=== PATIENT | female | born 1975 | race Caucasian/White ===

== ENCOUNTER 2020-07-27 09:06 | Outpatient (REF) | payer OTHER, SELFPAY ==
--- NOTE | 2020-07-27 09:17 | XR_ITS ---
EXAMINATION: XR FOOT, RIGHT CLINICAL INFORMATION: Foot pain. COMPARISON: None. TECHNIQUE: AP, lateral, and oblique views of the right foot. FINDINGS: No evidence of acute fracture or dislocation. Alignment is anatomic. No significant arthritic changes seen. Joint spaces are maintained. Tarsometatarsal alignment is within normal limits. Moderate plantar calcaneal spur. IMPRESSION: No evidence of significant osseous abnormality.
--- NOTE | 2020-07-27 09:18 | XR_ITS ---
EXAMINATION: X-RAY LEFT SHOULDER X-RAY LEFT ELBOW X-RAY LEFT WRIST CLINICAL INFORMATION: Pain. COMPARISON: None. TECHNIQUE: Shoulder 4 views. Elbow 3 views. Wrist 4 views. FINDINGS: Left Shoulder: No evidence of fracture or malalignment. Joint spaces are maintained. No abnormal soft tissue calcification. Left Elbow: Normal alignment. Joint spaces are maintained. No acute fracture or dislocation is seen. No significant effusion. No abnormal soft tissue calcification. Left Wrist: No acute fracture or dislocation is seen. Carpal row alignment is maintained. Scapholunate interval is maintained. No evidence of significant arthropathy. No abnormal soft tissue calcification. IMPRESSION: No evidence of acute osseous abnormality.
== END 2020-07-27 09:07 | disposition home or self-care (01) ==
LOC: HO.XRAY 09:06
PROVIDERS: PCP Internal Medicine; Visit Provider Internal Medicine
DX: M79.671 Pain in right foot (principal); M25.512 Pain in left shoulder; M25.532 Pain in left wrist; M25.522 Pain in left elbow
CPT/HCPCS: 73030; 73070; 73100; 73620

== ENCOUNTER 2020-09-03 10:12 | Outpatient (REF) | payer OTHER, SELFPAY | END 2020-09-03 10:13 | disposition home or self-care (01) | LOC: HO.LAB 10:12 | PROVIDERS: PCP Internal Medicine; Visit Provider Internal Medicine | DX: Z20.828 Contact with and (suspected) exposure to other viral communicable diseases (principal) | CPT/HCPCS: C9803; U0003 ==

== ENCOUNTER 2020-12-06 10:57 | Outpatient (REF) | payer OTHER, SELFPAY ==
--- NOTE | ~2020-12-06 | MM_ITS ---
EXAMINATION: MM DIAGNOSTIC DIGITAL BREAST TOMOSYNTHESIS, RIGHT CLINICAL INFORMATION: Short interval follow-up right breast for question of parenchymal asymmetry upper breast on MLO view. No known family history breast cancer. TC score 8%. COMPARISON: Mammography: 06/08/2020, 05/19/2020 (BI-RADS 0), 01/10/2019, 11/28/2017 TECHNIQUE: Digital breast tomosynthesis is performed in both the craniocaudal and mediolateral oblique views along with computer-aided detection (CAD). Synthesized 2D images are generated from the tomosynthesis. Additional right spot MLO view is obtained. FINDINGS: The breasts are heterogeneously dense, which may obscure small masses (ACR BI-RADS breast composition Category c). There is no interval mass or developing density in the area of interest. The additional spot view is unremarkable. Right breast will be reassessed again at time of annual bilateral mammography, due in 6 months. The remainder of the right breast is unremarkable. No abnormal calcifications no significant changes. Results are provided to the patient at time of visit by the technologist. MM/MM tomosynthesis diagnostic RT IMPRESSION: No mammographic evidence of malignancy. No developing density. ASSESSMENT: BI-RADS 3: Probably Benign RECOMMENDATION: Diagnostic mammography at time of bilateral annual mammography, due in 6 months. This patient's information was entered into a reminder system with a target due date for their next mammogram.
== END 2020-12-06 10:58 | disposition home or self-care (01) ==
LOC: HO.MAMMO 10:57
PROVIDERS: Visit Provider Internal Medicine
DX: N64.89 Other specified disorders of breast (principal)
CPT/HCPCS: 77061; 77065

== ENCOUNTER 2021-02-24 09:08 | Outpatient (REF) | payer OTHER, SELFPAY ==
[2021-02-24 10:23] LABS: Alanine Aminotransferase 18 U/L (0-31); Albumin Level 4.5 g/dL (3.5-5.0); Alkaline Phosphatase 81 U/L (39-117); Anion Gap 11 (12-20); Aspartate Amino Transferase 15 U/L (5-31); Bilirubin Total 0.3 mg/dL (0.0-1.0); Blood Urea Nitrogen 11 mg/dL (9-16); Calcium 9.2 mg/dL (8.4-10.2); Carbon Dioxide 29 mmol/L (22-29); Chloride 104 mmol/L (96-108); Cholesterol 217 mg/dL; Estimated Glomerular Filt Rate > 60; Glucose Fasting 109 mg/dL (60-99); HDL Cholesterol 44 mg/dL; LDL Cholesterol Calculated 135 mg/dl; Potassium 4.3 mmol/L (3.3-5.1); Sodium 140 mmol/L (135-145); Total Protein 7.3 g/dL (6.5-8.0); Triglycerides 193 mg/dL
== END 2021-02-24 09:09 | disposition home or self-care (01) ==
LOC: HO.LAB 09:08
PROVIDERS: PCP Internal Medicine; Visit Provider Internal Medicine
DX: R73.02 Impaired glucose tolerance (oral) (principal); E78.5 Hyperlipidemia, unspecified
CPT/HCPCS: 36415; 80053; 80061

== ENCOUNTER 2021-03-01 19:37 | Emergency (ER) | payer OTHER, SELFPAY ==
[2021-03-01 20:25] VITALS: BP 159/68; PULSE 83; RESP 18; TEMP 37.1; O2SAT 97; BMI 36.6
[2021-03-01 21:00] LABS: MANUAL DIFF FLAG NO
[2021-03-01 21:01] LABS: Basophils Percent Auto 0.5 % (0-2); Eosinophils Absolute Auto 0.2 X10*3/uL (0.0-0.4); Eosinophils Percent Auto 2.6 % (0-4); Hematocrit 35.7 % (37-47); Hemoglobin 11.8 g/dl (12.0-16.0); Imm Gran Abs Auto 0.02 X10*3/uL (0.00-0.03); Imm Gran Pct Auto 0.2 % (0.0-0.4); Lymphocytes Absolute Auto 3.1 X10*3/uL (1.2-4.9); Lymphocytes Percent Auto 35.3 % (20-40); Mean Corpuscular HGB Conc 33.1 g/dl (31.0-35.0); Mean Corpuscular Hemoglobin 29.6 pg (27.0-33.0); Mean Corpuscular Volume 89.7 fL (80-98); Mean Platelet Volume 8.7 fL (9.4-12.3); Monocytes Absolute Auto 0.6 X10*3/uL (0.1-1.2); Monocytes Percent Auto 6.8 % (2-11); Neutrophils Absolute Auto 4.7 X10*3/uL (2.0-8.3); Neutrophils Percent Auto 54.6 % (45-73); Platelet Count 301 X10*3/uL (160-400); Red Blood Count 3.98 X10*6/uL (4.20-5.50); Red Cell Distribution Width 13.4 % (11.0-16.0); White Blood Count 8.7 X10*3/uL (4.8-10.8)
[2021-03-01 21:23] LABS: Anion Gap 13 (12-20); Blood Urea Nitrogen 11 mg/dL (9-16); Calcium 9.4 mg/dL (8.4-10.2); Carbon Dioxide 28 mmol/L (22-29); Chloride 104 mmol/L (96-108); Creatinine Clr Calc Pharmacy 80.1; Estimated Glomerular Filt Rate > 60; Glucose Random 98 mg/dL (60-115); Potassium 3.6 mmol/L (3.3-5.1); Sodium 141 mmol/L (135-145)
--- NOTE | 2021-03-01 23:40 | ED_ITS ---
HPI - Headache General Chief Complaint: Headache Stated Complaint: migraine Source: patient Mode of arrival: ambulatory Limitations: no limitations History of Present Illness HPI Narrative: 45-year-old female with past medical history of migraines, GERD, and allergic rhinitis presents with 3 days of a migraine. Has been taking Fioricet and tramadol with poor effect. She states to have photosensitivity, sensitivity to sound, and a throbbing global headache that feels similar to prior migraines in the past. She does have some nausea, and feels dizzy, which are both common symptoms for her while having migraines. She does not report any fevers, chills, loss of balance, inability to move her extremities equally, pain or pressure, palpitations, shortness of breath, shortness breath on exertion, abdominal pain, abdominal distention, dysuria, hematuria, vomiting, diarrhea, constipation, melena, hematochezia, and edema. MD elicited complaint: migraine Pertinent past history: migraines Onset (ago): day(s) Onset description: gradually Location: diffuse Severity: severe Pain scale (0-10): 9 Quality & Timing: throbbing, steady, constant and similar to previous headaches Exacerbating factors: movement of head/neck, light and noise Relieving factors: nothing Associated symptoms: photophobia, sensitivity to sound and lightheadedness Treatments prior to arrival: acetaminophen, ibuprofen, prescription analgesic and migraine medication Related Data Home Medications Medication Instructions Recorded Confirmed buspirone 10 mg tablet 10 mg PO TID 11/02/20 03/01/21 lorazepam 0.5 mg tablet 0.5 mg PO TID PRN 11/02/20 03/01/21 zolpidem 10 mg tablet 10 mg PO BEDTIME PRN 11/02/20 03/01/21 sumatriptan succinate 50 mg tablet 50 mg PO Q2-4H PRN 03/01/21 03/01/21 Previous Rx's Medication Instructions Recorded loratadine 10 mg tablet 10 mg PO DAILY PRN 30 Days #30 tab 07/22/20 ondansetron HCl 8 mg tablet 8 mg PO Q12H PRN 30 Days #60 tab 07/22/20 fluticasone propionate 50 1 spray INTRANASAL DAILY 30 Days 02/17/21 mcg/actuation nasal #16 g spray,suspension omeprazole 40 mg capsule,delayed 40 mg PO DAILY 90 Days #90 cap 03/01/21 release tramadol 50 mg tablet 50 mg PO DAILY PRN 30 Days #30 tab 03/01/21 Allergies Allergy/AdvReac Type Severity Reaction Status Date / Time duloxetine [From CYMBALTA] AdvReac Mild migraines,v Verified 03/01/21 20:25 omitting engality Allergy Intermediate local Uncoded 03/01/21 09:29 swelling Review of Systems Review of Systems: Constitutional: Positive migraine, No Weight loss, No Fever, No Chills, No Night Sweats, No Fatigue, No Malaise ENT/Mouth: Positive sound sensitivity, No Hearing loss, No Ear Pain, No Nasal Congestion, No Sinus Pain, No Hoarseness, No sore throat, No Rhinorrhea, No Swallowing Difficulty Eyes: Positive photophobia, No Eye Pain, No Swelling, No Redness, No Foreign Body, No Discharge, No Vision Changes Cardiovascular: No Chest Pain, No SOB, No Dyspnea on Exertion, No Orthopnea, No Edema, No Palpitations Respiratory: No Cough, No Sputum, No Wheezing, No Smoke Exposure, No Dyspnea Gastrointestinal: Positive Nausea, No Vomiting, No Diarrhea, No Constipation, No abdominal Pain, No Hematochezia, No Melena Genitourinary: no irregular bleeding, No Dysuria, No Urinary Frequency, No Hemat uria, No Urinary Incontinence, No Urgency, No Flank Pain, No Urinary Flow Changes, No Hesitancy Musculoskeletal: No joint pain, No Myalgias, No Joint Swelling Skin: No Skin Lesions, No rash Neuro: No Weakness, No Numbness, No Paresthesias, No Loss of Consciousness, No Dizziness, No Headache Psych: No Anxiety/Panic, No Depression, No SI/HI/AH/VH, No Social Issues Heme/Lymph: No Bruising, No Bleeding,No Lymphadenopathy Endocrine: No Polyuria, No Polydipsia, No Temperature Intolerance Yes all other systems are reviewed and are negative [facility] Past Medical History Attestation statement: The following information was validated with the patient. Source: old records reviewed Medical History Allergic rhinitis GERD (gastroesophageal reflux disease) Impaired glucose tolerance Migraines Nausea Surgical History History of section History of extraction of renal calculus History of tubal ligation Family History Family History Father CHF (congestive heart failure) Mother Hypertension Family/Other Substance abuse Social History Social History Alcohol intake: never Smoking Status: Former smoker Tobacco Type: Cigarette Advance Directives: No Advance Directives Information Provided: No Patient : No Physical Exam Vital Signs: Vital Signs: Last Vital Signs Temp 98.4 F 03/01/21 23:57 Pulse 90 03/01/21 23:57 Resp 17 03/01/21 23:57 BP 184/95 H 03/01/21 23:57 Pulse Ox 99 03/01/21 23:57 Body Mass Index 36.6 Appearance: Alert. Oriented X3. No acute distress. Head: Normal external exam. Normocephalic. Atraumatic. No Horne signs noted. No raccoon eyes noted Eyes: PERRLA. EOMI. Conjunctiva and sclera normal. Eyelids normal. ENT: TM's Normal. Pharynx normal. Uvula midline. Moist mucous membranes. No trismus noted. No drooling noted. No muffled voice noted. Neck: Normal inspection. Neck supple. No adenopathy. No meningeal signs. No neck mass noted. CVS: Normal heart rate and rhythm. Heart sound normal. No murmurs noted. Pulses equal to all extremities. Respiratory: No respiratory distress. Painless inspiration. Breath sounds normal. No wheezes/rales/rhonchi noted. Chest nontender. No accessory muscle usage noted or decreased air movement noted. Abdomen: Soft and nontender. Obese abdomen. Bowel sounds normal in all 4 quadrants. No distention noted. No organomegaly noted. No visible injury noted. Back: No CVA tenderness. Full range of motion noted. Skin: Skin warm and dry. Normal skin color. Normal skin turgor. No rashes/lesions/lacerations noted. Extremities: No lower extremity edema. Extremities exhibit normal range of motion. Extremities nontender. Neuro: cranial nerves 2-12 intact, no focal neural deficits, strength 5/5 to all extremities, No motor deficit. No sensory deficit. Course Course Course Narrative: 45-year-old female with past medical history of migraines presents with an intractable migraine. Has had symptoms for over 72 hours, and has taken tramadol, sumatriptan, Tylenol, ibuprofen, Excedrin migraine with no effect. Plan of care is to treat with Reglan, Benadryl, a L of IV fluids, Toradol, and sumatriptan 6 mg subQ. Patient has a steady even gait, negative Kernig's, cranial nerves 2-12 intact, no focal neural deficits. Approximately 1 hour and 30 minutes after medication treatment, patient states that her pain is a 4/10 and is manageable. She would like to be discharged home. She does have medications that she will continue to take and has an appointment with Neurology in 3 months from now. She does understand that if migraines persist she can call and request a sooner appointment. Patient verbalized understanding of and agrees to plan of care discharge home. MDM - Headache Differential Diagnosis Differential diagnosis: Likely migraine Medical Records Attestation: I reviewed the patient's medical records. Lab Data Attestation: I reviewed the patient's lab results. Result diagrams: 03/01/21 20:54 03/01/21 20:54 Labs: Lab Results 03/01/21 03/01/21 Range/Units 20:54 20:54 WBC 8.7 (4.8-10.8) X10*3/uL RBC 3.98 L (4.20-5.50) X10*6/uL Hgb 11.8 L (12.0-16.0) g/dl Hct 35.7 L (37-47) % MCV 89.7 (80-98) fL MCH 29.6 (27.0-33.0) pg MCHC 33.1 (31.0-35.0) g/dl RDW 13.4 (11.0-16.0) % Plt Count 301 (160-400) X10*3/uL MPV 8.7 L (9.4-12.3) fL Immature Gran % (Auto) 0.2 (0.0-0.4) % Neut % (Auto) 54.6 (45-73) % Lymph % (Auto) 35.3 (20-40) % [place] % (Auto) 6.8 (2-11) % Eos % (Auto) 2.6 (0-4) % Baso % (Auto) 0.5 (0-2) % Lymph # (Auto) 3.1 (1.2-4.9) X10*3/uL [place] # (Auto) 0.6 (0.1-1.2) X10*3/uL Eos # (Auto) 0.2 (0.0-0.4) X10*3/uL Baso # (Auto) 0.0 (0.0-0.2) X10*3/uL Abs Immat Gran (auto) 0.02 (0.00-0.03) X10*3/uL Absolute Neuts (auto) 4.7 (2.0-8.3) X10*3/uL Absolute Nucleated RBC 0.000 (0.0-0.012) X10*3/uL Nucleated RBC % (auto) 0.0 (0.0-0.2) /100WBC Sodium 141 (135-145) mmol/L Potassium 3.6 (3.3-5.1) mmol/L Chloride 104 (96-108) mmol/L Carbon Dioxide 28 (22-29) mmol/L Anion Gap 13 (12-20) BUN 11 (9-16) mg/dL Creatinine 0.99 (0.5-1.4) mg/dL Estim Creat Clear Calc 80.1 Estimated GFR > 60 Random Glucose 98 (60-115) mg/dL Calcium 9.4 (8.4-10.2) mg/dL Discharge Plan Discharge Clinical Impression: Migraines Qualifiers: Migraine type: unspecified Status migrainosus presence: with status migrainosus Intractability: intractable Qualified Code(s): G43.911 - Migraine, unspecified, intractable, with status migrainosus Hypertension Qualifiers: Hypertension type: unspecified Qualified Code(s): I10 - Essential (primary) hypertension Patient Disposition: Home, Self-Care Instructions: Migraine Headache (ED), Hypertension (ED) Additional Instructions: You were evaluated for migraine. Please continue to follow-up with neurology as scheduled. It was noted that your blood pressure is considerably elevated. Blood pressure was 159/68 on arrival, and 184/95 during her stay. Please follow-up with primary care physician for blood pressure management. Better managed blood pressure may help alleviate your headaches. Thank you for choosing this emergency department for evaluation. Please follow-up with primary care physician as needed. Return to the emergency department for any new, concerning, or worsening symptoms. Prescriptions: No Action ondansetron HCl 8 mg tablet 8 mg PO Q12H PRN (Reason: nausea and vomiting) 30 Days Qty: 60 RF: 3 loratadine 10 mg tablet 10 mg PO DAILY PRN (Reason: allergy symptoms) 30 Days Qty: 30 RF: 11 fluticasone propionate [Flonase Allergy Relief] 50 mcg/actuation spray,suspension 1 spray intranasal DAILY 30 Days Qty: 16 RF: 6 buspirone 10 mg tablet 10 mg PO TID RF: 0 lorazepam [Ativan] 0.5 mg tablet 0.5 mg PO TID PRNRF: 0 zolpidem 10 mg tablet 10 mg PO BEDTIME PRNRF: 0 sumatriptan succinate 50 mg tablet 50 mg PO Q2-4H PRNRF: 0 tramadol 50 mg tablet 50 mg PO DAILY PRN (Reason: pain) 30 Days Qty: 30 RF: 0 omeprazole 40 mg capsule,delayed release(DR/EC) 40 mg PO DAILY 90 Days Qty: 90 RF: 0
[2021-03-01 23:57] VITALS: BP 184/95; PULSE 90; RESP 17; TEMP 36.9; O2SAT 99
[2021-03-02] MEDS: 0.9 % Sodium Chloride 1,000 ML 999 ML IVCONT (00:09)
[2021-03-02] MEDS: Metoclopramide HCl 10 MG/2 ML VIAL IVPUSH (00:13)
[2021-03-02] MEDS: diphenhydrAMINE HCL 50 MG/ML VIAL 25 MG IVPUSH (00:14)
[2021-03-02] MEDS: Ketorolac Tromethamine 30 MG/ML VIAL IVPUSH (00:14)
== END 2021-03-02 01:45 | disposition home or self-care (01) ==
PROVIDERS: Emergency Provider Emergency Medicine; PCP Internal Medicine
DX: G43.911 Migraine, unspecified, intractable, with status migrainosus (principal); I10 Essential (primary) hypertension
CPT/HCPCS: 36415; 80048; 85025; 96361; 96372; 96374; 96375; 99284; J1200; J1885; J2765; J3030

== ENCOUNTER 2021-06-13 12:52 | Outpatient (REF) | payer OTHER, SELFPAY ==
--- NOTE | ~2021-06-13 | MM_ITS ---
EXAMINATION: MM DIAGNOSTIC DIGITAL BREAST TOMOSYNTHESIS, BILATERAL CLINICAL INFORMATION: Due for yearly. Also follow-up probable benign parenchymal asymmetry upper right breast on MLO view. No known family history breast cancer. The lifetime risk of breast cancer based on the Tyrer-Cuzick Model is 8%. COMPARISON: Mammography: 12/06/2020, 06/08/2020, 05/19/2020 (BI-RADS 0), 01/10/2019, 11/28/2017, 11/07/2016, 10/27/2015, 10/07/2014; targeted left breast ultrasound targeted right breast ultrasound 06/08/2020. TECHNIQUE: Digital breast tomosynthesis is performed in both the craniocaudal and mediolateral oblique views along with computer-aided detection (CAD). Synthesized 2D images are generated from the tomosynthesis. FINDINGS: The breasts are heterogeneously dense, which may obscure small masses (ACR BI-RADS breast composition Category c). There are no significant masses, abnormal calcifications, or other abnormalities. Parenchymal pattern is similar to prior studies. No developing density. No interval architectural changes. The axilla and skin contours are unremarkable. Results are provided to the patient at time of visit by the technologist. MM/MM tomosynthesis diagnostic BI IMPRESSION: No mammographic evidence of malignancy. No developing density or interval architectural changes. ASSESSMENT: BI-RADS 3: Probably Benign RECOMMENDATION: Diagnostic mammography at time of next annual exam, due in 12 months. This patient's information was entered into a reminder system with a target due date for their next mammogram.
== END 2021-06-13 12:53 | disposition home or self-care (01) ==
LOC: HO.MAMMO 12:52
PROVIDERS: PCP Internal Medicine; Visit Provider Internal Medicine
DX: N64.89 Other specified disorders of breast (principal)
CPT/HCPCS: 77062; 77063; 77066; 77067

== ENCOUNTER → 2021-08-09 09:02 | Outpatient (BNVA) | payer OTHER, SELFPAY | PROVIDERS: PCP Internal Medicine | DX: N20.0 Calculus of kidney (principal); N32.81 Overactive bladder; E66.9 Obesity, unspecified; Z68.35 Body mass index [BMI] 35.0-35.9, adult; Z87.891 Personal history of nicotine dependence; Z88.6 Allergy status to analgesic agent; Z88.8 Allergy status to other drugs, medicaments and biological substances | CPT/HCPCS: 99212 ==

== ENCOUNTER 2021-09-19 09:49 | Outpatient (REF) | payer OTHER, SELFPAY ==
--- NOTE | ~2021-09-19 | US_ITS ---
EXAMINATION: US RETROPERITONEAL LIMITED (RENAL ONLY) CLINICAL INFORMATION: Calculus of kidney. COMPARISON: Renal ultrasound 08/21/2019 and 07/29/2018. X-ray abdomen KUB 07/29/2018 and 07/16/2017. CT abdomen and pelvis 08/29/2015. TECHNIQUE: Real-time imaging of the kidneys. FINDINGS: RIGHT KIDNEY: 11.4 x 5.0 x 5.5 cm (SAG x AP x TRV). The kidney is normal in size, contour, and echogenicity. Renal cortical thickness is normal. No renal calculi or hydronephrosis. There is an anechoic cyst in the upper pole measuring 1.5 x 0.9 x 1.5 cm with posterior calcification. LEFT KIDNEY: 11.9 x 5.8 x 5.4 cm (SAG x AP x TRV). The kidney is normal in size, contour, and echogenicity. Renal cortical thickness is normal. No hydronephrosis. There is anechoic simple cyst midpole measuring 1.7 x 1.2 x 1.5 cm. There is echogenic stone in the midpole measuring 0.3 x 0.2 cm and lower pole measuring 0.2 x 0.1 cm. There are several echogenic foci with twinkle in the midpole. Question calcified vessels versus tiny stone. US/US renal BI IMPRESSION: Complex cyst, Bosniak type II cyst, upper pole of the right kidney. Simple cyst midpole of the left kidney. Non obstructive 2 echogenic calculi left kidney. No caliectasis or hydronephrosis. There are several echogenic foci likely vascular calcifications in left kidney. 2 small calculi were seen in the left kidney on previous ultrasound 08/21/2019
== END 2021-09-19 09:50 | disposition home or self-care (01) ==
LOC: HO.US 09:49
DX: N20.0 Calculus of kidney (principal)
CPT/HCPCS: 76775

== ENCOUNTER → 2021-10-05 08:39 | Outpatient (BNVA) | payer OTHER, SELFPAY | PROVIDERS: PCP Internal Medicine ==

== ENCOUNTER 2022-05-05 07:14 | Outpatient (REF) | payer OTHER, SELFPAY ==
--- NOTE | ~2022-05-05 | US_ITS ---
EXAMINATION: US RETROPERITONEAL LIMITED (RENAL ONLY) CLINICAL INFORMATION: Calculus of kidney. COMPARISON: Renal ultrasound 09/19/2021 and 08/21/2019. X-ray KUB 07/29/2018 and 07/16/2017. CT abdomen and pelvis 08/29/2015. TECHNIQUE: Real-time imaging of the kidneys. FINDINGS: RIGHT KIDNEY: 11.1 x 4.4 x 5.7 cm (SAG x AP x TRV). The kidney is normal in size, contour, and echogenicity. Renal cortical thickness is normal. No renal calculi or hydronephrosis. At the upper pole, a 1.2 x 0.7 x 1.1 cm mildly complex cyst is seen, with wall calcifications. On the most recent ultrasound examination dated 09/19/2021, this measured 1.5 x 0.9 x 1.5 cm. LEFT KIDNEY: 11.6 x 5.3 x 5.5 cm (SAG x AP x TRV). The kidney is normal in size, contour, and echogenicity. Renal cortical thickness is normal. No hydronephrosis. At the lower pole, a 4 mm nonobstructing calculus is seen. At the interpolar aspect, a 1.7 cm simple appearing cyst is seen, with increased through sound transmission. US/US renal BI IMPRESSION: 1. A stable to diminished mildly complex right renal cyst is seen, as detailed. If relative to the clinical management, this could be more fully evaluated with CT or MRI (renal mass protocol). 2. A simple left renal cyst is of incidental note. 3. A 4 mm left renal calculus is seen. No right renal calculus is seen. No hydronephrosis is noted bilaterally.
--- NOTE | 2022-05-05 07:44 | ECG_ITS ---
Test Reason : r00.2 Blood Pressure : / mmHG Vent. Rate : 072 BPM Atrial Rate : 072 BPM P-R Int : 168 ms QRS Dur : 084 ms QT Int : 424 ms P-R-T Axes : 047 027 035 degrees QTc Int : 464 ms Normal sinus rhythm Nonspecific T wave abnormality Prolonged QT Abnormal ECG When compared with ECG of 21-SEP-2018 11:20, No significant change was found Referred By: Micki Mendiola Electronically Signed By:Fernie Stinson
== END 2022-05-05 07:15 | disposition home or self-care (01) ==
LOC: HO.US 07:14
DX: N20.0 Calculus of kidney (principal); R00.2 Palpitations
CPT/HCPCS: 76775; 93005

== ENCOUNTER → 2022-06-20 08:48 | Outpatient (BNVA) | payer OTHER, SELFPAY | PROVIDERS: PCP Internal Medicine; Referring Provider Internal Medicine; Visit Provider Nurse Practitioner | DX: Z01.818 Encounter for other preprocedural examination (principal) | CPT/HCPCS: 99202; 99212 ==

== ENCOUNTER 2022-07-03 12:56 | Outpatient (REF) | payer OTHER, SELFPAY ==
--- NOTE | ~2022-07-03 | MM_ITS ---
EXAMINATION: MM DIAGNOSTIC DIGITAL BREAST TOMOSYNTHESIS, BILATERAL CLINICAL INFORMATION: Due for yearly. Also follow-up asymmetric density upper right breast initially described in 2020. The lifetime risk of breast cancer based on the Tyrer-Cuzick Model is 8%. COMPARISON: Mammography: 06/13/2021, 12/06/2019, 06/08/2020, 05/19/2020 (BI-RADS 0) 01/10/2019; targeted right breast ultrasound 06/08/2020. TECHNIQUE: Digital breast tomosynthesis is performed in both the craniocaudal and mediolateral oblique views along with computer-aided detection (CAD). Synthesized 2D images are generated from the tomosynthesis. FINDINGS: The breasts are heterogeneously dense, which may obscure small masses (ACR BI-RADS breast composition Category c). There are no significant masses, abnormal calcifications, or other abnormalities. There is no significant asymmetric density, developing density, architectural abnormality. Parenchymal pattern is similar to multiple prior exams. No abnormal calcifications. The axilla and skin contours are unremarkable. MM/MM tomosynthesis diagnostic BI IMPRESSION: No mammographic evidence of malignancy. ASSESSMENT: BI-RADS 2: Benign RECOMMENDATION: Routine annual mammography screening. This patient's information was entered into a reminder system with a target due date for their next mammogram.
== END 2022-07-03 12:57 | disposition home or self-care (01) ==
LOC: HO.MAMMO 12:56
PROVIDERS: PCP Internal Medicine; Visit Provider Internal Medicine
DX: N64.89 Other specified disorders of breast (principal)
CPT/HCPCS: 77062; 77066

== ENCOUNTER → 2022-07-05 09:14 | Outpatient (BNVA) | payer OTHER, SELFPAY | PROVIDERS: PCP Internal Medicine; Referring Provider Internal Medicine; Visit Provider Internal Medicine Cardiovascular Disease | DX: R07.89 Other chest pain (principal); R00.2 Palpitations | CPT/HCPCS: 93005; 99202 ==

== ENCOUNTER → 2022-07-27 08:32 | Outpatient (REF) | payer OTHER, SELFPAY | LOC: HO.SL 08:32 | PROVIDERS: Visit Provider Internal Medicine Cardiovascular Disease | DX: Z13.89 Encounter for screening for other disorder (principal) ==

== ENCOUNTER → 2022-08-10 08:30 | Outpatient (REF) | payer OTHER, SELFPAY ==
--- NOTE | ~2022-08-10 | NM_ITS ---
Exercise Myocardial perfusion study Indication: Chest pain to evaluate for myocardial ischemia Technique: The patient was brought in for an exercise perfusion study on 08/10/2022. Patient performed exercise as per Dustin protocol and was injected 35 mCi of sestamibi was given intravenously one target HR was achieved. Images were obtained using the SPECT gamma camera interlaced with the gating device. Images were obtained in supine position. Resting perfusion study was performed on 08/11/2022. Patient was administered 35 mCi of sestamibi intravenously at rest. Images were then obtained in supine position. Images obtained with and without CT attenuation. Total DLP 124 mGy-cm. Images were processed with the software and compared side to side in short axis, horizontal long axis and vertical long axis views. Findings: The stress perfusion study showed non attenuated as well as attenuated corrected images show normal uptake of radiotracer in all segments of LV myocardium. There is suggestion of left ventricle hypertrophy. The gated study shows normal LV systolic function with calculated LVEF of 72%. LV cavity is normal in size. The gated study shows normal systolic wall thickening and contraction of all segments. There is no transient ischemic dilation. Resting study shows no change in perfusion pattern compared to stress perfusion study. Gating at rest reveals normal systolic wall motion with ejection fraction at 64%. The findings are consistent with normal myocardial perfusion. NM/NM suzie perf SPECT rest & str Impression: 1. Normal myocardial perfusion 2. Gated LVEF is 64% 3. Transient ischemic dilatation not present Stress EKG is suggestive of ischemia
--- NOTE | 2022-08-10 08:34 | CA_ITS ---
Transthoracic Echocardiogram Patient (Last, First, Middle): Lucinda Srivastava, Gender: Female Date of : 1975 Age: 47 Procedure Date: 08/10/2022 Procedure Type: Transthoracic Echocardiogram Location: OP Height: 162.56 cm Weight: 98.88 kg BSA: 2.03 m2 Heart Rate: 74 bpm BP: 135 / 80 mmHg [employer] Equipment Repairer: JJ Ramirez MD: Gianni Villareal MD Dining Room Manager: Gianni Villareal MD Symptoms: R94.31 - Abnormal electrocardiogram [ECG] [EKG] Study Quality: Adequate ECG Rhythm: Sinus Conclusions: - 1. Normal LV systolic function 2. Normal cardiac valvular Doppler 3. Normal RV systolic pressure 4. No gross pericardial effusion Findings Left Ventricle Normal left ventricular size, thickness, and systolic function. The visually estimated ejection fraction is between 65-70%. Regional wall motion abnormalities can not be excluded due to suboptimal endocardial definition. Spectral Doppler is indicative of a normal filling pattern. Right Ventricle Normal right ventricular cavity size and systolic function. Atria Both atria are normal in size. Interatrial shunt cannot be excluded. Aortic Valve Normal aortic valve structure and function. There is no aortic valve stenosis. There is no aortic valve regurgitation. Mitral Valve Likely normal mitral valve structure and function. There is trace mitral valve regurgitation. There is no mitral valve stenosis. Pulmonic Valve The pulmonic valve was not well visualized. Tricuspid Valve Likely normal tricuspid valve structure and function. There is trace tricuspid valve regurgitation. The right ventricular systolic pressure is normal. The right ventricular systolic pressure is 19 mmHg. Normal right atrial pressure. There is no evidence of pulmonary hypertension. Great Vessels All visible segments of the aorta are normal in size. The pulmonary artery was not well visualized. Venous The inferior vena cava is normal in size and collapses greater than 50% with inspiration. Pericardium/Pleural There is no evidence of pericardial effusion. Prior Study Comparison No prior study available for comparison. Measurements 2D Linear Measurements IVSd: 1.36 0.6-0.9/0.6-1.0 cm LVIDd: 4.40 3.9-5.3/4.2-5.9 cm LVIDd Index: 2.17 2.4-3.2/2.2-3.1 cm/m2 LVIDs: 2.88 2.0-3.6 cm LVPWd: 1.12 0.7-1.1 cm LA Diam: 4.00 2.7-3.8/3.0-4.0 cm LAIDs Index: 1.97 1.5-2.3 cm/m2 LV Mass: 250.10 67-162/88-224 g LV Mass Index: 123.20 43-95/49-115 g/m2 LVOT Diam: 1.90 3.0+(-)1.3 cm 2D Systolic Function EF 4C: 60.40 >55% EF 2C: 74.00 >55% EF BiP: 67.80 >55% Mitral Valve MV Pk E: 0.86 MV PK A: 1.13 MV Decel Time: 223.00 E/A: 0.80 E'Lateral: 8.05 E'Medial: 6.74 E/E' Med: 12.70 E/E' Lat: 10.70 PHT: 65.00 MVA PHT: 3.38 Decel [place]: 3.85 Aortic Valve AoV Pk Steffen: 1.41 AoV Mn Steffen: 1.02 AoV VTI: 0.31 AoV Pk Grad: 8.00 Aov Mn Grad: 5.00 ARCHIE Cont.VTI: 2.18 LVOT LVOT Pk Steffen: 1.09 LVOT Mn Steffen: 0.76 LVOT VTI: 0.24 LVOT Pk Grad: 5.00 LVOT Mn Grad: 3.00 LVOT Diam: 1.90 LVOT Area: 2.84 Diastolic Function MV Pk E: 0.86 MV Pk A: 1.13 E/A: 0.80 E'Medial: 6.74 E/E' Med: 12.70 E' Laterial: 8.05 E/E' Lat: 10.70 Right Ventricle TAPSE (mm): 24.90 TVS' Steffen: 10.00 Tricuspid Valve TR Pk Steffen: 1.99 TR Pk Grad: 16.00 RA Press: 3.00 RVSP: 19.00 Great Vessels Aorta Sinus of Valsalva: 2.90 2.0-3.5 cm Ao Asc: 2.80 2.1-3.4 cm Pulmonary Valve PV Pk Steffen: 1.03 Peak PV Grad: 4.00 Updated in Other Vendor System with Status of Final Gianni Villareal MD electronically signed on 08/11/2022 11:21:58 AM with status of Final
--- NOTE | 2022-08-10 08:34 | HM_ITS ---
Conclusion: 1. Patient was monitored for total period of 3 days 2. Baseline was normal sinus rhythm with average heart of 87 beats per minute 3. No significant pauses or bradycardia noted 4. No significant arrhythmias noted 5. Patient reported to events, chest pain and rapid heart rate correlated with sinus rhythm MTDD
--- NOTE | 2022-08-10 08:34 | CA_ITS ---
Acquisition Time: 2022-08-10 09:22:42 Total Exercise Time: 00:06:01 Test Indications: ABN EKG Medications: SEE CHART Protocol: BRUNO Max HR: 153 BPM 88% of Pred: 172 BPM Max BP: 140/080 mmHG Max Work Load: 7.0 METS Exercise stress test with exercise 6 min 1 sec of Bruon protocol, achieving 88% MPHR, with moderate sob and fatigue with need to stop, with no chest discomfort, without arrythmia, with normotensive response to exercise, with EKG changes meeting criteria for ischemia: Hortizontal ST depressions inferiorly and borderline ST depression with T wave inversions V4-V6, with slow gradual improvement in recovery. Breathing improved quickly with rest. Nuclear images pending. Test reviewed with Dr Villareal. Referred By: Gianni Villareal Overread By: JESSICA SALAZAR
== END ==
LOC: HO.SL 08:30
PROVIDERS: PCP Internal Medicine; Visit Provider Internal Medicine Cardiovascular Disease
DX: R07.89 Other chest pain (principal); R00.2 Palpitations; R94.31 Abnormal electrocardiogram [ECG] [EKG]; I10 Essential (primary) hypertension
CPT/HCPCS: 78452; 93017; 93242; 93306; A9500

== ENCOUNTER 2022-08-14 15:22 | Outpatient (REF) | payer OTHER, SELFPAY ==
[2022-08-15 04:53] LABS: CT PCR NOT DETECTED (Not Detect.)
[2022-08-15 04:54] LABS: NG PCR NOT DETECTED (Not Detect.)
[2022-08-15 12:37] LABS: BV Int Neg Control Negative (Negative); BV Int Pos Control Positive (Positive)
[2022-08-17 12:52] LABS: HPV mRNA E6/E7 rflx Not Detected (Not Detected)
== END 2022-08-14 15:23 | disposition home or self-care (01) ==
LOC: HO.LNP 15:22
PROVIDERS: Visit Provider Advanced Practice Midwife
DX: Z01.419 Encounter for gynecological examination (general) (routine) without abnormal findings (principal)
CPT/HCPCS: 87480; 87491; 87510; 87591; 87624; 87660; 88142

== ENCOUNTER 2022-08-18 10:21 | Outpatient (REF) | payer OTHER, SELFPAY ==
[2022-08-18 10:31] LABS: MANUAL DIFF FLAG NO
[2022-08-18 11:00] LABS: Basophils Percent Auto 0.5 % (0-2); Eosinophils Absolute Auto 0.2 X10*3/uL (0.0-0.4); Eosinophils Percent Auto 2.6 % (0-4); Hematocrit 35.5 % (37.0-47.0); Hemoglobin 11.5 g/dl (12.0-16.0); Imm Gran Abs Auto 0.02 X10*3/uL (0.00-0.03); Imm Gran Pct Auto 0.3 % (0.0-0.4); Lymphocytes Percent Auto 32.1 % (20-40); Mean Corpuscular HGB Conc 32.4 g/dl (31.0-35.0); Mean Corpuscular Hemoglobin 28.9 pg (27.0-33.0); Mean Corpuscular Volume 89.2 fL (80.0-98.0); Mean Platelet Volume 8.8 fL (9.4-12.3); Monocytes Absolute Auto 0.4 X10*3/uL (0.1-1.2); Monocytes Percent Auto 5.8 % (2-11); Neutrophils Absolute Auto 3.7 x10*3/uL (2.0-8.3); Neutrophils Percent Auto 58.7 % (45-73); Platelet Count 303 X10*3/uL (160-400); Red Blood Count 3.98 X10*6/uL (4.20-5.50); Red Cell Distribution Width 13.2 % (11.0-16.0); White Blood Count 6.2 X10*3/uL (4.8-10.8)
[2022-08-18 11:31] LABS: Alanine Aminotransferase 22 U/L (0-31); Albumin Level 4.5 g/dL (3.5-5.0); Alkaline Phosphatase 95 U/L (39-117); Anion Gap 16 (12-20); Aspartate Amino Transferase 16 U/L (5-31); Bilirubin Total 0.3 mg/dL (0.0-1.0); Blood Urea Nitrogen 11 mg/dL (9-16); Calcium 9.1 mg/dL (8.4-10.2); Carbon Dioxide 24 mmol/L (22-29); Chloride 106 mmol/L (96-108); Estimated Glomerular Filt Rate > 60; Glucose Random 115 mg/dL (60-115); Potassium 3.8 mmol/L (3.3-5.1); Sodium 142 mmol/L (135-145); Total Protein 7.6 g/dL (6.5-8.0)
[2022-08-18 11:46] LABS: TSH reflex Free T4 1.34 uIU/mL (0.32-4.0)
[2022-08-18 11:52] LABS: HBsAGNum1 0.22 S/CO (0.00-0.99); HIV AB/AG Nonreactive (Nonreactive); HIV Num 1 0.06 S/CO (0.00-0.99); Hepatitis B Surface Antigen Negative (Negative); ~HepC Num1 0.13 S/CO (0.00-0.79); ~Hepatitis C Antibody Nonreactive (Nonreactive)
[2022-08-18 11:53] LABS: Syphilis Screen Nonreactive (Nonreactive)
[2022-08-18 12:07] LABS: Folate 14.5 ng/mL (> or = 4.0); Vitamin B12 234 pg/mL (200-900)
== END 2022-08-18 10:22 | disposition home or self-care (01) ==
LOC: HO.LAB 10:21
PROVIDERS: Advanced Practice Midwife; Nurse Practitioner; Absent Provider Internal Medicine; PCP Internal Medicine; Visit Provider Nurse Practitioner Family
DX: Z01.818 Encounter for other preprocedural examination (principal); Z11.3 Encounter for screening for infections with a predominantly sexual mode of transmission; Z11.4 Encounter for screening for human immunodeficiency virus [HIV]; Z13.29 Encounter for screening for other suspected endocrine disorder; F41.1 Generalized anxiety disorder
CPT/HCPCS: 36415; 80053; 82306; 82607; 82746; 84443; 85025; 86780; 86803; 87340; 87389

== ENCOUNTER → 2022-08-24 14:03 | Outpatient (REF) | payer OTHER, SELFPAY | LOC: HO.SL 14:03 | PROVIDERS: PCP Internal Medicine; Visit Provider Internal Medicine Cardiovascular Disease | DX: G47.33 Obstructive sleep apnea (adult) (pediatric) (principal); R00.2 Palpitations | CPT/HCPCS: 95806 ==

== ENCOUNTER → 2022-09-25 15:06 | Outpatient (BNVA) | payer OTHER, SELFPAY | PROVIDERS: PCP Internal Medicine; Visit Provider Nurse Practitioner Family | DX: G47.33 Obstructive sleep apnea (adult) (pediatric) (principal); G47.34 Idiopathic sleep related nonobstructive alveolar hypoventilation | CPT/HCPCS: 99202 ==

== ENCOUNTER 2022-09-26 12:03 | Outpatient (REF) | payer OTHER, SELFPAY ==
[2022-09-26 12:43] LABS: ABG Refer to POC result
[2022-09-26 12:46] LABS: ABG Base Excess 2.6 mmol/L; ABG pCO2 42 mmHg (32-45); ABG pH 7.41 (7.35-7.45); ABG pO2 88 mmHg (83-108)
[2022-09-26 12:47] LABS: ABG HCO3 27 mmol/L (22-26)
== END 2022-09-26 12:04 | disposition home or self-care (01) ==
LOC: HO.LAB 12:03
PROVIDERS: PCP Internal Medicine; Visit Provider Nurse Practitioner Family
DX: G47.33 Obstructive sleep apnea (adult) (pediatric) (principal); G47.34 Idiopathic sleep related nonobstructive alveolar hypoventilation
CPT/HCPCS: 82803

== ENCOUNTER 2022-11-22 13:12 | Emergency (ER) | payer OTHER, SELFPAY ==
[2022-11-22 13:17] VITALS: BP 148/87; PULSE 100; RESP 19; TEMP 37.2; O2SAT 99; BMI 37.4
--- NOTE | 2022-11-22 13:17 | ED_ITS ---
HPI - Abdominal Pain General Chief Complaint: Nausea/Vomiting/Diarrhea <Kallie Guadarrama NP - Last Filed: 11/22/22 13:18> Stated Complaint: n/v/d, abd pain, body ache <Kallie Guadarrama NP - Last Filed: 11/22/22 13:18> Time Seen by Provider: 11/22/22 17:19 <Kallie Guadarrama NP - Last Filed: 11/22/22 13:18> Source: patient <Loan Kay NP - Last Filed: 11/23/22 00:54> Mode of arrival: ambulatory <VINITA Lewis Last Filed: 11/23/22 00:54> Limitations: no limitations and language barrier <Loan Kay NP - Last Filed: 11/23/22 00:54> History of Present Illness HPI narrative: 47-year-old female presents with 1 day of nausea, vomiting, diarrhea, and abdominal cramping. She has been taking her Zofran as well as roxm-sma-kzehvbz antidiarrheals with poor effect. She does not describe any fevers or chills, denies prior history of abdominal surgery. <Loan Kay NP - Last Filed: 11/23/22 00:54> MD elicited complaint: abdominal pain <VINITA Lewis Last Filed: 11/23/22 00:54> Pertinent past history: kidney stones <Loan Kay NP - Last Filed: 11/23/22 00:54> Onset (ago): day(s) (1) <Loan Kay NP - Last Filed: 11/23/22 00:54> Pain Consistency: intermittent <Loan Kay NP - Last Filed: 11/23/22 00:54> Location: diffuse <Loan Kay NP - Last Filed: 11/23/22 00:54> Severity: moderate <Loan Kay NP - Last Filed: 11/23/22 00:54> Quality: cramping <Loan Kay NP - Last Filed: 11/23/22 00:54> Radiation: none <Loan Kay NP - Last Filed: 11/23/22 00:54> Migration to: no migration <Loan Kay NP - Last Filed: 11/23/22 00:54> Exacerbating factors: eating and vomiting <Loan Kay NP - Last Filed: 11/23/22 00:54> Relieving factors: nothing <Loan Kay NP - Last Filed: 11/23/22 00:54> Associated symptoms: nausea, vomiting and diarrhea <Loan Kay NP - Last Filed: 11/23/22 00:54> Related Data Home Medications: Home Medications Medication Instructions Recorded Confirmed lorazepam 0.5 mg tablet (Ativan) 0.5 mg PO TID PRN Anxiety 11/02/20 10/23/22 rizatriptan 10 mg tablet 10 mg PO DAILY 04/19/21 10/23/22 loklhijniv-trphtaonnrvzr-kgmbocdl 1 - 2 tab PO DAILY PRN headache 08/09/21 10/23/22 50 mg-325 mg-40 mg tablet gabapentin 100 mg capsule 100 mg PO TID 04/07/22 10/23/22 fluoride (sodium) 1.1 % dental 1 appl PO NEEDED 08/14/22 08/25/22 cream (SF 5000 Plus) quetiapine 25 mg tablet (Seroquel) 50 mg PO BEDTIME 08/22/22 10/23/22 Previous Rx's Medication Instructions Recorded tramadol 50 mg tablet 50 mg PO DAILY 30 days #30 tabs 08/22/21 omeprazole 40 mg capsule,delayed 40 mg PO DAILY 90 days #90 caps 02/13/22 release ondansetron 8 mg disintegrating 8 mg PO Q12H PRN nausea and 05/31/22 tablet vomiting 30 days #60 tabs fluticasone propionate 50 1 spray intranasal DAILY 30 days 08/15/22 mcg/actuation nasal #16 grams spray,suspension (Flonase Allergy Relief) loratadine 10 mg tablet 10 mg PO DAILY PRN allergy 08/15/22 symptoms 30 days #30 tabs cholecalciferol (vitamin D3) 50 50 mcg PO DAILY 90 days #90 caps 08/22/22 mcg (2,000 unit) capsule folic acid 1 mg tablet 1 mg PO DAILY 90 days #90 tabs 08/22/22 mecobalamin (vitamin B12) 1,000 1,000 mcg sublingual BEDTIME 90 08/22/22 mcg disintegrating days #90 tabs tablet,sublingual amlodipine 5 mg tablet 5 mg PO DAILY #90 tabs 10/24/22 bisacodyl 5 mg tablet 10 mg PO ONCE 0 days #2 tabs 10/25/22 peg 3350-electrolytes 236 240 ml PO Q10M 1 day #4,000 mL 11/06/22 gram-22.74 gram-6.74 gram-5.86 gram solution (Golytely) cyanocobalamin (vitamin B-12) 1,000 mcg sublingual BEDTIME 90 11/12/22 1,000 mcg sublingual tablet days #90 tabs metoclopramide HCl 10 mg tablet 10 mg PO Q6H PRN nausea and 11/22/22 (Reglan) vomiting #10 tabs <Kallie Guadarrama NP - Last Filed: 11/22/22 13:18> Allergies/Adverse Reactions: Allergies Allergy/AdvReac Type Severity Reaction Status Date / Time galcanezumab-gnlm Allergy Intermediate localized Verified 10/23/22 15:28 [From Emgality Pen] swelling duloxetine [From CYMBALTA] AdvReac Mild migraines,v Verified 09/25/22 15:16 omitting <Kallie Guadarrama NP - Last Filed: 11/22/22 13:18> Review of Systems Review of Systems Constitutional: No Fever, No Chills Cardiovascular: No Chest Pain, No SOB Respiratory: No Cough, No Dyspnea Gastrointestinal: Positive Nausea, positive Vomiting, positive Diarrhea, positive abdominal cramping Pain Genitourinary: No Dysuria, No Hematuria Musculoskeletal: No joint pain, No Myalgias, No Joint Swelling Skin: No Skin lacerations, No rash Neuro: No Weakness, No Numbness, No Dizziness, No Headache <Loan Kay NP - Last Filed: 11/23/22 00:54> Yes all other systems are reviewed and are negative <Loan Kay NP - Last Filed: 11/23/22 00:54> [facility] Past Medical History Attestation statement: The following information was validated with the patient. <VINITA Lewis Last Filed: 11/23/22 00:54> Source: old records reviewed <Loan Kay NP - Last Filed: 11/23/22 00:54> Medical History: Medical History Allergic rhinitis CHAGO (generalized anxiety disorder) GERD (gastroesophageal reflux disease) HTN (hypertension) Impaired glucose tolerance Migraines Nausea Obesity (BMI 35.0-39.9 without comorbidity) Overactive bladder Postoperative nausea Renal calculi Sleep apnea <Kallie Guadarrama NP - Last Filed: 11/22/22 13:18> Surgical History: Surgical History History of section History of extraction of renal calculus History of tubal ligation <Kallie Guadarrama NP - Last Filed: 11/22/22 13:18> Family History Family History: Family History Father CHF (congestive heart failure) Mother Hypertension Family/Other Substance abuse Paternal Aunt Cancer Other Mental health disorder <Kallie Guadarrama NP - Last Filed: 11/22/22 13:18> Social History Social History: Social History Household Members: Spouse and Children Housing: House Are you a primary foster care case manager to a significant other at home: No Do you presently have visiting nurse or other home services: No Alcohol intake: unknown Patient Tobacco Use Status: Former Tobacco user Quit Date: 2015 Smoked in Last 30 Days: No e-Cigarette/Vaping Use: Never Used Second Hand Smoke Exposure: No Use of substances other than those prescribed or required for medical reasons: Unknown Advance Directives: No Advance Directives Information Provided: No Patient : No service: No Current occupational status: disabled Cognitive needs: No Hearing needs: No Vision needs: Yes <Kallie Guadarrama NP - Last Filed: 11/22/22 13:18> Physical Exam ED Vital Signs: Vital Signs - 24 hr 11/22/22 13:17 11/22/22 16:00 11/22/22 18:00 Temperature 99 F 98.9 F Pulse Rate 100 100 100 Respiratory Rate 19 18 18 Blood Pressure 148/87 H 137/84 137/83 Pulse Oximetry 99 100 Oxygen Delivery Method Room Air Room Air BMI result Body Mass Index 37.4 <Kallie Gaudarrama NP - Last Filed: 11/22/22 13:18> Vital Signs - 24 hr 11/22/22 13:17 11/22/22 16:00 11/22/22 18:00 Temperature 99 F 98.9 F Pulse Rate 100 100 100 Respiratory Rate 19 18 18 Blood Pressure 148/87 H 137/84 137/83 Pulse Oximetry 99 100 Oxygen Delivery Method Room Air Room Air BMI result Body Mass Index 37.4 <Loan Kay NP - Last Filed: 11/23/22 00:54> Appearance: Alert. Oriented X3. No acute distress. Eyes: Pupils equal, round and reactive to light. Neck: Normal inspection. Neck supple. CVS: Normal heart rate and rhythm. Pulses normal. Respiratory: No respiratory distress. Breath sounds normal. Abdomen: Soft and nontender. No rebound or rigidity. Obese. Skin: Skin warm and dry. Normal skin color. Normal skin turgor. Extremities: No lower extremity edema. Gait well-balanced well coordinated. Neuro: No motor deficit. No sensory deficit. Cranial nerves 2-12 intact. <Loan Kay NP - Last Filed: 11/23/22 00:54> Course Course Course Narrative: This is a rapid medical exam. deferred additional HPI, ROS, PE to primary provider. 47 yo female with history of HTN, GERD, migraines, anemia, KEN here with upper abdominal pain, vomiting, diarrhea, tactile temps, chills, since yesterday. Will obtain labs, UA, viral testing. VSS <Kallie Guadarrama NP - Last Filed: 11/22/22 13:18> This is a rapid medical exam. deferred additional HPI, ROS, PE to primary provider. 47 yo female with history of HTN, GERD, migraines, anemia, KEN here with upper abdominal pain, vomiting, diarrhea, tactile temps, chills, since yesterday. Will obtain labs, UA, viral testing. VSS 47-year-old female presents for 1 day of viral gastrointestinal symptoms. States that she had several hours of nausea vomiting and diarrhea yesterday, and then started again at 02:00. She has been drinking Sprite, took her prescribed Zofran and htrk-loh-kaoprai loperamide, the diarrhea has stopped however she is still nauseous. Physical exam is unremarkable. Labs drawn while patient was in the emergency department waiting room which are negative for acute findings requiring emergent intervention. Viral testing is negative. Patient appears well, nontoxic, patient is tachycardic. Will give 1 L of fluid for dehydration. Patient states to feel better after IV fluids and medications. Heart rate is in the 84, BP 138/84. Plan of care is for antiemetics and discharged home. Patient verbalized understanding of and agrees to plan of care discharge home. Verbalized understanding of signs symptoms indicate a need for emergent intervention. <Loan Kay NP - Last Filed: 11/23/22 00:54> Medical Decision Making Differential Diagnosis Differential Diagnoses: The differential diagnosis associated with the presentation includes <Loan Kay NP - Last Filed: 11/23/22 00:54> Viral gastroenteritis <Loan Kay NP - Last Filed: 11/23/22 00:54> Lab Data MDM Lab Attestation statement: I reviewed the patient's lab results. <Loan Kay NP - Last Filed: 11/23/22 00:54> Result Diagrams: 11/22/22 14:02 11/22/22 14:02 <Kallie Guadarrama NP - Last Filed: 11/22/22 13:18> Labs: Lab Results 11/22/22 11/22/22 11/22/22 Range/Units 14:02 14:02 14:02 WBC 7.1 (4.8-10.8) X10*3/uL RBC 4.19 L (4.20-5.50) X10*6/uL Hgb 12.2 (12.0-16.0) g/dl Hct 36.7 L (37.0-47.0) % MCV 87.6 (80.0-98.0) fL MCH 29.1 (27.0-33.0) pg MCHC 33.2 (31.0-35.0) g/dl RDW 13.2 (11.0-16.0) % Plt Count 316 (160-400) X10*3/uL MPV 8.7 L (9.4-12.3) fL Immature Gran % (Auto) 0.1 (0.0-0.4) % Neut % (Auto) 87.6 H (45-73) % Lymph % (Auto) 8.0 L (20-40) % Wilkinson % (Auto) 3.4 (2-11) % Eos % (Auto) 0.8 (0-4) % Baso % (Auto) 0.1 (0-2) % Lymph # (Auto) 0.6 L (1.2-4.9) X10*3/uL Wilkinson # (Auto) 0.2 (0.1-1.2) X10*3/uL Eos # (Auto) 0.1 (0.0-0.4) X10*3/uL Baso # (Auto) 0.0 (0.0-0.2) X10*3/uL Abs Immat Gran (auto) 0.01 (0.00-0.03) X10*3/uL Absolute Neuts (auto) 6.2 (2.0-8.3) x10*3/uL Absolute Nucleated RBC 0.000 (0.0-0.012) X10*3/uL Nucleated RBC % (auto) 0.0 (0.0-0.2) /100WBC Sodium 141 (135-145) mmol/L Potassium 3.9 (3.3-5.1) mmol/L Chloride 105 (96-108) mmol/L Carbon Dioxide 24 (22-29) mmol/L Anion Gap 16 (12-20) BUN 14 (9-16) mg/dL Creatinine 0.87 (0.5-1.4) mg/dL Estim Creat Clear Calc 90.4 Estimated GFR > 60 Random Glucose 111 (60-115) mg/dL Calcium 8.9 (8.4-10.2) mg/dL Total Bilirubin 0.5 (0.0-1.0) mg/dL Direct Bilirubin < 0.2 (0.0-0.5) mg/dL AST 15 (5-31) U/L ALT 18 (0-31) U/L Alkaline Phosphatase 106 (39-117) U/L Total Protein 7.2 (6.5-8.0) g/dL Albumin 4.3 (3.5-5.0) g/dL Lipase 17 (8-78) U/L Influenza Type A (PCR) NEGATIVE (Negative) Influenza Type B (PCR) NEGATIVE (Negative) RSV RNA Qual (PCR) NEGATIVE (Negative) SARS-CoV-2 RNA (RT-PCR) NEGATIVE (Negative) <Kallie Guadarrama, GALLERY OR MUSEUM GUIDE - Last Filed: 11/22/22 13:18> Lab Results 11/22/22 11/22/22 11/22/22 Range/Units 14:02 14:02 14:02 WBC 7.1 (4.8-10.8) X10*3/uL RBC 4.19 L (4.20-5.50) X10*6/uL Hgb 12.2 (12.0-16.0) g/dl Hct 36.7 L (37.0-47.0) % MCV 87.6 (80.0-98.0) fL MCH 29.1 (27.0-33.0) pg MCHC 33.2 (31.0-35.0) g/dl RDW 13.2 (11.0-16.0) % Plt Count 316 (160-400) X10*3/uL MPV 8.7 L (9.4-12.3) fL Immature Gran % (Auto) 0.1 (0.0-0.4) % Neut % (Auto) 87.6 H (45-73) % Lymph % (Auto) 8.0 L (20-40) % Wilkinson % (Auto) 3.4 (2-11) % Eos % (Auto) 0.8 (0-4) % Baso % (Auto) 0.1 (0-2) % Lymph # (Auto) 0.6 L (1.2-4.9) X10*3/uL Wilkinson # (Auto) 0.2 (0.1-1.2) X10*3/uL Eos # (Auto) 0.1 (0.0-0.4) X10*3/uL Baso # (Auto) 0.0 (0.0-0.2) X10*3/uL Abs Immat Gran (auto) 0.01 (0.00-0.03) X10*3/uL Absolute Neuts (auto) 6.2 (2.0-8.3) x10*3/uL Absolute Nucleated RBC 0.000 (0.0-0.012) X10*3/uL Nucleated RBC % (auto) 0.0 (0.0-0.2) /100WBC Sodium 141 (135-145) mmol/L Potassium 3.9 (3.3-5.1) mmol/L Chloride 105 (96-108) mmol/L Carbon Dioxide 24 (22-29) mmol/L Anion Gap 16 (12-20) BUN 14 (9-16) mg/dL Creatinine 0.87 (0.5-1.4) mg/dL Estim Creat Clear Calc 90.4 Estimated GFR > 60 Random Glucose 111 (60-115) mg/dL Calcium 8.9 (8.4-10.2) mg/dL Total Bilirubin 0.5 (0.0-1.0) mg/dL Direct Bilirubin < 0.2 (0.0-0.5) mg/dL AST 15 (5-31) U/L ALT 18 (0-31) U/L Alkaline Phosphatase 106 (39-117) U/L Total Protein 7.2 (6.5-8.0) g/dL Albumin 4.3 (3.5-5.0) g/dL Lipase 17 (8-78) U/L Influenza Type A (PCR) NEGATIVE (Negative) Influenza Type B (PCR) NEGATIVE (Negative) RSV RNA Qual (PCR) NEGATIVE (Negative) SARS-CoV-2 RNA (RT-PCR) NEGATIVE (Negative) <Loan Kay NP - Last Filed: 11/23/22 00:54> External Record Review External record reviewed: Outpatient record, Prior outpatient labs and Prior outpatient radiology <Loan Kay NP - Last Filed: 11/23/22 00:54> Prescription Management I considered prescription management with: Other (Antiemetic) <Loan Kay NP - Last Filed: 11/23/22 00:54> Chronic Conditions Patient?s care impacted by: Hypertension <Loan Kay NP - Last Filed: 11/23/22 00:54> Medications Administered Discontinued Medications Generic Name Dose Route Start Last Admin Trade Name Freq PRN Reason Stop Dose Admin Diphenhydramine HCl 12.5 mg 11/22/22 17:46 11/22/22 18:01 Diphenhydramine Hcl 50 Mg/Ml Vial IVPUSH 11/22/22 17:47 12.5 mg ONCE ONE Administration Sodium Chloride 1,000 mls @ 999 mls/hr 11/22/22 18:00 11/22/22 18:00 Ns IVCONT 11/22/22 19:00 999 mls/hr .Q1H1M RONN Administration Metoclopramide HCl 10 mg 11/22/22 17:46 11/22/22 18:01 Metoclopramide Hcl 10 Mg/2 Ml Vial IVPUSH 11/22/22 17:47 10 mg ONCE ONE Administration <Kallie Guadarrama NP - Last Filed: 11/22/22 13:18> Medications Administered Discontinued Medications Generic Name Dose Route Start Last Admin Trade Name Freq PRN Reason Stop Dose Admin Diphenhydramine HCl 12.5 mg 11/22/22 17:46 11/22/22 18:01 Diphenhydramine Hcl 50 Mg/Ml Vial IVPUSH 11/22/22 17:47 12.5 mg ONCE ONE Administration Sodium Chloride 1,000 mls @ 999 mls/hr 11/22/22 18:00 11/22/22 18:00 Ns IVCONT 11/22/22 19:00 999 mls/hr .Q1H1M RONN Administration Metoclopramide HCl 10 mg 11/22/22 17:46 11/22/22 18:01 Metoclopramide Hcl 10 Mg/2 Ml Vial IVPUSH 11/22/22 17:47 10 mg ONCE ONE Administration <Loan Kay GALLERY OR MUSEUM GUIDE - Last Filed: 11/23/22 00:54> Discharge Plan Discharge Clinical Impression: Gastroenteritis <Kallie Guadarrama NP - Last Filed: 11/22/22 13:18> Patient Disposition: Home, Self-Care <Kallie Guadarrama NP - Last Filed: 11/22/22 13:18> Instructions: Gastroenteritis (ED), Acute Nausea and Vomiting (ED), Acute Diarrhea (ED) <Kallie Guadarrama NP - Last Filed: 11/22/22 13:18> Additional Instructions: Fue evaluado por 1 d?a de n?useas, v?mitos y diarrea. Esta es phoebe gastroenteritis viral. [place] Reglan 10 mg cada 8 horas seg?n sea necesario para las n?useas. [place] ngoc medicamento con 25 mg de Benadryl. Benadryl se puede comprar sin receta. Beber mucho l?quido. Seguimiento con el m?dico de atenci?n primaria seg?n sea necesario. [place] por elegir ngoc departamento de emergencias para scruggs evaluaci?n. Por favor, johnathon un seguimiento con el m?dico de atenci?n primaria seg?n sea necesario. Regrese al departamento de emergencias por cualquier s?ntoma nuevo, preocupante o que empeore. You were evaluated for 1 day of nausea, vomiting, and diarrhea. This is a viral gastroenteritis. Please take Reglan 10 mg every 8 hours as needed for nausea. Take this medication with 25 mg of Benadryl. Benadryl can be purchased [id number]-nff-stydsib. Drink plenty of fluids. Follow-up with primary care physician as needed. Thank you for choosing this emergency department for evaluation. Please follow-up with primary care physician as needed. Return to the emergency department for any new, concerning, or worsening symptoms. <Kallie Guadarrama NP - Last Filed: 11/22/22 13:18> Prescriptions: New metoclopramide HCl [Reglan] 10 mg tablet 10 mg PO Q6H PRN (Reason: nausea and vomiting) Qty: 10 0RF No Action tramadol 50 mg tablet 50 mg PO DAILY 30 Days Qty: 30 0RF omeprazole 40 mg capsule,delayed release(DR/EC) 40 mg PO DAILY 90 Days Qty: 90 2RF ondansetron 8 mg tablet,disintegrating 8 mg PO Q12H PRN (Reason: nausea and vomiting) 30 Days Qty: 60 0RF loratadine 10 mg tablet 10 mg PO DAILY PRN (Reason: allergy symptoms) 30 Days Qty: 30 11RF fluticasone propionate [Flonase Allergy Relief] 50 mcg/actuation spr ay,suspension 1 spray intranasal DAILY 30 Days Qty: 16 6RF Rx Instructions: administer into each nostril amlodipine 5 mg tablet 5 mg PO DAILY Qty: 90 1RF bisacodyl 5 mg tablet 10 mg PO ONCE Qty: 2 0RF peg 3350-electrolytes [Golytely] 236-22.74-6.74 -5.86 gram recon soln 240 ml PO Q10M 1 Days Qty: 4000 0RF Rx Instructions: until fecal effluent is clear; do not exceed a total volume of 2,000 mL cyanocobalamin (vitamin B-12) 1,000 mcg tablet, sublingual 1,000 mcg sublingual BEDTIME 90 Days Qty: 90 3RF lorazepam [Ativan] 0.5 mg tablet 0.5 mg PO TID PRN (Reason: Anxiety) rizatriptan 10 mg tablet 10 mg PO DAILY cholecalciferol (vitamin D3) 50 mcg (2,000 unit) capsule 50 mcg PO DAILY 90 Days Qty: 90 1RF mecobalamin (vitamin B12) 1,000 mcg tablet,disintegrating 1,000 mcg sublingual BEDTIME 90 Days Qty: 90 0RF Rx Instructions: place tablet under tongue and allow to dissolve for at least30 secs before swallowing folic acid 1 mg tablet 1 mg PO DAILY 90 Days Qty: 90 1RF gabapentin 100 mg capsule 100 mg PO TID quetiapine [Seroquel] 25 mg tablet 50 mg PO BEDTIME xnnecwydjx-fulctyljvybfg-zsnr 50-325-40 mg tablet 1 - 2 tab PO DAILY PRN (Reason: headache) fluoride (sodium) [SF 5000 Plus] 1.1 % cream 1 appl PO NEEDED <Kallie Guadarrama NP - Last Filed: 11/22/22 13:18> Interventions: ED Discharge Assessment Last Done: 11/22/22 19:33 <Kallie Guadarrama NP - Last Filed: 11/22/22 13:18> Discharge Date/Time: 11/22/22 19:34 <Kallie Guadarrama NP - Last Filed: 11/22/22 13:18>
[2022-11-22 14:12] LABS: MANUAL DIFF FLAG NO
[2022-11-22 14:17] LABS: Basophils Percent Auto 0.1 % (0-2); Eosinophils Absolute Auto 0.1 X10*3/uL (0.0-0.4); Eosinophils Percent Auto 0.8 % (0-4); Hematocrit 36.7 % (37.0-47.0); Hemoglobin 12.2 g/dl (12.0-16.0); Imm Gran Abs Auto 0.01 X10*3/uL (0.00-0.03); Imm Gran Pct Auto 0.1 % (0.0-0.4); Lymphocytes Absolute Auto 0.6 X10*3/uL (1.2-4.9); Mean Corpuscular HGB Conc 33.2 g/dl (31.0-35.0); Mean Corpuscular Hemoglobin 29.1 pg (27.0-33.0); Mean Corpuscular Volume 87.6 fL (80.0-98.0); Mean Platelet Volume 8.7 fL (9.4-12.3); Monocytes Absolute Auto 0.2 X10*3/uL (0.1-1.2); Monocytes Percent Auto 3.4 % (2-11); Neutrophils Absolute Auto 6.2 x10*3/uL (2.0-8.3); Neutrophils Percent Auto 87.6 % (45-73); Platelet Count 316 X10*3/uL (160-400); Red Blood Count 4.19 X10*6/uL (4.20-5.50); Red Cell Distribution Width 13.2 % (11.0-16.0); White Blood Count 7.1 X10*3/uL (4.8-10.8)
[2022-11-22 14:37] LABS: Alanine Aminotransferase 18 U/L (0-31); Albumin Level 4.3 g/dL (3.5-5.0); Alkaline Phosphatase 106 U/L (39-117); Anion Gap 16 (12-20); Aspartate Amino Transferase 15 U/L (5-31); Bilirubin Direct < 0.2 mg/dL (0.0-0.5); Bilirubin Total 0.5 mg/dL (0.0-1.0); Blood Urea Nitrogen 14 mg/dL (9-16); Calcium 8.9 mg/dL (8.4-10.2); Carbon Dioxide 24 mmol/L (22-29); Chloride 105 mmol/L (96-108); Creatinine Clr Calc Pharmacy 90.4; Estimated Glomerular Filt Rate > 60; Glucose Random 111 mg/dL (60-115); Lipase 17 U/L (8-78); Potassium 3.9 mmol/L (3.3-5.1); Sodium 141 mmol/L (135-145); Total Protein 7.2 g/dL (6.5-8.0)
[2022-11-22 14:54] LABS: Influenza A PCR NEGATIVE (Negative); Influenza B PCR NEGATIVE (Negative); Resp Syncy Virus RNA Qual PCR NEGATIVE (Negative); SARS COV2 PCR INHOUSE NEGATIVE (Negative)
[2022-11-22 16:00] VITALS: BP 137/84; PULSE 100; RESP 18; TEMP 37.2; O2SAT 100
[2022-11-22 18:00] VITALS: BP 137/83; PULSE 100; RESP 18
[2022-11-22] MEDS: 0.9 % Sodium Chloride 1,000 ML 999 ML IVCONT (18:00)
[2022-11-22] MEDS: Metoclopramide HCl 10 MG/2 ML VIAL IVPUSH (18:01)
[2022-11-22] MEDS: diphenhydrAMINE HCL 50 MG/ML VIAL 12.5 MG IVPUSH (18:01)
== END 2022-11-22 19:34 | disposition home or self-care (01) ==
PROVIDERS: Nurse Practitioner Family; Emergency Provider Emergency Medicine; PCP Internal Medicine
DX: K52.9 Noninfective gastroenteritis and colitis, unspecified (principal); R11.2 Nausea with vomiting, unspecified; Z20.822 Contact with and (suspected) exposure to COVID-19; Z20.828 Contact with and (suspected) exposure to other viral communicable diseases; I10 Essential (primary) hypertension; E66.9 Obesity, unspecified; Z68.37 Body mass index [BMI] 37.0-37.9, adult; Z79.899 Other long term (current) drug therapy; Z87.891 Personal history of nicotine dependence
CPT/HCPCS: 0241U; 80048; 80076; 83690; 85025; 96374; 96375; 99284; J1200; J2765

== ENCOUNTER 2023-01-01 08:44 | Outpatient (REF) | payer OTHER, SELFPAY ==
--- NOTE | ~2023-01-01 | XR_ITS ---
EXAMINATION: XR LUMBOSACRAL SPINE CLINICAL INFORMATION: Low back pain COMPARISON: X-ray 11/05/2017 TECHNIQUE: Three views of the lumbosacral spine. FINDINGS: Slightly rotated positioning. The sagittal alignment grossly appears maintained. Mild leftward curvature of the spine. Vertebral body heights are maintained. No fracture. Disc spaces are maintained. Mild disc degeneration at T10-11, T11-12. Visualized pelvic bones intact. No abnormal soft tissue calcification. XR/XR lumbar spine 2-3V IMPRESSION: Unremarkable lumbar radiograph. Lower thoracic spine spine disc degeneration, as above.
--- NOTE | ~2023-01-01 | US_ITS ---
EXAMINATION: US RETROPERITONEAL LIMITED (RENAL ONLY) CLINICAL INFORMATION: Calculus of kidney. COMPARISON: Renal ultrasound 05/05/2022 and 09/19/2021. X-ray KUB 07/29/2018 and 07/16/2017. CT abdomen and pelvis 08/29/2015. TECHNIQUE: Real-time imaging of the kidneys. FINDINGS: RIGHT KIDNEY: 11.4 x 4.8 x 5.5 cm (SAG x AP x TRV). The kidney is normal in size, contour, and echogenicity. Renal cortical thickness is normal. No hydronephrosis. There is an upper pole cyst with calcification. The cyst measures 1.3 x 0.8 x 1.7 cm. There is an echogenic stone in the upper pole measuring 0.4 x 0.3 x 0.3 cm. No caliectasis seen. LEFT KIDNEY: 11.6 x 5.5 x 5.1 cm (SAG x AP x TRV). The kidney is normal in size, contour, and echogenicity. Renal cortical thickness is normal. No hydronephrosis. There is anechoic simple cyst midpole measuring 1.6 x 1.3 x 1.5 cm. There is an echogenic stone in upper midpole measuring 0.3 x 0.2 x 0.3 cm. There is mild pelvic fullness. US/US renal BI IMPRESSION: Complex cyst upper pole right kidney and a simple cyst midpole left kidney. There are bilateral echogenic stones without caliectasis or hydronephrosis. There is mild left renal pelvic fullness.
== END 2023-01-01 08:45 | disposition home or self-care (01) ==
LOC: HO.US 08:44
PROVIDERS: Absent Provider Internal Medicine; PCP Internal Medicine; Visit Provider Urology
DX: N20.0 Calculus of kidney (principal); M54.50 Low back pain, unspecified
CPT/HCPCS: 72100; 76775

== ENCOUNTER 2023-01-04 08:49 | Day surgery (SDC) | payer OTHER, SELFPAY ==
[2022-10-23 15:42] VITALS: BMI 37.4
--- NOTE | 2022-10-25 12:13 | HO.ANESPROP2 ---
HPI - Anesthesia Eval Consult details Narrative: 47yo F for Colonoscopy Cardiology cleared [facility] Active Problems Active Problems: All Active Problems (Updated 10/23/22 @ 15:32 by Brooke Bowers RN) Hypertension (Acute) Screening for hypothyroidism (Acute) Intermittent palpitations (Acute) Screening for colon cancer (Acute) Abnormal EKG (Acute) Allergic reaction (Acute) Pre-op examination (Acute) Well woman exam with routine gynecological exam (Acute) Cervical cancer screening (Acute) Perimenopause (Acute) Screen for sexually transmitted diseases (Acute) Hypovitaminosis D (Acute) B12 deficiency (Acute) Anemia (Acute) Normochromic anemia (Acute) Normochromic anemia (Acute) Hypoxia, sleep related (Acute) KEN (obstructive sleep apnea) (Acute) Overactive bladder (Acute) Renal calculi (Acute) Obesity (BMI 35.0-39.9 without comorbidity) (Acute) CHAGO (generalized anxiety disorder) (Acute) Migraines (Acute) Impaired glucose tolerance (Acute) GERD (gastroesophageal reflux disease) (Acute) Nausea (Acute) Allergic rhinitis (Acute) Past Medical History Medical History (Updated 10/23/22 @ 15:32 by Brooke Bowers RN) Allergic rhinitis CHAGO (generalized anxiety disorder) GERD (gastroesophageal reflux disease) HTN (hypertension) Impaired glucose tolerance Migraines Nausea Obesity (BMI 35.0-39.9 without comorbidity) Overactive bladder Postoperative nausea Renal calculi Sleep apnea Family History Family History Father CHF (congestive heart failure) Mother Hypertension Family/Other Substance abuse Paternal Aunt Cancer Other Mental health disorder Surgical History Surgical History History of section History of extraction of renal calculus History of tubal ligation Social History Social History Household Members: Spouse and Children Housing: House Are you a primary home child care provider to a significant other at home: No Do you presently have visiting nurse or other home services: No Alcohol intake: never Patient Tobacco Use Status: Former Tobacco user Quit Date: 2015 e-Cigarette/Vaping Use: Never Used Second Hand Smoke Exposure: No service: No Current occupational status: disabled Cognitive needs: No Hearing needs: No Vision needs: Yes Meds Allergies Allergy/AdvReac Type Severity Reaction Status Date / Time [id number] Allergy Intermediate localized Verified 10/23/22 15:28 [From Emgality Pen] swelling duloxetine [From CYMBALTA] AdvReac Mild migraines,v Verified 09/25/22 15:16 omitting Home Medications Medication Instructions Recorded Confirmed Last Taken Type lorazepam 0.5 mg tablet (Ativan) 0.5 mg PO TID PRN Anxiety 11/02/20 10/23/22 Unknown History rizatriptan 10 mg tablet 10 mg PO DAILY 04/19/21 10/23/22 Unknown History irkeontfsw-tsmbmzywfdzbk-cmezeaaw 1 - 2 tab PO DAILY PRN headache 08/09/21 10/23/22 Unknown History 50 mg-325 mg-40 mg tablet gabapentin 100 mg capsule 100 mg PO TID 04/07/22 10/23/22 Unknown History fluoride (sodium) 1.1 % dental 1 appl PO NEEDED 08/14/22 08/25/22 Unknown History cream (SF 5000 Plus) quetiapine 25 mg tablet (Seroquel) 50 mg PO BEDTIME 08/22/22 10/23/22 Unknown History cyanocobalamin (vitamin B-12) 1,000 mcg sublingual BEDTIME 09/25/22 10/23/22 Unknown History 1,000 mcg sublingual tablet Exam Exam Date and Time: October 25, 2022 1213 Height,Weight and Vital Signs: Height 5 ft 4 in Weight 98.883 kg Pertinent Lab Results Pertinent Lab Results: Laboratory Tests 08/25/22 08/25/22 15:45 15:45 WBC 6.2 Hgb 11.2 L Hct 34.6 L Plt Count 292 Sodium 140 Potassium 3.9 Chloride 106 Carbon Dioxide 24 BUN 10 Creatinine 0.81 Narrative Narrative: EKG 06/2022 ?normal sinus rhythm with nonspecific T-wave changes in the V1 and V2 with nonspecific changes in V3 HOLTER 07/2022 Conclusion: 1. Patient was monitored for total period of 3 days 2. Baseline was normal sinus rhythm with average heart of 87 beats per minute 3. No significant pauses or bradycardia noted 4. No significant arrhythmias noted 5. Patient reported to events, chest pain and rapid heart rate correlated with sinus rhythm? ECHO 07/2022 Conclusions: - 1.? Normal LV systolic function? 2.? Normal cardiac valvular Doppler? 3.? Normal RV systolic pressure? 4.? No gross pericardial effusion? NM suzie perf SPECT rest & str 07/2022 Impression: ? 1.? Normal myocardial perfusion 2.? Gated LVEF is 64% 3. Transient ischemic dilatation not present ? ? ? Stress EKG is suggestive of ischemia Assessment and Plan Assessment Anesthesia Assessment: Chart Reviewed
--- NOTE | 2023-01-03 08:40 | HO.ANESPROP2 ---
HPI - Anesthesia Eval Consult details Narrative: 47yo F for Colonoscopy Cardiac cleared [facility] Active Problems Active Problems: All Active Problems (Updated 12/25/22 @ 13:53 by Beti Skinner MD) Lumbar pain (Acute) Hypertension (Acute) Screening for hypothyroidism (Acute) Intermittent palpitations (Acute) Screening for colon cancer (Acute) Abnormal EKG (Acute) Allergic reaction (Acute) Pre-op examination (Acute) Well woman exam with routine gynecological exam (Acute) Cervical cancer screening (Acute) Perimenopause (Acute) Screen for sexually transmitted diseases (Acute) Hypovitaminosis D (Acute) B12 deficiency (Acute) Anemia (Acute) Normochromic anemia (Acute) Normochromic anemia (Acute) Hypoxia, sleep related (Acute) KEN (obstructive sleep apnea) (Acute) Overactive bladder (Acute) Renal calculi (Acute) Obesity (BMI 35.0-39.9 without comorbidity) (Acute) CHAGO (generalized anxiety disorder) (Acute) Migraines (Acute) Impaired glucose tolerance (Acute) GERD (gastroesophageal reflux disease) (Acute) Nausea (Acute) Allergic rhinitis (Acute) Past Medical History Medical History Allergic rhinitis CHAGO (generalized anxiety disorder) GERD (gastroesophageal reflux disease) HTN (hypertension) Impaired glucose tolerance Migraines Nausea Obesity (BMI 35.0-39.9 without comorbidity) Overactive bladder Postoperative nausea Renal calculi Sleep apnea Family History Family History Father CHF (congestive heart failure) Mother Hypertension Family/Other Substance abuse Paternal Aunt Cancer Other Mental health disorder Surgical History Surgical History History of section History of extraction of renal calculus History of tubal ligation Social History Social History Household Members: Spouse and Children Housing: House Are you a primary health care recruiter to a significant other at home: No Do you presently have visiting nurse or other home services: No Alcohol intake: unknown Patient Tobacco Use Status: Former Tobacco user Quit Date: 2015 e-Cigarette/Vaping Use: Never Used Second Hand Smoke Exposure: No service: No Current occupational status: disabled Cognitive needs: No Hearing needs: No Vision needs: Yes Meds Allergies Allergy/AdvReac Type Severity Reaction Status Date / Time galcanezumab-gnlm Allergy Intermediate localized Verified 12/25/22 13:44 [From Emgality Pen] swelling duloxetine [From CYMBALTA] AdvReac Mild migraines,v Verified 12/25/22 13:44 omitting Home Medications Medication Instructions Recorded Confirmed Last Taken Type rizatriptan 10 mg tablet 10 mg PO DAILY 04/19/21 12/25/22 Unknown History quetiapine 25 mg tablet (Seroquel) 50 mg PO BEDTIME 08/22/22 12/25/22 Unknown History epinephrine 0.3 mg/0.3 mL IM DIRECTED 12/25/22 12/25/22 Unknown History injection, auto-injector Exam Exam Date and Time: January 03, 2023 0840 Height,Weight and Vital Signs: Height 5 ft 4 in Weight 98.883 kg Pertinent Lab Results Pertinent Lab Results: Laboratory Tests 11/22/22 11/22/22 14:02 14:02 WBC 7.1 Hgb 12.2 Hct 36.7 L Plt Count 316 Sodium 141 Potassium 3.9 Chloride 105 Carbon Dioxide 24 BUN 14 Creatinine 0.87 Narrative Narrative: EKG 06/2022 normal sinus rhythm with nonspecific T-wave changes in the V1 and V2 with nonspecific changes in V3 NM suzie perf SPECT rest & str 07/2022 Impression: ? 1.? Normal myocardial perfusion 2.? Gated LVEF is 64% 3. Transient ischemic dilatation not present ? ?Stress EKG is suggestive of ischemia ECHO 07/2022 Conclusions: - 1.? Normal LV systolic function? 2.? Normal cardiac valvular Doppler? 3.? Normal RV systolic pressure? 4.? No gross pericardial effusion? ?? Holter 07/2022 Conclusion: 1. Patient was monitored for total period of 3 days 2. Baseline was normal sinus rhythm with average heart of 87 beats per minute 3. No significant pauses or bradycardia noted 4. No significant arrhythmias noted 5. Patient reported to events, chest pain and rapid heart rate correlated with sinus rhythm? Assessment and Plan Assessment Anesthesia Assessment: Chart Reviewed
[2023-01-04 09:46] VITALS: BP 169/78; PULSE 81; RESP 20; TEMP 36.9; O2SAT 98
--- NOTE | 2023-01-04 09:59 | PC.NURSE ---
NO MEDS TAKEN TODAY
[2023-01-04] MEDS: Lactated Ringers 1,000 ML 100 ML IVCONT (10:17)
--- NOTE | 2023-01-04 10:20 | PC.NURSE ---
NO MEDS TAKEN TODAY
--- NOTE | 2023-01-04 10:27 | MHC.SHP ---
Pre-Procedural Eval Section A Date of Service: 01/04/23 Section B Chief Complaint: screening Details of Present Illness: PMX Hypertension Hypothyroid Morbid obesity Migraines Impaired glucose tolerance Nephrolithiasis Overactive bladder Allergic rhinitis GERD SURGICAL HISTORY Lithotripsy Tubal ligation * Relevant Family History (Specify if Yes): No Relevant Social History: None Present Medications: see Short Stay Collaborative assessment Allergies: Allergies Allergy/AdvReac Type Severity Reaction Status Date / Time galcanezumab-gnlm Allergy Intermediate localized Verified 12/25/22 13:44 [From Emgality Pen] swelling duloxetine [From CYMBALTA] AdvReac Mild migraines,v Verified 12/25/22 13:44 omitting Review of Systems Review of Systems Comment: Ten point ROS negative Exam Exam Comment: Gen appear: No acute distress HEENT: no icterus Chest: No overt resp distress Abd: soft, nontender, nondistended Psych: Stable affect, answering questions appropriately Neuro: A/Ox3 noted to move all extremities spontaneously Ext: no peripheral edema Plan Diagnosis/Plan: Unchanged I have reviewed the history and physical and performed a pertinent physical examination on my patient. No changes have occurred unless specified. Time Spent With Patient Time: Total time managing care of this patient today ____ minutes.
--- NOTE | 2023-01-04 10:32 | P.OP_ITS ---
Operative Note Operative Note Date of Service: 01/04/23 Narrative: Procedure: Colonoscopy Indication: Screening Endoscopist: Rekha Comer MD Anesthesia Provider: Dr Gracie Herbert Anesthesia type: MAC Instrument: Olympus [id number]-H190L Consent: Indication, risks vs benefits, and alternatives were discussed with the patient who gave written informed consent to proceed. An adjunct latin professor was utilized to assist with the consent. EKG, pulse, pulse oximetry and blood pressure were monitored throughout the procedure. Please see anesthesia flowsheet. Procedure: The patient was brought to the procedure room and placed in the left lateral decubitus position. IV medications were administered by the anesthesia provider in attendance. A digital rectal exam was performed which was normal. The colonoscope was then inserted through the anus and advanced through the colon to the cecum at 80 cm. Mucosa was carefully examined under high definition white light as the instrument was slowly withdrawn in a retrograde panoramic fashion. Retroflexion was performed in rectum. The procedure was not difficult. There were no immediate obvious complications. The quality of the prep was BBPS: 2+2+3 = adequate Withdrawal time 11 minutes. Limitations: No limitations. Findings: Mucosa: Normal to cecum. Protruding lesions: * 1 sessile polyp of size 6 mm in sigmoid colon. Cold snare polypectomy was performed. The polyp was completely removed and retrieved. * Medium internal hemorrhoids without stigmata of recent bleeding. Excavated lesions: * Scattered mild diverticulosis in left sided colon. Impression: 1. Normal colon mucosa 2. Total of 1 polyp removed from sigmoid colon. 3. Internal hemorrhoids 4. Diverticulosis Recommendations: - Follow path results. - Repeat colonoscopy in 7-10 years if polyop is adenoma.
[2023-01-04 11:55] VITALS: BP 131/79; PULSE 88; RESP 18; TEMP 36.4; O2SAT 99
[2023-01-04 12:10] VITALS: BP 177/80; PULSE 75; RESP 18; TEMP 37.4; O2SAT 100
== END 2023-01-04 12:56 | disposition home or self-care (01) ==
PROVIDERS: PCP Internal Medicine; Visit Provider Internal Medicine
PROC: 0DJD8ZZ Inspection of Lower Intestinal Tract, Via Natural or Artificial Opening Endoscopic (ICD-10-PCS; CPT 45378; principal; 2023-01-04 10:50)
DX: Z12.11 Encounter for screening for malignant neoplasm of colon (principal); K63.5 Polyp of colon; K57.30 Diverticulosis of large intestine without perforation or abscess without bleeding; K64.8 Other hemorrhoids; K21.9 Gastro-esophageal reflux disease without esophagitis; I10 Essential (primary) hypertension; R73.02 Impaired glucose tolerance (oral); J30.9 Allergic rhinitis, unspecified; N32.81 Overactive bladder; E66.01 Morbid (severe) obesity due to excess calories; Z68.36 Body mass index [BMI] 36.0-36.9, adult; Z87.442 Personal history of urinary calculi; Z79.51 Long term (current) use of inhaled steroids; Z79.899 Other long term (current) drug therapy; Z88.8 Allergy status to other drugs, medicaments and biological substances; Z87.891 Personal history of nicotine dependence
CPT/HCPCS: 45385; 88305

== ENCOUNTER → 2023-01-16 15:30 | Outpatient (BNVA) | payer OTHER, SELFPAY | PROVIDERS: PCP Internal Medicine; Visit Provider Urology ==

== ENCOUNTER → 2023-01-19 13:08 | Outpatient (BNVA) | payer OTHER, SELFPAY | PROVIDERS: PCP Internal Medicine; Visit Provider Nurse Practitioner | DX: K63.5 Polyp of colon (principal); Z98.890 Other specified postprocedural states | CPT/HCPCS: 99212 ==

== ENCOUNTER → 2023-02-08 08:24 | Outpatient (BNVA) | payer OTHER, SELFPAY | PROVIDERS: PCP Internal Medicine; Visit Provider Nurse Practitioner Family | DX: G47.33 Obstructive sleep apnea (adult) (pediatric) (principal); G47.34 Idiopathic sleep related nonobstructive alveolar hypoventilation | CPT/HCPCS: 99212 ==

== ENCOUNTER 2023-02-08 15:18 | Emergency (ER) | payer OTHER, SELFPAY ==
--- NOTE | ~2023-02-08 | CT_ITS ---
EXAMINATION: CT ABDOMEN AND PELVIS WITH CONTRAST CLINICAL INFORMATION: Rectal bleeding COMPARISON: Renal ultrasound 01/01/2023 TECHNIQUE: Multidetector volumetric images were obtained from the superior aspect of the liver through the pubic symphysis following administration 85 mL of Omnipaque 350 intravenous contrast. Sagittal and coronal reformatted images were obtained on the technologist's workstation. Oral contrast: No This CT examination was performed using dose optimization techniques as appropriate, variously including the following: *Automated exposure control *Adjustment of mA and/or kV according to patient size (this includes techniques or standardized protocols for targeted exams where dose is matched to indication/reason for exam; i.e. extremities or head) *Use of iterative reconstruction technique DLP: 781 mGy-cm FINDINGS: LUNG BASES: The visualized lung bases are unremarkable. LIVER, GALLBLADDER, AND BILIARY TREE: The liver is normal in size, shape, and attenuation. No focal hepatic lesion or biliary ductal dilatation is present. The gallbladder is unremarkable with no evidence of radiopaque gallstones, gallbladder wall thickening, or obvious pericholecystic inflammatory changes. PANCREAS: Unremarkable. SPLEEN: Unremarkable. ADRENAL GLANDS: Unremarkable. KIDNEYS AND URETERS: The kidneys are normal in size, shape, and attenuation. No hydronephrosis, hydroureter, or calculi seen. No perinephric stranding. There is a small 1.2 cm complex cyst upper pole right kidney and simple 1.7 cm cyst midpole left kidney. BLADDER: Unremarkable. GASTROINTESTINAL TRACT: There is scattered stool, diverticuli and gas seen throughout the colon without any significant distention. The small bowel loops are normal caliber. Appendix is normal caliber. No free air or free fluid seen. There is no evidence of diverticulitis. ABDOMINAL WALL: There is a small lumbar canal hernia containing fat. LYMPH NODES: Normal. VASCULAR: Unremarkable. PELVIC VISCERA: There is anteverted uterus with no focal lesion seen. There is no adnexal mass or free fluid. OSSEOUS STRUCTURES: No aggressive lytic or sclerotic process seen. CT/CT abdomen pelvis w IV con IMPRESSION: 1. No acute intra-abdominal process seen. 2. Colonic diverticulosis without diverticulitis. 3. Bilateral renal cysts. Fleischner guidelines were followed.
--- NOTE | 2023-02-08 15:26 | ED.GENADULT ---
HPI - General Adult General Chief complaint: General Medical <MONTANA Dominguez - Last Filed: 02/08/23 15:41> Stated complaint: rectal bleeding <MONTANA Dominguez - Last Filed: 02/08/23 15:41> Time Seen by Provider: 02/08/23 20:30 <MONTANA Dominguez - Last Filed: 02/08/23 15:41> Source: patient <Rekha Morris MD - Last Filed: 02/08/23 22:50> Mode of arrival: ambulatory <Rekha Morris MD - Last Filed: 02/08/23 22:50> Limitations: no limitations <Rekha Morris MD - Last Filed: 02/08/23 22:50> History of Present Illness HPI narrative: Patient comes to the emergency room complaining of anal itching and anal bleeding since patient had colonoscopy on January 04. Patient states that she has no pain in the rectal/anal area or abdominal pain patient denies nausea vomiting diarrhea. Patient states that she sees blood when she wipes, otherwise no blood. Patient denies history of hemorrhoids <Rekha Morris MD - Last Filed: 02/08/23 22:50> Related Data Home medications: Home Medications Medication Instructions Recorded Confirmed quetiapine 25 mg tablet (Seroquel) 50 mg PO BEDTIME 08/22/22 12/25/22 epinephrine 0.3 mg/0.3 mL IM DIRECTED 12/25/22 12/25/22 injection, auto-injector [id number]-piorliyfmjewf-zntuxbwt 1 - 2 tab PO DAILY PRN headache 02/08/23 50 mg-325 mg-40 mg tablet loratadine 10 mg tablet 10 mg PO DAILY 02/08/23 lorazepam 1 mg tablet 1 mg PO TID 02/08/23 Previous Rx's Medication Instructions Recorded fluticasone propionate 50 1 spray intranasal DAILY 30 days 08/15/22 mcg/actuation nasal #16 grams spray,suspension (Flonase Allergy Relief) cholecalciferol (vitamin D3) 50 50 mcg PO DAILY 90 days #90 caps 08/22/22 mcg (2,000 unit) capsule folic acid 1 mg tablet 1 mg PO DAILY 90 days #90 tabs 08/22/22 amlodipine 5 mg tablet 5 mg PO DAILY #90 tabs 10/24/22 cyanocobalamin (vitamin B-12) 1,000 mcg sublingual BEDTIME 90 11/12/22 1,000 mcg sublingual tablet days #90 tabs omeprazole 40 mg capsule,delayed 40 mg PO DAILY 90 days #90 caps 12/18/22 release gabapentin 300 mg capsule 300 mg PO BEDTIME 90 days #90 caps 12/25/22 phenylephrine 0.25 %-mineral oil 1 appl SC BID PRN rectal 02/08/23 14 %-petrolatm 74.9 % rectal discomfort #57 grams ointment (Preparation H) <MONTANA Dominguez - Last Filed: 02/08/23 15:41> Allergies/adverse reactions: Allergies Allergy/AdvReac Type Severity Reaction Status Date / Time galcanezumab-gnlm Allergy Intermediate localized Verified 02/08/23 15:45 [From Emgality Pen] swelling garlic Allergy Shortness Verified 02/08/23 15:45 of Breath duloxetine [From CYMBALTA] AdvReac Mild migraines,v Verified 02/08/23 15:45 omitting tumeric AdvReac Shortness Uncoded 02/08/23 08:37 of Breath <MONTANA Dominguez - Last Filed: 02/08/23 15:41> Review of Systems Review of Systems: Constitutional : No Weight loss, No Fever, No Chills, No Night Sweats, No Fatigue, No Malaise ENT/Mouth : No Hearing loss, No Ear Pain, No Nasal Congestion, No Sinus Pain, No Hoarseness, No sore throat, No Rhinorrhea, No Swallowing Difficulty Eyes: No Eye Pain, No Swelling, No Redness, No Foreign Body, No Discharge, No Vision Changes Cardiovascular : No Chest Pain, No SOB, No Dyspnea on Exertion, No Orthopnea, No Edema, No Palpitations Respiratory : No Cough, No Sputum, No Wheezing, No Smoke Exposure, No Dyspnea Gastrointestinal : No Nausea, No Vomiting, No Diarrhea, No Constipation, No abdominal Pain, complaining of anal bleeding and anal all itching Genitourinary : no irregular bleeding, No Dysuria, No Urinary Frequency, No Hematuria, No Urinary Incontinence, No Urgency, No Flank Pain, No Urinary Flow Changes, No Hesitancy Musculoskeletal : No joint pain, No Myalgias, No Joint Swelling Skin : No Skin Lesions, No rash Neuro : No Weakness, No Numbness, No Paresthesias, No Loss of Consciousness, No Dizziness, No Headache Psych : No Anxiety/Panic, No Depression, No SI/HI/AH/VH, No Social Issues, Heme/Lymph: No Bruising, No Bleeding,No Lymphadenopathy Endocrine : No Polyuria, No Polydipsia, No Temperature Intolerance <Rekha Morris MD - Last Filed: 02/08/23 22:50> [facility] Past Medical History Medical History: Medical History Allergic rhinitis CHAGO (generalized anxiety disorder) GERD (gastroesophageal reflux disease) HTN (hypertension) Impaired glucose tolerance Migraines Nausea Obesity (BMI 35.0-39.9 without comorbidity) Overactive bladder Postoperative nausea Renal calculi Sleep apnea <MONTANA Dominguez - Last Filed: 02/08/23 15:41> Surgical History: Surgical History H/O colonoscopy History of section History of extraction of renal calculus History of tubal ligation <MONTANA Dominguez - Last Filed: 02/08/23 15:41> Family History Family History: Family History Father CHF (congestive heart failure) Mother Hypertension Family/Other Substance abuse Paternal Aunt Cancer Other Mental health disorder <MONTANA Dominguez - Last Filed: 02/08/23 15:41> Social History Social History: Social History Household Members: Spouse and Children Housing: House Are you a primary resident caregiver to a significant other at home: No Do you presently have visiting nurse or other home services: No Alcohol intake: never Patient Tobacco Use Status: Former Tobacco user Quit Date: 2015 Smoked in Last 30 Days: No e-Cigarette/Vaping Use: Never Used Second Hand Smoke Exposure: No Use of substances other than those prescribed or required for medical reasons: No Advance Directives: No Advance Directives Information Provided: No Patient : No service: No Current occupational status: disabled Cognitive needs: No Hearing needs: No Vision needs: Yes <MONTANA Dominguez - Last Filed: 02/08/23 15:41> Physical Exam ED Vital Signs: Vital Signs - 24 hr 02/08/23 15:38 02/08/23 20:28 Temperature 97.9 F 98.7 F Pulse Rate 85 85 Respiratory Rate 20 18 Blood Pressure 166/83 H 168/81 H Pulse Oximetry 98 100 Oxygen Delivery Method Room Air Room Air BMI result Body Mass Index 37.2 <MONTANA Dominguez - Last Filed: 02/08/23 15:41> Vital Signs - 24 hr 02/08/23 15:38 02/08/23 20:28 Temperature 97.9 F 98.7 F Pulse Rate 85 85 Respiratory Rate 20 18 Blood Pressure 166/83 H 168/81 H Pulse Oximetry 98 100 Oxygen Delivery Method Room Air Room Air BMI result Body Mass Index 37.2 <Rekha Morris MD - Last Filed: 02/08/23 22:50> Const Other: Appearance: Alert. Oriented X3. No acute distress. Eyes: Pupils equal, round and reactive to light. ENT: Pharynx normal. Neck: Normal inspection. Neck supple. No lymph nodes noted. No crepitus CVS: Normal heart rate and rhythm. Pulses normal. Normal S1 and S2 Respiratory: No respiratory distress. Breath sounds normal. No Wheezing. No rales Abdomen: Soft and nontender. No rigidity. No distention. Skin: Skin warm and dry. Normal skin color. Normal skin turgor. Extremities: No lower extremity edema. No Lacerations. No Rash Neuro: Oriented X 3. No motor deficit. No sensory deficit. Moving all extremities. No slurred speech. CN 2 through 12 grossly intact Psych: calm, cooperative, normal affect <Rekha Morris MD - Last Filed: 02/08/23 22:50> Course Course Course Narrative: This is an RME: Additional HPI, ROS, PE not included below will be deferred to primary provider. 47 year old female with PMH of colon polyps presents to the ED with rectal bleeding for 4 days. Patient reports she had a colonoscopy on 02/04 and since then she reports rectal pressure and pain with a small amount of rectal bleeding. PE: Benign Plan: Labs, stool guiac <MONTANA Dominguez - Last Filed: 02/08/23 15:41> Medications Administered Discontinued Medications Generic Name Dose Route Start Last Admin Trade Name Freq PRN Reason Stop Dose Admin Iohexol 100 ml 02/08/23 20:42 02/08/23 20:42 Iohexol 350 Mg/Ml 100 Ml Infus..Btl IV 02/08/23 20:43 85 ml ONCE ONE Administration <MONTANA Dominguez - Last Filed: 02/08/23 15:41> Medications Administered Discontinued Medications Generic Name Dose Route Start Last Admin Trade Name Freq PRN Reason Stop Dose Admin Iohexol 100 ml 02/08/23 20:42 02/08/23 20:42 Iohexol 350 Mg/Ml 100 Ml Infus..Btl IV 02/08/23 20:43 85 ml ONCE ONE Administration <Rekha Morris MD - Last Filed: 02/08/23 22:50> Medical Decision Making Medical Decision Making [facility] Narrative: -patient's physical exam is normal -patient's hematology shows a hemoglobin of 10.9. Patient does have history of anemia as low as 11.2. It has been over a month since patient had her colonoscopy done. Patient is hemodynamically stable -CT scan does not show any acute abnormality. -guaiac test negative -patient has been having anal pruritus for 1 month. We will discharge the patient with a prescription for hemorrhoids. Instructed to follow-up with her PCP. If the topical medication does not work, patient may need fecal test <Rekha Morris MD - Last Filed: 02/08/23 22:50> Lab Data [facility] Lab Attestation statement: I reviewed the patient's lab results. <Rekha Morris MD - Last Filed: 02/08/23 22:50> Result Diagrams: 02/08/23 16:15 02/08/23 16:15 <MONTANA Dominguez - Last Filed: 02/08/23 15:41> Labs: Lab Results 02/08/23 02/08/23 02/08/23 Range/Units 16:15 16:15 21:02 WBC 6.3 (4.8-10.8) X10*3/uL RBC 3.78 L (4.20-5.50) X10*6/uL Hgb 10.9 L (12.0-16.0) g/dl Hct 33.4 L (37.0-47.0) % MCV 88.4 (80.0-98.0) fL MCH 28.8 (27.0-33.0) pg MCHC 32.6 (31.0-35.0) g/dl RDW 13.6 (11.0-16.0) % Plt Count 316 (160-400) X10*3/uL MPV 8.6 L (9.4-12.3) fL Immature Gran % (Auto) 0.2 (0.0-0.4) % Neut % (Auto) 51.5 (45-73) % Lymph % (Auto) 39.3 (20-40) % [place] % (Auto) 6.4 (2-11) % Eos % (Auto) 2.1 (0-4) % Baso % (Auto) 0.5 (0-2) % Lymph # (Auto) 2.5 (1.2-4.9) X10*3/uL [place] # (Auto) 0.4 (0.1-1.2) X10*3/uL Eos # (Auto) 0.1 (0.0-0.4) X10*3/uL Baso # (Auto) 0.0 (0.0-0.2) X10*3/uL Abs Immat Gran (auto) 0.01 (0.00-0.03) X10*3/uL Absolute Neuts (auto) 3.2 (2.0-8.3) x10*3/uL Absolute Nucleated RBC 0.000 (0.0-0.012) X10*3/uL Nucleated RBC % (auto) 0.0 (0.0-0.2) /100WBC Sodium 141 (135-145) mmol/L Potassium 3.7 (3.3-5.1) mmol/L Chloride 106 (96-108) mmol/L Carbon Dioxide 28 (22-29) mmol/L Anion Gap 11 L (12-20) BUN 14 (9-16) mg/dL Creatinine 0.79 (0.5-1.4) mg/dL Estim Creat Clear Calc 99.2 Estimated GFR > 60 Random Glucose 101 (60-115) mg/dL Calcium 9.0 (8.4-10.2) mg/dL Magnesium 2.0 (1.6-2.6) mg/dL Total Bilirubin 0.3 (0.0-1.0) mg/dL AST 16 (5-31) U/L ALT 23 (0-31) U/L Alkaline Phosphatase 101 (39-117) U/L Total Protein 7.3 (6.5-8.0) g/dL Albumin 4.3 (3.5-5.0) g/dL Urine Color Yellow Urine Appearance Clear Urine pH 7.0 (5.0-9.0) Ur Specific [place] 1.015 (1.005-1.025) Urine Protein Negative (Neg-Trace) mg/dL Urine Glucose (UA) Negative (Negative) mg/dL Urine Ketones Negative (Negative) mg/dL Urine Blood Small (1+) H (Negative) Urine Nitrite Negative (Negative) Ur Leukocyte Esterase Negative (Negative) Urine RBC 6-10 H (0-2) /HPF Urine WBC 0-5 (0-5) /HPF Ur Squamous Epith Cells 0-2 (0-2) /HPF Urine Bacteria None Seen (None Seen) Hyaline Casts 0-2 (0-2) /LPF Stool Occult Blood (NEGATIVE) 02/08/23 Range/Units 21:05 WBC (4.8-10.8) X10*3/uL RBC (4.20-5.50) X10*6/uL Hgb (12.0-16.0) g/dl Hct (37.0-47.0) % MCV (80.0-98.0) fL MCH (27.0-33.0) pg MCHC (31.0-35.0) g/dl RDW (11.0-16.0) % Plt Count (160-400) X10*3/uL MPV (9.4-12.3) fL Immature Gran % (Auto) (0.0-0.4) % Neut % (Auto) (45-73) % Lymph % (Auto) (20-40) % [place] % (Auto) (2-11) % Eos % (Auto) (0-4) % Baso % (Auto) (0-2) % Lymph # (Auto) (1.2-4.9) X10*3/uL [place] # (Auto) (0.1-1.2) X10*3/uL Eos # (Auto) (0.0-0.4) X10*3/uL Baso # (Auto) (0.0-0.2) X10*3/uL Abs Immat Gran (auto) (0.00-0.03) X10*3/uL Absolute Neuts (auto) (2.0-8.3) x10*3/uL Absolute Nucleated RBC (0.0-0.012) X10*3/uL Nucleated RBC % (auto) (0.0-0.2) /100WBC Sodium (135-145) mmol/L Potassium (3.3-5.1) mmol/L Chloride (96-108) mmol/L Carbon Dioxide (22-29) mmol/L Anion Gap (12-20) BUN (9-16) mg/dL Creatinine (0.5-1.4) mg/dL Estim Creat Clear Calc Estimated GFR Random Glucose (60-115) mg/dL Calcium (8.4-10.2) mg/dL Magnesium (1.6-2.6) mg/dL Total Bilirubin (0.0-1.0) mg/dL AST (5-31) U/L ALT (0-31) U/L Alkaline Phosphatase (39-117) U/L Total Protein (6.5-8.0) g/dL Albumin (3.5-5.0) g/dL Urine Color Urine Appearance Urine pH (5.0-9.0) Ur Specific [place] (1.005-1.025) Urine Protein (Neg-Trace) mg/dL Urine Glucose (UA) (Negative) mg/dL Urine Ketones (Negative) mg/dL Urine Blood (Negative) Urine Nitrite (Negative) Ur Leukocyte Esterase (Negative) Urine RBC (0-2) /HPF Urine WBC (0-5) /HPF Ur Squamous Epith Cells (0-2) /HPF Urine Bacteria (None Seen) Hyaline Casts (0-2) /LPF Stool Occult Blood NEGATIVE (NEGATIVE) <MONTANA Dominguez - Last Filed: 02/08/23 15:41> Lab Results 02/08/23 02/08/23 02/08/23 Range/Units 16:15 16:15 21:02 WBC 6.3 (4.8-10.8) X10*3/uL RBC 3.78 L (4.20-5.50) X10*6/uL Hgb 10.9 L (12.0-16.0) g/dl Hct 33.4 L (37.0-47.0) % MCV 88.4 (80.0-98.0) fL MCH 28.8 (27.0-33.0) pg MCHC 32.6 (31.0-35.0) g/dl RDW 13.6 (11.0-16.0) % Plt Count 316 (160-400) X10*3/uL MPV 8.6 L (9.4-12.3) fL Immature Gran % (Auto) 0.2 (0.0-0.4) % Neut % (Auto) 51.5 (45-73) % Lymph % (Auto) 39.3 (20-40) % [place] % (Auto) 6.4 (2-11) % Eos % (Auto) 2.1 (0-4) % Baso % (Auto) 0.5 (0-2) % Lymph # (Auto) 2.5 (1.2-4.9) X10*3/uL [place] # (Auto) 0.4 (0.1-1.2) X10*3/uL Eos # (Auto) 0.1 (0.0-0.4) X10*3/uL Baso # (Auto) 0.0 (0.0-0.2) X10*3/uL Abs Immat Gran (auto) 0.01 (0.00-0.03) X10*3/uL Absolute Neuts (auto) 3.2 (2.0-8.3) x10*3/uL Absolute Nucleated RBC 0.000 (0.0-0.012) X10*3/uL Nucleated RBC % (auto) 0.0 (0.0-0.2) /100WBC Sodium 141 (135-145) mmol/L Potassium 3.7 (3.3-5.1) mmol/L Chloride 106 (96-108) mmol/L Carbon Dioxide 28 (22-29) mmol/L Anion Gap 11 L (12-20) BUN 14 (9-16) mg/dL Creatinine 0.79 (0.5-1.4) mg/dL Estim Creat Clear Calc 99.2 Estimated GFR > 60 Random Glucose 101 (60-115) mg/dL Calcium 9.0 (8.4-10.2) mg/dL Magnesium 2.0 (1.6-2.6) mg/dL Total Bilirubin 0.3 (0.0-1.0) mg/dL AST 16 (5-31) U/L ALT 23 (0-31) U/L Alkaline Phosphatase 101 (39-117) U/L Total Protein 7.3 (6.5-8.0) g/dL Albumin 4.3 (3.5-5.0) g/dL Urine Color Yellow Urine Appearance Clear Urine pH 7.0 (5.0-9.0) Ur Specific [place] 1.015 (1.005-1.025) Urine Protein Negative (Neg-Trace) mg/dL Urine Glucose (UA) Negative (Negative) mg/dL Urine Ketones Negative (Negative) mg/dL Urine Blood Small (1+) H (Negative) Urine Nitrite Negative (Negative) Ur Leukocyte Esterase Negative (Negative) Urine RBC 6-10 H (0-2) /HPF Urine WBC 0-5 (0-5) /HPF Ur Squamous Epith Cells 0-2 (0-2) /HPF Urine Bacteria None Seen (None Seen) Hyaline Casts 0-2 (0-2) /LPF Stool Occult Blood (NEGATIVE) 02/08/23 Range/Units 21:05 WBC (4.8-10.8) X10*3/uL RBC (4.20-5.50) X10*6/uL Hgb (12.0-16.0) g/dl Hct (37.0-47.0) % MCV (80.0-98.0) fL MCH (27.0-33.0) pg MCHC (31.0-35.0) g/dl RDW (11.0-16.0) % Plt Count (160-400) X10*3/uL MPV (9.4-12.3) fL Immature Gran % (Auto) (0.0-0.4) % Neut % (Auto) (45-73) % Lymph % (Auto) (20-40) % [place] % (Auto) (2-11) % Eos % (Auto) (0-4) % Baso % (Auto) (0-2) % Lymph # (Auto) (1.2-4.9) X10*3/uL [place] # (Auto) (0.1-1.2) X10*3/uL Eos # (Auto) (0.0-0.4) X10*3/uL Baso # (Auto) (0.0-0.2) X10*3/uL Abs Immat Gran (auto) (0.00-0.03) X10*3/uL Absolute Neuts (auto) (2.0-8.3) x10*3/uL Absolute Nucleated RBC (0.0-0.012) X10*3/uL Nucleated RBC % (auto) (0.0-0.2) /100WBC Sodium (135-145) mmol/L Potassium (3.3-5.1) mmol/L Chloride (96-108) mmol/L Carbon Dioxide (22-29) mmol/L Anion Gap (12-20) BUN (9-16) mg/dL Creatinine (0.5-1.4) mg/dL Estim Creat Clear Calc Estimated GFR Random Glucose (60-115) mg/dL Calcium (8.4-10.2) mg/dL Magnesium (1.6-2.6) mg/dL Total Bilirubin (0.0-1.0) mg/dL AST (5-31) U/L ALT (0-31) U/L Alkaline Phosphatase (39-117) U/L Total Protein (6.5-8.0) g/dL Albumin (3.5-5.0) g/dL Urine Color Urine Appearance Urine pH (5.0-9.0) Ur Specific [place] (1.005-1.025) Urine Protein (Neg-Trace) mg/dL Urine Glucose (UA) (Negative) mg/dL Urine Ketones (Negative) mg/dL Urine Blood (Negative) Urine Nitrite (Negative) Ur Leukocyte Esterase (Negative) Urine RBC (0-2) /HPF Urine WBC (0-5) /HPF Ur Squamous Epith Cells (0-2) /HPF Urine Bacteria (None Seen) Hyaline Casts (0-2) /LPF Stool Occult Blood NEGATIVE (NEGATIVE) <Rekha Morris MD - Last Filed: 02/08/23 22:50> Radiology Impression Discussion of test interpretation with radiology: I have reviewed the radiologist's reading. <Rekha Morris MD - Last Filed: 02/08/23 22:50> Radiologist Impression: FINDINGS: LUNG BASES: The visualized lung bases are unremarkable.? LIVER, GALLBLADDER, AND BILIARY TREE: The liver is normal in size, shape, and attenuation. No focal hepatic lesion or biliary ductal dilatation is present. The gallbladder is unremarkable with no evidence of radiopaque gallstones, gallbladder wall thickening, or obvious pericholecystic inflammatory changes.? PANCREAS: Unremarkable.? SPLEEN: Unremarkable.? ADRENAL GLANDS: Unremarkable.? KIDNEYS AND URETERS: The kidneys are normal in size, shape, and attenuation. No hydronephrosis, hydroureter, or calculi seen. No perinephric stranding. There is a small 1.2 cm complex cyst upper pole right kidney and simple 1.7 cm cyst midpole left kidney. BLADDER: Unremarkable.? GASTROINTESTINAL TRACT: There is scattered stool, diverticuli and gas seen throughout the colon without any significant distention. The small bowel loops are normal caliber. Appendix is normal caliber. No free air or free fluid seen. There is no evidence of diverticulitis. ABDOMINAL WALL: There is a small lumbar canal hernia containing fat.? LYMPH NODES: Normal. VASCULAR: Unremarkable. PELVIC VISCERA: There is anteverted uterus with no focal lesion seen. There is no adnexal mass or free fluid.? OSSEOUS STRUCTURES: No aggressive lytic or sclerotic process seen.? CT/CT abdomen pelvis w IV con IMPRESSION: 1.? No acute intra-abdominal process seen. 2.? Colonic diverticulosis without diverticulitis. 3.? Bilateral renal cysts. ? Fleischner guidelines were followed. <Rekha Morris MD - Last Filed: 02/08/23 22:50> Discharge Plan Discharge Clinical Impression: Anal pruritus <MONTANA Dominguez - Last Filed: 02/08/23 15:41> Patient Disposition: Home, Self-Care <MONTANA Dominguez - Last Filed: 02/08/23 15:41> Instructions: Anal Itching (ED) <MONTANA Dominguez - Last Filed: 02/08/23 15:41> Additional Instructions: Please follow-up with your primary care physician tomorrow. If you have any worsening or new symptoms, please return to the emergency room or call 911 <MONTANA Dominguez - Last Filed: 02/08/23 15:41> Prescriptions: New Preparation H 0.25-14-74.9 % ointment 1 appl SC BID PRN (Reason: rectal discomfort) Qty: 57 0RF No Action fluticasone propionate [Flonase Allergy Relief] 50 mcg/actuation spray,suspension 1 spray intranasal DAILY 30 Days Qty: 16 6RF Rx Instructions: administer into each nostril amlodipine 5 mg tablet 5 mg PO DAILY Qty: 90 1RF cyanocobalamin (vitamin B-12) 1,000 mcg tablet, sublingual 1,000 mcg sublingual BEDTIME 90 Days Qty: 90 3RF omeprazole 40 mg capsule,delayed release(DR/EC) 40 mg PO DAILY 90 Days Qty: 90 2RF cholecalciferol (vitamin D3) 50 mcg (2,000 unit) capsule 50 mcg PO DAILY 90 Days Qty: 90 1RF folic acid 1 mg tablet 1 mg PO DAILY 90 Days Qty: 90 1RF epinephrine 0.3 mg/0.3 mL auto-injector IM DIRECTED gabapentin 300 mg capsule 300 mg PO BEDTIME 90 Days Qty: 90 0RF quetiapine [Seroquel] 25 mg tablet 50 mg PO BEDTIME loratadine 10 mg tablet 10 mg PO DAILY [id number] 50-325-40 mg tablet 1 - 2 tab PO DAILY PRN (Reason: headache) lorazepam 1 mg tablet 1 mg PO TID <MONTANA Dominguez - Last Filed: 02/08/23 15:41>
[2023-02-08 15:38] VITALS: BP 166/83; PULSE 85; RESP 20; TEMP 36.6; O2SAT 98; BMI 37.2
[2023-02-08 16:19] LABS: MANUAL DIFF FLAG NO
[2023-02-08 16:25] LABS: Basophils Percent Auto 0.5 % (0-2); Eosinophils Absolute Auto 0.1 X10*3/uL (0.0-0.4); Eosinophils Percent Auto 2.1 % (0-4); Hematocrit 33.4 % (37.0-47.0); Hemoglobin 10.9 g/dl (12.0-16.0); Imm Gran Abs Auto 0.01 X10*3/uL (0.00-0.03); Imm Gran Pct Auto 0.2 % (0.0-0.4); Lymphocytes Absolute Auto 2.5 X10*3/uL (1.2-4.9); Lymphocytes Percent Auto 39.3 % (20-40); Mean Corpuscular HGB Conc 32.6 g/dl (31.0-35.0); Mean Corpuscular Hemoglobin 28.8 pg (27.0-33.0); Mean Corpuscular Volume 88.4 fL (80.0-98.0); Mean Platelet Volume 8.6 fL (9.4-12.3); Monocytes Absolute Auto 0.4 X10*3/uL (0.1-1.2); Monocytes Percent Auto 6.4 % (2-11); Neutrophils Absolute Auto 3.2 x10*3/uL (2.0-8.3); Neutrophils Percent Auto 51.5 % (45-73); Platelet Count 316 X10*3/uL (160-400); Red Blood Count 3.78 X10*6/uL (4.20-5.50); Red Cell Distribution Width 13.6 % (11.0-16.0); White Blood Count 6.3 X10*3/uL (4.8-10.8)
[2023-02-08 16:36] LABS: Alanine Aminotransferase 23 U/L (0-31); Albumin Level 4.3 g/dL (3.5-5.0); Alkaline Phosphatase 101 U/L (39-117); Anion Gap 11 (12-20); Aspartate Amino Transferase 16 U/L (5-31); Bilirubin Total 0.3 mg/dL (0.0-1.0); Blood Urea Nitrogen 14 mg/dL (9-16); Carbon Dioxide 28 mmol/L (22-29); Chloride 106 mmol/L (96-108); Creatinine Clr Calc Pharmacy 99.2; Estimated Glomerular Filt Rate > 60; Glucose Random 101 mg/dL (60-115); Potassium 3.7 mmol/L (3.3-5.1); Sodium 141 mmol/L (135-145); Total Protein 7.3 g/dL (6.5-8.0)
[2023-02-08 20:28] VITALS: BP 168/81; PULSE 85; RESP 18; TEMP 37.1; O2SAT 100
[2023-02-08] MEDS: iohexoL 350 MG/ML 100 ML INFUS..BTL IV (20:42)
[2023-02-08 21:15] LABS: Appearance Urine Clear; Color Urine Yellow; Glucose Urine UA Negative (Negative); Leukocyte Esterase Urine Negative (Negative); Nitrite Urine Negative (Negative); Specific Gravity - Urine 1.015 (1.005-1.025); UMIC TRIGGER UACC YES; Urine Blood Small (1+) (Negative); Urine Ketones Negative (Negative); Urine Protein Negative (Neg-Trace)
[2023-02-08 21:17] LABS: OBS Int Ctl Valid YES; OBS1 NEGATIVE (NEGATIVE)
[2023-02-08 21:20] LABS: Bacteria Urine None Seen (None Seen); Hyaline Casts Urine 0-2 /LPF (0-2); Squamous Epithelial Cell Urine 0-2 /HPF (0-2); WBC Urine 0-5 /HPF (0-5)
== END 2023-02-08 23:01 | disposition home or self-care (01) ==
PROVIDERS: Physician Assistant; Emergency Provider Emergency Medicine; PCP Internal Medicine
DX: L29.0 Pruritus ani (principal); K62.5 Hemorrhage of anus and rectum
CPT/HCPCS: 36415; 74177; 80053; 81001; 82272; 83735; 85025; 99284; Q9967

== ENCOUNTER 2023-04-05 11:00 | Outpatient (RCR) | payer OTHER, SELFPAY | END 2023-10-02 11:26 | disposition home or self-care (01) | LOC: HO.PTWFD 11:00 | PROVIDERS: Visit Provider Internal Medicine | DX: M54.50 Low back pain, unspecified (principal) | CPT/HCPCS: 97012; 97110; 97140; 97162; 97535 ==

== ENCOUNTER 2023-04-06 10:06 | Outpatient (REF) | payer OTHER, SELFPAY ==
[2023-04-06 10:25] LABS: MANUAL DIFF FLAG NO
[2023-04-06 10:46] LABS: Basophils Percent Auto 0.5 % (0-2); Eosinophils Absolute Auto 0.1 X10*3/uL (0.0-0.4); Hematocrit 35.3 % (37.0-47.0); Hemoglobin 11.5 g/dl (12.0-16.0); Imm Gran Abs Auto 0.01 X10*3/uL (0.00-0.03); Imm Gran Pct Auto 0.2 % (0.0-0.4); Lymphocytes Absolute Auto 2.1 X10*3/uL (1.2-4.9); Lymphocytes Percent Auto 34.8 % (20-40); Mean Corpuscular HGB Conc 32.6 g/dl (31.0-35.0); Mean Corpuscular Hemoglobin 28.9 pg (27.0-33.0); Mean Corpuscular Volume 88.7 fL (80.0-98.0); Mean Platelet Volume 8.6 fL (9.4-12.3); Monocytes Absolute Auto 0.4 X10*3/uL (0.1-1.2); Monocytes Percent Auto 7.1 % (2-11); Neutrophils Absolute Auto 3.3 x10*3/uL (2.0-8.3); Neutrophils Percent Auto 55.4 % (45-73); Platelet Count 314 X10*3/uL (160-400); Red Blood Count 3.98 X10*6/uL (4.20-5.50); Red Cell Distribution Width 13.5 % (11.0-16.0); White Blood Count 5.9 X10*3/uL (4.8-10.8)
[2023-04-06 12:52] LABS: Alanine Aminotransferase 18 U/L (0-31); Albumin Level 4.3 g/dL (3.5-5.0); Alkaline Phosphatase 91 U/L (39-117); Aspartate Amino Transferase 16 U/L (5-31); Bilirubin Total 0.4 mg/dL (0.0-1.0); Blood Urea Nitrogen 14 mg/dL (9-16); Calcium 8.8 mg/dL (8.4-10.2); Chloride 107 mmol/L (96-108); Cholesterol 202 mg/dL; Estimated Glomerular Filt Rate > 60; Glucose Fasting 106 mg/dL (60-99); HDL Cholesterol 43 mg/dL; Iron 64 mcg/dL (30-160); LDL Cholesterol Calculated 136 mg/dl; Percent Iron Saturation 20 % (15-50); Potassium 3.7 mmol/L (3.3-5.1); Sodium 142 mmol/L (135-145); Total Iron Binding Capacity 318 mcg/dL (228-428); Total Protein 7.4 g/dL (6.5-8.0); Triglycerides 117 mg/dL; Unsaturated Iron Binding 254 ug/dL
[2023-04-06 13:12] LABS: Anion Gap 11 (12-20); Carbon Dioxide 27 mmol/L (22-29)
[2023-04-10 20:09] LABS: Intrinsic Factor Antibodies Negative (Negative)
[2023-04-12 11:48] LABS: Parietal Cell Antibody <=20.0 Unit (<=20.0)
== END 2023-04-06 10:07 | disposition home or self-care (01) ==
LOC: HO.LAB 10:06
PROVIDERS: PCP Internal Medicine; Visit Provider Internal Medicine
DX: E55.9 Vitamin D deficiency, unspecified (principal); D64.9 Anemia, unspecified; E78.5 Hyperlipidemia, unspecified; E53.8 Deficiency of other specified B group vitamins; T78.40XA Allergy, unspecified, initial encounter
CPT/HCPCS: 36415; 80053; 80061; 82306; 83516; 83540; 85025; 86340

== ENCOUNTER → 2023-04-12 09:24 | Outpatient (BNVA) | payer OTHER, SELFPAY | PROVIDERS: PCP Internal Medicine; Visit Provider Registered Nurse Emergency | DX: M54.9 Dorsalgia, unspecified (principal); M54.16 Radiculopathy, lumbar region | CPT/HCPCS: 99202 ==

== ENCOUNTER 2023-05-14 20:36 | Emergency (ER) | payer OTHER, SELFPAY ==
[2023-05-14 20:59] VITALS: BP 154/82; PULSE 78; RESP 18; TEMP 36.9; O2SAT 100; BMI 37.1
[2023-05-14 22:40] LABS: MANUAL DIFF FLAG NO
[2023-05-14 22:42] LABS: Basophils Percent Auto 0.2 % (0-2); Eosinophils Absolute Auto 0.1 X10*3/uL (0.0-0.4); Hematocrit 35.1 % (37.0-47.0); Hemoglobin 11.6 g/dl (12.0-16.0); Imm Gran Abs Auto 0.01 X10*3/uL (0.00-0.03); Imm Gran Pct Auto 0.2 % (0.0-0.4); Lymphocytes Percent Auto 49.3 % (20-40); Mean Corpuscular Hemoglobin 28.9 pg (27.0-33.0); Mean Corpuscular Volume 87.3 fL (80.0-98.0); Mean Platelet Volume 8.3 fL (9.4-12.3); Monocytes Absolute Auto 0.4 X10*3/uL (0.1-1.2); Monocytes Percent Auto 9.4 % (2-11); Neutrophils Absolute Auto 1.6 x10*3/uL (2.0-8.3); Neutrophils Percent Auto 38.9 % (45-73); Platelet Count 254 X10*3/uL (160-400); Red Blood Count 4.02 X10*6/uL (4.20-5.50); Red Cell Distribution Width 13.1 % (11.0-16.0)
[2023-05-14 22:43] LABS: Appearance Urine Clear; Color Urine Yellow; Glucose Urine UA Negative (Negative); Leukocyte Esterase Urine Negative (Negative); Nitrite Urine Negative (Negative); UMIC TRIGGER UACC YES; Urine Blood Small (1+) (Negative); Urine Ketones Negative (Negative); Urine Protein Negative (Neg-Trace)
[2023-05-14 22:50] LABS: Bacteria Urine None Seen (None Seen); Hyaline Casts Urine 0-2 /LPF (0-2); RBC Urine 0-2 /HPF (0-2); WBC Urine 0-5 /HPF (0-5)
[2023-05-14 22:55] LABS: Alanine Aminotransferase 41 U/L (0-31); Albumin Level 4.5 g/dL (3.5-5.0); Alkaline Phosphatase 86 U/L (39-117); Anion Gap 15 (12-20); Aspartate Amino Transferase 26 U/L (5-31); Bilirubin Direct < 0.2 mg/dL (0.0-0.5); Bilirubin Total 0.2 mg/dL (0.0-1.0); Blood Urea Nitrogen 13 mg/dL (9-16); Calcium 9.7 mg/dL (8.4-10.2); Carbon Dioxide 25 mmol/L (22-29); Chloride 105 mmol/L (96-108); Creatinine Clr Calc Pharmacy 88.9; Estimated Glomerular Filt Rate > 60; Glucose Random 101 mg/dL (60-115); Potassium 3.4 mmol/L (3.3-5.1); Sodium 142 mmol/L (135-145); Total Protein 7.9 g/dL (6.5-8.0)
[2023-05-15 01:59] VITALS: BP 153/78; PULSE 71; RESP 16; TEMP 36.9; O2SAT 98
--- NOTE | 2023-05-15 03:46 | ED_ITS ---
HPI - Abdominal Pain General Chief Complaint: Abdominal Pain Stated Complaint: abd pain Time Seen by Provider: 05/15/23 03:38 Source: patient Mode of arrival: ambulatory Limitations: no limitations History of Present Illness HPI narrative: Patient comes in the emergency room complaining of nausea, vomiting, diarrhea. Everything started after eating a donut couple of days ago. Patient states that the 1st couple of days that she had diarrhea, she took Imodium and Pepto-Bismol, the diarrhea stopped. Now, patient states that whenever she eats something she feels ?dizzy? denies any vomiting or diarrhea or significant abdominal pain. At this time, patient is asymptomatic Related Data Home Medications Medication Instructions Recorded Confirmed quetiapine 25 mg tablet (Seroquel) 50 mg PO BEDTIME 08/22/22 04/10/23 evpvflslxq-aipxzzjfcmwzc-epnfwtol 1 - 2 tab PO DAILY PRN headache 02/08/23 04/10/23 50 mg-325 mg-40 mg tablet loratadine 10 mg tablet 10 mg PO DAILY 02/08/23 04/10/23 lorazepam 1 mg tablet 1 mg PO TID 02/08/23 04/10/23 Previous Rx's Medication Instructions Recorded fluticasone propionate 50 1 spray intranasal DAILY 30 days 08/15/22 mcg/actuation nasal #16 grams spray,suspension (Flonase Allergy Relief) cholecalciferol (vitamin D3) 50 50 mcg PO DAILY 90 days #90 caps 08/22/22 mcg (2,000 unit) capsule amlodipine 5 mg tablet 5 mg PO DAILY #90 tabs 10/24/22 cyanocobalamin (vitamin B-12) 1,000 mcg sublingual BEDTIME 90 11/12/22 1,000 mcg sublingual tablet days #90 tabs omeprazole 40 mg capsule,delayed 40 mg PO DAILY 90 days #90 caps 12/18/22 release gabapentin 300 mg capsule 300 mg PO BEDTIME 90 days #90 caps 12/25/22 phenylephrine 0.25 %-mineral oil 1 appl MD BID PRN rectal 02/08/23 14 %-petrolatm 74.9 % rectal discomfort #57 grams ointment (Preparation H) folic acid 1 mg tablet 1 mg PO DAILY 90 days #90 tabs 02/09/23 baclofen 10 mg tablet 10 mg PO BID PRN muscle spasm #60 05/08/23 tabs epinephrine 0.3 mg/0.3 mL 0.3 mg (0.3 mL) IM DIRECTED #2 05/08/23 injection, auto-injector ea naproxen 375 mg tablet 375 mg PO BID #60 tabs 05/08/23 ondansetron HCl 4 mg tablet 4 mg PO Q8H PRN nausea and 05/15/23 vomiting #10 tabs Allergies Allergy/AdvReac Type Severity Reaction Status Date / Time galcanezumab-gnlm Allergy Intermediate localized Verified 04/10/23 08:59 [From Emgality Pen] swelling garlic Allergy Shortness Verified 04/10/23 08:59 of Breath duloxetine [From CYMBALTA] AdvReac Mild migraines,v Verified 04/10/23 08:59 omitting tumeric AdvReac Shortness Uncoded 04/10/23 08:59 of Breath Review of Systems Review of Systems Constitutional : No Weight loss, No Fever, No Chills, No Night Sweats, No Fatigue, No Malaise ENT/Mouth : No Hearing loss, No Ear Pain, No Nasal Congestion, No Sinus Pain, No Hoarseness, No sore throat, No Rhinorrhea, No Swallowing Difficulty Eyes: No Eye Pain, No Swelling, No Redness, No Foreign Body, No Discharge, No Vision Changes Cardiovascular : No Chest Pain, No SOB, No Dyspnea on Exertion, No Orthopnea, No Edema, No Palpitations Respiratory : No Cough, No Sputum, No Wheezing, No Smoke Exposure, No Dyspnea Gastrointestinal : Complaining of nausea vomiting and diarrhea, complaining of abdominal cramping intermittently, no melena, complaining of feeling ?dizzy? when eating Genitourinary : no irregular bleeding, No Dysuria, No Urinary Frequency, No Hematuria, No Urinary Incontinence, No Urgency, No Flank Pain, No Urinary Flow Changes, No Hesitancy Musculoskeletal : No joint pain, No Myalgias, No Joint Swelling Skin : No Skin Lesions, No rash Neuro : No Weakness, No Numbness, No Paresthesias, No Loss of Consciousness, No Dizziness, No Headache Psych : No Anxiety/Panic, No Depression, No SI/HI/AH/VH, No Social Issues, Heme/Lymph: No Bruising, No Bleeding,No Lymphadenopathy Endocrine : No Polyuria, No Polydipsia, No Temperature Intolerance PMFSH Past Medical History Medical History Allergic rhinitis CHAGO (generalized anxiety disorder) GERD (gastroesophageal reflux disease) HTN (hypertension) Impaired glucose tolerance Migraines Nausea Obesity (BMI 35.0-39.9 without comorbidity) Overactive bladder Postoperative nausea Renal calculi Sleep apnea Surgical History H/O colonoscopy History of section History of extraction of renal calculus History of tubal ligation Family History Family History Father CHF (congestive heart failure) Mother Hypertension Family/Other Substance abuse Paternal Aunt Cancer Other Mental health disorder Social History Social History Household Members: Spouse and Children Housing: House Are you a primary post acute care registered nurse to a significant other at home: No Do you presently have visiting nurse or other home services: No Alcohol intake: never Patient Tobacco Use Status: Former Tobacco user Quit Date: 2015 e-Cigarette/Vaping Use: Never Used Second Hand Smoke Exposure: No Advance Directives: No Advance Directives Information Provided: Yes service: No Current occupational status: disabled Cognitive needs: No Hearing needs: No Vision needs: Yes Physical Exam ED Vital Signs: Vital Signs - 24 hr 05/14/23 20:59 05/15/23 01:59 Temperature 98.5 F 98.5 F Pulse Rate 78 71 Respiratory Rate 18 16 Blood Pressure 154/82 H 153/78 H Pulse Oximetry 100 98 Oxygen Delivery Method Room Air Room Air BMI result Body Mass Index 37.1 Const Other: Appearance: Alert. Oriented X3. No acute distress. Eyes: Pupils equal, round and reactive to light. ENT: Pharynx normal. Neck: Normal inspection. Neck supple. No lymph nodes noted. No crepitus CVS: Normal heart rate and rhythm. Pulses normal. Normal S1 and S2 Respiratory: No respiratory distress. Breath sounds normal. No Wheezing. No rales Abdomen: Soft and nontender. No rigidity. No distention. Skin: Skin warm and dry. Normal skin color. Normal skin turgor. Extremities: No lower extremity edema. No Lacerations. No Rash Neuro: Oriented X 3. No motor deficit. No sensory deficit. Moving all extremities. No slurred speech. CN 2 through 12 grossly intact Psych: calm, cooperative, normal affect Medical Decision Making Medical Decision Making MDM Narrative: -patient's physical exam is unremarkable, imaging is not indicated at this time -my interpretation of labs: White blood cell count 4.0, chemistry unremarkable, LFTs unremarkable -patient denies any abdominal pain, patient states that whenever she eats, she feels ?dizzy?, patient denies near syncope, denies lightheadedness, denies room spinning. Patient describes dizziness mostly as nauseous with no vomiting and no abdominal pain Differential Diagnosis Differential Diagnoses: The differential diagnosis associated with the presentation includes (Peptic ulcer disease, GERD, gastritis, gastroenteritis) Lab Data [facility] Lab Attestation statement: I reviewed the patient's lab results. 05/14/23 22:33 05/14/23 22:33 Labs: Lab Results 05/14/23 05/14/23 05/14/23 Range/Units 22:33 22:33 22:33 WBC 4.0 L (4.8-10.8) X10*3/uL RBC 4.02 L (4.20-5.50) X10*6/uL Hgb 11.6 L (12.0-16.0) g/dl Hct 35.1 L (37.0-47.0) % MCV 87.3 (80.0-98.0) fL MCH 28.9 (27.0-33.0) pg MCHC 33.0 (31.0-35.0) g/dl RDW 13.1 (11.0-16.0) % Plt Count 254 (160-400) X10*3/uL MPV 8.3 L (9.4-12.3) fL Immature Gran % (Auto) 0.2 (0.0-0.4) % Neut % (Auto) 38.9 L (45-73) % Lymph % (Auto) 49.3 H (20-40) % [place] % (Auto) 9.4 (2-11) % Eos % (Auto) 2.0 (0-4) % Baso % (Auto) 0.2 (0-2) % Lymph # (Auto) 2.0 (1.2-4.9) X10*3/uL [place] # (Auto) 0.4 (0.1-1.2) X10*3/uL Eos # (Auto) 0.1 (0.0-0.4) X10*3/uL Baso # (Auto) 0.0 (0.0-0.2) X10*3/uL Abs Immat Gran (auto) 0.01 (0.00-0.03) X10*3/uL Absolute Neuts (auto) 1.6 L (2.0-8.3) x10*3/uL Absolute Nucleated RBC 0.000 (0.0-0.012) X10*3/uL Nucleated RBC % (auto) 0.0 (0.0-0.2) /100WBC Sodium 142 (135-145) mmol/L Potassium 3.4 (3.3-5.1) mmol/L Chloride 105 (96-108) mmol/L Carbon Dioxide 25 (22-29) mmol/L Anion Gap 15 (12-20) BUN 13 (9-16) mg/dL Creatinine 0.87 (0.5-1.4) mg/dL Estim Creat Clear Calc 88.9 Estimated GFR > 60 Random Glucose 101 (60-115) mg/dL Calcium 9.7 D (8.4-10.2) mg/dL Total Bilirubin 0.2 (0.0-1.0) mg/dL Direct Bilirubin < 0.2 (0.0-0.5) mg/dL AST 26 (5-31) U/L ALT 41 H (0-31) U/L Alkaline Phosphatase 86 (39-117) U/L Total Protein 7.9 (6.5-8.0) g/dL Albumin 4.5 (3.5-5.0) g/dL Urine Color Yellow Urine Appearance Clear Urine pH 6.0 (5.0-9.0) Ur Specific [place] 1.010 (1.005-1.025) Urine Protein Negative (Neg-Trace) mg/dL Urine Glucose (UA) Negative (Negative) mg/dL Urine Ketones Negative (Negative) mg/dL Urine Blood Small (1+) H (Negative) Urine Nitrite Negative (Negative) Ur Leukocyte Esterase Negative (Negative) Urine RBC 0-2 (0-2) /HPF Urine WBC 0-5 (0-5) /HPF Ur Squamous Epith Cells 3-5 (0-2) /HPF Urine Bacteria None Seen (None Seen) Hyaline Casts 0-2 (0-2) /LPF Discharge Plan Discharge Clinical Impression: Nausea vomiting and diarrhea Patient Disposition: Home, Self-Care Instructions: Acute Nausea and Vomiting (ED), Acute Diarrhea (ED) Additional Instructions: Please follow-up with your primary care physician tomorrow. If you have any worsening or new symptoms, please return to the emergency room or call 911 Prescriptions: New ondansetron HCl 4 mg tablet 4 mg PO Q8H PRN (Reason: nausea and vomiting) Qty: 10 0RF No Action fluticasone propionate [Flonase Allergy Relief] 50 mcg/actuation spray,suspension 1 spray intranasal DAILY 30 Days Qty: 16 6RF Rx Instructions: administer into each nostril amlodipine 5 mg tablet 5 mg PO DAILY Qty: 90 1RF cyanocobalamin (vitamin B-12) 1,000 mcg tablet, sublingual 1,000 mcg sublingual BEDTIME 90 Days Qty: 90 3RF omeprazole 40 mg capsule,delayed release(DR/EC) 40 mg PO DAILY 90 Days Qty: 90 2RF folic acid 1 mg tablet 1 mg PO DAILY 90 Days Qty: 90 3RF baclofen 10 mg tablet 10 mg PO BID PRN (Reason: muscle spasm) Qty: 60 2RF naproxen 375 mg tablet 375 mg PO BID MDD 1375mg Qty: 60 2RF Rx Instructions: Take with food. Do not take any other NSAIDS with this medication. epinephrine 0.3 mg/0.3 mL auto-injector 0.3 mg IM DIRECTED Qty: 2 2RF Preparation H 0.25-14-74.9 % ointment 1 appl MD BID PRN (Reason: rectal discomfort) Qty: 57 0RF cholecalciferol (vitamin D3) 50 mcg (2,000 unit) capsule 50 mcg PO DAILY 90 Days Qty: 90 1RF gabapentin 300 mg capsule 300 mg PO BEDTIME 90 Days Qty: 90 0RF quetiapine [Seroquel] 25 mg tablet 50 mg PO BEDTIME loratadine 10 mg tablet 10 mg PO DAILY jciewxacux-traisoitcmfrg-igan 50-325-40 mg tablet 1 - 2 tab PO DAILY PRN (Reason: headache) lorazepam 1 mg tablet 1 mg PO TID
[2023-05-15] MEDS: Ondansetron ODT 4 MG TAB.RAPDIS TRANSLINGU (03:52)
[2023-05-15 03:57] VITALS: BP 159/93; PULSE 72; RESP 16; TEMP 36.6; O2SAT 98
== END 2023-05-15 04:31 | disposition home or self-care (01) ==
PROVIDERS: Emergency Provider Emergency Medicine; PCP Internal Medicine
DX: R11.2 Nausea with vomiting, unspecified (principal); R19.7 Diarrhea, unspecified; I10 Essential (primary) hypertension; E66.9 Obesity, unspecified; Z68.37 Body mass index [BMI] 37.0-37.9, adult; Z79.899 Other long term (current) drug therapy; Z87.891 Personal history of nicotine dependence
CPT/HCPCS: 36415; 80053; 81001; 82248; 85025; 99283

== ENCOUNTER 2023-05-22 11:41 | Outpatient (AMB) | payer OTHER, SELFPAY ==
--- NOTE | 2023-05-22 11:44 | A.OFFVIS_ITS ---
Intake Intake Visit Reasons: 4m follow up Intake Note: Patient presents for follow up stress incontinence Physical Therapy: NO Urology Medications: none Blood thinners: none PVR: 79ml Sales Center Associate Required: Yes Sales Center Associate Language: Research Statistician Name: BETSY Accompanied by: Self / Same As Patient Allergies galcanezumab-gnlm [From Emgality Pen] Allergy (Intermediate, Verified 05/22/23 23:19) localized swelling garlic Allergy (Verified 05/22/23 23:19) Shortness of Breath duloxetine [From CYMBALTA] Adverse Reaction (Mild, Verified 05/22/23 23:19) migraines,vomitting tumeric Adverse Reaction (Uncoded 05/22/23 23:19) Shortness of Breath Medication List - Last Reconciled 05/22/23 by BART Cornell- amlodipine 5 mg PO DAILY baclofen 10 mg PO BID PRN nkudunjyfx-cggtwttzaglwp-rzmr 50-325-40 mg 1 - 2 tabs PO DAILY PRN cholecalciferol (vitamin D3) 50 mcg PO DAILY 90 days cyanocobalamin (vitamin B-12) 1,000 mcg sublingual BEDTIME 90 days epinephrine 0.3 mg (0.3 mL) IM DIRECTED fluticasone propionate 50 mcg/actuation (Flonase Allergy Relief) 1 spray intranasal DAILY 30 days folic acid 1 mg PO DAILY 90 days gabapentin 300 mg PO BEDTIME 90 days loratadine 10 mg PO DAILY lorazepam 1 mg PO TID naproxen 375 mg PO BID MDD 1375mg omeprazole 40 mg PO DAILY 90 days ondansetron HCl 4 mg PO Q8H PRN phenyleph-min oil-petrolatum 0.25-14-74.9 % (Preparation H) 1 appl DC BID PRN quetiapine (Seroquel) 50 mg PO BEDTIME HPI HPI Comments History of Present Illness Details Lucinda is a pleasant 48-year-old Burkinan-speaking female patient of Dr. Salazar. She has a past medical history of allergic rhinitis, general lysed anxiety disorder, GERD, hypertension, migraines, obesity, overactive bladder, renal calculi, borderline sleep apnea, and renal cyst. She presents to the office today for follow-up of her stress incontinence. Of note, patient was previously seen by Dr. Kate approximately 4 months ago at which time recommendations were made for pelvic floor therapy however it does not appear patient was able to be referred. When asked she endorses to continue with episodes of stress incontinence. She reports compliance with vitamin B6 daily for history of nephrolithiasis. She otherwise denies nocturia, hematuria, dysuria, foul smelling urine, changes to urinary stream, flank pain, fever, and or chills. Discussed new referral to pelvic floor therapy through other institutions however patient declines at this time. Information provided for pelvic floor therapy exercises as well as vaginal weights as patient discusses she will attempt exercises at home. In office urinalysis results reviewed with the patient today. PVR 79 mL. She otherwise offers no issues or concerns at this time. PREVIOUS OFFICE VISIT NOTE/FINDINGS: Nephrolithiasis Longstanding Imaging - 01/04 renal ultrasound right complex renal cyst, small stone bilateral 4 mm Minimal symptoms Therapeutic plan - encourage fluids - vitamin B6 Stress incontinence Longstanding Leakage when rising from chair [facility] Medical History Allergic rhinitis CHAGO (generalized anxiety disorder) GERD (gastroesophageal reflux disease) HTN (hypertension) Impaired glucose tolerance Migraines Nausea Obesity (BMI 35.0-39.9 without comorbidity) Overactive bladder Postoperative nausea Renal calculi Sleep apnea Surgical History H/O colonoscopy History of section History of extraction of renal calculus History of tubal ligation Family History Father CHF (congestive heart failure) Mother Hypertension Family/Other Substance abuse Paternal Aunt Cancer Other Mental health disorder Social History Household Members: Spouse and Children Housing: House Are you a primary urgent care to a significant other at home: No Do you presently have visiting nurse or other home services: No Alcohol intake: never Patient Tobacco Use Status: Former Tobacco user Quit Date: 2015 e-Cigarette/Vaping Use: Never Used Second Hand Smoke Exposure: No service: No Current occupational status: disabled Cognitive needs: No Hearing needs: No Vision needs: Yes Female Reproductive History Menstrual Age of Menarche: 10 Review of Systems Const Reports as per HPI Eyes Reports no additional complaints ENT Reports no additional complaints Card Reports as per HPI Resp Reports as per HPI GI Reports as per HPI Reports as per HPI Musc Details: Patient reports following up with pain management regarding ongoing lower back pain Neuro Reports as per [facility] Psych Reports as per HPI Endo Reports no additional complaints Physical Exam Const General: cooperative, healthy appearing, comfortable, no acute distress, well developed, alert and awake Orientation/consciousness: patient oriented x3 Limitations: no limitations HEENT Head: Yes normal to inspection, Yes normocephalic and Yes atraumatic Ears: hearing grossly normal bilaterally Eyes General: appearance normal, both eyes and all related structures Neck Neck: Yes normal visual inspection and Yes trachea midline Chest Chest palpation & inspection: normal inspection of the chest Resp Effort & Inspection: normal respiratory effort and able to speak in complete sentences Cardio Rate: regular rate GI Inspection: Yes normal to inspection General: Yes no CVA tenderness Back/Spine/Pelvis Back: no CVA tenderness Skin General skin exam: no rashes or lesions noted Neuro General: patient oriented x3 Extrem General: Yes normal to inspection Psych Appearance: grossly normal and well kempt Mental Status: mental status grossly normal Speech and movement: Normal speech and movement present and Clear speech present Affect: normal affect Attitude: cooperative Thought process: Normal thought process present Thought content: Normal thought content present Insight: Good insight present (Psych) Judgement: Good judgement present (Psych) Office Procedures Post Void Residual Post Residual Void Post Void Residual (PVR): 79 [id number] Void Residual by ultrasound Results AMB Urinalysis, Automated UA Leukoctes 0 Natalya/uL Last Edit by LLOYD Mcgowan on 05/22/23 11:55 UA Nitrite Negative Last Edit by LLOYD Mcgowan on 05/22/23 11:55 UA Urobilinogen 0.2 mg/dL Last Edit by LLOYD Mcgowan on 05/22/23 11:5 5 UA Protein 15 mg/dL Last Edit by LLOYD Mcgowan on 05/22/23 11:55 UA pH 6.5 Last Edit by LLOYD Mcgowan on 05/22/23 11:55 UA Blood 80 [place]/uL Last Edit by LLOYD Mcgowan on 05/22/23 11:55 2+ Haroldo Pan 05/22/23 11:55 UA Specific [place] 1.020 Last Edit by LLOYD Mcgowan on 05/22/23 11: 55 UA Ketone Negative Last Edit by LLOYD Mcgowan on 05/22/23 11:55 UA Bilirubin 0 mg/dL Last Edit by LLOYD Mcgowan on 05/22/23 11:55 UA Glucose 0 mg/dL Last Edit by LLOYD Mcgowan on 05/22/23 11:55 Results Reviewed Results Reviewed: Laboratory Last Values Urine pH (Auto) 6.5 05/22/23 11:54 Specific [place] (Auto) 1.020 05/22/23 11:54 Urine Protein (Auto) 15 mg/dL 05/22/23 11:54 Glucose (UA)(Auto) 0 mg/dL 05/22/23 11:54 Urine Ketones (Auto) Negative 05/22/23 11:54 Urine Blood (Auto) 80 [place]/uL 05/22/23 11:54 Urine Nitrite (Auto) Negative 05/22/23 11:54 Urine Bilirubin (Auto) 0 mg/dL 05/22/23 11:54 Urine Urobilinogen (Auto) 0.2 mg/dL 05/22/23 11:54 Leukocyte Esterase (Auto) 0 Natalya/uL 05/22/23 11:54 Assessment & Plan Assessment & Plan (1) Complex renal cyst: Code(s): N28.1 - Cyst of kidney, acquired (2) Overactive bladder: Code(s): N32.81 - Overactive bladder (3) Renal calculi: Code(s): N20.0 - Calculus of kidney Plan In office urinalysis results reviewed with the patient today. PVR 79 mL. Discussed attempting to double void to assist with incomplete bladder emptying. Discussed at length potential causes for incomplete bladder emptying as well as affects of incomplete bladder emptying Pelvic floor therapy exercises and vaginal weight information provided at today's visit Will continue with surveillance monitoring of nephrolithiasis and patient's history of renal cysts. Discussed trial of medications however patient would like to attempt pelvic floor exercises at home at this time. Discussed at length bladder triggers/irritants. Discussed bathroom planning Follow-up in 3 months; if not sooner with any issues, concerns, and or questions. Orders: Orders AMB Urinalysis Automated Today Z13.9 - Encounter for screening, unspecified AMB Post Void Residual by ultrasound Today N39.8 - Other specified disorders of urinary system Patient Instructions: The patient had an opportunity to ask questions regarding the treatment plan. All questions were answered. Physical exam, labs, and imaging were discussed and reviewed in detail. As well as risks, benefits, and discussion of treatment choices. No major barriers to understanding were identified. The patient expressed understanding and agreement with the above treatment plan. The patient was made aware they should contact our office by phone for worsening of their current condition, the appearance of new symptoms, or with any questions or concerns. Compliance is encouraged with any medications and follow up testing that is ordered. It is a privilege to be allowed the opportunity to participate in? your urological care.? Again, if you have any questions or concerns If you have any questions or concerns please do not hesitate to contact me. The office is [phone]. This note is constructed using voice recognition software. While every effort has been made to ensure accuracy regional service manager errors may have been included. Yours sincerely, EVELYNE Cornell Coding Level of Care Code Est Pt Level 3 (20283) Diagnoses Complex renal cyst N28.1 Overactive bladder N32.81 Renal calculi N20.0 CPT Codes Post Residual Void - PVR CPT Code: 79839-Snyn Void Residual by ultrasound ([id number])
== END 2023-05-22 12:10 | disposition home or self-care (01) ==
PROVIDERS: Visit Provider Nurse Practitioner Family
DX: N28.1 Cyst of kidney, acquired (principal); N32.81 Overactive bladder; N20.0 Calculus of kidney
CPT/HCPCS: 99213

== ENCOUNTER → 2023-05-22 11:41 | Outpatient (BNVA) | payer OTHER, SELFPAY | PROVIDERS: Visit Provider Nurse Practitioner Family | DX: N28.1 Cyst of kidney, acquired (principal); N32.81 Overactive bladder; N20.0 Calculus of kidney | CPT/HCPCS: 51798; 99212 ==

== ENCOUNTER 2023-06-08 13:55 | Outpatient (REF) | payer OTHER, SELFPAY ==
--- NOTE | ~2023-06-08 | MM_ITS ---
EXAMINATION: MM DIAGNOSTIC DIGITAL BREAST TOMOSYNTHESIS, BILATERAL US BREAST LIMITED, LEFT MAMMOGRAPHY: CLINICAL INFORMATION: 48-year-old female complaining of lump inferior left breast, just inferior and medial to the nipple, which has decreased significantly in size, and is currently barely felt. Patient also due for routine screening. COMPARISON: Mammography: 07/03/2022, 06/13/2021, 12/06/2020, 05/19/2020, and dating back to 2018. TECHNIQUE: Digital breast tomosynthesis is performed in both the craniocaudal and mediolateral oblique views along with computer-aided detection (CAD). Synthesized 2D images are generated from the tomosynthesis. In addition, a full field 3-D digital left ML view was obtained, as well as 3-D digital left spot compression CC and 90 degree mediolateral views. FINDINGS: The breasts are heterogeneously dense, which may obscure small masses (ACR BI-RADS breast composition Category c). The technologist has marked the focus of palpable interest left breast 7:00 axis just abutting the left nipple. There is no underlying mass or other mammographic abnormality identified. There are otherwise no suspicious masses, suspicious grouped calcifications, or areas of architectural distortion in either breast. The parenchymal pattern is stable from prior exams. There are no skin changes. ULTRASOUND: CLINICAL INFORMATION: 48-year-old female complaining of lump inferior left breast, just inferior and medial to the nipple, which has decreased significantly in size, and is currently barely felt COMPARISON: None relevant. TECHNIQUE: Targeted sonographic evaluation was performed using a high frequency linear transducer. Selected archived documentation. FINDINGS: LEFT BREAST: There is a mixture of fatty and fibroglandular tissue. No suspicious mass is seen. There is no pathologic acoustic shadowing. There are no cystic changes and there is no skin abnormality. Only islands of heterogeneously dense normal breast tissue identified. MM/MM tomosynthesis diagnostic BI IMPRESSION: There are no sonographic or mammographic findings suspicious for malignancy. There is no sonographic or mammographic correlate to the focus of palpable concern, 7:00 left periareolar region. Recommend clinical management. Decision to biopsy a palpable abnormality without imaging correlate must be determined on a clinical basis. Otherwise, return to routine screening recommended. OVERALL ASSESSMENT: Mammography: BI-RADS 1 - Negative Ultrasound: BI-RADS 1 - Negative RECOMMENDATION: 1 year F/U Results were provided to the patient at time of visit by the technologist. This patient's information was entered into a reminder system with a target due date for their next mammogram.
== END 2023-06-08 13:56 | disposition home or self-care (01) ==
LOC: HO.MAMMO 13:55
PROVIDERS: PCP Internal Medicine; Visit Provider Internal Medicine
DX: N63.25 Unspecified lump in the left breast, overlapping quadrants (principal)
CPT/HCPCS: 76642; 77062; 77066

== ENCOUNTER → 2023-06-08 14:30 | Outpatient (BNV) | payer OTHER, SELFPAY | PROVIDERS: PCP Internal Medicine; Visit Provider Radiology Diagnostic Radiology | DX: N63.20 Unspecified lump in the left breast, unspecified quadrant (principal) | CPT/HCPCS: 76642; 77062; 77066 ==

== ENCOUNTER 2023-06-11 10:03 | Outpatient (REF) | payer OTHER, SELFPAY ==
--- NOTE | ~2023-06-11 | MR_ITS ---
EXAMINATION: MR LUMBAR SPINE WITHOUT CONTRAST CLINICAL INFORMATION: Lumbar radiculopathy. COMPARISON: Lumbar spine radiographs 01/01/2023. TECHNIQUE: MRI of the lumbar spine was obtained using routine sequences without contrast. FINDINGS: Spinal alignment is normal in the sagittal dimension. Vertebral heights are preserved. No acute bone marrow signal changes. There is disc desiccation at L4-L5 and L5-S1 without substantial loss of intervertebral disc height. The tip of the conus medullaris is located at L1. No mass effect on the conus. Visualized distal cord signal intensity is normal. At and T12-L1, L1-L2, L2-L3, and L3-L4 the annular contours are normal. No canal or neuroforaminal compromise at these levels. At L4-L5 there is a central annular fissure associated with a bulging disc. Bilateral facet degenerative change. No canal stenosis. No mass effect on the traversing or foraminal nerve roots. At L5-S1 there is a central annular fissure associated with a bulging disc. Bilateral facet degenerative change. No canal stenosis. No mass effect on the traversing or foraminal nerve roots. Limited visualization the retroperitoneal anatomy reveals a well marginated benign-appearing cystic lesion within the left kidney. Psoas and paraspinal muscle groups are symmetric. MR/MR lumbar spine wo con IMPRESSION: There are central annular fissures associated with bulging discs at L4-L5 and L5-S1. Otherwise unremarkable examination. No canal stenosis. No mass effect on the traversing or foraminal nerve roots.
== END 2023-06-11 10:04 | disposition home or self-care (01) ==
LOC: HO.MRI 10:03
PROVIDERS: PCP Internal Medicine; Visit Provider Registered Nurse Emergency
DX: M54.16 Radiculopathy, lumbar region (principal)
CPT/HCPCS: 72148

== ENCOUNTER 2023-06-27 10:00 | Outpatient (AMB) | payer OTHER, SELFPAY ==
[2023-06-27 10:10] VITALS: BP 122/70; PULSE 84; RESP 16; O2SAT 98; BMI 37.9
--- NOTE | 2023-06-27 10:10 | A.OFFVIS_ITS ---
Intake Vital Signs 06/27/23 10:10 Height 5 ft 4 in Weight 221 lb BMI 37.9 BP 122/70 Blood Pressure Location Lt brachial Position Sitting Respiration 16 Pulse 84 Pulse Source Pulse Oximeter Pulse Oximetry (%) 98 Oxygen Delivery Method Room Air Intake Visit Reasons: FOLLOW UP/MRI RESULTS Allergies galcanezumab-gnlm [From Emgality Pen] Allergy (Intermediate, Verified 06/27/23 10:15) localized swelling garlic Allergy (Verified 06/27/23 10:15) Shortness of Breath duloxetine [From CYMBALTA] Adverse Reaction (Mild, Verified 06/27/23 10:15) migraines,vomitting tumeric Adverse Reaction (Uncoded 05/22/23 23:19) Shortness of Breath HPI HPI Comments History of Present Illness Details Lucinda is a very pleasant 48 year old female who presents to the office today for follow up lower back pain and review of MRI. MRI reviewed with patient, results as per below. Patient reports today that her pain persists. She has been taking naproxen and baclofen without relief. She continues to endorse pain left lower back with radiation down her left leg to the level of the foot. She completed physical therapy without relief of this pain and continues to do home exercise program. Patient is also complaining of pain across the lower aspects of her back with radiation into her buttocks over the last 2 days. She reports that she has experience similar pain in the past that resolved after she attended physical therapy. This is different from her chronic pain which she is able to differentiate between the two. Patient denies red flag symptoms including loss of bowel, bladder or saddle a nesthesia. Prior: Lucinda is a pleasant 47-year-old female presents to the office today for evaluation management of her left-sided lower back pain. Patient reports initially injured her back December 2022 when she was sitting in her chair and fell backwards. Patient reports Mar 04 2023 her niece jumped into her lap and they both fell to the ground which exacerbated her pain. She has been attending physical therapy, has her last session today. Patient plans on continuing home exercise program. Patient reports midline lumbar pressure and left lower back pain that radiates down her leg into her foot to her toe. Patient denies any red flag symptoms including loss of bowel bladder or saddle anesthesia. Patient states she has tried Motrin for her pain which helps ?a little?. Patient gets some relief when she applies heat to the area. Patient's primary care doctor prescribed her gabapentin which she states does not help her pain at all. She has not tried acupuncture, chiropracture, massage, steroids or injections. Patient denies previous surgical intervention of her back. Patient reports her pain is negatively impacting her ability to enjoy life, enjoyed recreational activities and perform activities of daily living. In terms of muscle damage condition is reported as aching, spasming, tingling, pins, needles and squeezing. Pain is constant and worse in the mornings. Patient's past medical history significant for anxiety, GERD, hypertension, migraines, nausea, obesity, overactive bladder and sleep apnea. Patient denies history of diabetes. Patient denies current use of tobacco, alcohol or illicit substances. [facility] Medical History Allergic rhinitis CHAGO (generalized anxiety disorder) GERD (gastroesophageal reflux disease) HTN (hypertension) Impaired glucose tolerance Migraines Nausea Obesity (BMI 35.0-39.9 without comorbidity) Overactive bladder Postoperative nausea Renal calculi Sleep apnea Surgical History H/O colonoscopy History of section History of extraction of renal calculus History of tubal ligation Family History Father CHF (congestive heart failure) Mother Hypertension Family/Other Substance abuse Paternal Aunt Cancer Other Mental health disorder Social History Household Members: Spouse and Children Housing: House Are you a primary career manager to a significant other at home: No Do you presently have visiting nurse or other home services: No Alcohol intake: never Patient Tobacco Use Status: Former Tobacco user Quit Date: 2015 e-Cigarette/Vaping Use: Never Used Second Hand Smoke Exposure: No service: No Current occupational status: disabled Cognitive needs: No Hearing needs: No Vision needs: Yes Female Reproductive History Menstrual Age of Menarche: 10 Review of Systems Const All systems reviewed & are unremarkable except as noted in HPI and below Physical Exam Vital Signs: Last Vital Signs Pulse 84 06/27/23 10:10 Resp 16 06/27/23 10:10 BP 122/70 06/27/23 10:10 Pulse Ox 98 06/27/23 10:10 Oxygen Delivery Method Room Air 06/27/23 10:10 BMI result Body Mass Index 37.9 Const General: no acute distress Orientation/consciousness: patient oriented x3 Resp Effort & Inspection: normal respiratory effort and able to speak in complete sentences Back/Spine/Pelvis Other: Lumbar exam: Able to stand on bilateral tiptoes and bilateral heels. Able to transition from sit to stand unassisted. Ambulates with bilaterally normal heel strike and toe off Visual inspection without gross abnormality Nontender to palpation over midline lumbar vertebrae Nontender to palpation over paraspinal muscles Nontender to palpation over PSIS ROM: pain with extension to 15 degrees. flexion to 90 degrees Strength: 5/5 BLE Sensation: intact and symmetric BLE Straight leg raises with and without dorsiflexion: negative on right, positive on left Facet loading negative bilaterally ANUJA positive on left, negative on right Thigh thrust negative bilaterally Neuro General: patient oriented x3 Results Reviewed Results Reviewed: 06/11/23 EXAMINATION: MR LUMBAR SPINE WITHOUT CONTRAST FINDINGS: Spinal alignment is normal in the sagittal dimension. Vertebral heights are preserved. No acute bone marrow signal changes. There is disc desiccation at L4-L5 and L5-S1 without substantial loss of intervertebral disc height. The tip of the conus medullaris is located at L1. No mass effect on the conus. Visualized distal cord signal intensity is normal. At and T12-L1, L1-L2, L2-L3, and L3-L4 the annular contours are normal. No canal or neuroforaminal compromise at these levels. At L4-L5 there is a central annular fissure associated with a bulging disc. Bilateral facet degenerative change. No canal stenosis. No mass effect on the traversing or foraminal nerve roots. At L5-S1 there is a central annular fissure associated with a bulging disc. Bilateral facet degenerative change. No canal stenosis. No mass effect on the traversing or foraminal nerve roots. Limited visualization the retroperitoneal anatomy reveals a well marginated benign-appearing cystic lesion within the left kidney. Psoas and paraspinal muscle groups are symmetric. IMPRESSION: There are central annular fissures associated with bulging discs at L4-L5 and L5-S1. Otherwise unremarkable examination. No canal stenosis. No mass effect on the traversing or foraminal nerve roots. Assessment & Plan Assessment & Plan (1) Lumbar radiculopathy: Code(s): M54.16 - Radiculopathy, lumbar region (2) Strain of fascia of lower back: Code(s): S39.012A - Strain of muscle, fascia and tendon of lower back, initial encounter (3) Lumbar facet arthropathy: Code(s): M47.816 - Spondylosis without myelopathy or radiculopathy, lumbar region Plan Lucinda is a very pleasant 48-year-old female who presented to the office today for evaluation follow up lower back pain. MRI reviewed with patient today, patient without red flag symptoms, does not warrant referral to Neurosurgery. Patient has exhausted conservative therapy including NSAIDs, gabapentin and physical therapy for her chronic lower back pain. She does report 2 days of bilateral lower back pain, different from her chronic pain. She states this pain resolved after PT in the past, she would like to attend PT again. Will d/c baclofen and trial tizanidine 2mg po bid prn. Patient advised on precautions, verbalized understanding. Continue with naproxen 375 mg p.o. b.i.d. with max daily dose 1375 mg. Discussed options for treatment including diagnostic interventional testing, epidural steroid injections, peripheral nerve stimulation with Sprint, RFA and more permanent neuromodulation. Schedule for fluoroscopy guided transforaminal epidural steroid injection under local anesthetic. All questions and concerns have been answered and patient agrees with the plan. Follow up after injections and sooner if needed. Orders: Orders PT Evaluation and Treatment Today M54.50 - Low back pain, unspecified Medications: New tizanidine Do not take with Fioricet. Stop Baclofen. Do not drink alcohol or drive while taking this medication 2 mg PO BID PRN 30 tabs 0RF muscle spasticity Refilled naproxen Take with food. Do not take any other NSAIDS with this medication. 375 mg PO BID 60 tabs 2RF MDD 1375mg Discontinued baclofen Discontinued Reason: Doctor's Order 10 mg PO BID PRN 60 tabs 2RF muscle spasm M54.9 - Dorsalgia, unspecified Coding Level of Care Code Est Pt Level 4 (79183) Diagnoses Lumbar radiculopathy M54.16 Strain of fascia of lower back S39.012A Lumbar facet arthropathy M47.816
== END 2023-06-27 10:28 | disposition home or self-care (01) ==
PROVIDERS: PCP Internal Medicine; Visit Provider Registered Nurse Emergency
DX: M54.16 Radiculopathy, lumbar region (principal); S39.012A Strain of muscle, fascia and tendon of lower back, initial encounter; M47.816 Spondylosis without myelopathy or radiculopathy, lumbar region
CPT/HCPCS: 99214

== ENCOUNTER → 2023-06-27 10:00 | Outpatient (BNVA) | payer OTHER, SELFPAY | PROVIDERS: PCP Internal Medicine; Visit Provider Registered Nurse Emergency | DX: S39.012D Strain of muscle, fascia and tendon of lower back, subsequent encounter (principal); M54.16 Radiculopathy, lumbar region; M47.816 Spondylosis without myelopathy or radiculopathy, lumbar region | CPT/HCPCS: 99212 ==

== ENCOUNTER 2023-08-14 06:14 | Outpatient (REF) | payer OTHER, SELFPAY ==
--- NOTE | ~2023-08-14 | FL_ITS ---
EXAMINATION: XR FLUOROSCOPY WITH IMAGES CLINICAL INFORMATION: Radiculopathy, lumbar region. COMPARISON: None available. TECHNIQUE: Fluoroscopy Supervised By: Dr. Rush Orozco. Fluoroscopy Time: 0.3 minutes. Cumulative Dose: 4.86 mGy. DAP: 0.0730 Gycm2. Images: 1. FINDINGS: Image demonstrates needle placement and contrast injection adjacent to left lateral L4-L5 disc space FL/FL guidance in treatment room IMPRESSION: Fluoroscopy guidance for pain management procedure
== END 2023-08-14 06:15 | disposition home or self-care (01) ==
LOC: CF 06:14
PROVIDERS: Visit Provider Anesthesiology
DX: M47.26 Other spondylosis with radiculopathy, lumbar region (principal); S39.012A Strain of muscle, fascia and tendon of lower back, initial encounter
CPT/HCPCS: 64483; J3301; Q9967

== ENCOUNTER 2023-08-14 09:45 | Outpatient (AMB) | payer OTHER, SELFPAY ==
[2023-08-14 09:53] VITALS: BP 110/64; BP 124/82; PULSE 68; PULSE 79; RESP 16; RESP 17; O2SAT 98; O2SAT 99; BMI 37.9
--- NOTE | 2023-08-14 09:53 | MHC.OFFVIS ---
Intake Vital Signs 08/14/23 09:53 08/14/23 09:53 Height 5 ft 4 in 5 ft 4 in Weight 221 lb 221 lb BMI 37.9 37.9 BP 110/64 124/82 Blood Pressure Location Lt brachial Lt brachial Position Sitting Sitting Respiration 17 16 Pulse 68 79 Pulse Source Pulse Oximeter Pulse Oximeter Pulse Oximetry (%) 98 99 Oxygen Delivery Method Room Air Room Air Comment pre-op post-op Intake Visit Reasons: LEFT L4, L5 TFESI Allergies galcanezumab-gnlm [From Emgality Pen] Allergy (Intermediate, Verified 08/14/23 11:13) localized swelling garlic Allergy (Verified 08/14/23 11:13) Shortness of Breath duloxetine [From CYMBALTA] Adverse Reaction (Mild, Verified 08/14/23 11:13) migraines,vomitting tumeric Adverse Reaction (Uncoded 05/22/23 23:19) Shortness of Breath PFSH Medical History Allergic rhinitis CHAGO (generalized anxiety disorder) GERD (gastroesophageal reflux disease) HTN (hypertension) Impaired glucose tolerance Migraines Nausea Obesity (BMI 35.0-39.9 without comorbidity) Overactive bladder Postoperative nausea Renal calculi Sleep apnea Surgical History H/O colonoscopy History of section History of extraction of renal calculus History of tubal ligation Family History Father CHF (congestive heart failure) Mother Hypertension Family/Other Substance abuse Paternal Aunt Cancer Other Mental health disorder Social History Household Members: Spouse and Children Housing: House Are you a primary social worker palliative care to a significant other at home: No Do you presently have visiting nurse or other home services: No Alcohol intake: never Patient Tobacco Use Status: Former Tobacco user Quit Date: 2015 e-Cigarette/Vaping Use: Never Used Second Hand Smoke Exposure: No service: No Current occupational status: disabled Cognitive needs: No Hearing needs: No Vision needs: Yes Female Reproductive History Menstrual Age of Menarche: 10 Physical Exam Vital Signs: Last Vital Signs Pulse 79 08/14/23 09:53 Resp 16 08/14/23 09:53 BP 124/82 08/14/23 09:53 Pulse Ox 99 08/14/23 09:53 Oxygen Delivery Method Room Air 08/14/23 09:53 BMI result Body Mass Index 37.9 Assessment & Plan Assessment & Plan (1) Lumbar radiculopathy: Code(s): M54.16 - Radiculopathy, lumbar region (2) Strain of fascia of lower back: Code(s): S39.012A - Strain of muscle, fascia and tendon of lower back, initial encounter (3) Lumbar facet arthropathy: Code(s): M47.816 - Spondylosis without myelopathy or radiculopathy, lumbar region Plan: Transforaminal epidural steroid injection L4-5 on the left. THE PATIENT CAME TO THE OPERATING ROOM AFTER OBTAINING INFORMED CONSENT. THE RISKS OF THE PROCEDURE WERE DELINEATED THE RISK OF BLEEDING INFECTION PERIPHERAL NERVE DAMAGE EPIDURAL HEMATOMA EPIDURAL ABSCESS AND OTHER UNSPECIFIED RISKS. THE PATIENT WAS POSITIONED PRONE ON THE OPERATING TABLE . TIME-OUT WAS OBTAINED DELINEATING CORRECT SIDE AND SITE OF THE PROCEDURE, PATIENT NAME AND DATE OF , NEED OF THE ANTIBIOTIC, RISK OF FIRE. The PATIENT PARTICIPATED IN THE TIME OUT PROCEDURE. LUMBAR AREA OF THE PATIENT WAS PREPPED WITH CHLORAPREP AND DRAPED WITH STERILE DRAPES, STERILELY DRAPED C-ARM WAS BROUGHT OVER THE OPERATING FIELD AND SQ PICTURE OF L4 VERTEBRA WAS DELINEATED ON THE SCREEN. C-ARM WAS TILTED 25 DEGREES TO THE LEFT TO DEMONSTRATE THE MOST PROMINENT IMAGE OF THE SAP on THE LEFT. THE LATERAL BORDER OF THE SAP PROJECTION TO THE SKIN WAS CHOSEN A STARTING POINT OF THE INJECTION. 22 GAUGE 5 IN SPINAL NEEDLE WAS INSERTED THROUGH THE SKIN AND STARTED TO ADVANCE TO THE FORAMINA IN ANTERIOR POSTERIOR, OBLIQUE AND LATERAL VIEWS IN TUNNEL VISION FASHION. WHEN ON LATERAL VIEW THE NEEDLE ENTERED THE MOST POSTERIOR AND INFERIOR PORTION OF THE FORAMINA INJECTION OF THE CONTRAST PERFORMED DELINEATING ANTERIOR EPIDURAL SPREAD OF THE CONTRAST. AFTER THAT TREATMENT SOLUTION CONTAINING 3 ML OF PRESERVATIVE-FREE LIDOCAINE 1% MIXED WITH KENALOG 40 MG WAS INJECTED INTO THE NEEDLE. UPON COMPLETION OF THE INJECTION THE NEEDLE WAS REMOVED AND STERILE DRESSING WAS APPLIED. PATIENT TOLERATED PROCEDURE WELL SHE WAS AWAKEN TAKEN OUTSIDE OF THE OPERATING ROOM TO PACU WHERE SHE RECOVERED UNEVENTFULLY. SHE WENT HOME WITHOUT IMMEDIATE COMPLICATIONS. Edward Jane is a very pleasant 48-year-old female who presented to the office today for evaluation follow up lower back pain. MRI reviewed with patient today, patient without red flag symptoms, does not warrant referral to Neurosurgery. Patient has exhausted conservative therapy including NSAIDs, gabapentin and physical therapy for her chronic lower back pain. She does report 2 days of bilateral lower back pain, different from her chronic pain. She states this pain resolved after PT in the past, she would like to attend PT again. Will d/c baclofen and trial tizanidine 2mg po bid prn. Patient advised on precautions, verbalized understanding. Continue with naproxen 375 mg p.o. b.i.d. with max daily dose 1375 mg. Discussed options for treatment including diagnostic interventional testing, epidural steroid injections, peripheral nerve stimulation with Sprint, RFA and more permanent neuromodulation. Schedule for fluoroscopy guided transforaminal epidural steroid injection under local anesthetic. All questions and concerns have been answered and patient agrees with the plan. Follow up after injections and sooner if needed. Orders: Orders FL guidance in treatment room Today M54.16 - Radiculopathy, lumbar region Coding Level of Care Code Procedure Only Diagnoses Lumbar radiculopathy M54.16 Strain of fascia of lower back S39.012A Lumbar facet arthropathy M47.816
== END 2023-08-14 11:16 | disposition home or self-care (01) ==
LOC: HO.PMCPRC 09:45
PROVIDERS: PCP Internal Medicine; Visit Provider Anesthesiology
DX: M54.16 Radiculopathy, lumbar region (principal); S39.012A Strain of muscle, fascia and tendon of lower back, initial encounter; M47.816 Spondylosis without myelopathy or radiculopathy, lumbar region
CPT/HCPCS: 64483

== ENCOUNTER 2023-08-23 09:00 | Outpatient (RCR) | payer OTHER, SELFPAY ==
--- NOTE | 2023-08-23 11:09 | MHC.PT.DC ---
[facility] [place] Office [place] [facility] [place] [facility] [address] Martha Barajas [address] [phone] F: [phone] F: [phone] F: [phone] F: [phone] Physical Therapy Discharge Report Diagnosis: MICHAEL LBP Date of Surgery: Date of Evaluation: 07/30/23 Date of Discharge: 08/23/23 Treatments to Date: 6 Cancellations to Date: 0 No Shows to Date: 0 Discharge Status: Achieved Goals Improved Function Independent with HEP Discharge Summary: THE Pt HAS MADE PROGRESS IN PT- ESPEC IN REGARDS TO INCREASING HER AWARENESS W BODY MECH TO REDUCE FURTHER STRESS ON HER LB- SHE DEMON WFL TRUNK AROM AND WF RANGE W SQUATTING- SHE HAS RESIDUAL STRENGTH DEFICITS IN HER QUADS AND GLUTES, HOWEVER, WE REVIEWED PROGRESSIVE THER EXR TO ADDRESS THIS AND THE Pt PLANS TO JOIN A GYM- SHE IS D/C THIS DATE HAVING MET HER PT GOALS AT THIS TIME. Electronically signed by: JANIS MARY,PT Please sign and return to therapist. Thank you for your referral.
== END 2023-08-23 11:10 | disposition home or self-care (01) ==
LOC: HO.PT 09:00
PROVIDERS: PCP Internal Medicine; Visit Provider Registered Nurse Emergency
DX: M54.50 Low back pain, unspecified (principal)
CPT/HCPCS: 97110; 97140; 97161; 97530

== ENCOUNTER 2023-09-11 09:35 | Outpatient (AMB) | payer OTHER, SELFPAY ==
[2023-09-11 09:46] VITALS: BP 160/80; PULSE 77; RESP 14; O2SAT 99; BMI 37.9
--- NOTE | 2023-09-11 09:46 | MHC.OFFVIS ---
Intake Vital Signs 09/11/23 09:46 Height 5 ft 4 in Weight 221 lb BMI 37.9 BP 160/80 H Blood Pressure Location Lt brachial Position Sitting Respiration 14 Pulse 77 Pulse Source Pulse Oximeter Pulse Oximetry (%) 99 Oxygen Delivery Method Room Air Intake Visit Reasons: LEFT L4, L5 TFESI/08/14/23/confirmed Allergies galcanezumab-gnlm [From Emgality Pen] Allergy (Intermediate, Verified 09/11/23 09:45) localized swelling garlic Allergy (Verified 09/11/23 09:45) Shortness of Breath duloxetine [From CYMBALTA] Adverse Reaction (Mild, Verified 09/11/23 09:45) migraines,vomitting tumeric Adverse Reaction (Uncoded 05/22/23 23:19) Shortness of Breath HPI HPI Comments History of Present Illness Details Lucinda presents back to the office today, accompanied by her , for follow up s/p Left L4-L5 TFESI 08/14/2023 Patient reports moderate relief after the injection. She has completed PT and states that her midline lumbar back pain is now only intermittent. It will come on if she she remains stationary for too long. She will have her family crack her back and this provides relief. She has not been to a chiropractor in the past. She is doing HEP sometimes but not consistantly. Her main concern is the pain in her left buttock that radiates down her thigh to the knee. This pain is worse with sitting and standing for extended periods of time. The muscle relaxers provide some relief, she is requesting a refill. Prior: Lucinda is a very pleasant 48 year old female who presents to the office today for follow up lower back pain and review of MRI. MRI reviewed with patient, results as per below. Patient reports today that her pain persists. She has been taking naproxen and baclofen without relief. She continues to endorse pain left lower back with radiation down her left leg to the level of the foot. She completed physical therapy without relief of this pain and continues to do home exercise program. Patient is also complaining of pain across the lower aspects of her back with radiation into her buttocks over the last 2 days. She reports that she has experience similar pain in the past that resolved after she attended physical therapy. This is different from her chronic pain which she is able to differentiate between the two. Patient denies red flag symptoms including loss of bowel, bladder or saddle anesthesia. Prior: Lucinda is a pleasant 47-year-old female presents to the office today for evaluation management of her left-sided lower back pain. Patient reports initially injured her back December 2022 when she was sitting in her chair and fell backwards. Patient reports Mar 04 2023 her niece jumped into her lap and they both fell to the ground which exacerbated her pain. She has been attending physical therapy, has her last session today. Patient plans on continuing home exercise program. Patient reports midline lumbar pressure and left lower back pain that radiates down her leg into her foot to her toe. Patient denies any red flag symptoms including loss of bowel bladder or saddle anesthesia. Patient states she has tried Motrin for her pain which helps ?a little?. Patient gets some relief when she applies heat to the area. Patient's primary care doctor prescribed her gabapentin which she states does not help her pain at all. She has not tried acupuncture, chiropracture, massage, steroids or injections. Patient denies previous surgical intervention of her back. Patient reports her pain is negatively impacting her ability to enjoy life, enjoyed recreational activities and perform activities of daily living. In terms of muscle damage condition is reported as aching, spasming, tingling, pins, needles and squeezing. Pain is constant and worse in the mornings. Patient's past medical history significant for anxiety, GERD, hypertension, migraines, nausea, obesity, overactive bladder and sleep apnea. Patient denies history of diabetes. Patient denies current use of tobacco, alcohol or illicit substances. [facility] Medical History Allergic rhinitis CHAGO (generalized anxiety disorder) GERD (gastroesophageal reflux disease) HTN (hypertension) Impaired glucose tolerance Migraines Nausea Obesity (BMI 35.0-39.9 without comorbidity) Overactive bladder Postoperative nausea Renal calculi Sleep apnea Surgical History H/O colonoscopy History of section History of extraction of renal calculus History of tubal ligation Family History Father CHF (congestive heart failure) Mother Hypertension Family/Other Substance abuse Paternal Aunt Cancer Other Mental health disorder Household Members: Spouse and Children Housing: House Are you a primary care management specialist to a significant other at home: No Do you presently have visiting nurse or other home services: No Alcohol intake: never Patient Tobacco Use Status: Former Tobacco user Quit Date: 2015 e-Cigarette/Vaping Use: Never Used Second Hand Smoke Exposure: No service: No Current occupational status: disabled Cognitive needs: No Hearing needs: No Vision needs: Yes Female Reproductive History Menstrual Age of Menarche: 10 Review of Systems Const All systems reviewed & are unremarkable except as noted in HPI and below Physical Exam Vital Signs: Last Vital Signs Pulse 77 09/11/23 09:46 Resp 14 09/11/23 09:46 BP 160/80 H 09/11/23 09:46 Pulse Ox 99 09/11/23 09:46 Oxygen Delivery Method Room Air 09/11/23 09:46 BMI result Body Mass Index 37.9 Const General: no acute distress Orientation/consciousness: patient oriented x3 Resp Effort & Inspection: normal respiratory effort and able to speak in complete sentences Back/Spine/Pelvis Other: Lumbar exam: Able to stand on bilateral tiptoes and bilateral heels. Able to transition from sit to stand unassisted. Ambulates with bilaterally normal heel strike and toe off Visual inspection without gross abnormality Tender to palpation over PSIS Strength: 5/5 BLE ANUJA positive on left, negative on right Thigh thrust postive on left Gaenslen positive on left Neuro General: patient oriented x3 Results Reviewed Results Reviewed: 06/11/23 EXAMINATION: MR LUMBAR SPINE WITHOUT CONTRAST FINDINGS: Spinal alignment is normal in the sagittal dimension. Vertebral heights are preserved. No acute bone marrow signal changes. There is disc desiccation at L4-L5 and L5-S1 without substantial loss of intervertebral disc height. The tip of the conus medullaris is located at L1. No mass effect on the conus. Visualized distal cord signal intensity is normal. At and T12-L1, L1-L2, L2-L3, and L3-L4 the annular contours are normal. No canal or neuroforaminal compromise at these levels. At L4-L5 there is a central annular fissure associated with a bulging disc. Bilateral facet degenerative change. No canal stenosis. No mass effect on the traversing or foraminal nerve roots. At L5-S1 there is a central annular fissure associated with a bulging disc. Bilateral facet degenerative change. No canal stenosis. No mass effect on the traversing or foraminal nerve roots. Limited visualization the retroperitoneal anatomy reveals a well marginated benign-appearing cystic lesion within the left kidney. Psoas and paraspinal muscle groups are symmetric. IMPRESSION: There are central annular fissures associated with bulging discs at L4-L5 and L5-S1. Otherwise unremarkable examination. No canal stenosis. No mass effect on the traversing or foraminal nerve roots. Assessment & Plan Assessment & Plan (1) Lumbar radiculopathy: Code(s): M54.16 - Radiculopathy, lumbar region (2) Strain of fascia of lower back: Code(s): S39.012A - Strain of muscle, fascia and tendon of lower back, initial encounter (3) Lumbar facet arthropathy: Code(s): M47.816 - Spondylosis without myelopathy or radiculopathy, lumbar region (4) Sacroiliac joint dysfunction of left side: Code(s): M53.3 - Sacrococcygeal disorders, not elsewhere classified Plan Lucinda is a very pleasant 48-year-old female who presented to the office today for follow up 1 month s/p L4-L5 TFESI. Patient reports moderate relief after injection. She also reports midline lumbar pain is no longer constant and now only occassional. Her main complaint is pain to left buttock radiating to left knee. Provocative testing consistent with left SIJ dysfunction. Patient has exhausted conservative therapy including NSAIDs, gabapentin and physical therapy. She continues with HEP. C/W Tizanidine 2mg po bid prn. Patient advised on precautions, verbalized understanding. Continue with naproxen as needed Discussed options for treatment including diagnostic interventional testing, steroid injections, peripheral nerve stimulation, RFA and more permanent neuromodulation. Schedule for fluoroscopy guided left diagnostic SIJ injection with local anesthetic. Recommend trialing chiropractor for intermittent midline lumbar pain as she reports good relief when family cracks her back at home. All questions and concerns have been answered and patient agrees with the plan. Follow up after injections and sooner if needed. Medications: Changed From tizanidine Do not take with Fioricet. Stop Baclofen. Do not drink alcohol or drive while taking this medication 2 mg PO BID PRN 30 tabs 0RF muscle spasticity To tizanidine Do not take with Fioricet. Do not drink alcohol or drive while taking this medication 2 mg PO BID PRN 30 tabs 3RF muscle spasticity Coding Level of Care Code Est Pt Level 4 (70170) Diagnoses Lumbar radiculopathy M54.16 Strain of fascia of lower back S39.012A Lumbar facet arthropathy M47.816 Sacroiliac joint dysfunction of left side M53.3
== END 2023-09-11 10:12 | disposition home or self-care (01) ==
PROVIDERS: PCP Internal Medicine; Visit Provider Registered Nurse Emergency
DX: M54.16 Radiculopathy, lumbar region (principal); S39.012A Strain of muscle, fascia and tendon of lower back, initial encounter; M47.816 Spondylosis without myelopathy or radiculopathy, lumbar region; M53.3 Sacrococcygeal disorders, not elsewhere classified
CPT/HCPCS: 99214

== ENCOUNTER → 2023-09-11 09:35 | Outpatient (BNVA) | payer OTHER, SELFPAY | PROVIDERS: PCP Internal Medicine; Visit Provider Registered Nurse Emergency | DX: S39.012D Strain of muscle, fascia and tendon of lower back, subsequent encounter (principal); M54.16 Radiculopathy, lumbar region; M47.816 Spondylosis without myelopathy or radiculopathy, lumbar region; M53.3 Sacrococcygeal disorders, not elsewhere classified | CPT/HCPCS: 99212 ==

== ENCOUNTER 2023-10-02 05:15 | Outpatient (REF) | payer OTHER, SELFPAY ==
--- NOTE | ~2023-10-02 | FL_ITS ---
EXAMINATION: XR FLUOROSCOPY WITH IMAGES CLINICAL INFORMATION: Sacrococcygeal disorders, not elsewhere classified. COMPARISON: None available. TECHNIQUE: Fluoroscopy Supervised By: Dr. Rush Orozco. Fluoroscopy Time: 0.1 minute. Cumulative Dose: 2.63 mGy. DAP: 0.0340 Gycm2. Images: 2. FINDINGS: Images demonstrate needle placement and contrast injection over the left sacroiliac joint FL/FL guidance in treatment room IMPRESSION: Fluoroscopy for pain management procedure.
== END 2023-10-02 05:16 | disposition home or self-care (01) ==
LOC: CF 05:15
PROVIDERS: Visit Provider Anesthesiology
DX: M53.3 Sacrococcygeal disorders, not elsewhere classified (principal); M54.16 Radiculopathy, lumbar region; S39.012A Strain of muscle, fascia and tendon of lower back, initial encounter; M47.816 Spondylosis without myelopathy or radiculopathy, lumbar region
CPT/HCPCS: 27096; J2795; Q9967

== ENCOUNTER 2023-10-02 08:50 | Outpatient (AMB) | payer OTHER, SELFPAY ==
--- NOTE | 2023-10-02 09:18 | MHC.OFFVIS ---
Intake Vital Signs 10/02/23 09:55 10/02/23 09:56 Height 5 ft 4 in 5 ft 4 in Weight 221 lb 221 lb BMI 37.9 37.9 BP 118/84 122/70 Blood Pressure Location Lt brachial Lt brachial Position Sitting Sitting Respiration 16 16 Pulse 83 82 Pulse Source Pulse Oximeter Pulse Oximeter Pulse Oximetry (%) 98 96 Oxygen Delivery Method Room Air Room Air Comment pre-op post-op Intake Visit Reasons: LEFT DIAGNOSTIC SIJ INJECTION Allergies galcanezumab-gnlm [From Emgality Pen] Allergy (Intermediate, Verified 10/02/23 09:57) localized swelling garlic Allergy (Verified 10/02/23 09:57) Shortness of Breath duloxetine [From CYMBALTA] Adverse Reaction (Mild, Verified 10/02/23 09:57) migraines,vomitting tumeric Adverse Reaction (Uncoded 05/22/23 23:19) Shortness of Breath PFSH Medical History Allergic rhinitis CHAGO (generalized anxiety disorder) GERD (gastroesophageal reflux disease) HTN (hypertension) Impaired glucose tolerance Migraines Nausea Obesity (BMI 35.0-39.9 without comorbidity) Overactive bladder Postoperative nausea Renal calculi Sleep apnea Surgical History H/O colonoscopy History of section History of extraction of renal calculus History of tubal ligation Family History Father CHF (congestive heart failure) Mother Hypertension Family/Other Substance abuse Paternal Aunt Cancer Other Mental health disorder Social History Household Members: Spouse and Children Housing: House Are you a primary child care supervisor to a significant other at home: No Do you presently have visiting nurse or other home services: No Alcohol intake: never Patient Tobacco Use Status: Former Tobacco user Quit Date: 2015 e-Cigarette/Vaping Use: Never Used Second Hand Smoke Exposure: No service: No Current occupational status: disabled Cognitive needs: No Hearing needs: No Vision needs: Yes Female Reproductive History Menstrual Age of Menarche: 10 Physical Exam Vital Signs: Last Vital Signs Pulse 82 12/19/23 09:56 Resp 16 10/02/23 09:56 BP 122/70 10/02/23 09:56 Pulse Ox 96 10/02/23 09:56 Oxygen Delivery Method Room Air 10/02/23 09:56 BMI result Body Mass Index 37.9 Assessment & Plan Assessment & Plan (1) Lumbar radiculopathy: Code(s): M54.16 - Radiculopathy, lumbar region (2) Strain of fascia of lower back: Code(s): S39.012A - Strain of muscle, fascia and tendon of lower back, initial encounter (3) Lumbar facet arthropathy: Code(s): M47.816 - Spondylosis without myelopathy or radiculopathy, lumbar region (4) Sacroiliac joint dysfunction of left side: Code(s): M53.3 - Sacrococcygeal disorders, not elsewhere classified Plan: Left diagnostic sacroiliac joint injection Informed consent was explained thoroughly to the patient. All questions about benefits and risks for the procedure were answered. Patient came to the operating room and was positioned prone on the operating table with the pillow under the abdomen Time out was performed delineating name and of the patient, allergies and the nature of the procedure. The lower back and buttocks of the patient were prepped with ChloraPrep prepped and draped with sterile utility towels. C-arm was brought over the operating field and sq picture of patient's pelvis was demonstrated on the screen. For the left joint tilting C-arm contralateral to the site of the joint the most posterior portion of the joints was superimposed with anterior silhouette of the joint. Skin was injected in the projection of the joint slightly medial to the location of the joint with 25 gauge 1/2 inch needle using local lidocaine 2% .After that 22 gauge 3 and 1/2 inch needle was driven to the left joint in tunnel vision fashion. When needle entered the joint capsule injection of the contrast was performed demonstrating intra-articular and minimally periarticular spread of the contrast. After that 4 cc. of ropivacaine 0.5% was injected into the joint. Upon completion of the injections the needle was removed Sterile dressing was applied. Upon completion of the injection patient was taken outside of the operating room to the recovery room where recovered uneventfully. Edward Jane is a very pleasant 48-year-old female who presented to the office today for follow up 1 month s/p L4-L5 TFESI. Patient reports moderate relief after injection. She also reports midline lumbar pain is no longer constant and now only occassional. Her main complaint is pain to left buttock radiating to left knee. Provocative testing consistent with left SIJ dysfunction. Patient has exhausted conservative therapy including NSAIDs, gabapentin and physical therapy. She continues with HEP. C/W Tizanidine 2mg po bid prn. Patient advised on precautions, verbalized understanding. Continue with naproxen as needed Discussed options for treatment including diagnostic interventional testing, steroid injections, peripheral nerve stimulation, RFA and more permanent neuromodulation. Schedule for fluoroscopy guided left diagnostic SIJ injection with local anesthetic. Recommend trialing chiropractor for intermittent midline lumbar pain as she reports good relief when family cracks her back at home. All questions and concerns have been answered and patient agrees with the plan. Follow up after injections and sooner if needed. Orders: Orders FL guidance in treatment room Today M53.3 - Sacrococcygeal disorders, not elsewhere classified Coding Level of Care Code Procedure Only Diagnoses Lumbar radiculopathy M54.16 Strain of fascia of lower back S39.012A Lumbar facet arthropathy M47.816 Sacroiliac joint dysfunction of left side M53.3
[2023-10-02 09:55] VITALS: BP 118/84; PULSE 83; RESP 16; O2SAT 98; BMI 37.9
[2023-10-02 09:56] VITALS: BP 122/70; PULSE 82; RESP 16; O2SAT 96; BMI 37.9
== END 2023-10-02 09:31 | disposition home or self-care (01) ==
LOC: HO.PMCPRC 08:50
PROVIDERS: PCP Internal Medicine; Visit Provider Anesthesiology
DX: M53.3 Sacrococcygeal disorders, not elsewhere classified (principal)
CPT/HCPCS: 27096

== ENCOUNTER 2023-10-09 09:46 | Outpatient (AMB) | payer OTHER, SELFPAY ==
[2023-10-09 10:02] VITALS: BP 132/74; PULSE 76; RESP 16; O2SAT 96; BMI 37.9
--- NOTE | 2023-10-09 10:02 | A.OFFVIS_ITS ---
Intake Vital Signs 10/09/23 10:02 Height 5 ft 4 in Weight 221 lb BMI 37.9 BP 132/74 Blood Pressure Location Lt brachial Position Sitting Respiration 16 Pulse 76 Pulse Source Pulse Oximeter Pulse Oximetry (%) 96 Oxygen Delivery Method Room Air Intake Visit Reasons: LEFT DIAGNOSTIC SIJ INJECTION/10/02/23/confirmed Allergies galcanezumab-gnlm [From Emgality Pen] Allergy (Intermediate, Verified 10/09/23 10:51) localized swelling garlic Allergy (Verified 10/09/23 10:51) Shortness of Breath duloxetine [From CYMBALTA] Adverse Reaction (Mild, Verified 10/09/23 10:51) migraines,vomitting tumeric Adverse Reaction (Uncoded 10/09/23 10:51) Shortness of Breath HPI HPI Comments History of Present Illness Details Lucinda presents to the office today for follow up s/p left diagnostic SIJ injection with local anesthetic. Patient reports 75% pain relief since the injection 1 week ago, she would like to proceed with therapeutic injection. Prior: Lucinda presents back to the office today, accompanied by her , for follow up s/p Left L4-L5 TFESI 08/14/2023 Patient reports moderate relief after the injection. She has completed PT and states that her midline lumbar back pain is now only intermittent. It will come on if she she remains stationary for too long. She will have her family crack her back and this provides relief. She has not been to a chiropractor in the past. She is doing HEP sometimes but not consistantly. Her main concern is the pain in her left buttock that radiates down her thigh to the knee. This pain is worse with sitting and standing for extended periods of time. The muscle relaxers provide some relief, she is requesting a refill. Prior: Lucinda is a very pleasant 48 year old female who presents to the office today for follow up lower back pain and review of MRI. MRI reviewed with patient, results as per below. Patient reports today that her pain persists. She has been taking naproxen and baclofen without relief. She continues to endorse pain left lower back with radiation down her left leg to the level of the foot. She completed physical therapy without relief of this pain and continues to do home exercise program. Patient is also complaining of pain across the lower aspects of her back with radiation into her buttocks over the last 2 days. She reports that she has experience similar pain in the past that resolved after she attended physical therapy. This is different from her chronic pain which she is able to differentiate between the two. Patient denies red flag symptoms including loss of bowel, bladder or saddle anesthesia. Prior: Lucinda is a pleasant 47-year-old female presents to the office today for evaluation management of her left-sided lower back pain. Patient reports initially injured her back December 2022 when she was sitting in her chair and fell backwards. Patient reports Mar 04 2023 her niece jumped into her lap and they both fell to the ground which exacerbated her pain. She has been attending physical therapy, has her last session today. Patient plans on continuing home exercise program. Patient reports midline lumbar pressure and left lower back pain that radiates down her leg into her foot to her toe. Patient denies any red flag symptoms including loss of bowel bladder or saddle anesthesia. Patient states she has tried Motrin for her pain which helps ?a little?. Charlee ent gets some relief when she applies heat to the area. Patient's primary care doctor prescribed her gabapentin which she states does not help her pain at all. She has not tried acupuncture, chiropracture, massage, steroids or injections. Patient denies previous surgical intervention of her back. Patient reports her pain is negatively impacting her ability to enjoy life, enjoyed recreational activities and perform activities of daily living. In terms of muscle damage condition is reported as aching, spasming, tingling, pins, needles and squeezing. Pain is constant and worse in the mornings. Patient's past medical history significant for anxiety, GERD, hypertension, migraines, nausea, obesity, overactive bladder and sleep apnea. Patient denies history of diabetes. Patient denies current use of tobacco, alcohol or illicit substances. COUNT INCLUDES THE [facility] Medical History Postoperative nausea Sleep apnea HTN (hypertension) Overactive bladder Renal calculi Obesity (BMI 35.0-39.9 without comorbidity) CHAGO (generalized anxiety disorder) Migraines Impaired glucose tolerance GERD (gastroesophageal reflux disease) Nausea Allergic rhinitis Surgical History H/O colonoscopy History of extraction of renal calculus History of tubal ligation History of section Family History Father CHF (congestive heart failure) Mother Hypertension Family/Other Substance abuse Paternal Aunt Cancer Other Mental health disorder Social History Household Members: Spouse and Children Housing: House Are you a primary critical care unit nurse to a significant other at home: No Do you presently have visiting nurse or other home services: No Alcohol intake: never Patient Tobacco Use Status: Former Tobacco user Quit Date: 2015 e-Cigarette/Vaping Use: Never Used Second Hand Smoke Exposure: No service: No Current occupational status: disabled Cognitive needs: No Hearing needs: No Vision needs: Yes Female Reproductive History Menstrual Age of Menarche: 10 Review of Systems Const All systems reviewed & are unremarkable except as noted in HPI and below Physical Exam Vital Signs: Last Vital Signs Pulse 76 10/09/23 10:02 Resp 16 10/09/23 10:02 BP 132/74 10/09/23 10:02 Pulse Ox 96 10/09/23 10:02 Oxygen Delivery Method Room Air 10/09/23 10:02 BMI result Body Mass Index 37.9 General: awake, alert, oriented. Answers questions appropriately. Fully engaged in examination. Skin: warm, dry, intact HEENT: Normocephalic. Hearing intact. Cardiac: External chest normal in appearance. Respiratory: No cough, audible wheezing or stridor. Abdomen: without gross distension. MS: No obvious swelling or deformities. Able to transition from sit to stand unassisted. Ambulates with bilaterally normal heel strike and toe off Neurological: Oriented to person, place, time and situation. Thought process intact. No gait abnormalities appreciated. Psychiatric: Appropriate mood and affect. Good judgment and insight. Const General: no acute distress Orientation/consciousness: patient oriented x3 Resp Effort & Inspection: normal respiratory effort and able to speak in complete sentences Neuro General: patient oriented x3 Results Reviewed Results Reviewed: 06/11/23 EXAMINATION: MR LUMBAR SPINE WITHOUT CONTRAST FINDINGS: Spinal alignment is normal in the sagittal dimension. Vertebral heights are preserved. No acute bone marrow signal changes. There is disc desiccation at L4-L5 and L5-S1 without substantial loss of intervertebral disc height. The tip of the conus medullaris is located at L1. No mass effect on the conus. Visualized distal cord signal intensity is normal. At and T12-L1, L1-L2, L2-L3, and L3-L4 the annular contours are normal. No canal or neuroforaminal compromise at these levels. At L4-L5 there is a central annular fissure associated with a bulging disc. Bilateral facet degenerative change. No canal stenosis. No mass effect on the traversing or foraminal nerve roots. At L5-S1 there is a central annular fissure associated with a bulging disc. Bilateral facet degenerative change. No canal stenosis. No mass effect on the traversing or foraminal nerve roots. Limited visualization the retroperitoneal anatomy reveals a well marginated benign-appearing cystic lesion within the left kidney. Psoas and paraspinal muscle groups are symmetric. IMPRESSION: There are central annular fissures associated with bulging discs at L4-L5 and L5-S1. Otherwise unremarkable examination. No canal stenosis. No mass effect on the traversing or foraminal nerve roots. Assessment & Plan Assessment & Plan (1) Lumbar radiculopathy: Code(s): M54.16 - Radiculopathy, lumbar region (2) Strain of fascia of lower back: Code(s): S39.012A - Strain of muscle, fascia and tendon of lower back, initial encounter (3) Lumbar facet arthropathy: Code(s): M47.816 - Spondylosis without myelopathy or radiculopathy, lumbar region (4) Sacroiliac joint dysfunction of left side: Code(s): M53.3 - Sacrococcygeal disorders, not elsewhere classified Plan Lucinda is a very pleasant 48-year-old female who presented to the office today for follow up 1 week s/p diagnostic left SIJ injection. Patient reports 75% relief of pain since the injection, she would like to proceed with therapeutic injection. Will Schedule for fluoroscopy guided left therapeutic SIJ injection with local anesthetic. All questions and concerns have been answered and patient agrees with the plan. Follow up after injections and sooner if needed. Coding Level of Care Code Est Pt Level 3 (14217) Diagnoses Lumbar radiculopathy M54.16 Strain of fascia of lower back S39.012A Lumbar facet arthropathy M47.816 Sacroiliac joint dysfunction of left side M53.3
== END 2023-10-09 10:04 | disposition home or self-care (01) ==
PROVIDERS: PCP Internal Medicine; Visit Provider Registered Nurse Emergency
DX: M54.16 Radiculopathy, lumbar region (principal); S39.012A Strain of muscle, fascia and tendon of lower back, initial encounter; M47.816 Spondylosis without myelopathy or radiculopathy, lumbar region; M53.3 Sacrococcygeal disorders, not elsewhere classified
CPT/HCPCS: 99213

== ENCOUNTER → 2023-10-09 09:46 | Outpatient (BNVA) | payer OTHER, SELFPAY | PROVIDERS: PCP Internal Medicine; Visit Provider Registered Nurse Emergency | DX: Z01.419 Encounter for gynecological examination (general) (routine) without abnormal findings (principal); Z12.4 Encounter for screening for malignant neoplasm of cervix; N95.1 Menopausal and female climacteric states; E66.9 Obesity, unspecified; Z68.38 Body mass index [BMI] 38.0-38.9, adult | CPT/HCPCS: 99212; 99396 ==

== ENCOUNTER 2023-10-09 10:39 | Outpatient (AMB) | payer OTHER, SELFPAY ==
--- NOTE | 2023-10-09 10:40 | A.OFFVIS_ITS ---
Intake Vital Signs 10/09/23 10:43 Height 5 ft 4 in Weight 224 lb BMI 38.4 BP 120/78 Intake Visit Reasons: Annual Information Interpreted: clinical only Intelligence Clerk: Intelligence Clerk Present Allergies galcanezumab-gnlm [From Emgality Pen] Allergy (Intermediate, Verified 10/09/23 10:51) localized swelling garlic Allergy (Verified 10/09/23 10:51) Shortness of Breath duloxetine [From CYMBALTA] Adverse Reaction (Mild, Verified 10/09/23 10:51) migraines,vomitting tumeric Adverse Reaction (Uncoded 10/09/23 10:51) Shortness of Breath Medication List - Last Reconciled 10/09/23 by Jaqui Conte CNM amlodipine 5 mg PO DAILY ulglkxxmfc-lgqdxiqiutcdq-homk 50-325-40 mg 1 - 2 tabs PO DAILY PRN epinephrine 0.3 mg (0.3 mL) IM DIRECTED fluticasone propionate 50 mcg/actuation (Flonase Allergy Relief) 1 spray intranasal DAILY 30 days folic acid 1 mg PO DAILY 90 days gabapentin 300 mg PO BEDTIME 90 days ketoconazole 2% 1 appl topical 2XW loratadine 10 mg PO DAILY PRN 30 days lorazepam 1 mg PO TID naproxen 375 mg PO BID MDD 1375mg omeprazole 40 mg PO DAILY 90 days ondansetron HCl 4 mg PO Q8H PRN phenyleph-min oil-petrolatum 0.25-14-74.9 % (Preparation H) 1 appl CA BID PRN quetiapine (Seroquel) 50 mg PO BEDTIME quetiapine 50 mg PO BEDTIME tizanidine 2 mg PO BID PRN Is last menstrual period known: Yes Last menstrual period: 08/31/23 HPI Annual HPI 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 She is not having any issues at all gynecological E. She has no worries about infection or discharge. She has no history of abnormal discharge or Paps for that matter or abnormal bleeding either. She did miss a period a year and half ago in May and sometimes her periods can come a little bit late her last period was August 31 so she is waiting to see if she gets 1. 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 She was told that her blood sugar was a little bit high and she is suspecting it might be higher now she has an appointment with her primary care provider coming up in October and anticipates getting checked for it. She was wondering if menopause could be blamed for her gaining weight. Discussed that many people gain weight as they get older but it is more likely to be a combination of activity and our eating patterns that many of us engage in. [facility] Medical History Postoperative nausea Sleep apnea HTN (hypertension) Overactive bladder Renal calculi Obesity (BMI 35.0-39.9 without comorbidity) CHAGO (generalized anxiety disorder) Migraines Impaired glucose tolerance GERD (gastroesophageal reflux disease) Nausea Allergic rhinitis Surgical History H/O colonoscopy History of extraction of renal calculus History of tubal ligation History of section Family History Father CHF (congestive heart failure) Mother Hypertension Family/Other Substance abuse Paternal Aunt Cancer Other Mental health disorder Social History Household Members: Spouse and Children Housing: House Are you a primary customer care voice consultant to a significant other at home: No Do you presently have visiting nurse or other home services: No Alcohol intake: never Patient Tobacco Use Status: Former Tobacco user Quit Date: 2015 e-Cigarette/Vaping Use: Never Used Second Hand Smoke Exposure: No service: No Current occupational status: disabled Cognitive needs: No Hearing needs: No Vision needs: Yes Female Reproductive History Menstrual Age of Menarche: 10 Date of last menstrual period: 08/31/23 control method: permanent sterilization Total pregnancies: 3 Full term: 2 Date of last pap smear: 08/15/22 (negative,prev.pap 2014,neg) History of abnormal pap smear: No Physical Exam Vital Signs: Last Vital Signs BP 120/78 10/09/23 10:43 BMI result Body Mass Index 38.4 Const General: healthy appearing, comfortable, no acute distress, well developed and alert Nutritional Appearance: average body habitus Orientation/consciousness: patient oriented x3 Limitations: no limitations HEENT Head: Yes normocephalic Neck Neck: Yes normal visual inspection Chest Chest palpation & inspection: normal inspection of the chest Breast/axilla inspection: normal inspection of the breasts and normal inspection of the axillae Breast/axilla palpation: normal palpation of the breasts and normal palpation of the axillae Resp Effort & Inspection: normal respiratory effort GI Inspection: Yes normal to inspection, No Abdominal wall edema and No distended Palpation (GI): Soft to palpation and nontender General: Yes bladder normal to palpation External Female Exam: normal external appearance and normal appearance of the urethra Speculum Exam - Vagina: normal appearance of the vagina, normal palpation and normal vaginal discharge Speculum Exam - Cervix: normal appearance of the cervix, normal palpation and nontender Bimanual exam- vagina & uterus: normal bimanual exam, normal palpation, uterine size normal, bladder normal to palpation, consistency normal, normal palpation, uterine mobility normal, uterine shape normal, No Cervical tenderness present, non-tender and no cervical motion tenderness Bimanual Exam- Adnexa, other: normal adnexae, no masses, normal and No adnexal tenderness Neuro General: patient oriented x3 Assessment & Plan Assessment & Plan (1) Cervical cancer screening: Comment: 08/14/22- pap= neg w neg HPV Code(s): Z12.4 - Encounter for screening for malignant neoplasm of cervix (2) Well woman exam with routine gynecological exam: Code(s): Z01.419 - Encounter for gynecological examination (general) (routine) without abnormal findings (3) Perimenopause: Code(s): N95.1 - Menopausal and female climacteric states (4) Obesity (BMI 35.0-39.9 without comorbidity): Code(s): E66.9 - Obesity, unspecified 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 She is not having any issues at all gynecological E. She has no worries about infection or discharge. She has no history of abnormal discharge or Paps for that matter or abnormal bleeding either. She did miss a period a year and half ago in May and sometimes her periods can come a little bit late her last period was August 31 so she is waiting to see if she gets 1. 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 She was told that her blood sugar was a little bit high and she is suspecting it might be higher now she has an appointment with her primary care provider coming up in October and anticipates getting checked for it. She was wondering if menopause could be blamed for her gaining weight. Discussed that many people gain weight as they get older but it is more likely to be a combination of activity and our eating patterns that many of us engage in. She has had her mammogram this year. Pap is not due. I reviewed symptoms of menopause and what to expect and what is in normal range. I recommend calling if she did not get a period in a 3 month. But that it also may be normal. RTC 1 year. Coding Level of Care Code Est Pt Prev Care 40-64y(64958) Diagnoses Cervical cancer screening Z12.4 Well woman exam with routine gynecological exam Z01.419 Perimenopause N95.1 Obesity (BMI 35.0-39.9 without comorbidity) E66.9
[2023-10-09 10:43] VITALS: BP 120/78; BMI 38.4
== END 2023-10-09 11:18 | disposition home or self-care (01) ==
LOC: HO.HWSM 10:39
PROVIDERS: PCP Internal Medicine; Visit Provider Advanced Practice Midwife
DX: Z12.4 Encounter for screening for malignant neoplasm of cervix (principal); Z01.419 Encounter for gynecological examination (general) (routine) without abnormal findings; N95.1 Menopausal and female climacteric states; E66.9 Obesity, unspecified
CPT/HCPCS: 99396

== ENCOUNTER 2023-11-01 08:59 | Outpatient (AMB) | payer OTHER, SELFPAY ==
--- NOTE | 2023-11-01 09:21 | A.OFFPC_ITS ---
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 Required: No Accompanied by: Spouse Allergies galcanezumab-gnlm [From Emgality Pen] Allergy (Intermediate, Verified 11/01/23 09:41) localized swelling garlic Allergy (Verified 11/01/23 09:41) Shortness of Breath duloxetine [From CYMBALTA] Adverse Reaction (Mild, Verified 11/01/23 09:41) migraines,vomitting tumeric Adverse Reaction (Uncoded 11/01/23 09:41) Shortness of Breath Medication List - Last Reconciled 11/01/23 by Beti Skinner MD amlodipine 5 mg PO DAILY cnbjfodqcn-qgqmhbrqzrnaz-rhva 50-325-40 mg 1 - 2 tabs PO DAILY PRN epinephrine 0.3 mg (0.3 mL) IM DIRECTED fluticasone propionate 50 mcg/actuation (Flonase Allergy Relief) 1 spray intranasal DAILY 30 days folic acid 1 mg PO DAILY 90 days gabapentin 300 mg PO BEDTIME 90 days ketoconazole 2% 1 appl topical 2XW loratadine 10 mg PO DAILY PRN 30 days lorazepam 1 mg PO TID omeprazole 40 mg PO DAILY 90 days ondansetron HCl 4 mg PO Q8H PRN phenyleph-min oil-petrolatum 0.25-14-74.9 % (Preparation H) 1 appl WI BID PRN quetiapine 50 mg PO BEDTIME tizanidine 2 mg PO BID PRN Tobacco use date assessed: 11/01/23 Dental Screening Dental Screen Date: 11/01/23 Did you have a dental visit in the last 12 months?: Yes Did you have a dental problem in the last 6 months where you did not have access to dental care?: No HPI HPI Comments History of Present Illness Details This is a 48-year-old female with hypertension, anxiety, GERD and allergic rhinitis that comes today for follow-up on her conditions. Blood pressure stable. Anxiety well controlled with benzodiazepines and this is follow by Psychiatry. GERD stable with PPIs. On Flonase as needed for her allergic rhinitis. Denies any chest pain or shortness of breath. Complains of foot pain and would like to see Podiatry. The pain is burning like in quality. [facility] Medical History (Updated 11/01/23 @ 09:57 by Beti Skinner MD) Postoperative nausea Sleep apnea HTN (hypertension) Overactive bladder Renal calculi Obesity (BMI 35.0-39.9 without comorbidity) CHAGO (generalized anxiety disorder) Migraines Impaired glucose tolerance GERD (gastroesophageal reflux disease) Nausea Allergic rhinitis Surgical History H/O colonoscopy History of extraction of renal calculus History of tubal ligation History of section Family History Father CHF (congestive heart failure) Mother Hypertension Family/Other Substance abuse Paternal Aunt Cancer Other Mental health disorder Social History Household Members: Spouse and Children Housing: House Are you a primary progressive care unit registered nurse to a significant other at home: No Do you presently have visiting nurse or other home services: No Alcohol intake: never Patient Tobacco Use Status: Former Tobacco user Quit Date: 2015 e-Cigarette/Vaping Use: Never Used Second Hand Smoke Exposure: No service: No Current occupational status: disabled Cognitive needs: No Hearing needs: No Vision needs: Yes Female Reproductive History Menstrual Age of Menarche: 10 Questionnaire PHQ-9 Over the last 2 weeks, how often have you been bothered by any of the following problems? 1. Little interest or pleasure in doing things: not at all 2. Feeling down, depressed, or hopeless: not at all 3. Trouble falling or staying asleep, or sleeping too much: more than half the days 4. Feeling tired or having little energy: nearly every day 5. Poor appetite or overeating: more than half the days 6. Feeling bad about yourself - or that you are a failure or have let yourself or your family down: not at all 7. Trouble concentrating on things, such as reading the newspaper or watching television: not at all 8. Moving or speaking so slowly that other people could have noticed. Or the opposite - being so fidgety or restless that you have been moving around a lot more than usual: several days 9. Thoughts that you would be better off or of hurting yourself in some way: not at all Total score: 8 Depression Screening Interpretation: Positive Depression Screening Follow-up: Existing condition, In treatment and Community Mental Health Worker F/U Depression Screening Done: Yes 53664 - PHQ-9 Billing: Yes Source: Developed by Drs. Miguel Rosales, Lucas Esquivel and colleagues, with an educational tobias from [employer]. Thrive Questionnaire Date Thrive assessed: 11/01/23 I am a: Patient What is your living situation today?: I have a steady place to live Within the past 12 months, did the food you bought not last and you didn't have the money to get more?: Never true Within the past 12 months, did you worry whether your food would run out before you got money to buy more?: Never true Do you have trouble paying for medicines?: No Do you have trouble getting transportation to medical appointments?: No Do you have trouble paying your heating and electricity bill?: No Do you have trouble taking care of your child, family member or friend?: No Do you have trouble with day-to-day activities such as bathing, preparing meals, shopping, managing finances, etc.?: No Are you currently unemployed and looking for a job?: No Are you interested in more education?: No Please select the resources that you would like help with: None AUDIT C Alcohol Use Questionnaire (AUDIT-C) 1. How often do you have a drink containing alcohol?: Never Total Score: 0 CHAGO-7 AMB Questionnaire CHAGO-7 Date CHAGO - 7 assessed: 11/01/23 Feeling nervous, anxious, or on edge: 1 = Several days Not being able to stop or control worryin = Not at all Worrying too much about different things: 2 = More than half the days Trouble relaxin = Several days Being so restless that it is hard to sit still: 0 = Not at all Becoming easily annoyed or irritable: 3 = Nearly every day Feeling afraid as if something awful might happen: 1 = Several days Total CHAGO-7 score (0-4 normal; 5-9 mild; 10-14 moderate; 15-21 severe): 8 Source: Developed by Elaine Queen Robert, Lucas Landaverde and colleagues, with an educational tobias from [employer]. CHAGO-7 Assessment Billing CHAGO-7 Assessment Tool: CHAGO-7 Assessment 34462 Review of Systems Const All systems reviewed & are unremarkable except as noted in HPI and below Eyes Reports no additional complaints, Denies change in vision and Denies other vi sual disturbances Card Denies chest pain at rest, Denies chest pain with activity, Denies edema, Denies irregular heart rhythm, Denies claudication, Denies dyspnea, Denies dyspnea on exertion, Denies orthopnea, Denies paroxysmal nocturnal dyspnea and Denies slow heart rate Resp Denies cough, Denies dyspnea and Denies dyspnea on exertion GI Denies abdominal pain, Denies change in bowel habits, Denies excessive flatus, Denies nausea and Denies vomiting Denies urinary incontinence, Denies urinary hesitancy and Denies urinary urgency Musc Denies abnormal gait, Denies atrophy, Denies deformity and Denies limited range of motion Skin/Breast Denies bleeding lesions, Denies changing lesions and Denies rash Neuro Denies abnormal gait, Denies behavioral changes and Denies lack of coordination Psych Denies behavioral changes Physical exam (Primary Care) Vital Signs: Last Vital Signs BP 130/80 11/01/23 09:22 BMI result Body Mass Index 37.2 Tobacco/Smoking Status: Tobacco use Status Tobacco use date assessed 11/01/23 11/01/23 09:31 Patient Tobacco Use Status Former Tobacco user 11/01/23 09:31 e-Cigarette/Vaping Use Never Used 11/01/23 09:31 PHQ-9: PHQ-9 Score PHQ-9: Total score 8 11/01/23 09:46 Depression Screening Interpretation: Positive Depression Screening Follow-up: Existing condition, In treatment and Community Mental Health Worker F/U Thrive Assessment: Date of Thrive Assessment Date Thrive assessed 11/01/23 11/01/23 09:31 Eyes General: appearance normal, both eyes and all related structures Eyelids: Yes eyelids normal Conjunctivae: conjunctivae normal Neck Neck: Yes normal visual inspection and Yes supple Resp Effort & Inspection: normal respiratory effort Auscultation: clear to auscultation bilaterally Cardio Jugular venous distension: no JVD Rate: regular rate Rhythm: regular rhythm Heart sounds: S1 normal heart sound present and S2 normal heart sound present Extrem General: Yes full ROM Assessment and Plan Assessment & Plan (1) Hypertension: Code(s): I10 - Essential (primary) hypertension Qualifiers: Hypertension type: unspecified Qualified Code(s): I10 - Essential (primary) hypertension Plan: Continue amlodipine. Blood pressure goal is equal or less than 130/80. (2) GERD (gastroesophageal reflux disease): Code(s): K21.9 - Gastro-esophageal reflux disease without esophagitis Qualifiers: Esophagitis presence: esophagitis presence not specified Qualified Code(s): K21.9 - Gastro-esophageal reflux disease without esophagitis Plan: Continue PPIs. (3) CHAGO (generalized anxiety disorder): Code(s): F41.1 - Generalized anxiety disorder Plan: Continue benzodiazepines as needed. Follow-up with psychiatry. (4) Allergic rhinitis: Code(s): J30.9 - Allergic rhinitis, unspecified Plan: Continue Flonase as needed. Orders: Orders Sjogren's Antibodies 5 Months H04.123 - Dry eye syndrome of bilateral lacrimal glands Lipid Panel 5 Months E78.5 - Hyperlipidemia, unspecified Vitamin D 25-OH Total 5 Months E55.9 - Vitamin D deficiency, unspecified Complete Blood Count Auto Diff 5 Months D64.9 - Anemia, unspecified IRON PROFILE 5 Months D64.9 - Anemia, unspecified Vitamin B12 and Folate 5 Months E53.8 - Deficiency of other specified B group vitamins Comprehensive [place]. Panel Fast 5 Months M54.9 - Dorsalgia, unspecified Referrals Podiatry Referral M79.673 - Pain in unspecified foot Medications: New diclofenac sodium 1% (Arthritis Pain (diclofenac)) apply to single elbow, wrist or hand; for hand includes palm/fingers/back of hand 2 grams topical QID 30 days PRN 100 grams 1RF pain peg 400-propylene glycol (PF) 0.4-0.3 % (Systane Hydration (PF)) 1 drp ophthalmic (eye) BID-QID 30 days PRN 30 ea 2RF dry eye(s) Refilled ondansetron HCl 4 mg PO Q8H PRN 10 tabs 0RF nausea and vomiting Coding Level of Care Code Est Pt Level 4 (20314) Diagnoses Hypertension, unspecified type I10 Hypertension type: unspecified Gastroesophageal reflux disease, unspecified whether esophagitis present K21.9 Esophagitis presence: esophagitis presence not specified CHAGO (generalized anxiety disorder) F41.1 Allergic rhinitis J30.9 Additional Codes CHAGO-7 Assessment Billing - CHAGO-7 Assessment Tool: CHAGO-7 Assessment 83082 ([id number]) Time Spent (min) 23
[2023-11-01 09:22] VITALS: BP 130/80; BMI 37.2
== END 2023-11-01 09:52 | disposition home or self-care (01) ==
PROVIDERS: PCP Internal Medicine; Visit Provider Internal Medicine
DX: I10 Essential (primary) hypertension (principal); K21.9 Gastro-esophageal reflux disease without esophagitis; F41.1 Generalized anxiety disorder; J30.9 Allergic rhinitis, unspecified
CPT/HCPCS: 99214

== ENCOUNTER 2023-11-06 06:12 | Outpatient (REF) | payer OTHER, SELFPAY ==
--- NOTE | ~2023-11-06 | FL_ITS ---
EXAMINATION: XR FLUOROSCOPY WITH IMAGES CLINICAL INFORMATION: Sacrococcygeal disorders, not elsewhere classified. COMPARISON: None available. TECHNIQUE: Fluoroscopy Supervised By: Dr. Rush Orozco. Fluoroscopy Time: 0.2 min. Cumulative Dose: 312 mGy. DAP: 0.0542 mGy-m2. Images: 1. FINDINGS: Needle seen overlying the left SI joint with contrast media surrounding the tip. FL/FL guidance in treatment room IMPRESSION: Fluoroscopy guidance for pain management procedure.
== END 2023-11-06 06:13 | disposition home or self-care (01) ==
LOC: CF 06:12
PROVIDERS: Visit Provider Anesthesiology
DX: M53.3 Sacrococcygeal disorders, not elsewhere classified (principal); M47.26 Other spondylosis with radiculopathy, lumbar region; S39.012A Strain of muscle, fascia and tendon of lower back, initial encounter; X58.XXXA Exposure to other specified factors, initial encounter; Y93.9 Activity, unspecified; Y92.9 Unspecified place or not applicable; Y99.9 Unspecified external cause status
CPT/HCPCS: 27096; J2795; J3301; Q9967

== ENCOUNTER 2023-11-06 09:07 | Outpatient (AMB) | payer OTHER, SELFPAY ==
--- NOTE | 2023-11-06 09:23 | A.OFFVIS_ITS ---
Intake Vital Signs 11/06/23 09:31 11/06/23 09:32 Height 5 ft 4 in 5 ft 4 in Weight 217 lb 217 lb BMI 37.2 37.2 BP 120/88 128/88 Blood Pressure Location Rt brachial Lt brachial Position Sitting Sitting Respiration 18 18 Pulse 87 80 Pulse Source Pulse Oximeter Pulse Oximeter Pulse Oximetry (%) 97 99 Oxygen Delivery Method Room Air Room Air Comment pre-op post-op Intake Visit Reasons: LEFT THERAPEUTIC SIJ INJECTION Intake Note: Allergies galcanezumab-gnlm [From Emgality Pen] Allergy (Intermediate, Verified 11/06/23 09:32) localized swelling garlic Allergy (Verified 11/06/23 09:32) Shortness of Breath duloxetine [From CYMBALTA] Adverse Reaction (Mild, Verified 11/06/23 09:32) migraines,vomitting tumeric Adverse Reaction (Uncoded 11/01/23 09:41) Shortness of Breath PFSH Medical History Postoperative nausea Sleep apnea HTN (hypertension) Overactive bladder Renal calculi Obesity (BMI 35.0-39.9 without comorbidity) CHAGO (generalized anxiety disorder) Migraines Impaired glucose tolerance GERD (gastroesophageal reflux disease) Nausea Allergic rhinitis Surgical History H/O colonoscopy History of extraction of renal calculus History of tubal ligation History of section Family History Father CHF (congestive heart failure) Mother Hypertension Family/Other Substance abuse Paternal Aunt Cancer Other Mental health disorder Social History Household Members: Spouse and Children Housing: House Are you a primary career development manager to a significant other at home: No Do you presently have visiting nurse or other home services: No Alcohol intake: never Patient Tobacco Use Status: Former Tobacco user Quit Date: 2015 e-Cigarette/Vaping Use: Never Used Second Hand Smoke Exposure: No service: No Current occupational status: disabled Cognitive needs: No Hearing needs: No Vision needs: Yes Female Reproductive History Menstrual Age of Menarche: 10 Physical Exam Vital Signs: Last Vital Signs Pulse 80 11/06/23 09:32 Resp 18 11/06/23 09:32 BP 128/88 11/06/23 09:32 Pulse Ox 99 11/06/23 09:32 Oxygen Delivery Method Room Air 11/06/23 09:32 BMI result Body Mass Index 37.2 Assessment & Plan Assessment & Plan (1) Lumbar radiculopathy: Code(s): M54.16 - Radiculopathy, lumbar region (2) Strain of fascia of lower back: Code(s): S39.012A - Strain of muscle, fascia and tendon of lower back, initial encounter (3) Lumbar facet arthropathy: Code(s): M47.816 - Spondylosis without myelopathy or radiculopathy, lumbar region (4) Sacroiliac joint dysfunction of left side: Code(s): M53.3 - Sacrococcygeal disorders, not elsewhere classified Plan: Left therapeutic sacroiliac joint injection Informed consent was explained thoroughly to the patient. All questions about benefits and risks for the procedure were answered. Patient came to the operating room and was positioned prone on the operating table with the pillow under the abdomen Time out was performed delineating name and of the patient, allergies and the nature of the procedure. The lower back and buttocks of the patient were prepped with ChloraPrep prepped and draped with sterile utility towels. C-arm was brought over the operating field and sq picture of patient's pelvis was demonstrated on the screen. For the left joint tilting C-arm contralateral to the site of the joint the most posterior portion of the joints was superimposed with anterior silhouette of the joint. Skin was injected in the projection of the joint slightly medial to the location of the joint with 25 gauge 1/2 inch needle using local lidocaine 2% .After that 22 gauge 3 and 1/2 inch needle was driven to the left joint in tunnel vision fashion. When needle entered the joint capsule injection of the contrast was performed demonstrating intra-articular and minimally periarticular spread of the contrast. After that 4 cc. of ropivacaine 0.5% mixad with kenalog 40 mg was injected into the joint. Upon completion of the injections the needle was removed Sterile dressing was applied. Upon completion of the injection patient was taken outside of the operating room to the recovery room where recovered uneventfully. Edward Jane is a very pleasant 48-year-old female who presented to the office today for follow up 1 month s/p L4-L5 TFESI. Patient reports moderate relief after injection. She also reports midline lumbar pain is no longer constant and now only occassional. Her main complaint is pain to left buttock radiating to left knee. Provocative testing consistent with left SIJ dysfunction. Patient has exhausted conservative therapy including NSAIDs, gabapentin and physical therapy. She continues with HEP. C/W Tizanidine 2mg po bid prn. Patient advised on precautions, verbalized understanding. Continue with naproxen as needed Discussed options for treatment including diagnostic interventional testing, steroid injections, peripheral nerve stimulation, RFA and more permanent neuromodulation. Schedule for fluoroscopy guided left diagnostic SIJ injection with local anesthetic. Recommend trialing chiropractor for intermittent midline lumbar pain as she reports good relief when family cracks her back at home. All questions and concerns have been answered and patient agrees with the plan. Follow up after injections and sooner if needed. Orders: Orders FL guidance in treatment room Today M53.3 - Sacrococcygeal disorders, not elsewhere classified Coding Level of Care Code Procedure Only Diagnoses Lumbar radiculopathy M54.16 Strain of fascia of lower back S39.012A Lumbar facet arthropathy M47.816 Sacroiliac joint dysfunction of left side M53.3
[2023-11-06 09:31] VITALS: BP 120/88; PULSE 87; RESP 18; O2SAT 97; BMI 37.2
[2023-11-06 09:32] VITALS: BP 128/88; PULSE 80; RESP 18; O2SAT 99; BMI 37.2
== END 2023-11-06 10:20 | disposition home or self-care (01) ==
LOC: HO.PMCPRC 09:07
PROVIDERS: PCP Internal Medicine; Visit Provider Anesthesiology
DX: M53.3 Sacrococcygeal disorders, not elsewhere classified (principal); M54.16 Radiculopathy, lumbar region; S39.012A Strain of muscle, fascia and tendon of lower back, initial encounter; M47.816 Spondylosis without myelopathy or radiculopathy, lumbar region
CPT/HCPCS: 27096

== ENCOUNTER 2023-12-05 09:36 | Outpatient (AMB) | payer OTHER, SELFPAY ==
--- NOTE | 2023-12-05 09:44 | MHC.OFFVIS ---
Intake Vital Signs 12/05/23 09:45 Height 5 ft 4 in Weight 217 lb BMI 37.2 BP 141/75 H Blood Pressure Location Lt brachial Position Sitting Respiration 18 Pulse 89 Pulse Source Pulse Oximeter Pulse Oximetry (%) 98 Oxygen Delivery Method Room Air Intake Visit Reasons: LEFT THERAPEUTIC SIJ INJECTION Allergies galcanezumab-gnlm [From Emgality Pen] Allergy (Intermediate, Verified 12/05/23 09:46) localized swelling garlic Allergy (Verified 12/05/23 09:46) Shortness of Breath duloxetine [From CYMBALTA] Adverse Reaction (Mild, Verified 12/05/23 09:46) migraines,vomitting tumeric Adverse Reaction (Uncoded 11/01/23 09:41) Shortness of Breath HPI HPI Comments History of Present Illness Details Patient presents today for follow up, 1 month s/p left therapeutic sacroiliac joint injection. She reports pain today is 0/10, she endorses minimal pain very infrequently with overactivity. She reports improvement in function and mobility since the injection. Denies any untoward effects of the injection. Patient has been taking tizanidine 2 mg p.o. b.i.d. as needed but states she has noticed burning of her ears for the last 2 months when she takes it. She did speak to her primary care doctor and mental health provider and was told to stop the tizanidine. Since stopping the burning of her ears has not occurred. Prior: Lucinda presents to the office today for follow up s/p left diagnostic SIJ injection with local anesthetic. Patient reports 75% pain relief since the injection 1 week ago, she would like to proceed with therapeutic injection. Prior: Lucinda presents back to the office today, accompanied by her , for follow up s/p Left L4-L5 TFESI 08/14/2023 Patient reports moderate relief after the injection. She has completed PT and states that her midline lumbar back pain is now only intermittent. It will come on if she she remains stationary for too long. She will have her family crack her back and this provides relief. She has not been to a chiropractor in the past. She is doing HEP sometimes but not consistantly. Her main concern is the pain in her left buttock that radiates down her thigh to the knee. This pain is worse with sitting and standing for extended periods of time. The muscle relaxers provide some relief, she is requesting a refill. Prior: Lucinda is a very pleasant 48 year old female who presents to the office today for follow up lower back pain and review of MRI. MRI reviewed with patient, results as per below. Patient reports today that her pain persists. She has been taking naproxen and baclofen without relief. She continues to endorse pain left lower back with radiation down her left leg to the level of the foot. She completed physical therapy without relief of this pain and continues to do home exercise program. Patient is also complaining of pain across the lower aspects of her back with radiation into her buttocks over the last 2 days. She reports that she has experience similar pain in the past that resolved after she attended physical therapy. This is different from her chronic pain which she is able to differentiate between the two. Patient denies red flag symptoms including loss of bowel, bladder or saddle anesthesia. Prior: Lucinda is a pleasant 47-year-old female presents to the office today for evaluation management of her left-sided lower back pain. Patient reports initially injured her back December 2022 when she was sitting in her chair and fell backwards. Patient reports Mar 04 2023 her niece jumped into her lap and they both fell to the ground which exacerbated her pain. She has been attending physical therapy, has her last session today. Patient plans on continuing home exercise program. Patient reports midline lumbar pressure and left lower back pain that radiates down her leg into her foot to her toe. Patient denies any red flag symptoms including loss of bowel bladder or saddle anesthesia. Patient states she has tried Motrin for her pain which helps ?a little?. Patient gets some relief when she applies heat to the area. Patient's primary care doctor prescribed her gabapentin which she states does not help her pain at all. She has not tried acupuncture, chiropracture, massage, steroids or injections. Patient denies previous surgical intervention of her back. Patient reports her pain is negatively impacting her ability to enjoy life, enjoyed recreational activities and perform activities of daily living. In terms of muscle damage condition is reported as aching, spasming, tingling, pins, needles and squeezing. Pain is constant and worse in the mornings. Patient's past medical history significant for anxiety, GERD, hypertension, migraines, nausea, obesity, overactive bladder and sleep apnea. Patient denies history of diabetes. Patient denies current use of tobacco, alcohol or illicit substances. [facility] Medical History Postoperative nausea Sleep apnea HTN (hypertension) Overactive bladder Renal calculi Obesity (BMI 35.0-39.9 without comorbidity) CHAGO (generalized anxiety disorder) Migraines Impaired glucose tolerance GERD (gastroesophageal reflux disease) Nausea Allergic rhinitis Surgical History H/O colonoscopy History of extraction of renal calculus History of tubal ligation History of section Family History Father CHF (congestive heart failure) Mother Hypertension Family/Other Substance abuse Paternal Aunt Cancer Other Mental health disorder Social History Household Members: Spouse and Children Housing: House Are you a primary rn medicare to a significant other at home: No Do you presently have visiting nurse or other home services: No Alcohol intake: never Patient Tobacco Use Status: Former Tobacco user Quit Date: 2015 e-Cigarette/Vaping Use: Never Used Second Hand Smoke Exposure: No service: No Current occupational status: disabled Cognitive needs: No Hearing needs: No Vision needs: Yes Female Reproductive History Menstrual Age of Menarche: 10 Review of Systems Const All systems reviewed & are unremarkable except as noted in HPI and below Physical Exam Vital Signs: Last Vital Signs Pulse 89 12/05/23 09:45 Resp 18 12/05/23 09:45 BP 141/75 H 12/05/23 09:45 Pulse Ox 98 12/05/23 09:45 Oxygen Delivery Method Room Air 12/05/23 09:45 BMI result Body Mass Index 37.2 General: awake, alert, oriented. Answers questions appropriately. Fully engaged in examination. Skin: warm, dry, intact HEENT: Normocephalic. Hearing intact. Cardiac: External chest normal in appearance. Respiratory: No cough, audible wheezing or stridor. Abdomen: without gross distension. MS: No obvious swelling or deformities. Able to transition from sit to stand unassisted. Ambulates with bilaterally normal heel strike and toe off Neurological: Oriented to person, place, time and situation. Thought process intact. No gait abnormalities appreciated. Psychiatric: Appropriate mood and affect. Good judgment and insight. Results Reviewed Results Reviewed: 06/11/23 EXAMINATION: MR LUMBAR SPINE WITHOUT CONTRAST FINDINGS: Spinal alignment is normal in the sagittal dimension. Vertebral heights are preserved. No acute bone marrow signal changes. There is disc desiccation at L4-L5 and L5-S1 without substantial loss of intervertebral disc height. The tip of the conus medullaris is located at L1. No mass effect on the conus. Visualized distal cord signal intensity is normal. At and T12-L1, L1-L2, L2-L3, and L3-L4 the annular contours are normal. No canal or neuroforaminal compromise at these levels. At L4-L5 there is a central annular fissure associated with a bulging disc. Bilateral facet degenerative change. No canal stenosis. No mass effect on the traversing or foraminal nerve roots. At L5-S1 there is a central annular fissure associated with a bulging disc. Bilateral facet degenerative change. No canal stenosis. No mass effect on the traversing or foraminal nerve roots. Limited visualization the retroperitoneal anatomy reveals a well marginated benign-appearing cystic lesion within the left kidney. Psoas and paraspinal muscle groups are symmetric. IMPRESSION: There are central annular fissures associated with bulging discs at L4-L5 and L5-S1. Otherwise unremarkable examination. No canal stenosis. No mass effect on the traversing or foraminal nerve roots. Assessment & Plan Assessment & Plan (1) Lumbar radiculopathy: Code(s): M54.16 - Radiculopathy, lumbar region (2) Strain of fascia of lower back: Code(s): S39.012A - Strain of muscle, fascia and tendon of lower back, initial encounter (3) Lumbar facet arthropathy: Code(s): M47.816 - Spondylosis without myelopathy or radiculopathy, lumbar region (4) Sacroiliac joint dysfunction of left side: Code(s): M53.3 - Sacrococcygeal disorders, not elsewhere classified Plan Lucinda is a very pleasant 48-year-old female who presented to the office today for follow up 1 month s/p therapeutic left SIJ injection. Patient reports 100% relief of pain with improvement in functional and mobilit ysince the injection, she would like to proceed with therapeutic injection. Discontinue tizanidine due to reported side effects of burning sensation of her ears. Patient will call the office if the pain returns before she is able to have a repeat injection, we can try a different muscle relaxer if needed. All questions and concerns have been answered and patient agrees with the plan. Follow up in 2 months or when pain returns, sooner if needed. Coding Level of Care Code Est Pt Level 3 (64113) Diagnoses Lumbar radiculopathy M54.16 Strain of fascia of lower back S39.012A Lumbar facet arthropathy M47.816 Sacroiliac joint dysfunction of left side M53.3
[2023-12-05 09:45] VITALS: BP 141/75; PULSE 89; RESP 18; O2SAT 98; BMI 37.2
== END 2023-12-05 09:59 | disposition home or self-care (01) ==
PROVIDERS: PCP Internal Medicine; Visit Provider Registered Nurse Emergency
DX: M54.16 Radiculopathy, lumbar region (principal); S39.012A Strain of muscle, fascia and tendon of lower back, initial encounter; M47.816 Spondylosis without myelopathy or radiculopathy, lumbar region; M53.3 Sacrococcygeal disorders, not elsewhere classified
CPT/HCPCS: 99213

== ENCOUNTER → 2023-12-05 09:36 | Outpatient (BNVA) | payer OTHER, SELFPAY | PROVIDERS: PCP Internal Medicine; Visit Provider Registered Nurse Emergency | DX: M54.16 Radiculopathy, lumbar region (principal); M47.816 Spondylosis without myelopathy or radiculopathy, lumbar region; M53.3 Sacrococcygeal disorders, not elsewhere classified; S39.012D Strain of muscle, fascia and tendon of lower back, subsequent encounter | CPT/HCPCS: 99212 ==

== ENCOUNTER 2024-02-05 15:26 | Outpatient (AMB) | payer OTHER, SELFPAY ==
--- NOTE | 2024-02-05 15:25 | MHC.OFFVIS ---
Vital Signs 02/05/24 15:28 Height 5 ft 4 in Weight 217 lb BMI 37.2 BP 150/92 H Blood Pressure Location Rt brachial Position Sitting Pulse 74 Pulse Source Pulse Oximeter Pulse Oximetry (%) 98 Oxygen Delivery Method Room Air Intake Visit Reasons: 1yr follow up KEN Intake Note: Patient presents for 1 year follow up. Patient uses her mask but sometimes feels like she's suffocating Allergies galcanezumab-gnlm [From Emgality Pen] Allergy (Intermediate, Verified 02/05/24 15:30) localized swelling garlic Allergy (Verified 02/05/24 15:30) Shortness of Breath duloxetine [From CYMBALTA] Adverse Reaction (Mild, Verified 02/05/24 15:30) migraines,vomitting tumeric Adverse Reaction (Uncoded 02/05/24 15:30) Shortness of Breath HPI Comments Details: 48 y/o female patient presents for follow up of KEN and hypoxemia. The CPAP compliance and therapy response (10/31/23-01/28/24) reviewed with the patient. Pt is on APAP [id number]. The usage days 92% and average usage hours 5 hours 20 min. The mean pressure is 6.2 and the AHI was 0.2. The home sleep study result was borderline KEN. The AHI was 5.2 /hr with excessive snoring for 42% of sleep time. Average O2 sat 93%, lowest O2 sat was 79% and below 88% for? 5 min.? The overnight oximetry on CPAP result reviewed. The mean SpO2 was 95.7 % and the lowest SpO2 was 89%. Pt reports that she sleeps better and daytime tiredness has improved. However, the CPAP mask is too tight for her. [facility] Medical History Postoperative nausea Sleep apnea HTN (hypertension) Overactive bladder Renal calculi Obesity (BMI 35.0-39.9 without comorbidity) CHAGO (generalized anxiety disorder) Migraines Impaired glucose tolerance GERD (gastroesophageal reflux disease) Nausea Allergic rhinitis Surgical History H/O colonoscopy History of extraction of renal calculus History of tubal ligation History of section Family History Father CHF (congestive heart failure) Mother Hypertension Family/Other Substance abuse Paternal Aunt Cancer Other Mental health disorder Social History Household Members: Spouse and Children Housing: House Are you a primary director of home care hospice to a significant other at home: No Do you presently have visiting nurse or other home services: No Alcohol intake: never Patient Tobacco Use Status: Former Tobacco user Quit Date: 2015 e-Cigarette/Vaping Use: Never Used Second Hand Smoke Exposure: No service: No Current occupational status: disabled Cognitive needs: No Hearing needs: No Vision needs: Yes Female Reproductive History Menstrual Age of Menarche: 10 Review of Systems Const All systems reviewed & are unremarkable except as noted in HPI and below ENT Reports Normal hearing present Neuro Reports Normal hearing present Physical Exam Vital Signs: Last Vital Signs Pulse 74 02/05/24 15:28 BP 150/92 H 02/05/24 15:28 Pulse Ox 98 02/05/24 15:28 Oxygen Delivery Method Room Air 02/05/24 15:28 BMI result Body Mass Index 37.2 Const General: cooperative Nutritional Appearance: obese Orientation/consciousness: patient oriented x3 Limitations: language barrier Neck Neck: Yes full ROM and Yes supple Resp Effort & Inspection: normal respiratory effort and able to speak in complete sentences Neuro General: patient oriented x3 Cranial nerves: Yes Bilaterally intact EOM present, Yes Normal facial strength present, Yes Midline tongue present, Yes Symmetric palate elevation present, Yes Normal hearing present, Yes Ability to bilaterally rotate head present and Yes Ability to bilaterally elevate shoulders present Cognition (Neuro): normal cognition Psych Appearance: grossly normal Mental Status: mental status grossly normal Speech and movement: Normal speech and movement present Affect: normal affect Attitude: cooperative Assessment & Plan Assessment & Plan (1) KEN (obstructive sleep apnea): Comment: Borderline KEN with excessive snoring. The AHI was 5.2/hr and the oxygen lydia was 79% Code(s): G47.33 - Obstructive sleep apnea (adult) (pediatric) Category: Medical (2) Hypoxia, sleep related: Code(s): G47.34 - Idiopathic sleep related nonobstructive alveolar hypoventilation Category: Medical Plan Advised patient to continue to use APAP [id number] as patient experiences good clinical effects. Advised patient to call [facility] to try different mask or using CPAP mask liner. Stressed compliance, use CPAP nightly and more than 4 hours. Advised patient to try magnesium 400 mg qHS for sleep and prevent migraine. Medications: New magnesium oxide 400 mg PO DAILY 30 tabs 6RF 30 days Coding Level of Care Code Est Pt Level 3 (47241) Diagnoses KEN (obstructive sleep apnea) G47.33 Hypoxia, sleep related G47.34
[2024-02-05 15:28] VITALS: BP 150/92; PULSE 74; O2SAT 98; BMI 37.2
== END 2024-02-05 15:43 | disposition home or self-care (01) ==
PROVIDERS: Visit Provider Nurse Practitioner Family
DX: G47.33 Obstructive sleep apnea (adult) (pediatric) (principal); G47.34 Idiopathic sleep related nonobstructive alveolar hypoventilation
CPT/HCPCS: 99213

== ENCOUNTER → 2024-02-05 15:26 | Outpatient (BNVA) | payer OTHER, SELFPAY | PROVIDERS: Visit Provider Nurse Practitioner Family | DX: G47.33 Obstructive sleep apnea (adult) (pediatric) (principal); G47.34 Idiopathic sleep related nonobstructive alveolar hypoventilation; Z99.89 Dependence on other enabling machines and devices | CPT/HCPCS: 99212 ==

== ENCOUNTER 2024-02-13 10:33 | Outpatient (AMB) | payer OTHER, SELFPAY ==
[2024-02-13 10:42] VITALS: BP 167/82; PULSE 76; RESP 18; O2SAT 98; BMI 36.9
--- NOTE | 2024-02-13 10:42 | MHC.OFFVIS ---
Vital Signs 02/13/24 10:42 Height 5 ft 4 in Weight 215 lb 2 oz BMI 36.9 BP 167/82 H Blood Pressure Location Lt brachial Position Sitting Respiration 18 Pulse 76 Pulse Source Pulse Oximeter Pulse Oximetry (%) 98 Oxygen Delivery Method Room Air Intake Visit Reasons: FOLLOW UP VISIT FOR REPEAT PROCEDURE Allergies galcanezumab-gnlm [From Emgality Pen] Allergy (Intermediate, Verified 02/13/24 10:41) localized swelling garlic Allergy (Verified 02/13/24 10:41) Shortness of Breath duloxetine [From CYMBALTA] Adverse Reaction (Mild, Verified 02/13/24 10:41) migraines,vomitting tumeric Adverse Reaction (Uncoded 02/05/24 15:30) Shortness of Breath HPI Comments Details: Lucinda presents back to the office today for follow up left SIJ dysfunction. S/P left therapeutic SIJ injection performed 11/06/2023. Patient reports 90% pain relief since the procedure (3 months) with improvement in function and mobility. She did not take any NSAIDS or other meds for her pain in those 3 months. Pain returned 1.5weeks ago, she has been taking naproxen for the pain. Pain worse with sitting and standing for extended periods of time. Pain radiates to the left groin. Denies new injury. Denies red flag symptoms including new loss of bowel, bladder or saddle anesthesia Prior: Patient presents today for follow up, 1 month s/p left therapeutic sacroiliac joint injection. She reports pain today is 0/10, she endorses minimal pain very infrequently with overactivity. She reports improvement in function and mobility since the injection. Denies any untoward effects of the injection. Patient has been taking tizanidine 2 mg p.o. b.i.d. as needed but states she has noticed burning of her ears for the last 2 months when she takes it. She did speak to her primary care doctor and mental health provider and was told to stop the tizanidine. Since stopping the burning of her ears has not occurred. Prior: Lucinda presents to the office today for follow up s/p left diagnostic SIJ injection with local anesthetic. Patient reports 75% pain relief since the injection 1 week ago, she would like to proceed with therapeutic injection. Prior: Lucinda presents back to the office today, accompanied by her , for follow up s/p Left L4-L5 TFESI 08/14/2023 Patient reports moderate relief after the injection. She has completed PT and states that her midline lumbar back pain is now only intermittent. It will come on if she she remains stationary for too long. She will have her family crack her back and this provides relief. She has not been to a chiropractor in the past. She is doing HEP sometimes but not consistantly. Her main concern is the pain in her left buttock that radiates down her thigh to the knee. This pain is worse with sitting and standing for extended periods of time. The muscle relaxers provide some relief, she is requesting a refill. Prior: Lcuinda is a very pleasant 48 year old female who presents to the office today for follow up lower back pain and review of MRI. MRI reviewed with patient, results as per below. Patient reports today that her pain persists. She has been taking naproxen and baclofen without relief. She continues to endorse pain left lower back with radiation down her left leg to the level of the foot. She completed physical therapy without relief of this pain and continues to do home exercise program. Patient is also complaining of pain across the lower aspects of her back with radiation into her buttocks over the last 2 days. She reports that she has experience similar pain in the past that resolved after she attended physical therapy. This is different from her chronic pain which she is able to differentiate between the two. Patient denies red flag symptoms including loss of bowel, bladder or saddle anesthesia. Initial visit note: Lucinda is a pleasant 47-year-old female presents to the office today for evaluation management of her left-sided lower back pain. Patient reports initially injured her back December 2022 when she was sitting in her chair and fell backwards. Patient reports Mar 04 2023 her niece jumped into her lap and they both fell to the ground which exacerbated her pain. She has been attending physical therapy, has her last session today. Patient plans on continuing home exercise program. Patient reports midline lumbar pressure and left lower back pain that radiates down her leg into her foot to her toe. Patient denies any red flag symptoms including loss of bowel bladder or saddle anesthesia. Patient states she has tried Motrin for her pain which helps ?a little?. Patient gets some relief when she applies heat to the area. Patient's primary care doctor prescribed her gabapentin which she states does not help her pain at all. She has not tried acupuncture, chiropracture, massage, steroids or injections. Patient denies previous surgical intervention of her back. Patient reports her pain is negatively impacting her ability to enjoy life, enjoyed recreational activities and perform activities of daily living. In terms of muscle damage condition is reported as aching, spasming, tingling, pins, needles and squeezing. Pain is constant and worse in the mornings. Patient's past medical history significant for anxiety, GERD, hypertension, migraines, nausea, obesity, overactive bladder and sleep apnea. Patient denies history of diabetes. Patient denies current use of tobacco, alcohol or illicit substances. [facility] Medical History Postoperative nausea Sleep apnea HTN (hypertension) Overactive bladder Renal calculi Obesity (BMI 35.0-39.9 without comorbidity) CHAGO (generalized anxiety disorder) Migraines Impaired glucose tolerance GERD (gastroesophageal reflux disease) Nausea Allergic rhinitis Surgical History H/O colonoscopy History of extraction of renal calculus History of tubal ligation History of section Family History Father CHF (congestive heart failure) Mother Hypertension Family/Other Substance abuse Paternal Aunt Cancer Other Mental health disorder Social History Household Members: Spouse and Children Housing: House Are you a primary healthcare economics consultant to a significant other at home: No Do you presently have visiting nurse or other home services: No Alcohol intake: never Patient Tobacco Use Status: Former Tobacco user Quit Date: 2015 e-Cigarette/Vaping Use: Never Used Second Hand Smoke Exposure: No service: No Current occupational status: disabled Cognitive needs: No Hearing needs: No Vision needs: Yes Female Reproductive History Menstrual Age of Menarche: 10 Review of Systems Const All systems reviewed & are unremarkable except as noted in HPI and below Physical Exam Vital Signs: Last Vital Signs Pulse 76 02/13/24 10:42 Resp 18 02/13/24 10:42 BP 167/82 H 02/13/24 10:42 Pulse Ox 98 05/01/24 10:42 Oxygen Delivery Method Room Air 05/01/24 10:42 BMI result Body Mass Index 36.9 Const General: no acute distress Orientation/consciousness: patient oriented x3 Resp Effort & Inspection: normal respiratory effort and able to speak in complete sentences Back/Spine/Pelvis Other: Lumbar exam: Able to stand on bilateral tiptoes and bilateral heels. Able to transition from sit to stand unassisted. Ambulates with bilaterally normal heel strike and toe off Visual inspection without gross abnormality Tender to palpation over left PSIS Strength: 5/5 BLE ANUJA positive on left Thigh thrust postive on left Gaenslen positive on left SI compression positive on left SI distraction positive on left Neuro General: patient oriented x3 Results Reviewed Results Reviewed: 06/11/23 EXAMINATION: MR LUMBAR SPINE WITHOUT CONTRAST FINDINGS: Spinal alignment is normal in the sagittal dimension. Vertebral heights are preserved. No acute bone marrow signal changes. There is disc desiccation at L4-L5 and L5-S1 without substantial loss of intervertebral disc height. The tip of the conus medullaris is located at L1. No mass effect on the conus. Visualized distal cord signal intensity is normal. At and T12-L1, L1-L2, L2-L3, and L3-L4 the annular contours are normal. No canal or neuroforaminal compromise at these levels. At L4-L5 there is a central annular fissure associated with a bulging disc. Bilateral facet degenerative change. No canal stenosis. No mass effect on the traversing or foraminal nerve roots. At L5-S1 there is a central annular fissure associated with a bulging disc. Bilateral facet degenerative change. No canal stenosis. No mass effect on the traversing or foraminal nerve roots. Limited visualization the retroperitoneal anatomy reveals a well marginated benign-appearing cystic lesion within the left kidney. Psoas and paraspinal muscle groups are symmetric. IMPRESSION: There are central annular fissures associated with bulging discs at L4-L5 and L5-S1. Otherwise unremarkable examination. No canal stenosis. No mass effect on the traversing or foraminal nerve roots. Assessment & Plan Assessment & Plan (1) Lumbar radiculopathy: Code(s): M54.16 - Radiculopathy, lumbar region Category: Medical (2) Strain of fascia of lower back: Code(s): S39.012A - Strain of muscle, fascia and tendon of lower back, initial encounter Category: Medical (3) Lumbar facet arthropathy: Code(s): M47.816 - Spondylosis without myelopathy or radiculopathy, lumbar region Category: Medical (4) Sacroiliac joint dysfunction of left side: Code(s): M53.3 - Sacrococcygeal disorders, not elsewhere classified Category: Medical Plan Lucinda is a very pleasant 48-year-old female who presented to the office today for follow up left sacroiliac joint dysfunction Patient reports 90% pain relief with improvement in functional mobility in the 3 months after the last therapeutic sacroiliac joint injection. She also noted decrease in use of muscle relaxants and nonsteroidal anti-inflammatory medications. She would like to repeat the injection. Discontinue tizanidine. Methocarbamol 500 mg p.o. t.i.d. as needed. Patient advised on cautions for use. Will Schedule for fluoroscopy guided left therapeutic SIJ injection with local anesthetic. All questions and concerns have been answered and patient agrees with the plan. Follow up after injections and sooner if needed. Medications: New methocarbamol Discontinue use of Cyclobenzaprine No driving while taking this medication. Do no take with alcohol or other ACUTE CARE PHYSICIAN Depressants 500 mg PO TID PRN 90 tabs 1RF muscle spasm Coding Level of Care Code Est Pt Level 3 (48741) Diagnoses Lumbar radiculopathy M54.16 Strain of fascia of lower back S39.012A Lumbar facet arthropathy M47.816 Sacroiliac joint dysfunction of left side M53.3
== END 2024-02-13 11:03 | disposition home or self-care (01) ==
PROVIDERS: PCP Internal Medicine; Visit Provider Registered Nurse Emergency
DX: M54.16 Radiculopathy, lumbar region (principal); S39.012A Strain of muscle, fascia and tendon of lower back, initial encounter; M47.816 Spondylosis without myelopathy or radiculopathy, lumbar region; M53.3 Sacrococcygeal disorders, not elsewhere classified
CPT/HCPCS: 99213

== ENCOUNTER → 2024-02-13 10:33 | Outpatient (BNVA) | payer OTHER, SELFPAY | PROVIDERS: PCP Internal Medicine; Visit Provider Registered Nurse Emergency | DX: M47.26 Other spondylosis with radiculopathy, lumbar region (principal); M53.3 Sacrococcygeal disorders, not elsewhere classified; S39.012A Strain of muscle, fascia and tendon of lower back, initial encounter; X58.XXXA Exposure to other specified factors, initial encounter; Y93.9 Activity, unspecified; Y92.9 Unspecified place or not applicable; Y99.9 Unspecified external cause status | CPT/HCPCS: 99212 ==

== ENCOUNTER 2024-03-25 06:09 | Outpatient (REF) | payer OTHER, SELFPAY ==
--- NOTE | ~2024-03-25 | FL_ITS ---
EXAMINATION: XR FLUOROSCOPY WITH IMAGES CLINICAL INFORMATION: Sacrococcygeal disorders. COMPARISON: None available. TECHNIQUE: Fluoroscopy Supervised By: Dr. Rush Orozco. Fluoroscopy Time: 0.1 minute. Cumulative Dose: 1.45 mGy. DAP: 0.0253 Gycm2. Images: 1. FINDINGS: Intraoperative fluoroscopy and spot films were performed during a procedure in the OR. A needle is seen overlying the region of the left SI joint with contrast media seen around the needle tip. Please correlate with Dr. Rush Orozco's report for complete details. FL/FL guidance in treatment room IMPRESSION: Intraoperative fluoroscopy and spot films were obtained. Please see Dr. Rush Orozco's report for complete details.
== END 2024-03-25 06:10 | disposition home or self-care (01) ==
LOC: CF 06:09
PROVIDERS: Visit Provider Anesthesiology
DX: M53.3 Sacrococcygeal disorders, not elsewhere classified (principal); M47.26 Other spondylosis with radiculopathy, lumbar region; S39.012A Strain of muscle, fascia and tendon of lower back, initial encounter
CPT/HCPCS: 27096; J2795; J3301; Q9967

== ENCOUNTER 2024-03-25 09:06 | Outpatient (AMB) | payer OTHER, SELFPAY ==
[2024-03-25 10:21] VITALS: BP 126/7; PULSE 88; RESP 16; O2SAT 98; BMI 36.9
--- NOTE | 2024-03-25 10:21 | A.OFFVIS_ITS ---
Vital Signs 03/25/24 10:21 03/25/24 10:22 Height 5 ft 4 in Weight 215 lb BMI 36.9 BP 126/7 L 136/76 Blood Pressure Location Lt brachial Lt brachial Position Sitting Sitting Respiration 16 Pulse 88 74 Pulse Source Pulse Oximeter Pulse Oximeter Pulse Oximetry (%) 98 97 Oxygen Delivery Method Room Air Room Air Comment Pre-Op Post-Op Intake Visit Reasons: LEFT THERAPEUTIC SIJ INJECTION Allergies galcanezumab-gnlm [From Emgality Pen] Allergy (Intermediate, Verified 02/13/24 10:41) localized swelling garlic Allergy (Verified 02/13/24 10:41) Shortness of Breath duloxetine [From CYMBALTA] Adverse Reaction (Mild, Verified 02/13/24 10:41) migraines,vomitting tumeric Adverse Reaction (Uncoded 02/05/24 15:30) Shortness of Breath PFSH Medical History Postoperative nausea Sleep apnea HTN (hypertension) Overactive bladder Renal calculi Obesity (BMI 35.0-39.9 without comorbidity) CHAGO (generalized anxiety disorder) Migraines Impaired glucose tolerance GERD (gastroesophageal reflux disease) Nausea Allergic rhinitis Surgical History H/O colonoscopy History of extraction of renal calculus History of tubal ligation History of section Family History Father CHF (congestive heart failure) Mother Hypertension Family/Other Substance abuse Paternal Aunt Cancer Other Mental health disorder Social History Household Members: Spouse and Children Housing: House Are you a primary client care representative to a significant other at home: No Do you presently have visiting nurse or other home services: No Alcohol intake: never Patient Tobacco Use Status: Former Tobacco user e-Cigarette/Vaping Use: Never Used Second Hand Smoke Exposure: No service: No Current occupational status: disabled Cognitive needs: No Hearing needs: No Vision needs: Yes Female Reproductive History Menstrual Age of Menarche: 10 Physical Exam Vital Signs: Last Vital Signs Pulse 74 03/25/24 10:22 Resp 16 03/25/24 10:21 BP 136/76 03/25/24 10:22 Pulse Ox 97 03/25/24 10:22 Oxygen Delivery Method Room Air 03/25/24 10:22 BMI result Body Mass Index 36.9 Assessment & Plan Assessment & Plan (1) Lumbar radiculopathy: Code(s): M54.16 - Radiculopathy, lumbar region Category: Medical Plan: Left therapeutic sacroiliac joint injection Informed consent was explained thoroughly to the patient. All questions about benefits and risks for the procedure were answered. Patient came to the operating room and was positioned prone on the operating table with the pillow under the pelvis. Time out was performed delineating name and of the patient, allergies and the nature of the procedure. The lower back and buttocks of the patient were prepped with ChloraPrep prepped and draped with sterile utility towels. C-arm was brought over the operating field and sq picture of patient's pelvis was demonstrated on the screen. For the left joint tilting C-arm contralateral to the site of the joint the most posterior portion of the joints was superimposed with anterior silhouette of the joint. Skin was injected in the projection of the joint slightly medial to the location of the joint with 25 gauge 1/2 inch needle using local lidocaine 2% .After that 22 gauge 3 and 1/2 inch needle was driven to the right joint in tunnel vision fashion. When needle entered the joint capsule injection of the contrast was mixed with 40 mg of kenalog performed demonstrating intra- articular and minimally periarticular spread of the contrast. After that 4 cc. of ropivacaine 0.5% was injected into the joint. Upon completion of the injections the needle was removed Sterile dressing was applied. Upon completion of the injection patient was taken outside of the operating room to the recovery room where recovered uneventfully. (2) Strain of fascia of lower back: Code(s): S39.012A - Strain of muscle, fascia and tendon of lower back, initial encounter Category: Medical (3) Lumbar facet arthropathy: Code(s): M47.816 - Spondylosis without myelopathy or radiculopathy, lumbar region Category: Medical (4) Sacroiliac joint dysfunction of left side: Code(s): M53.3 - Sacrococcygeal disorders, not elsewhere classified Category: Medical Plan Lucinda is a very pleasant 48-year-old female who presented to the office today for follow up left sacroiliac joint dysfunction Patient reports 90% pain relief with improvement in functional mobility in the 3 months after the last therapeutic sacroiliac joint injection. She also noted decrease in use of muscle relaxants and nonsteroidal anti-inflammatory medications. She would like to repeat the injection. Discontinue tizanidine. Methocarbamol 500 mg p.o. t.i.d. as needed. Patient advised on cautions for use. Will Schedule for fluoroscopy guided left therapeutic SIJ injection with local anesthetic. All questions and concerns have been answered and patient agrees with the plan. Follow up after injections and sooner if needed. Orders: Orders FL guidance in treatment room Today M53.3 - Sacrococcygeal disorders, not els ewhere classified Coding Level of Care Code Procedure Only Diagnoses Lumbar radiculopathy M54.16 Strain of fascia of lower back S39.012A Lumbar facet arthropathy M47.816 Sacroiliac joint dysfunction of left side M53.3
[2024-03-25 10:22] VITALS: BP 136/76; PULSE 74; O2SAT 97
== END 2024-03-25 10:13 | disposition home or self-care (01) ==
LOC: HO.PMCPRC 09:06
PROVIDERS: PCP Internal Medicine; Visit Provider Anesthesiology
DX: M53.3 Sacrococcygeal disorders, not elsewhere classified (principal)
CPT/HCPCS: 27096

== ENCOUNTER 2024-04-23 09:15 | Outpatient (AMB) | payer OTHER, SELFPAY ==
--- NOTE | 2024-04-23 09:18 | A.OFFVIS_ITS ---
Vital Signs 04/23/24 09:26 Height 5 ft 4 in Weight 217 lb BMI 37.2 BP 156/80 H Blood Pressure Location Lt brachial Position Sitting Respiration 14 Pulse 70 Pulse Source Pulse Oximeter Pulse Oximetry (%) 99 Oxygen Delivery Method Room Air Intake Visit Reasons: LEFT THERAPEUTIC SIJ INJECTION Imaging Specialist Required: Yes Imaging Specialist Name: [id number] Lauri Allergies [id number] [From Emgality Pen] Allergy (Intermediate, Verified 04/23/24 09:27) localized swelling garlic Allergy (Verified 04/23/24 09:27) Shortness of Breath duloxetine [From CYMBALTA] Adverse Reaction (Mild, Verified 04/23/24 09:27) migraines,vomitting tumeric Adverse Reaction (Uncoded 04/23/24 09:27) Shortness of Breath Medication List - Last Reconciled 04/23/24 by Mariana Canada LPN amlodipine 5 mg PO DAILY ewivgsqezj-xbvcjjmxuavuh-suaj 50-325-40 mg 1 - 2 tabs PO DAILY PRN diclofenac sodium 1% (Arthritis Pain (diclofenac)) 2 grams topical QID PRN 30 days epinephrine 0.3 mg (0.3 mL) IM DIRECTED fluticasone propionate 50 mcg/actuation (Flonase Allergy Relief) 1 spray intranasal DAILY 30 days gabapentin 300 mg PO BEDTIME 90 days ibuprofen mg PO ketoconazole 2% 1 appl topical 2XW loratadine 10 mg PO DAILY PRN 30 days lorazepam 1 mg PO TID magnesium oxide 400 mg PO DAILY 30 days methocarbamol 500 mg PO TID PRN omeprazole 40 mg PO DAILY 90 days ondansetron HCl 4 mg PO Q8H PRN peg 400-propylene glycol (PF) 0.4-0.3 % (Systane Hydration (PF)) 1 drp ophthalmic (eye) BID-QID PRN 30 days phenyleph-min oil-petrolatum 0.25-14-74.9 % (Preparation H) 1 appl [place] BID PRN quetiapine 50 mg PO BEDTIME HPI Comments Details: Lucinda presents back to the office today, accompanied by her for follow up left therapeutic SI joint injection Reports 90% pain relief with improvement in functional mobility. Pain today is rated at 0/10 States occasionally she will get pain during the day but it is manageable Requesting a refill on her muscle relaxers Prior: Lucinda presents back to the office today for follow up left SIJ dysfunction. S/P left therapeutic SIJ injection performed 11/06/2023. Patient reports 90% pain relief since the procedure (3 months) with improvement in function and mobility. She did not take any NSAIDS or other meds for her pain in those 3 months. Pain returned 1.5weeks ago, she has been taking naproxen for the pain. Pain worse with sitting and standing for extended periods of time. Pain radiates to the left groin. Denies new injury. Denies red flag symptoms including new loss of bowel, bladder or saddle anesthesia Prior: Patient presents today for follow up, 1 month s/p left therapeutic sacroiliac joint injection. She reports pain today is 0/10, she endorses minimal pain very infrequently with overactivity. She reports improvement in function and mobility since the injection. Denies any untoward effects of the injection. Patient has been taking tizanidine 2 mg p.o. b.i.d. as needed but states she has noticed burning of her ears for the last 2 months when she takes it. She did speak to her primary care doctor and mental health provider and was told to stop the tizanidine. Since stopping the burning of her ears has not occurred. Prior: Lucinda presents to the office today for follow up s/p left diagnostic SIJ injection with local anesthetic. Patient reports 75% pain relief since the injection 1 week ago, she would like to proceed with therapeutic injection. Prior: Lucinda presents back to the office today, accompanied by her , for follow up s/p Left L4-L5 TFESI 08/14/2023 Patient reports moderate relief after the injection. She has completed PT and states that her midline lumbar back pain is now only intermittent. It will come on if she she remains stationary for too long. She will have her family crack her back and this provides relief. She has not been to a chiropractor in the past. She is doing HEP sometimes but not consistantly. Her main concern is the pain in her left buttock that radiates down her thigh to the knee. This pain is worse with sitting and standing for extended periods of time. The muscle relaxers provide some relief, she is requesting a refill. Prior: Lucinda is a very pleasant 48 year old female who presents to the office today for follow up lower back pain and review of MRI. MRI reviewed with patient, results as per below. Patient reports today that her pain persists. She has been taking naproxen and baclofen without relief. She continues to endorse pain left lower back with radiation down her left leg to the level of the foot. She completed physical therapy without relief of this pain and continues to do home exercise program. Patient is also complaining of pain across the lower aspects of her back with radiation into her buttocks over the last 2 days. She reports that she has experience similar pain in the past that resolved after she attended physical therapy. This is different from her chronic pain which she is able to differentiate between the two. Patient denies red flag symptoms including loss of bowel, bladder or saddle anesthesia. Initial visit note: Lucinda is a pleasant 47-year-old female presents to the office today for evaluation management of her left-sided lower back pain. Patient reports initially injured her back December 2022 when she was sitting in her chair and fell backwards. Patient reports Mar 04 2023 her niece jumped into her lap and they both fell to the ground which exacerbated her pain. She has been attending physical therapy, has her last session today. Patient plans on continuing home exercise program. Patient reports midline lumbar pressure and left lower back pain that radiates down her leg into her foot to her toe. Patient denies any red flag symptoms including loss of bowel bladder or saddle anesthesia. Patient states she has tried Motrin for her pain which helps ?a little?. Patient gets some relief when she applies heat to the area. Patient's primary care doctor prescribed her gabapentin which she states does not help her pain at all. She has not tried acupuncture, chiropracture, massage, steroids or injections. Patient denies previous surgical intervention of her back. Patient reports her pain is negatively impacting her ability to enjoy life, enjoyed recreational activities and perform activities of daily living. In terms of muscle damage condition is reported as aching, spasming, tingling, pins, needles and squeezing. Pain is constant and worse in the mornings. Patient's past medical history significant for anxiety, GERD, hypertension, migraines, nausea, obesity, overactive bladder and sleep apnea. Patient denies history of diabetes. Patient denies current use of tobacco, alcohol or illicit substances. [facility] Medical History Postoperative nausea Sleep apnea HTN (hypertension) Overactive bladder Renal calculi Obesity (BMI 35.0-39.9 without comorbidity) CHAGO (generalized anxiety disorder) Migraines Impaired glucose tolerance GERD (gastroesophageal reflux disease) Nausea Allergic rhinitis Surgical History H/O colonoscopy History of extraction of renal calculus History of tubal ligation History of section Family History Father CHF (congestive heart failure) Mother Hypertension Family/Other Substance abuse Paternal Aunt Cancer Other Mental health disorder Social History Household Members: Spouse and Children Housing: House Are you a primary animal daycare provider to a significant other at home: No Do you presently have visiting nurse or other home services: No Alcohol intake: never Patient Tobacco Use Status: Former Tobacco user e-Cigarette/Vaping Use: Never Used Second Hand Smoke Exposure: No service: No Current occupational status: disabled Cognitive needs: No Hearing needs: No Vision needs: Yes Female Reproductive History Menstrual Age of Menarche: 10 Review of Systems Const All systems reviewed & are unremarkable except as noted in HPI and below Physical Exam Vital Signs: Last Vital Signs Pulse 70 04/23/24 09:26 Resp 14 04/23/24 09:26 BP 156/80 H 04/23/24 09:26 Pulse Ox 99 04/23/24 09:26 Oxygen Delivery Method Room Air 04/23/24 09:26 BMI result Body Mass Index 37.2 General: awake, alert, oriented. Answers questions appropriately. Fully engaged in examination. Skin: warm, dry, intact HEENT: Normocephalic. Hearing intact. Cardiac: External chest normal in appearance. Respiratory: No cough, audible wheezing or stridor. Abdomen: without gross distension. MS: No obvious swelling or deformities. Able to transition from sit to stand unassisted. Ambulates with bilaterally normal heel strike and toe off Neurological: Oriented to person, place, time and situation. Thought process intact. No gait abnormalities appreciated. Psychiatric: Appropriate mood and affect. Good judgment and insight. Results Reviewed Results Reviewed: 06/11/23 EXAMINATION: MR LUMBAR SPINE WITHOUT CONTRAST FINDINGS: Spinal alignment is normal in the sagittal dimension. Vertebral heights are preserved. No acute bone marrow signal changes. There is disc desiccation at L4-L5 and L5-S1 without substantial loss of intervertebral disc height. The tip of the conus medullaris is located at L1. No mass effect on the conus. Visualized distal cord signal intensity is normal. At and T12-L1, L1-L2, L2-L3, and L3-L4 the annular contours are normal. No canal or neuroforaminal compromise at these levels. At L4-L5 there is a central annular fissure associated with a bulging disc. Bilateral facet degenerative change. No canal stenosis. No mass effect on the traversing or foraminal nerve roots. At L5-S1 there is a central annular fissure associated with a bulging disc. Bilateral facet degenerative change. No canal stenosis. No mass effect on the traversing or foraminal nerve roots. Limited visualization the retroperitoneal anatomy reveals a well marginated benign-appearing cystic lesion within the left kidney. Psoas and paraspinal muscle groups are symmetric. IMPRESSION: There are central annular fissures associated with bulging discs at L4-L5 and L5-S1. Otherwise unremarkable examination. No canal stenosis. No mass effect on the traversing or foraminal nerve roots. Assessment & Plan Assessment & Plan (1) Lumbar radiculopathy: Code(s): M54.16 - Radiculopathy, lumbar region Category: Medical (2) Strain of fascia of lower back: Code(s): S39.012A - Strain of muscle, fascia and tendon of lower back, initial encounter Category: Medical (3) Lumbar facet arthropathy: Code(s): M47.816 - Spondylosis without myelopathy or radiculopathy, lumbar region Category: Medical (4) Sacroiliac joint dysfunction of left side: Code(s): M53.3 - Sacrococcygeal disorders, not elsewhere classified Category: Medical Plan Lucinda is a very pleasant 48-year-old female who presented to the office today for follow up 1 month s/p therapeutic left SIJ injection. Patient reports 90% relief of pain with improvement in functional and mobility since the injection Refill sent on her methocarbamol. All questions and concerns have been answered and patient agrees with the plan. Follow up when pain returns, sooner if needed. Medications: Changed From methocarbamol Discontinue use of Cyclobenzaprine No driving while taking this medication. Do no take with alcohol or other [employer] Depressants 500 mg PO TID PRN 90 tabs 1RF muscle spasm To methocarbamol No driving while taking this medication. Do no take with alcohol or other [employer] Depressants 500 mg PO TID PRN 90 tabs 1RF muscle spasm Refilled methocarbamol Discontinue use of Cyclobenzaprine No driving while taking this medication. Do no take with alcohol or other [employer] Depressants 500 mg PO TID PRN 90 tabs 1RF muscle spasm Coding Level of Care Code Est Pt Level 3 (90994) Diagnoses Lumbar radiculopathy M54.16 Strain of fascia of lower back S39.012A Lumbar facet arthropathy M47.816 Sacroiliac joint dysfunction of left side M53.3
[2024-04-23 09:26] VITALS: BP 156/80; PULSE 70; RESP 14; O2SAT 99; BMI 37.2
== END 2024-04-23 09:35 | disposition home or self-care (01) ==
PROVIDERS: PCP Internal Medicine; Visit Provider Registered Nurse Emergency
DX: M54.16 Radiculopathy, lumbar region (principal); S39.012A Strain of muscle, fascia and tendon of lower back, initial encounter; M47.816 Spondylosis without myelopathy or radiculopathy, lumbar region; M53.3 Sacrococcygeal disorders, not elsewhere classified
CPT/HCPCS: 99213

== ENCOUNTER → 2024-04-23 09:15 | Outpatient (BNVA) | payer OTHER, SELFPAY | PROVIDERS: PCP Internal Medicine; Visit Provider Registered Nurse Emergency | DX: M47.26 Other spondylosis with radiculopathy, lumbar region (principal); S39.012A Strain of muscle, fascia and tendon of lower back, initial encounter; M53.3 Sacrococcygeal disorders, not elsewhere classified; Z98.890 Other specified postprocedural states | CPT/HCPCS: 99212 ==

== ENCOUNTER 2024-05-21 10:14 | Outpatient (AMB) | payer OTHER, SELFPAY ==
--- NOTE | 2024-05-21 10:15 | MHC.PC.OV ---
Vital Signs 05/21/24 10:16 Height 5 ft 4 in Weight 220 lb BMI 37.8 BP 122/80 Blood Pressure Location Lt brachial Position Sitting Intake Visit Reasons: Annual exam Intake Note: Patient here for a physical exam Gerontological Nurse Practitioner Required: No Accompanied by: Self / Same As Patient Allergies galcanezumab-gnlm [From Emgality Pen] Allergy (Intermediate, Verified 05/21/24 10:31) localized swelling garlic Allergy (Verified 05/21/24 10:31) Shortness of Breath duloxetine [From CYMBALTA] Adverse Reaction (Mild, Verified 05/21/24 10:31) migraines,vomitting tumeric Adverse Reaction (Uncoded 05/21/24 10:31) Shortness of Breath Medication List - Last Reconciled 05/21/24 by Beti Skinner MD amlodipine 5 mg PO DAILY jidjwvjrhg-tjdirmxhzkbzu-tmpn 50-325-40 mg 1 - 2 tabs PO DAILY PRN diclofenac sodium 1% (Arthritis Pain (diclofenac)) 2 grams topical QID PRN 30 days epinephrine 0.3 mg (0.3 mL) IM DIRECTED fluticasone propionate 50 mcg/actuation (Flonase Allergy Relief) 1 spray intranasal DAILY 30 days gabapentin 300 mg PO BEDTIME 90 days ibuprofen mg PO ketoconazole 2% 1 appl topical 2XW loratadine 10 mg PO DAILY PRN 30 days lorazepam 1 mg PO TID magnesium oxide 400 mg PO DAILY 30 days methocarbamol 500 mg PO TID PRN omeprazole 40 mg PO DAILY 90 days ondansetron HCl 4 mg PO Q8H PRN peg 400-propylene glycol (PF) 0.4-0.3 % (Systane Hydration (PF)) 1 drp ophthalmic (eye) BID-QID PRN 30 days phenyleph-min oil-petrolatum 0.25-14-74.9 % (Preparation H) 1 appl [place] BID PRN quetiapine 50 mg PO BEDTIME Tobacco use date assessed: 11/01/23 Dental Screening Dental Screen Date: 11/01/23 HPI HPI Comments History of Present Illness Details This is a 49-year-old female that comes for her physical exam. Mammogram done 2022 and will be ordered. Colonoscopy done 2022. Pap smear done 2021 was normal. She still has low back pain and last MRI showed disc protrusion. She does follows with pain management and do local injections with no significant relieved. I will order another MRI. She also complains of neck pain and thoracic spine pain and x-ray will be ordered. [facility] Medical History Postoperative nausea Sleep apnea HTN (hypertension) Overactive bladder Renal calculi Obesity (BMI 35.0-39.9 without comorbidity) CHAGO (generalized anxiety disorder) Migraines Impaired glucose tolerance GERD (gastroesophageal reflux disease) Nausea Allergic rhinitis Surgical History H/O colonoscopy History of extraction of renal calculus History of tubal ligation History of section Family History Father CHF (congestive heart failure) Mother Hypertension Family/Other Substance abuse Paternal Aunt Cancer Other Mental health disorder Social History Household Members: Spouse and Children Housing: House Are you a primary care transitions nurse to a significant other at home: No Do you presently have visiting nurse or other home services: No Alcohol intake: never Patient Tobacco Use Status: Former Tobacco user e-Cigarette/Vaping Use: Never Used Second Hand Smoke Exposure: No service: No Current occupational status: disabled Cognitive needs: No Hearing needs: No Vision needs: Yes Female Reproductive History Menstrual Age of Menarche: 10 Questionnaire Thrive Questionnaire Date Thrive assessed: 11/01/23 CHAGO-7 AMB Questionnaire CHAGO-7 Date CHAGO - 7 assessed: 11/01/23 Source: Developed by Drs. Miguel Rosales, Elaine Jones, Lucas Landaverde and colleagues, with an educational tobias from [employer]. Review of Systems Const All systems reviewed & are unremarkable except as noted in HPI and below ENT Reports neck pain Card Denies chest pain at rest, Denies chest pain with activity, Denies edema, Denies irregular heart rhythm, Denies claudication, Denies dyspnea, Denies dyspnea on exertion, Denies orthopnea, Denies paroxysmal nocturnal dyspnea and Denies slow heart rate Resp Denies cough, Denies dyspnea and Denies dyspnea on exertion GI Denies abdominal pain, Denies change in bowel habits, Denies excessive flatus, Denies nausea and Denies vomiting Denies urinary incontinence, Denies urinary hesitancy and Denies urinary urgency Musc Denies abnormal gait, Reports back pain, Denies atrophy, Denies deformity, Denies limited range of motion and Reports neck pain Skin/Breast Denies bleeding lesions, Denies changing lesions and Denies rash Neuro Denies abnormal gait and Denies lack of coordination Physical exam (Primary Care) Vital Signs: Last Vital Signs BP 122/80 05/21/24 10:16 BMI result Body Mass Index 37.8 BMI Assessment/Plan discussion: High BMI High, discussed plan: lifestyle, weight reduction, dietary and physical activity Tobacco/Smoking Status: Tobacco use Status Tobacco use date assessed 11/01/23 05/21/24 10:19 Patient Tobacco Use Status Former Tobacco user 05/21/24 10:19 e-Cigarette/Vaping Use Never Used 05/21/24 10:19 Thrive Assessment: Date of Thrive Assessment Date Thrive assessed 11/01/23 05/21/24 10:19 HENOR Head: Yes normal to inspection, Yes normocephalic and Yes atraumatic Ears: external ears normal Eyes General: appearance normal, both eyes and all related structures Eyelids: Yes eyelids normal Conjunctivae: conjunctivae normal Neck Neck: Yes normal visual inspection and Yes supple Resp Effort & Inspection: normal respiratory effort Auscultation: clear to auscultation bilaterally Cardio Jugular venous distension: no JVD Rate: regular rate Rhythm: regular rhythm Heart sounds: S1 normal heart sound present and S2 normal heart sound present GI Inspection: Yes normal to inspection Palpation (GI): Soft to palpation and nontender Auscultation: normal bowel sounds Back/Spine/Pelvis Thoracic/Lumbar Spine: thoracic spinal tenderness Skin General skin exam: no rashes or lesions noted Neuro General: no focal motor deficits Extrem General: Yes full ROM Psych Appearance: grossly normal Assessment and Plan Assessment & Plan (1) Physical exam: Code(s): Z00.00 - Encounter for general adult medical examination without abnormal findings Plan: Repeat in a year. (2) Neck pain: Code(s): M54.2 - Cervicalgia Plan: X-ray ordered. (3) Thoracic spine pain: Code(s): M54.6 - Pain in thoracic spine Plan: X-ray ordered. (4) Protrusion of lumbar intervertebral disc: Code(s): M51.26 - Other intervertebral disc displacement, lumbar region Plan: MRI ordered. Orders: Orders MM screening mammo BI Today Z12.31 - Encounter for screening mammogram for malignant neoplasm of breast Complete Blood Count Auto Diff Today D64.9 - Anemia, unspecified Vitamin B12 and Folate Today E53.8 - Deficiency of other specified B group vitamins Lipid Panel Today E78.5 - Hyperlipidemia, unspecified Comprehensive [place]. Panel Fast Today M54.16 - Radiculopathy, lumbar region MR lumbar spine wo con Today M51.26 - Other intervertebral disc displacement, lumbar region, M54.16 - Radiculopathy, lumbar region, M79.2 - Neuralgia and neuritis, unspecified IRON PROFILE Today D64.9 - Anemia, unspecified Vitamin D 25-OH Total Today E55.9 - Vitamin D deficiency, unspecified XR cervical spine 2V Today M54.2 - Cervicalgia XR thoracic spine 2V Today M54.6 - Pain in thoracic spine Coding Level of Care Code Est Pt Level 3 (60031) Est Pt Prev Care 40-64y(58645) Diagnoses Physical exam Z00.00 Neck pain M54.2 Thoracic spine pain M54.6 Protrusion of lumbar intervertebral disc M51.26 Time Spent (min) 34
[2024-05-21 10:16] VITALS: BP 122/80; BMI 37.8
== END 2024-05-21 10:49 | disposition home or self-care (01) ==
PROVIDERS: PCP Internal Medicine; Visit Provider Internal Medicine
DX: Z00.00 Encounter for general adult medical examination without abnormal findings (principal); M54.2 Cervicalgia; M51.26 Other intervertebral disc displacement, lumbar region
CPT/HCPCS: 99213; 99396

== ENCOUNTER 2024-07-15 11:09 | Outpatient (REF) | payer OTHER, SELFPAY ==
--- NOTE | ~2024-07-15 | MM_ITS ---
EXAMINATION: MM SCREENING DIGITAL BREAST TOMOSYNTHESIS, BILATERAL CLINICAL INFORMATION: Screening. Asymptomatic. COMPARISON: Mammography: Comparison is made with available priors TECHNIQUE: Digital breast mammography with tomosynthesis is performed in both the craniocaudal and mediolateral oblique views along with computer-aided detection (CAD). FINDINGS: The breasts are heterogeneously dense, which may obscure small masses (ACR BI-RADS breast composition Category c). There are no significant masses, abnormal calcifications, or other abnormalities. MM/MM tomosynthesis screening BI IMPRESSION: No mammographic evidence of malignancy. ASSESSMENT: BI-RADS BI-RADS 1 - Negative RECOMMENDATION: Routine annual mammography screening. 1 year F/U This examination should not preclude the clinical evaluation of a suspicious palpable abnormality. This patient's information was entered into a reminder system with a target due date for their next mammogram. Electronically signed by: Suzanne Suarez DO 07/25/2024 09:04 AM VIVIENNE
== END 2024-07-15 11:10 | disposition home or self-care (01) ==
LOC: HO.MAMMO 11:09
PROVIDERS: PCP Internal Medicine; Visit Provider Internal Medicine
DX: Z12.31 Encounter for screening mammogram for malignant neoplasm of breast (principal)
CPT/HCPCS: 77063; 77067

== ENCOUNTER → 2024-07-15 11:15 | Outpatient (BNV) | payer OTHER, SELFPAY | PROVIDERS: PCP Internal Medicine; Visit Provider Internal Medicine | DX: Z12.31 Encounter for screening mammogram for malignant neoplasm of breast (principal) | CPT/HCPCS: 77063; 77067 ==

== ENCOUNTER 2024-08-18 20:20 | Emergency (ER) | payer OTHER, SELFPAY ==
--- NOTE | ~2024-08-18 | US_ITS ---
EXAMINATION: US VENOUS RIGHT LOWER EXTREMITY CLINICAL INFORMATION: Right lower extremity pain COMPARISON: None. TECHNIQUE: Doppler spectral analysis and color flow Doppler imaging was performed of the right lower extremity. Compression and augmentation maneuvers were performed. FINDINGS: The right common femoral, femoral, popliteal and calf veins were well-identified and normal. They demonstrate normal compressibility and color fill-in. US/US venous duplex LE RT IMPRESSION: No evidence for right lower extremity deep vein thrombosis. Electronically signed by: Bunny Koroma MD 08/18/2024 11:22 PM [facility]
--- NOTE | ~2024-08-18 | XR_ITS ---
EXAMINATION: XR CHEST CLINICAL INFORMATION: Cough. COMPARISON: Chest radiograph 05/10/2017. TECHNIQUE: Frontal view of the chest was obtained. FINDINGS: Streaky airspace opacities in the retrocardiac/left lower lobe. No pleural effusion or pneumothorax. Normal appearance of the cardiomediastinal silhouette. No acute osseous findings. XR/XR chest 1V IMPRESSION: Streaky airspace opacities in the retrocardiac/left lower lobe favoring to represent subsegmental atelectasis. Electronically signed by: Mikaela Rowan MD 08/18/2024 10:49 PM EST
[2024-08-18 20:34] VITALS: BP 176/92; PULSE 100; RESP 20; TEMP 37.1; O2SAT 96; BMI 37.4
--- NOTE | 2024-08-18 20:38 | ED_ITS ---
HPI - General Adult General Chief complaint: Upper Respiratory Symptoms Stated complaint: Cough Body Pain Time Seen by Provider: 08/19/24 01:07 Source: patient Mode of arrival: ambulatory Limitations: no limitations History of Present Illness ED Provider: Dr. Rekha Morris HPI narrative: Patient comes to the emergency room complaining of productive cough for couple of days, body aches and reporting pain in the dorsum of the foot, sometimes in the upper leg, reporting it more like a vibrating sensation for 4 days. Patient states that it hurts to apply any weight to the right leg whenever she walks. Related Data Home Medications ?Medication ?Instructions ?Recorded ?Confirmed ksgwefxizu-hlclcmikqhwsn-eavvpklp 1 - 2 tab PO DAILY PRN headache 02/08/23 05/21/24 50 mg-325 mg-40 mg tablet lorazepam 1 mg tablet 1 mg PO TID 02/08/23 05/21/24 ketoconazole 2 % shampoo 1 appl topical 2XW 10/09/23 05/21/24 quetiapine 50 mg tablet 50 mg PO BEDTIME 10/09/23 05/21/24 ibuprofen 600 mg tablet mg PO 02/05/24 05/21/24 Previous Rx's ?Medication ?Instructions ?Recorded gabapentin 300 mg capsule 300 mg PO BEDTIME 90 days #90 caps 12/25/22 phenylephrine 0.25 %-mineral oil 1 appl [place] BID PRN rectal 02/08/23 14 %-petrolatm 74.9 % rectal discomfort #57 grams ointment (Preparation H) epinephrine 0.3 mg/0.3 mL 0.3 mg (0.3 mL) IM DIRECTED #2 05/08/23 injection, auto-injector ea loratadine 10 mg tablet 10 mg PO DAILY PRN for allergies 08/24/23 30 days #30 tabs ondansetron HCl 4 mg tablet 4 mg PO Q8H PRN nausea and 11/01/23 vomiting #10 tabs peg 400-propylene glycol (PF) 0.4 1 drp ophthalmic (eye) BID-QID PRN 11/01/23 %-0.3 % eye drops in a dropperette dry eye(s) 30 days #30 ea (Systane Hydration (PF)) fluticasone propionate 50 1 spray intranasal DAILY 30 days 11/29/23 mcg/actuation nasal #16 grams spray,suspension (Flonase Allergy Relief) omeprazole 40 mg capsule,delayed 40 mg PO DAILY 90 days #90 caps 01/03/24 release magnesium oxide 400 mg (241.3 mg 400 mg PO DAILY 30 days #30 tabs 02/05/24 magnesium) tablet methocarbamol 500 mg tablet 500 mg PO TID PRN muscle spasm #90 04/23/24 tabs diclofenac sodium 1 % topical gel 2 g topical QID PRN pain 30 days 05/16/24 (Arthritis Pain (diclofenac)) #100 grams amlodipine 5 mg tablet 5 mg PO DAILY #90 tabs 07/08/24 benzonatate 100 mg capsule 100 mg PO TID #12 caps 08/19/24 Allergies Allergy/AdvReac Type Severity Reaction Status Date / Time galcanezumab-gnlm Allergy Intermediate localized Verified 08/18/24 20:37 [From Emgality Pen] swelling garlic Allergy Shortness Verified 08/18/24 20:37 of Breath duloxetine [From CYMBALTA] AdvReac Mild migraines,v Verified 08/18/24 20:37 omitting tumeric AdvReac Shortness Uncoded 08/18/24 20:37 of Breath Review of Systems Review of Systems: Constitutional : No Weight loss, No Fever, No Chills, No Night Sweats, No Fatigue, No Malaise ENT/Mouth : No Hearing loss, No Ear Pain, No Nasal Congestion, No Sinus Pain, No Hoarseness, No sore throat, No Rhinorrhea, No Swallowing Difficulty Eyes: No Eye Pain, No Swelling, No Redness, No Foreign Body, No Discharge, No Vision Changes Cardiovascular : No Chest Pain, No SOB, No Dyspnea on Exertion, No Orthopnea, No Edema, No Palpitations Respiratory : Complaining of productive cough, no wheezing or shortness of breath Gastrointestinal : No Nausea, No Vomiting, No Diarrhea, No Constipation, No abdominal Pain, No Hematochezia, No Melena Genitourinary : no irregular bleeding, No Dysuria, No Urinary Frequency, No Hematuria, No Urinary Incontinence, No Urgency, No Flank Pain, No Urinary Flow Changes, No Hesitancy Musculoskeletal : Complaining of intermittent by reading sensation to the right lower extremity, No Myalgias, No Joint Swelling Skin : No Skin Lesions, No rash Neuro : No Weakness, No Numbness, No Paresthesias, No Loss of Consciousness, No Dizziness, No Headache Psych : No Anxiety/Panic, No Depression, No SI/HI/AH/VH, No Social Issues, Heme/Lymph: No Bruising, No Bleeding,No Lymphadenopathy Endocrine : No Polyuria, No Polydipsia, No Temperature Intolerance [facility] Past Medical History Medical History Postoperative nausea Sleep apnea HTN (hypertension) Overactive bladder Renal calculi Obesity (BMI 35.0-39.9 without comorbidity) CHAGO (generalized anxiety disorder) Migraines Impaired glucose tolerance GERD (gastroesophageal reflux disease) Nausea Allergic rhinitis Surgical History H/O colonoscopy History of extraction of renal calculus History of tubal ligation History of section Family History Family History Father CHF (congestive heart failure) Mother Hypertension Family/Other Substance abuse Paternal Aunt Cancer Other Mental health disorder Social History Social History Household Members: Spouse and Children Housing: House Are you a primary manager care to a significant other at home: No Do you presently have visiting nurse or other home services: No Alcohol intake: never Patient Tobacco Use Status: Former Tobacco user e-Cigarette/Vaping Use: Never Used Second Hand Smoke Exposure: No Advance Directives: No Advance Directives Information Provided: No service: No Current occupational status: disabled Cognitive needs: No Hearing needs: No Vision needs: Yes Physical Exam ED Vital Signs: Vital Signs - 24 hr 08/18/24 20:34 08/19/24 00:45 08/19/24 02:08 Temperature 98.8 F 97.9 F 98.2 F Pulse Rate 100 90 82 Respiratory Rate 20 18 18 Blood Pressure 176/92 H 147/93 H 138/68 Pulse Oximetry 96 95 96 Oxygen Delivery Method Room Air Room Air Room Air BMI result Body Mass Index 37.4 Const Other: Appearance: Alert. Oriented X3. No acute distress. Eyes: Pupils equal, round and reactive to light. ENT: Pharynx normal. Neck: Normal inspection. Neck supple. No lymph nodes noted. No crepitus CVS: Normal heart rate and rhythm. Pulses normal. Normal S1 and S2 Respiratory: No respiratory distress. Breath sounds normal. No Wheezing. No rales Abdomen: Soft and nontender. No rigidity. No distention. Skin: Skin warm and dry. Normal skin color. Normal skin turgor. Extremities: No lower extremity edema. No Lacerations. No Rash, no pain to palpation. Neuro: Oriented X 3. No motor deficit. No sensory deficit. Moving all extremities. No slurred speech. CN 2 through 12 grossly intact Psych: calm, cooperative, normal affect Course Course Course Narrative: RME: 49-year-old female presents to ED for coughing, body aches, chills, also right leg calf anterior pain. Patient denies any recent long travel recent surgery. Lungs are clear. presently not swollen. Patient states he has been swollen couple of days ago. X-ray SARs strep ultrasound ordered. Medications Administered Discontinued Medications Generic Name Dose Route Start Last Admin Trade Name Freq PRN Reason Stop Dose Admin Benzonatate 100 mg 08/19/24 01:32 08/19/24 01:36 Benzonatate 100 Mg Capsule PO 08/19/24 01:33 100 mg ONCE ONE Administration Medical Decision Making Medical Decision Making [facility] Narrative: My interpretation of labs, serology negative for COVID, RSV, influenza and strep Ultrasound of the legs negative for DVT Chest x-ray negative for pneumonia. -patient given p.o. Tessalon. I discussed with the patient to be very careful to not allow any of the young children to get close to this medication as it may be extremity dangerous for kids Patient likely has a viral URI. Patient's foster daughter has similar symptoms. Patient's right leg possible neuropathy? DVTs not suspected Differential Diagnosis Differential Diagnoses: The differential diagnosis associated with the presentation includes (As above) Lab Data [facility] Lab Attestation statement: I reviewed the patient's lab results. Labs: Lab Results 08/18/24 Range/Units 20:48 Influenza Type A (PCR) NEGATIVE (Negative) Influenza Type B (PCR) NEGATIVE (Negative) RSV RNA Qual (PCR) NEGATIVE (Negative) SARS-CoV-2 RNA (RT-PCR) NEGATIVE (Negative) S. pyogenes GrpA CHASTITY Negative (Negative) Independent Interpretation I performed an independent interpretation of an: Plain X-Ray and CT Scan Radiology Impression Discussion of test interpretation with radiology: I have reviewed the radiologist's reading. Radiologist Impression: The right common femoral, femoral, popliteal and calf veins were well-identified and normal. They demonstrate normal compressibility and color fill-in. Streaky airspace opacities in the retrocardiac/left lower lobe favoring to represent subsegmental atelectasis. Discharge Plan Discharge Clinical Impression: Upper respiratory infection, viral Patient Disposition: Home, Self-Care Instructions: Upper Respiratory Infection (ED) Additional Instructions: Please follow-up with your primary care physician tomorrow. If you have any worsening or new symptoms, please return to the emergency room or call 911 Prescriptions: New benzonatate 100 mg capsule 100 mg PO TID Qty: 12 0RF No Action epinephrine 0.3 mg/0.3 mL auto-injector 0.3 mg IM DIRECTED Qty: 2 2RF loratadine 10 mg tablet 10 mg PO DAILY PRN (Reason: for allergies) 30 Days Qty: 30 11RF fluticasone propionate [Flonase Allergy Relief] 50 mcg/actuation spray,suspension 1 spray intranasal DAILY 30 Days Qty: 16 6RF Rx Instructions: administer into each nostril omeprazole 40 mg capsule,delayed release(DR/EC) 40 mg PO DAILY 90 Days Qty: 90 2RF diclofenac sodium [Arthritis Pain (diclofenac)] 1 % gel 2 g topical QID PRN (Reason: pain) 30 Days Qty: 100 1RF Rx Instructions: apply to single elbow, wrist or hand; for hand includes palm/fingers/back of hand amlodipine 5 mg tablet 5 mg PO DAILY Qty: 90 1RF Preparation H 0.25-14-74.9 % ointment 1 appl NV BID PRN (Reason: rectal discomfort) Qty: 57 0RF gabapentin 300 mg capsule 300 mg PO BEDTIME 90 Days Qty: 90 0RF ondansetron HCl 4 mg tablet 4 mg PO Q8H PRN (Reason: nausea and vomiting) Qty: 10 0RF Systane Hydration (PF) 0.4-0.3 % dropperette 1 drp ophthalmic (eye) BID-QID PRN (Reason: dry eye(s)) 30 Days Qty: 30 2RF bhsdahtwsg-jibubjlhioujh-ereh 50-325-40 mg tablet 1 - 2 tab PO DAILY PRN (Reason: headache) lorazepam 1 mg tablet 1 mg PO TID quetiapine 50 mg tablet 50 mg PO BEDTIME ketoconazole 2 % shampoo 1 appl topical 2XW methocarbamol 500 mg tablet 500 mg PO TID PRN (Reason: muscle spasm) Qty: 90 1RF Rx Instructions: No driving while taking this medication. 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
[2024-08-18 21:07] LABS: IDNOW Serial# 08D9AD1C; Strep A Nucleic Acid Negative (Negative)
[2024-08-18 21:35] LABS: Influenza A PCR NEGATIVE (Negative); Influenza B PCR NEGATIVE (Negative); Resp Syncy Virus RNA Qual PCR NEGATIVE (Negative); SARS COV2 PCR INHOUSE NEGATIVE (Negative)
[2024-08-19 00:45] VITALS: BP 147/93; PULSE 90; RESP 18; TEMP 36.6; O2SAT 95
[2024-08-19] MEDS: Benzonatate 100 MG CAPSULE PO (01:36)
[2024-08-19 02:08] VITALS: BP 138/68; PULSE 82; RESP 18; TEMP 36.8; O2SAT 96
== END 2024-08-19 02:11 | disposition home or self-care (01) ==
PROVIDERS: Physician Assistant; Emergency Provider Emergency Medicine; PCP Internal Medicine
DX: J06.9 Acute upper respiratory infection, unspecified (principal); R05.9 Cough, unspecified; M79.10 Myalgia, unspecified site; R60.0 Localized edema; M79.604 Pain in right leg; Z03.818 Encounter for observation for suspected exposure to other biological agents ruled out
CPT/HCPCS: 0241U; 71045; 87651; 93971; 99282; 99284

== ENCOUNTER 2024-10-16 09:39 | Outpatient (REF) | payer OTHER, SELFPAY ==
[2024-10-17 11:34] LABS: Bacterial Vaginosis PCR NEGATIVE (Negative); Candida Group PCR NOT DETECTED (Not Detect); Candida glab krusei PCR NOT DETECTED (Not Detect); Trichomonas vaginalis PCR NOT DETECTED (Not Detect)
[2024-10-17 12:20] LABS: CT PCR NOT DETECTED (Not Detect.); NG PCR NOT DETECTED (Not Detect.)
== END 2024-10-16 09:40 | disposition home or self-care (01) ==
LOC: HO.LAB 09:39
PROVIDERS: PCP Internal Medicine; Visit Provider Advanced Practice Midwife
DX: Z01.419 Encounter for gynecological examination (general) (routine) without abnormal findings (principal); N89.8 Other specified noninflammatory disorders of vagina; Z20.2 Contact with and (suspected) exposure to infections with a predominantly sexual mode of transmission
CPT/HCPCS: 81515; 87491; 87591; 99396; 99459

== ENCOUNTER 2024-10-16 09:39 | Outpatient (AMB) | payer OTHER, SELFPAY ==
--- NOTE | 2024-10-16 09:39 | A.OFFVIS_ITS ---
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 Present Information Interpreted: clinical only Radar Scientist: Radar Scientist Present Allergies galcanezumab-gnlm [From Emgality Pen] Allergy (Intermediate, Verified 10/16/24 09:45) localized swelling garlic Allergy (Verified 10/16/24 09:45) Shortness of Breath duloxetine [From CYMBALTA] Adverse Reaction (Mild, Verified 10/16/24 09:45) migraines,vomitting tumeric Adverse Reaction (Uncoded 10/16/24 09:45) Shortness of Breath Medication List - Last Reconciled 10/16/24 by Jaqui Conet CNM amlodipine 5 mg PO DAILY benzonatate 100 mg PO TID gzlcpxgrel-dalrssmcvnbep-sase 50-325-40 mg 1 - 2 tabs PO DAILY PRN diclofenac sodium 1% (Arthritis Pain (diclofenac)) 2 grams topical QID PRN 30 days epinephrine 0.3 mg (0.3 mL) IM DIRECTED fluticasone propionate 50 mcg/actuation (Flonase Allergy Relief) 1 spray intranasal DAILY 30 days gabapentin 300 mg PO BEDTIME 90 days ibuprofen mg PO ketoconazole 2% 1 appl topical 2XW loratadine 10 mg PO DAILY PRN 30 days lorazepam 1 mg PO TID magnesium oxide 400 mg PO DAILY 30 days methocarbamol 500 mg PO TID PRN omeprazole 40 mg PO DAILY 90 days ondansetron HCl 4 mg PO Q8H PRN peg 400-propylene glycol (PF) 0.4-0.3 % (Systane Hydration (PF)) 1 drp ophthalmic (eye) BID-QID PRN 30 days phenyleph-min oil-petrolatum 0.25-14-74.9 % (Preparation H) 1 appl [place] BID PRN quetiapine 50 mg PO BEDTIME HPI HPI DIRECTOR 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 She did notice that she did not get a period from February through August then she got a period September 09 that was normal. However she did not get 1 in September she does get some hot flashes. She still is having an issue with urinary incontinence. She has seen Urology and she was recommended to practice Kegel type exercises using a physical aid but she has felt that that is strange so she has been reluctant to do that. She has her annual exam with her primary care provider coming up towards the end of this month and she will be getting her lab work including fasting blood sugars checked then. She had a mammogram that was normal in August. Her appointment was for later this morning but she and her were here early as he has an appointment elsewhere as well. [facility] Medical History Postoperative nausea Sleep apnea HTN (hypertension) Overactive bladder Renal calculi Obesity (BMI 35.0-39.9 without comorbidity) CHAGO (generalized anxiety disorder) Migraines Impaired glucose tolerance GERD (gastroesophageal reflux disease) Nausea Allergic rhinitis Surgical History H/O colonoscopy History of extraction of renal calculus History of tubal ligation History of section Family History Father CHF (congestive heart failure) Mother Hypertension Family/Other Substance abuse Paternal Aunt Cancer Other Mental health disorder Social History Household Members: Spouse and Children Housing: House Are you a primary child care group leader to a significant other at home: No Do you presently have visiting nurse or other home services: No Alcohol intake: never Patient Tobacco Use Status: Former Tobacco user e-Cigarette/Vaping Use: Never Used Second Hand Smoke Exposure: No service: No Current occupational status: disabled Cognitive needs: No Hearing needs: No Vision needs: Yes Female Reproductive History Menstrual Age of Menarche: 10 Duration of menses: 3-5 days Date of last menstrual period: 09/09/24 control method: permanent sterilization Total pregnancies: 2 Full term: 2 Date of last pap smear: 08/15/22 (negative,2014 WNL) History of abnormal pap smear: No Date of Mammogram: 07/15/24 (negative) Physical Exam Vital Signs: Last Vital Signs BP 128/78 10/16/24 09:43 BMI result Body Mass Index 38.4 Const General: healthy appearing, comfortable, no acute distress, well developed and alert Nutritional Appearance: average body habitus Orientation/consciousness: patient oriented x3 Limitations: no limitations HEENT Head: Yes normocephalic Neck Neck: Yes normal visual inspection Chest Chest palpation & inspection: normal inspection of the chest Breast/axilla inspection: normal inspection of the breasts and normal inspection of the axillae Breast/axilla palpation: normal palpation of the breasts and normal palpation of the axillae Resp Effort & Inspection: normal respiratory effort GI Inspection: Yes normal to inspection, No Abdominal wall edema and No distended Palpation (GI): Soft to palpation and nontender Other: Normal external exam vagina is pink and moist there is a kind of a pinkish brownish tinge to a slightly bubbly discharge so decision made to do testing for an infection. We will await the results I did review that she may get called if there is any positive finding and depending on what the organism is she would either be given or offered medication as appropriate Cervix pink moist multiparous smooth mobile nontender uterus mid position to anteverted mobile nontender adnexa nontender. I had the patient do at least 2 Kegel's and she was able to sustain and lift her pelvic musculature with a sustained count up to 5 or longer with very good muscle tone. General: Yes bladder normal to palpation External Female Exam: normal external appearance and normal appearance of the urethra Speculum Exam - Vagina: normal appearance of the vagina, normal palpation and normal vaginal discharge Speculum Exam - Cervix: normal appearance of the cervix, normal palpation and nontender Bimanual exam- vagina & uterus: normal bimanual exam, normal palpation, uterine size normal, bladder normal to palpation, consistency normal, normal palpation, uterine mobility normal, uterine shape normal, No Cervical tenderness present, non-tender and no cervical motion tenderness Bimanual Exam- Adnexa, other: normal adnexae, no masses, normal and No adnexal tenderness Neuro General: patient oriented x3 Results Reviewed Results Reviewed: Name: Lucinda Srivastava Age/Sex: 47/F Attending: Jaqui Conte CNM : 1975 Submitted by: Jaqui Conte CNM Copies to: MR #: [id number] Status: DEP REF Collected: 08/14/22 Location: [facility] Received: 08/15/22 Interpretation Satisfactory for evaluation. Negative for intraepithelial lesion or malignancy. HPV mRNA E6/E7: NOT DETECTED This assay detects E6/E7 viral messenger RNA (mRNA) from 14 high-risk HPV types (16, 18, 31, 33, 35, 39, 45, 51, 52, 56, 58, 59, 66, 68) HPV testing performed by [employer], [place], [place]. See reference laboratory portion of the EMR for entire report. Clinical Information LMP: 08/02/22 Previous PAP test: 02/12/15, WNL Material Received ThinPrep-Cervical Electronically Signed By: Mireya Grande 09/06/22 0907 The Pap Test is a screening procedure with the inherent possibility of both false negative and false positive results. Results should be interpreted in the context of historic and current clinical findings. Reliability of the Pap Test is enhanced by performing the test on a regular repetitive basis. Patient: Lucinda Srivastava Age/Sex: 47/F MR#: [id number] Page 1 of 1 Assessment & Plan Assessment & Plan (1) Well woman exam with routine gynecological exam: Code(s): Z01.419 - Encounter for gynecological examination (general) (routine) without abnormal findings Category: Medical (2) Cervical cancer screening: Comment: 08/14/22- pap= neg w neg HPV Code(s): Z12.4 - Encounter for screening for malignant neoplasm of cervix Category: Medical (3) Perimenopause: Code(s): N95.1 - Menopausal and female climacteric states Category: Medical (4) Stress incontinence: Comment: Very good muscle tone assessed during practicing sustained Kegels during sock and stocking ironer exam patient. recommended was to do them several times throughout the day, and also not deprive herself of opportunities to urinate throughout the day,(i.e. Do not over fill bladder). Has follow-up with Urology in December. Code(s): N39.3 - Stress incontinence (female) (male) Category: Medical Plan -----Discussed in this visit the following: healthy balanced diet, regular and consistent exercise, getting recommended health screens, doing the best she can for her particular health concerns, kegel exercises, pap smear screening and followup recommendations, mammography screening and SBE, normal changes in cycles in her life stage--- .Normal external exam vagina is pink and moist there is a kind of a pinkish brownish tinge to a slightly bubbly discharge so decision made to do testing for an infection. We will await the results I did review that she may get called if there is any positive finding and depending on what the organism is she would either be given or offered medication as appropriate Cervix pink moist multiparous smooth mobile nontender uterus mid position to anteverted mobile nontender adnexa nontender. I had the patient do at least 2 Kegel's and she was able to sustain and lift her pelvic musculature with a sustained count up to 5 or longer with very good muscle tone. -------I recommend that she try to do several of these throughout the day at least once every hour and she can do more than that would be great. More importantly discussed the inclination for women to hold her urine often while waiting for clean bathroom and to make every effort to not hold her urine more than a couple of hours to avoid over filling and therefore having issues with incontinence she will be seeing Urology in December. By my assessment she had a very good muscle tone. If she does not feel like using the recommended aids because she finds it weird she can simply do it on her own the way she did during the exam. Also discussed the normal nesha menopausal changes and that skipping periods and then having them resume is very common in this time. Coding Level of Care Code Est Pt Prev Care 40-64y(28616) Diagnoses Well woman exam with routine gynecological exam Z01.419 Cervical cancer screening Z12.4 Perimenopause N95.1 Stress incontinence N39.3
[2024-10-16 09:43] VITALS: BP 128/78; BMI 38.4
== END 2024-10-16 10:21 | disposition home or self-care (01) ==
LOC: HO.HWSM 09:39
PROVIDERS: PCP Internal Medicine; Visit Provider Advanced Practice Midwife
DX: Z01.419 Encounter for gynecological examination (general) (routine) without abnormal findings (principal); N95.1 Menopausal and female climacteric states; N39.3 Stress incontinence (female) (male)
CPT/HCPCS: 99396; 99459

== ENCOUNTER 2024-10-23 08:45 | Outpatient (REF) | payer OTHER, SELFPAY ==
--- NOTE | ~2024-10-23 | XR_ITS ---
CLINICAL HISTORY: M54.2 - Cervicalgia 4 views cervical spine Comparison: None Findings: Normal vertebral body alignment. No acute fractures or dislocation. C4-C5 and C5-C6 degenerative disc change. Prevertebral soft tissues within normal limits. IMPRESSION: No acute findings. This document has been electronically signed by: Flavio Fitch MD on 10/23/2024 18:21:31
--- NOTE | ~2024-10-23 | XR_ITS ---
CLINICAL HISTORY: M54.6 - Pain in thoracic spine 2 views thoracic spine Comparison: None Findings: Normal alignment. No acute fractures or dislocation. Multiple level degenerative disc change. IMPRESSION: No acute findings. This document has been electronically signed by: Flavio Fitch MD on 10/23/2024 18:24:06
[2024-10-23 09:02] LABS: MANUAL DIFF FLAG NO
[2024-10-23 09:37] LABS: Basophils Absolute Auto 0.1 X10*3/uL (0.0-0.2); Basophils Percent Auto 0.8 % (0-2); Eosinophils Absolute Auto 0.2 X10*3/uL (0.0-0.4); Eosinophils Percent Auto 3.7 % (0-4); Hematocrit 34.3 % (37.0-47.0); Hemoglobin 11.2 g/dl (12.0-16.0); Imm Gran Abs Auto 0.01 X10*3/uL (0.00-0.03); Imm Gran Pct Auto 0.2 % (0.0-0.4); Lymphocytes Absolute Auto 2.3 X10*3/uL (1.2-4.9); Lymphocytes Percent Auto 38.4 % (20-40); Mean Corpuscular HGB Conc 32.7 g/dl (31.0-35.0); Mean Corpuscular Hemoglobin 28.9 pg (27.0-33.0); Mean Corpuscular Volume 88.4 fL (80.0-98.0); Mean Platelet Volume 8.9 fL (9.4-12.3); Monocytes Absolute Auto 0.4 X10*3/uL (0.1-1.2); Monocytes Percent Auto 6.8 % (2-11); Neutrophils Percent Auto 50.1 % (45-73); Platelet Count 312 X10*3/uL (160-400); Red Blood Count 3.88 X10*6/uL (4.20-5.50); Red Cell Distribution Width 13.6 % (11.0-16.0); White Blood Count 5.9 X10*3/uL (4.8-10.8)
[2024-10-23 10:47] LABS: Alanine Aminotransferase 28 U/L (0-31); Albumin Level 4.2 g/dL (3.5-5.0); Anion Gap 11 (12-20); Aspartate Amino Transferase 21 U/L (5-31); Bilirubin Total 0.2 mg/dL (0.0-1.0); Blood Urea Nitrogen 11 mg/dL (9-16); Calcium 8.7 mg/dL (8.4-10.2); Carbon Dioxide 27 mmol/L (22-29); Chloride 108 mmol/L (96-108); Cholesterol 198 mg/dL (<200); Estimated Glomerular Filt Rate > 60; Glucose Fasting 118 mg/dL (60-99); HDL Cholesterol 38 mg/dL (>40); Iron 62 mcg/dL (30-160); LDL Cholesterol Calculated 137 mg/dL (<100); Percent Iron Saturation 24 % (15-50); Potassium 3.6 mmol/L (3.3-5.1); Sodium 142 mmol/L (135-145); Total Iron Binding Capacity 261 mcg/dL (228-428); Total Protein 7.3 g/dL (6.5-8.0); Triglycerides 117 mg/dL (<150); Unsaturated Iron Binding 199 ug/dL
[2024-10-23 10:59] LABS: Vitamin D 25-OH Total 10.5 ng/mL (>30)
[2024-10-23 11:14] LABS: Folate 14.9 ng/mL (> or = 4.0)
[2024-10-23 11:22] LABS: Vitamin B12 267 pg/mL (200-900)
[2024-10-23 12:25] LABS: Alkaline Phosphatase 112 U/L (39-117)
[2024-10-24 19:53] LABS: Antibody to SS-A Antigen <1.0 NEG AI (<1.0 NEG); Antibody to SS-B Antigen <1.0 NEG AI (<1.0 NEG)
== END 2024-10-23 08:46 | disposition home or self-care (01) ==
LOC: HO.XRAY 08:45
PROVIDERS: PCP Internal Medicine; Visit Provider Internal Medicine
DX: D64.9 Anemia, unspecified (principal); E78.5 Hyperlipidemia, unspecified; M54.16 Radiculopathy, lumbar region; E55.9 Vitamin D deficiency, unspecified; H04.123 Dry eye syndrome of bilateral lacrimal glands; E53.8 Deficiency of other specified B group vitamins; M54.6 Pain in thoracic spine; M54.2 Cervicalgia
CPT/HCPCS: 36415; 72040; 72070; 80053; 80061; 82306; 82607; 82746; 83540; 85025; 86235

== ENCOUNTER → 2024-10-23 09:01 | Outpatient (BNV) | payer OTHER, SELFPAY | PROVIDERS: PCP Internal Medicine; Visit Provider Specialist | DX: M54.2 Cervicalgia (principal); M54.6 Pain in thoracic spine | CPT/HCPCS: 72040; 72070 ==

== ENCOUNTER 2024-10-30 10:51 | Outpatient (AMB) | payer OTHER, SELFPAY ==
[2024-10-30 11:08] VITALS: BP 140/90; BMI 37.4
--- NOTE | 2024-10-30 11:08 | MHC.PC.OV ---
Vital Signs 10/30/24 11:08 Height 5 ft 4 in Weight 218 lb BMI 37.4 BP 140/90 H Blood Pressure Location Lt brachial Position Sitting Intake Visit Reasons: bp Intake Note: Patient here for a follow up BP Talent Analyst Required: Yes Talent Analyst Language: Batch Unloader Name: Beti Skinner MD Information Interpreted: non-clinical & clinical Accompanied by: Spouse Allergies [id number] [From Emgality Pen] Allergy (Intermediate, Verified 10/30/24 11:23) localized swelling garlic Allergy (Verified 10/30/24 11:23) Shortness of Breath topiramate Adverse Reaction (Severe, Verified 10/30/24 11:23) dizziness, loss of appetite, nausea, vomiting duloxetine [From CYMBALTA] Adverse Reaction (Mild, Verified 10/30/24 11:23) migraines,vomitting tumeric Adverse Reaction (Uncoded 10/30/24 11:23) Shortness of Breath Medication List - Last Reconciled 10/30/24 by Beti Skinner MD amlodipine 5 mg PO DAILY [id number] 50-325-40 mg 1 - 2 tabs PO DAILY PRN diclofenac sodium 1% (Arthritis Pain (diclofenac)) 2 grams topical QID PRN 30 days epinephrine 0.3 mg (0.3 mL) IM DIRECTED fluticasone propionate 50 mcg/actuation (Flonase Allergy Relief) 1 spray intranasal DAILY 30 days gabapentin 300 mg PO BEDTIME 90 days ibuprofen mg PO ketoconazole 2% 1 appl topical 2XW loratadine 10 mg PO DAILY PRN 30 days lorazepam 1 mg PO TID magnesium oxide 400 mg PO DAILY 30 days methocarbamol 500 mg PO TID PRN omeprazole 40 mg PO DAILY 90 days ondansetron HCl 4 mg PO Q8H PRN phenyleph-min oil-petrolatum 0.25-14-74.9 % (Preparation H) 1 appl DE BID PRN quetiapine 50 mg PO BEDTIME Tobacco use date assessed: 10/30/24 Dental Screening Dental Screen Date: 10/30/24 Did you have a dental visit in the last 12 months?: Yes Did you have a dental problem in the last 6 months where you did not have access to dental care?: No Was dental information given to patient?: Patient has dentist HPI HPI Comments History of Present Illness Details The patient is a 49-year-old female presenting with neuropathic pain. She experiences sharp, shooting pains and numbness in her extremities, particularly in her feet and occasionally in her hands. These symptoms occur multiple times overnight and may interfere with walking and cause her feet to feel tingly or numb. She reports past use of gabapentin, as overuse leads to dizziness. Recently, she has noticed difficulty sleeping due to the neuropathic pain, requiring repetitive movement to return sensation. Additionally, she reports a history of elevated blood glucose levels, indicative of prediabetes, with a recent reading of 118 mg/dL. Associated symptoms of frequent urination and increased thirst, primarily during nighttime, were noted. These symptoms and the prediabetic status suggest concern for developing diabetes. She also has hypertension with borderline blood pressure today due to not taking amlodipine today. Blood pressure will be recheck in 3 weeks by nurse navigator. She has mild major depression with anxiety that is follow by Psychiatry. Accompanied by today. [facility] Medical History (Updated 10/30/24 @ 12:39 by Beti Skinner MD) Postoperative nausea Sleep apnea HTN (hypertension) Overactive bladder Renal calculi Obesity (BMI 35.0-39.9 without comorbidity) CHAGO (generalized anxiety disorder) Migraines Impaired glucose tolerance GERD (gastroesophageal reflux disease) Nausea Allergic rhinitis Surgical History H/O colonoscopy History of extraction of renal calculus History of tubal ligation History of section Family History Father CHF (congestive heart failure) Mother Hypertension Family/Other Substance abuse Paternal Aunt Cancer Other Mental health disorder Social History Household Members: Spouse and Children Housing: House Are you a primary director of career resources to a significant other at home: No Do you presently have visiting nurse or other home services: No Alcohol intake: never Patient Tobacco Use Status: Former Tobacco user e-Cigarette/Vaping Use: Never Used Second Hand Smoke Exposure: No service: No Current occupational status: disabled Cognitive needs: No Hearing needs: No Vision needs: Yes Female Reproductive History Menstrual Age of Menarche: 10 Questionnaire PHQ-9 Over the last 2 weeks, how often have you been bothered by any of the following problems? 1. Little interest or pleasure in doing things: not at all 2. Feeling down, depressed, or hopeless: more than half the days 3. Trouble falling or staying asleep, or sleeping too much: several days 4. Feeling tired or having little energy: more than half the days 5. Poor appetite or overeating: not at all 6. Feeling bad about yourself - or that you are a failure or have let yourself or your family down: not at all 7. Trouble concentrating on things, such as reading the newspaper or watching television: several days 8. Moving or speaking so slowly that other people could have noticed. Or the opposite - being so fidgety or restless that you have been moving around a lot more than usual: several days 9. Thoughts that you would be better off or of hurting yourself in some way: not at all Total score: 7 Depression Screening Interpretation: Positive Depression Screening Follow-up: Existing condition, In treatment, Community Mental Health Worker F/U and Follow-up Visit Requested Depression Screening Done: Yes 38197 - PHQ-9 Billing: Yes Source: Developed by Drs. Miguel Rosales, Elaine Jones, Lucas Landaverde and colleagues, with an educational tobias from [employer]. Thrive Questionnaire Date Thrive assessed: 10/30/24 I am a: Patient What is your living situation today?: I have a steady place to live Within the past 12 months, did the food you bought not last and you didn't have the money to get more?: Never true Within the past 12 months, did you worry whether your food would run out before you got money to buy more?: Never true Do you have trouble paying for medicines?: No Do you have trouble getting transportation to medical appointments?: No Do you have trouble paying your heating and electricity bill?: No Do you have trouble taking care of your child, family member or friend?: No Do you have trouble with day-to-day activities such as bathing, preparing meals, shopping, managing finances, etc.?: No Are you currently unemployed and looking for a job?: No Are you interested in more education?: No Please select the resources that you would like help with: None Currently or been in a relationship where the following occur: No concerns reported THRIVE Score: 0 AUDIT C Alcohol Use Questionnaire (AUDIT-C) 1. How often do you have a drink containing alcohol?: Never 3. How often do you have six or more drinks on one occasion?: Never Total Score: 0 Score Reviewed/Action Taken: No CHAGO-7 AMB Questionnaire CHAGO-7 Date CHAGO - 7 assessed: 11/01/23 Feeling nervous, anxious, or on edge: 1 = Several days Not being able to stop or control worryin = Not at all Worrying too much about different things: 1 = Several days Trouble relaxin = Not at all Being so restless that it is hard to sit still: 0 = Not at all Becoming easily annoyed or irritable: 1 = Several days Feeling afraid as if something awful might happen: 0 = Not at all Total CHAGO-7 score (0-4 normal; 5-9 mild; 10-14 moderate; 15-21 severe): 3 Source: Developed by Drs. Miguel Rosales, Elaine Jones, Lucas Landaverde and colleagues, with an educational tobias from [employer]. CHAGO-7 Assessment Billing CHAGO-7 Assessment Tool: CHAGO-7 Assessment 29965 Review of Systems Const All systems reviewed & are unremarkable except as noted in HPI and below Card Denies chest pain at rest, Denies chest pain with activity, Denies edema, Denies irregular heart rhythm, Denies claudication, Denies dyspnea, Denies dyspnea on exertion, Denies orthopnea, Denies paroxysmal nocturnal dyspnea and Denies slow heart rate Resp Denies cough, Denies dyspnea and Denies dyspnea on exertion Musc Reports back pain and Reports numbness Neuro Reports numbness Physical exam (Primary Care) Vital Signs: Last Vital Signs BP 140/90 H 10/30/24 11:08 BMI result Body Mass Index 37.4 BMI Assessment/Plan discussion: High BMI High, discussed plan: lifestyle, weight reduction, dietary and physical activity Tobacco/Smoking Status: Tobacco use Status Tobacco use date assessed 10/30/24 10/30/24 11:18 Patient Tobacco Use Status Former Tobacco user 10/30/24 11:18 e-Cigarette/Vaping Use Never Used 10/30/24 11:18 PHQ-9: PHQ-9 Score PHQ-9: Total score 7 10/30/24 12:24 Depression Screening Interpretation: Positive Depression Screening Follow-up: Existing condition, In treatment, Community Mental Health Worker F/U and Follow-up Visit Requested Thrive Assessment: Date of Thrive Assessment Date Thrive assessed 10/30/24 10/30/24 11:18 Currently or been in a relationship where the following occur: No concerns reported Resp Effort & Inspection: normal respiratory effort Auscultation: clear to auscultation bilaterally Cardio Jugular venous distension: no JVD Rate: regular rate Rhythm: regular rhythm Heart sounds: S1 normal heart sound present and S2 normal heart sound present Extrem General: Yes full ROM Office Procedures Flu Questionnaire Does the patient have a severe egg allergy?: No Immunizations Fluarix Triv [id number] (PF) 45 mcg (15 mcg x 3)/0.5 mL IM syringe Performing Provider: Beti Skinner MD [facility] Documented (not given) by: LLOYD Giles on 10/30/24 12:24 Reason Not Given: Patient Refused Coding Level of Care Code Est Pt Level 4 (58002) Complex EM visit Add On G2211 Diagnoses HTN (hypertension) I10 Impaired glucose tolerance R73.02 Left hand paresthesia R20.2 Mild major depression F32.0 CHAGO (generalized anxiety disorder) F41.1 Additional Codes HCAGO-7 Assessment Billing - CHAGO-7 Assessment Tool: CHAGO-7 Assessment 60522 ([id number]) PHQ-9 - 57245 - PHQ-9 Billing: Yes ([id number]) Time Spent (min) 22 Assessment & Plan Assessment & Plan (1) HTN (hypertension): Code(s): I10 - Essential (primary) hypertension Category: Medical (2) Impaired glucose tolerance: Code(s): R73.02 - Impaired glucose tolerance (oral) Category: Medical (3) Left hand paresthesia: Code(s): R20.2 - Paresthesia of skin Category: Medical (4) Mild major depression: Code(s): F32.0 - Major depressive disorder, single episode, mild Category: Medical (5) CHAGO (generalized anxiety disorder): Code(s): F41.1 - Generalized anxiety disorder Category: Medical Plan - Continue current pain management, with careful dose regulation of gabapentin to control neuropathic pain while mitigating dizziness. - Monitor blood glucose levels regularly to manage prediabetes. - Discuss potential lifestyle modifications to address prediabetes, such as diet and exercise adjustments. Patient was informed and verbally consented to the use of an ambient scribe for clinic note documentation during this visit. During the visit, I discussed the potential diagnosis of diabetic neuropathy as the likely cause of the patient's neurological symptoms. The patient was informed about the benefits and potential side effects of gabapentin, including the risk of dizziness with high doses. We also reviewed her prediabetic status and the necessity for regular monitoring of blood glucose levels to prevent progression to diabetes. I advised her on the importance of lifestyle changes, focusing on exercise and dietary modifications to manage her blood sugar levels. We agreed to monitor her symptoms closely, and she was instructed on when to seek further care if symptoms worsen. Orders: Orders Comprehensive [place]. Panel Fast 7 Months R73.02 - Impaired glucose tolerance (oral) Influenza [id number] Immunization Today Z23 - Encounter for immunization NE nerve conduction velocity Today R20.2 - Paresthesia of skin Complete Blood Count Auto Diff 7 Months D64.9 - Anemia, unspecified IRON PROFILE 7 Months D64.9 - Anemia, unspecified Medications: New cholecalciferol (vitamin D3) 50 mcg PO DAILY 90 caps 1RF 90 days Patient Instructions: - Take gabapentin as directed, watching for dizziness. - Monitor blood glucose levels regularly. - Follow a healthy diet and maintain regular physical activity. - Contact the healthcare provider if neuropathic pain worsens or if experiencing significant dizziness. - Watch for increased urination or thirst, and report changes.
== END 2024-10-30 11:38 | disposition home or self-care (01) ==
PROVIDERS: PCP Internal Medicine; Visit Provider Internal Medicine
DX: I10 Essential (primary) hypertension (principal); R73.02 Impaired glucose tolerance (oral); R20.2 Paresthesia of skin; F32.0 Major depressive disorder, single episode, mild; F41.1 Generalized anxiety disorder; Z23 Encounter for immunization

== ENCOUNTER → 2024-10-30 10:51 | Outpatient (BNVA) | payer OTHER, SELFPAY | PROVIDERS: PCP Internal Medicine; Visit Provider Internal Medicine | DX: I10 Essential (primary) hypertension (principal); R73.02 Impaired glucose tolerance (oral); R20.2 Paresthesia of skin; F32.0 Major depressive disorder, single episode, mild; F41.1 Generalized anxiety disorder | CPT/HCPCS: 90471; 96127; 99212 ==

== ENCOUNTER 2024-11-11 05:45 | Outpatient (REF) | payer OTHER, SELFPAY ==
--- NOTE | 2024-11-11 | EMG_ITS ---
Left median and ulnar motor and sensory studies were performed. Left superficial radial and median and lateral antecubital brachial sensory studies were performed, and paraspinal muscles were tested with a needle. IMPRESSION: This is an unremarkable study with no significant abnormality noted. MD DARRIUS Cruz/CARLY / [id number]
== END 2024-11-11 05:46 | disposition home or self-care (01) ==
LOC: HO.NEURO 05:45
PROVIDERS: PCP Internal Medicine; Visit Provider Internal Medicine
DX: R20.2 Paresthesia of skin (principal)
CPT/HCPCS: 95886; 95910

== ENCOUNTER 2024-11-25 06:11 | Outpatient (REF) | payer OTHER, SELFPAY ==
--- NOTE | ~2024-11-25 | FL_ITS ---
EXAMINATION: FL GUIDANCE ONLY HISTORY: M53.3 - Sacrococcygeal disorders, not elsewhere classified COMPARISON: None available. TECHNIQUE: Fluoroscopy time: 0.1 minutes. Cumulative Dose: 2.65 mGy. DAP: 0.0461 mGym2 Images: 1. FINDINGS: A single fluoroscopic spot film demonstrates a needle and contrast material in the region of the left sacroiliac joint. FL/FL guidance in treatment room IMPRESSION: Fluoroscopy during procedure. Please see procedure report for additional information. Electronically signed by: Miguel Mcintyre MD 11/25/2024 10:14 AM TA [facility]
--- OUTSIDE RECORDS SUMMARY | 2024-11-25 06:13 | XMS_ITS | Clinical Summary ---
Author Organization [employer] Address [address] [place] [address] Care Team Providers Care Manager Fine Dining Name Role Phone Unavailable Primary Care Provider Unavailabl e Encounters Date Type Department Care Team Description 09/16/2024 9:00 AM EST Nurse Only [facility] [address] [place] [address] from Last 3 Months Immunizations Name Administration Dates Next Due HepB-CpG 07/15/2024,06/09/2024 Influenza injectable quadriv alent IIV4 with preservative 08/08/2016 Influenza injectable quadriv alent preservative free 06/27/2023,08/22/2022,09/05/2021 Pfizer Covid-19 Vaccine 12+ 10/09/2023 Tdap 08/08/2016 Zoster, Recombinant 09/16/2024,06/09/2024 Social History Tobacco Use Types Packs/Day Years Used Date Smoking Tobacco: Never Assessed Comments Unknown Sex and Gender Information Value Date Recorded Sex Assigned at Female 08/14/2022 10:28 AM EDT Legal Sex Female 10:28 AM EDT Gender Identity Female 08/14/2022 10:28 AM EDT Sexual Orientation Choose not to disclose 2021 10:28 AM EDT Plan of Treatment Health Maintenance Due Date Last Done Comments CT Colonography 1974 Colonoscopy 1974 Colorectal Cancer Screening 1974 Depression Screening 1974 FIT DNA/Cologuard 1974 FIT 1974 FOBT 1974 HIV Screening 1974 SDOH Screening 1974 Sigmoidoscopy 1974 Alcohol/Substance Use Screening 1986 Tobacco Screening 1986 Family Planning (PISQ) 1989 Hepatitis C Screening 1992 Pap Smear 1995 Cervical Cancer Screening 2004 HPV/Cotest 2004 Mammogram 2014 Pneumococcal Vaccine: 50+ Years (1 of 1 - PCV) 2024 COVID-19 Vaccine ( - 2023- season) 2024 10/09/2023, 08/31/2022, 09/05/2021, Additional history exists Influenza Vaccine (#1) 2024 , 08/22/2022, 09/05/2021, Additional history exists DTaP/Tdap/Td Vaccines (2 - Td or Tdap) 08/08/2026 08/08/2016 RSV Patients and Patients Aged 60 years or older (1 - 1-dose 75+ series) 2049 Hepatitis B Vaccines Completed 07/15/2024, 06/09/20 Zoster Vaccines Completed 09/16/2024, 06/09/2024 HIB Vaccines Aged Out No longer eligi ble based on patient's age to complete this topic HPV Vaccines Aged Out No longer eligi ble based on patient's age to complete this topic Hepatitis A Vaccines Aged Out No long er eligible based on patient's age to complete this topic IPV Vaccines Aged Out No longer eligi ble based on patient's age to complete this topic Meningococcal Vaccine Aged Out No vince wally eligible based on patient's age to complete this topic Pneumococcal Vaccine: Pediatrics (0 to 5 Years) and At-Risk Patients (6 to 49) Years) Aged Out No longer eligible based on patient's age to complete this topic RSV under 20 months Aged Out No longe r eligible based on patient's age to complete this topic Rotavirus Vaccines Aged Out No longer eligible based on patient's age to complete this topic Insurance [facility]
== END 2024-11-25 06:12 | disposition home or self-care (01) ==
LOC: CF 06:11
PROVIDERS: Visit Provider Anesthesiology
DX: M53.3 Sacrococcygeal disorders, not elsewhere classified (principal)
CPT/HCPCS: 27096; J2003; J2795; J3301; Q9967

== ENCOUNTER 2024-12-10 08:39 | Outpatient (AMB) | payer OTHER, SELFPAY ==
[2024-12-10 08:46] VITALS: BP 175/82; PULSE 76; RESP 16; O2SAT 97; BMI 37.6
--- NOTE | 2024-12-10 08:46 | A.OFFVIS_ITS ---
Vital Signs 12/10/24 08:46 Height 5 ft 4 in Weight 219 lb BMI 37.6 BP 175/82 H Blood Pressure Location Lt brachial Position Sitting Respiration 16 Pulse 76 Pulse Source Pulse Oximeter Pulse Oximetry (%) 97 Oxygen Delivery Method Room Air Intake Visit Reasons: LEFT THERAPEUTIC SIJ INJECTION Warehouse Forklift Operator Required: Yes Warehouse Forklift Operator Services: Warehouse Forklift Operator Present Warehouse Forklift Operator Name: [id number] Viki Allergies [id number] [From Emgality Pen] Allergy (Intermediate, Verified 12/10/24 08:49) localized swelling garlic Allergy (Verified 12/10/24 08:49) Shortness of Breath topiramate Adverse Reaction (Severe, Verified 12/10/24 08:49) dizziness, loss of appetite, nausea, vomiting duloxetine [From CYMBALTA] Adverse Reaction (Mild, Verified 12/10/24 08:49) migraines,vomitting tumeric Adverse Reaction (Uncoded 12/10/24 08:49) Shortness of Breath Medication List - Last Reconciled 12/10/24 by Mariana Canada LPN amlodipine 5 mg PO DAILY qzhfiqqqkf-lkqufxiiylagw-wndx 50-325-40 mg 1 - 2 tabs PO DAILY PRN cholecalciferol (vitamin D3) 50 mcg PO DAILY 90 days diclofenac sodium 1% (Arthritis Pain (diclofenac)) 2 grams topical QID PRN 30 days epinephrine 0.3 mg (0.3 mL) IM DIRECTED fluticasone propionate 50 mcg/actuation (Flonase Allergy Relief) 1 spray intranasal DAILY 30 days gabapentin 300 mg PO BEDTIME 90 days ibuprofen mg PO ketoconazole 2% 1 appl topical 2XW loratadine 10 mg PO DAILY PRN 30 days lorazepam 1 mg PO TID magnesium oxide 400 mg PO DAILY 30 days methocarbamol 500 mg PO TID PRN omeprazole 40 mg PO DAILY 90 days ondansetron HCl 4 mg PO Q8H PRN phenyleph-min oil-petrolatum 0.25-14-74.9 % (Preparation H) 1 appl LA BID PRN quetiapine 50 mg PO BEDTIME HPI Comments Details: Lucinda presents back to the office today, Three weeks after therapeutic sacroiliac joint injection. She again reports significant pain relief up to 80% after the injection. She reports good mobility improved activities of daily living, and good social interactions. However she already received 5 sacroiliac joint injections and with each injection every 3 months she received significant doses of steroids. She is 49 years old and perimenopausal. Therefore risk of the osteoporosis on the continuous injections is elevated for this patient. Sacroiliac joint fusion was discussed with the patient. The patient expressed understanding. Sacroiliac joint belt was issued for the patient today. I will schedule appointment with her in 3 months and we will start preparing her for Nevro sacroiliac joint fusion. Prior: Patient presents today for follow up, 1 month s/p left therapeutic sacroiliac joint injection. She reports pain today is 0/10, she endorses minimal pain very infrequently with overactivity. She reports improvement in function and mobility since the injection. Denies any untoward effects of the injection. Patient has been taking tizanidine 2 mg p.o. b.i.d. as needed but states she has noticed burning of her ears for the last 2 months when she takes it. She did speak to her primary care doctor and mental health provider and was told to stop the tizanidine. Since stopping the burning of her ears has not occurred. Prior: Lucinda presents to the office today for follow up s/p left diagnostic SIJ injection with local anesthetic. Patient reports 75% pain relief since the injection 1 week ago, she would like to proceed with therapeutic injection. Prior: Lucinda presents back to the office today, accompanied by her , for follow up s/p Left L4-L5 TFESI 08/14/2023 Patient reports moderate relief after the injection. She has completed PT and states that her midline lumbar back pain is now only intermittent. It will come on if she she remains stationary for too long. She will have her family crack her back and this provides relief. She has not been to a chiropractor in the past. She is doing HEP sometimes but not consistantly. Her main concern is the pain in her left buttock that radiates down her thigh to the knee. This pain is worse with sitting and standing for extended periods of time. The muscle relaxers provide some relief, she is requesting a refill. Prior: Lucinda is a very pleasant 48 year old female who presents to the office today for follow up lower back pain and review of MRI. MRI reviewed with patient, results as per below. Patient reports today that her pain persists. She has been taking naproxen and baclofen without relief. She continues to endorse pain left lower back with radiation down her left leg to the level of the foot. She completed physical therapy without relief of this pain and continues to do home exercise program. Patient is also complaining of pain across the lower aspects of her back with radiation into her buttocks over the last 2 days. She reports that she has experience similar pain in the past that resolved after she attended physical therapy. This is different from her chronic pain which she is able to differentiate between the two. Patient denies red flag symptoms including loss of bowel, bladder or saddle anesthesia. Initial visit note: Lucinda is a pleasant 47-year-old female presents to the office today for eval uation management of her left-sided lower back pain. Patient reports initially injured her back December 2022 when she was sitting in her chair and fell backwards. Patient reports Mar 04 2023 her niece jumped into her lap and they both fell to the ground which exacerbated her pain. She has been attending physical therapy, has her last session today. Patient plans on continuing home exercise program. Patient reports midline lumbar pressure and left lower back pain that radiates down her leg into her foot to her toe. Patient denies any red flag symptoms including loss of bowel bladder or saddle anesthesia. Patient states she has tried Motrin for her pain which helps ?a little?. Patient gets some relief when she applies heat to the area. Patient's primary care doctor prescribed her gabapentin which she states does not help her pain at all. She has not tried acupuncture, chiropracture, massage, steroids or injections. Patient denies previous surgical intervention of her back. Patient reports her pain is negatively impacting her ability to enjoy life, enjoyed recreational activities and perform activities of daily living. In terms of muscle damage condition is reported as aching, spasming, tingling, pins, needles and squeezing. Pain is constant and worse in the mornings. Patient's past medical history significant for anxiety, GERD, hypertension, migraines, nausea, obesity, overactive bladder and sleep apnea. Patient denies history of diabetes. Patient denies current use of tobacco, alcohol or illicit substances. [facility] Medical History (Updated 10/30/24 @ 12:39 by Beti Skinner MD) Postoperative nausea Sleep apnea HTN (hypertension) Overactive bladder Renal calculi Obesity (BMI 35.0-39.9 without comorbidity) CHAGO (generalized anxiety disorder) Migraines Impaired glucose tolerance GERD (gastroesophageal reflux disease) Nausea Allergic rhinitis Surgical History H/O colonoscopy History of extraction of renal calculus History of tubal ligation History of section Family History Father CHF (congestive heart failure) Mother Hypertension Family/Other Substance abuse Paternal Aunt Cancer Other Mental health disorder Social History Household Members: Spouse and Children Housing: House Are you a primary assistant child care teacher to a significant other at home: No Do you presently have visiting nurse or other home services: No Alcohol intake: never Patient Tobacco Use Status: Former Tobacco user e-Cigarette/Vaping Use: Never Used Second Hand Smoke Exposure: No service: No Current occupational status: disabled Cognitive needs: No Hearing needs: No Vision needs: Yes Female Reproductive History Menstrual Age of Menarche: 10 Review of Systems Const All systems reviewed & are unremarkable except as noted in HPI and below Physical Exam Vital Signs: Last Vital Signs Pulse 76 12/10/24 08:46 Resp 16 12/10/24 08:46 BP 175/82 H 12/10/24 08:46 Pulse Ox 97 12/10/24 08:46 Oxygen Delivery Method Room Air 12/10/24 08:46 BMI result Body Mass Index 37.6 General: awake, alert, oriented. Answers questions appropriately. Fully engaged in examination. Skin: warm, dry, intact HEENT: Normocephalic. Hearing intact. Cardiac: External chest normal in appearance. Respiratory: No cough, audible wheezing or stridor. Abdomen: without gross distension. MS: No obvious swelling or deformities. Able to transition from sit to stand unassisted. Ambulates with bilaterally normal heel strike and toe off Neurological: Oriented to person, place, time and situation. Thought process intact. No gait abnormalities appreciated. Psychiatric: Appropriate mood and affect. Good judgment and insight. Assessment & Plan Assessment & Plan (1) Lumbar radiculopathy: Code(s): M54.16 - Radiculopathy, lumbar region Category: Medical (2) Strain of fascia of lower back: Code(s): S39.012A - Strain of muscle, fascia and tendon of lower back, initial encounter Category: Medical (3) Lumbar facet arthropathy: Code(s): M47.816 - Spondylosis without myelopathy or radiculopathy, lumbar region Category: Medical (4) Sacroiliac joint dysfunction of left side: Code(s): M53.3 - Sacrococcygeal disorders, not elsewhere classified Category: Medical Plan Good results of the sacroiliac joint injection on the left with steroids. However patient is perimenopausal and she is facing a good risk of osteoporosis if we continue those injections. I offered her Nevro fusion, sacroiliac joint belt was provided to the patient. Patient will schedule appointment with me in 3 months. I will at that time discuss sacroiliac joint fusion further. We at that time probably will send her for bony pelvis CT to rule out red flags in the pelvic bones. Sacroiliac joint belt was provided today to the patient. The patient expressed understanding on how to use sacroiliac joint belt. Patient Instructions: I here by testify that I spent 35 minutes in conversation with this patient as well as planning her care and organizing this note. Coding Level of Care Code Est Pt Level 4 (65446) Diagnoses Lumbar radiculopathy M54.16 Strain of fascia of lower back S39.012A Lumbar facet arthropathy M47.816 Sacroiliac joint dysfunction of left side M53.3
--- OUTSIDE RECORDS SUMMARY | 2024-12-10 09:14 | XMS_ITS | Clinical Summary ---
Author Organization [employer] Address [address] [place] [address] Care Team Providers Care Pharmacy Service Associate Name Role Phone Unavailable Primary Care Provider Unavailabl e Encounters Date Type Department Care Team Description 09/16/2024 9:00 AM EST Nurse Only [facility] [address] [place] [address] from Last 3 Months Immunizations Name Administration [...] patient's age to complete this topic Insurance [facility] [place] [id number]
== END 2024-12-10 09:14 | disposition home or self-care (01) ==
PROVIDERS: PCP Internal Medicine; Visit Provider Anesthesiology
DX: M54.16 Radiculopathy, lumbar region (principal); S39.012A Strain of muscle, fascia and tendon of lower back, initial encounter; M47.816 Spondylosis without myelopathy or radiculopathy, lumbar region; M53.3 Sacrococcygeal disorders, not elsewhere classified
CPT/HCPCS: 99214

== ENCOUNTER → 2024-12-10 08:39 | Outpatient (BNVA) | payer OTHER, SELFPAY | PROVIDERS: PCP Internal Medicine; Visit Provider Anesthesiology | DX: S39.012A Strain of muscle, fascia and tendon of lower back, initial encounter (principal); M47.26 Other spondylosis with radiculopathy, lumbar region; M53.3 Sacrococcygeal disorders, not elsewhere classified | CPT/HCPCS: 99212 ==

== ENCOUNTER 2024-12-25 08:32 | Outpatient (AMB) | payer OTHER, SELFPAY ==
--- NOTE | 2024-12-25 08:35 | MHC.OFFVIS ---
Intake Visit Reasons: follow up- [facility] 2022 Intake Note: Patient presents for follow up stress incontinence Urology Medications: none Blood thinners: none PVR: 0ml's Thermoforming Machine Operator Required: Yes Thermoforming Machine Operator Language: Plastic Tile Layer Services: Thermoforming Machine Operator Present Thermoforming Machine Operator Name: Patrizia Accompanied by: Unknown Allergies [id number] [From Emgality Pen] Allergy (Intermediate, Verified 12/25/24 09:02) localized swelling garlic Allergy (Verified 12/25/24 09:02) Shortness of Breath topiramate Adverse Reaction (Severe, Verified 12/25/24 09:02) dizziness, loss of appetite, nausea, vomiting duloxetine [From CYMBALTA] Adverse Reaction (Mild, Verified 12/25/24 09:02) migraines,vomitting tumeric Adverse Reaction (Uncoded 12/25/24 09:02) Shortness of Breath Medication List - Last Reconciled 12/25/24 by SOCO CornellP- amlodipine 5 mg PO DAILY aqghncbcdi-vtrnksnyqpyli-czzp 50-325-40 mg 1 - 2 tabs PO DAILY PRN cholecalciferol (vitamin D3) 50 mcg PO DAILY 90 days diclofenac sodium 1% (Arthritis Pain (diclofenac)) 2 grams topical QID PRN 30 days epinephrine 0.3 mg (0.3 mL) IM DIRECTED fluticasone propionate 50 mcg/actuation (Flonase Allergy Relief) 1 spray intranasal DAILY 30 days gabapentin 300 mg PO BEDTIME 90 days ibuprofen mg PO ketoconazole 2% 1 appl topical 2XW loratadine 10 mg PO DAILY PRN 30 days lorazepam 1 mg PO TID magnesium oxide 400 mg PO DAILY 30 days methocarbamol 500 mg PO TID PRN omeprazole 40 mg PO DAILY 90 days ondansetron HCl 4 mg PO Q8H PRN phenyleph-min oil-petrolatum 0.25-14-74.9 % (Preparation H) 1 appl [place] BID PRN quetiapine 50 mg PO BEDTIME topiramate mg PO HPI Comments Details: Lucinda is a pleasant 49-year-old Panamanian-speaking female patient of Dr. Lincoln who was accompanied by her significant other at today's office visit. She has a past medical history of allergic rhinitis, general anxiety disorder, GERD, hypertension, migraines, obesity, overactive bladder, renal calculi, borderline sleep apnea, and renal cyst. She presents to the office today for follow-up of her renal cyst, nephrolithiasis, as well as mixed urinary incontinence. Of note, patient was last seen over a year ago at which time recommendations were made for surveillance monitoring however in review of patient's chart it does not appear this has been performed. In discussion with the patient today she continues to report episodes of mixed urinary incontinence. She reports having followed up with shoe cutter at which time recommendations were made to continue with pelvic floor exercises however to also incorporate vaginal weights however she does not wish to perform pelvic floor exercises with vaginal weights. She does report having performed pelvic floor exercises at home and has found minimal improvement. We discussed at length potential causes of mixed urinary incontinence as well as further treatment options and risks and benefits of these treatment options. We discussed obtaining imaging for surveillance monitoring of renal cyst and history of nephrolithiasis. She otherwise denies nocturia, hematuria, dysuria, foul smelling urine, changes to urinary stream, flank pain, fever, and or chills. In office urinalysis results reviewed with the patient today. PVR 0 mL. She otherwise offers no issues or concerns at this time. PREVIOUS OFFICE VISIT NOTE/FINDINGS: Nephrolithiasis Longstanding Imaging - 01/04 renal ultrasound right complex renal cyst, small stone bilateral 4 mm Minimal symptoms Therapeutic plan - encourage fluids - vitamin B6 Stress incontinence Longstanding Leakage when rising from chair [facility] Medical History Postoperative nausea Sleep apnea HTN (hypertension) Overactive bladder Renal calculi Obesity (BMI 35.0-39.9 without comorbidity) CHAGO (generalized anxiety disorder) Migraines Impaired glucose tolerance GERD (gastroesophageal reflux disease) Nausea Allergic rhinitis Surgical History H/O colonoscopy History of extraction of renal calculus History of tubal ligation History of section Family History Father CHF (congestive heart failure) Mother Hypertension Family/Other Substance abuse Paternal Aunt Cancer Other Mental health disorder Social History Household Members: Spouse and Children Housing: House Are you a primary client care consultant to a significant other at home: No Do you presently have visiting nurse or other home services: No Alcohol intake: never Patient Tobacco Use Status: Former Tobacco user e-Cigarette/Vaping Use: Never Used Second Hand Smoke Exposure: No service: No Current occupational status: disabled Cognitive needs: No Hearing needs: No Vision needs: Yes Female Reproductive History Menstrual Age of Menarche: 10 Review of Systems Const Reports as per HPI Eyes Reports no additional complaints ENT Reports no additional complaints Card Reports as per HPI Resp Reports as per HPI GI Reports as per HPI Reports as per HPI Musc Details: Patient reports following up with pain management regarding ongoing lower back pain Neuro Reports as per HPI Psych Reports as per HPI Endo Reports no additional complaints Physical Exam Const General: cooperative, healthy appearing, comfortable, no acute distress, well developed, alert and awake Nutritional Appearance: overweight Orientation/consciousness: patient oriented x3 Limitations: no limitations HEENT Head: Yes normal to inspection, Yes normocephalic and Yes atraumatic Ears: hearing grossly normal bilaterally Eyes General: appearance normal, both eyes and all related structures Neck Neck: Yes normal visual inspection and Yes trachea midline Chest Chest palpation & inspection: normal inspection of the chest Resp Effort & Inspection: normal respiratory effort and able to speak in complete sentences Cardio Rate: regular rate GI Inspection: Yes normal to inspection General: Yes no CVA tenderness Back/Spine/Pelvis Back: no CVA tenderness Skin General skin exam: no rashes or lesions noted Neuro General: patient oriented x3 Extrem General: Yes normal to inspection Psych Appearance: grossly normal and well kempt Mental Status: mental status grossly normal Speech and movement: Normal speech and movement present and Clear speech present Affect: normal affect Attitude: cooperative Thought process: Normal thought process present Thought content: Normal thought content present Insight: Fair insight present (Psych) Judgement: Fair judgement present (Psych) Office Procedures Post Void Residual Post Residual Void Post Void Residual (PVR): 0 [id number] Void Residual by ultrasound Results AMB Urinalysis, Automated UA Leukoctes 0 Natalya/uL Last Edit by Anny Britt on 12/25/24 08:52 UA Nitrite Last Edit by Anny Britt on 12/25/24 08:52 UA Urobilinogen 0.2 mg/dL Last Edit by Anny Britt on 12/25/24 08:52 UA Protein 15 mg/dL Last Edit by Anny Britt on 12/25/24 08:52 UA pH 6.0 Last Edit by Anny Moorebina on 12/25/24 08:52 UA Blood 80 Aguila/uL Last Edit by Alexeycarlota Teresabina on 12/25/24 08:52 UA Specific Leedey 1.030 Last Edit by Alexeycarlota Teresabina on 12/25/24 08:52 UA Ketone Last Edit by Alexeycarlota Teresabina on 12/25/24 08:52 UA Bilirubin 0 mg/dL Last Edit by Alexeycarlota Teresabina on 12/25/24 08:52 UA Glucose 0 mg/dL Last Edit by Alexeycarlota Teresabina on 12/25/24 08:52 Results Reviewed Results Reviewed: Laboratory Last Values Urine pH (Auto) 6.0 12/25/24 08:48 Specific Leedey (Auto) 1.030 12/25/24 08:48 Urine Protein (Auto) 15 mg/dL 12/25/24 08:48 Glucose (UA)(Auto) 0 mg/dL 12/25/24 08:48 Urine Blood (Auto) 80 Aguila/uL 12/25/24 08:48 Urine Bilirubin (Auto) 0 mg/dL 12/25/24 08:48 Urine Urobilinogen (Auto) 0.2 mg/dL 12/25/24 08:48 Leukocyte Esterase (Auto) 0 Natalya/uL 12/25/24 08:48 Assessment & Plan Assessment & Plan (1) Stress incontinence: Code(s): N39.3 - Stress incontinence (female) (male) Category: Medical (2) Complex renal cyst: Code(s): N28.1 - Cyst of kidney, acquired Category: Medical (3) Renal calculi: Code(s): N20.0 - Calculus of kidney Category: Medical Plan In office urinalysis results reviewed with the patient today; as noted above. PVR 0 mL. Will obtain retroperitoneal ultrasound for further assessment evaluation. We discussed importance of adequate hydration relation to histroy of nephrolithiasis as well as overall health and well being. Start oxybutynin as discussed and prescribed. We discussed potential causes of mixed urinary incontinence and further treatment options and risks and benefits of these treatment options Information provided. Continue with pelvic floor exercises at home. Follow-up in 1-3 months with imaging and PVR; or sooner with any issues, concerns, and or questions. Orders: Orders AMB Post Void Residual by ultrasound Today N32.81 - Overactive bladder US retroperitoneal comp Today N20.0 - Calculus of kidney, N28.1 - Cyst of kidney, acquired, N39.3 - Stress incontinence (female) (male) AMB Urinalysis Automated Today Z13.9 - Encounter for screening, unspecified Medications: New oxybutynin chloride ER 10 mg PO DAILY 30 tabs 3RF 30 days N32.81 - Overactive bladder Patient Instructions: The patient had an opportunity to ask questions regarding the treatment plan. All questions were answered. Physical exam, labs, and imaging were discussed and reviewed in detail. As well as risks, benefits, and discussion of treatment choices. No major barriers to understanding were identified. The patient expressed understanding and agreement with the above treatment plan. The patient was made aware they should contact our office by phone for worsening of their current condition, the appearance of new symptoms, or with any questions or concerns. Compliance is encouraged with any medications and follow up testing that is ordered. It is a privilege to be allowed the opportunity to participate in? your urological care.? Again, if you have any questions or concerns If you have any questions or concerns please do not hesitate to contact me. The office is [phone]. This note is constructed using voice recognition software. While every effort has been made to ensure accuracy corporate executive chef errors may have been included. Yours sincerely, EVELYNE Cornell Coding Level of Care Code Est Pt Level 4 (62915) Diagnoses Stress incontinence N39.3 Complex renal cyst N28.1 Renal calculi N20.0 CPT Codes Post Residual Void - PVR CPT Code: 98989-Zats Void Residual by ultrasound ([id number])
--- OUTSIDE RECORDS SUMMARY | 2024-12-25 09:08 | XMS_ITS | Clinical Summary ---
Author Organization [employer] Address [address] [place] [address] Care Team Providers Care Furniture Restorer Name Role Phone Unavailable Primary Care Provider Unavailabl e Immunizations Name Administration Dates Next Due HepB-CpG [...] 1 - PCV) 2024 COVID-19 Vaccine ( season) 2024 10/09/2023, 08/31/2022, 09/05/2021, Additional history exists Influenza Vaccine (#1) 2024 3, 08/22/2022, 09/05/2021, Additional history exists DTaP/Tdap/Td Vaccines [...] patient's age to complete this topic Insurance [facility]
== END 2024-12-25 09:03 | disposition home or self-care (01) ==
LOC: HO.HUSH 08:33
PROVIDERS: PCP Internal Medicine; Visit Provider Nurse Practitioner Family
DX: N39.3 Stress incontinence (female) (male) (principal); N28.1 Cyst of kidney, acquired; N20.0 Calculus of kidney; Z13.9 Encounter for screening, unspecified
CPT/HCPCS: 99214

== ENCOUNTER → 2024-12-25 08:32 | Outpatient (BNVA) | payer OTHER, SELFPAY | PROVIDERS: PCP Internal Medicine; Visit Provider Nurse Practitioner Family | DX: E66.9 Obesity, unspecified (principal); K21.9 Gastro-esophageal reflux disease without esophagitis; G43.909 Migraine, unspecified, not intractable, without status migrainosus; F41.1 Generalized anxiety disorder; N32.81 Overactive bladder; I10 Essential (primary) hypertension; M54.50 Low back pain, unspecified; R73.02 Impaired glucose tolerance (oral); N39.3 Stress incontinence (female) (male); N28.1 Cyst of kidney, acquired; N20.0 Calculus of kidney; Z68.37 Body mass index [BMI] 37.0-37.9, adult | CPT/HCPCS: 51798; 81003; 99212 ==

== ENCOUNTER 2024-12-25 10:58 | Outpatient (AMB) | payer OTHER, SELFPAY ==
[2024-12-25 11:13] VITALS: BP 140/80; PULSE 78; O2SAT 97; BMI 37.2
--- NOTE | 2024-12-25 11:13 | MHC.PC.OV ---
Vital Signs 12/25/24 11:13 Height 5 ft 4 in Weight 217 lb BMI 37.2 BP 140/80 H Blood Pressure Location Lt brachial Position Sitting Pulse 78 Pulse Source Pulse Oximeter Pulse Oximetry (%) 97 Oxygen Delivery Method Room Air Intake Visit Reasons: Over weight Allergies galcanezumab-gnlm [From Emgality Pen] Allergy (Intermediate, Verified 12/25/24 09:02) localized swelling garlic Allergy (Verified 12/25/24 09:02) Shortness of Breath topiramate Adverse Reaction (Severe, Verified 12/25/24 09:02) dizziness, loss of appetite, nausea, vomiting duloxetine [From CYMBALTA] Adverse Reaction (Mild, Verified 12/25/24 09:02) migraines,vomitting tumeric Adverse Reaction (Uncoded 12/25/24 09:02) Shortness of Breath Medication List - Last Reconciled 12/25/24 by Hayder Mcgovern Po, amlodipine 5 mg PO DAILY owhtxehigl-czyoznjgwqwbf-kekr 50-325-40 mg 1 - 2 tabs PO DAILY PRN cholecalciferol (vitamin D3) 50 mcg PO DAILY 90 days diclofenac sodium 1% (Arthritis Pain (diclofenac)) 2 grams topical QID PRN 30 days epinephrine 0.3 mg (0.3 mL) IM DIRECTED fluticasone propionate 50 mcg/actuation (Flonase Allergy Relief) 1 spray intranasal DAILY 30 days gabapentin 300 mg PO BEDTIME 90 days ibuprofen mg PO ketoconazole 2% 1 appl topical 2XW loratadine 10 mg PO DAILY PRN 30 days lorazepam 1 mg PO TID omeprazole 40 mg PO DAILY 90 days ondansetron HCl 4 mg PO Q8H PRN oxybutynin chloride ER 10 mg PO DAILY 30 days phenyleph-min oil-petrolatum 0.25-14-74.9 % (Preparation H) 1 appl [place] BID PRN quetiapine 50 mg PO BEDTIME Tobacco use date assessed: 10/30/24 Dental Screening Dental Screen Date: 10/30/24 HPI Over weight HPI Details [email or web address] [id number] complains of obesity states doing diet 49-year-old obese female with multiple medical problems impaired glucose tolerance GERD generalized anxiety disorder migraines generalized anxiety disorder overactive bladder hypertension chronic low back pain coming in for the problem of weight. [facility] Medical History Postoperative nausea Sleep apnea HTN (hypertension) Overactive bladder Renal calculi Obesity (BMI 35.0-39.9 without comorbidity) CHAGO (generalized anxiety disorder) Migraines Impaired glucose tolerance GERD (gastroesophageal reflux disease) Nausea Allergic rhinitis Surgical History H/O colonoscopy History of extraction of renal calculus History of tubal ligation History of section Family History Father CHF (congestive heart failure) Mother Hypertension Family/Other Substance abuse Paternal Aunt Cancer Other Mental health disorder Social History Household Members: Spouse and Children Housing: House Are you a primary residential care officer to a significant other at home: No Do you presently have visiting nurse or other home services: No Alcohol intake: never Patient Tobacco Use Status: Former Tobacco user e-Cigarette/Vaping Use: Never Used Second Hand Smoke Exposure: No service: No Current occupational status: disabled Cognitive needs: No Hearing needs: No Vision needs: Yes Female Reproductive History Menstrual Age of Menarche: 10 Questionnaire Thrive Questionnaire Date Thrive assessed: 10/30/24 CHAGO-7 AMB Questionnaire CHAGO-7 Date CHAGO - 7 assessed: 11/01/23 Source: Developed by Drs. Miguel Rosales, Elaine Jones, Lucas Landaverde and colleagues, with an educational tobias from [employer]. Physical exam (Primary Care) Vital Signs: Last Vital Signs Pulse 78 12/25/24 11:13 BP 140/80 H 12/25/24 11:13 Pulse Ox 97 12/25/24 11:13 Oxygen Delivery Method Room Air 12/25/24 11:13 BMI result Body Mass Index 37.2 Tobacco/Smoking Status: Tobacco use Status Tobacco use date assessed 10/30/24 12/25/24 11:14 Patient Tobacco Use Status Former Tobacco user 12/25/24 11:14 e-Cigarette/Vaping Use Never Used 12/25/24 11:14 Thrive Assessment: Date of Thrive Assessment Date Thrive assessed 10/30/24 12/25/24 11:14 Const General: alert; No acute distress Eyes Conjunctivae: conjunctivae normal Resp Auscultation: clear to auscultation bilaterally Cardio Rate: regular rate Rhythm: regular rhythm GI Inspection: Yes normal to inspection Extrem General: Yes normal to inspection and No edema Results AMB Urinalysis, Automated UA Leukoctes 0 Natalya/uL Last Edit by Anny Britt on 12/25/24 08:52 UA Nitrite Last Edit by Anny Britt on 12/25/24 08:52 UA Urobilinogen 0.2 mg/dL Last Edit by Anny Britt on 12/25/24 08:52 UA Protein 15 mg/dL Last Edit by Anny Britt on 12/25/24 08:52 UA pH 6.0 Last Edit by Anny Britt on 12/25/24 08:52 UA Blood 80 Aguila/uL Last Edit by Anny Britt on 12/25/24 08:52 UA Specific Butler 1.030 Last Edit by Anny Britt on 12/25/24 08:52 UA Ketone Last Edit by Anny Britt on 12/25/24 08:52 UA Bilirubin 0 mg/dL Last Edit by Anny Britt on 12/25/24 08:52 UA Glucose 0 mg/dL Last Edit by Anny Britt on 12/25/24 08:52 Coding Level of Care Code Est Pt Level 4 (67871) Complex EM visit Add On G2211 Diagnoses CHAGO (generalized anxiety disorder) F41.1 HTN (hypertension) I10 Impaired glucose tolerance R73.02 Gastroesophageal reflux disease, unspecified whether esophagitis present K21.9 Esophagitis presence: esophagitis presence not specified Obesity (BMI 35.0-39.9 without comorbidity) E66.9 Assessment & Plan Assessment & Plan (1) CHAGO (generalized anxiety disorder): Code(s): F41.1 - Generalized anxiety disorder Category: Medical Plan: patient on lorazepam and quetiapine (2) HTN (hypertension): Code(s): I10 - Essential (primary) hypertension Category: Medical Plan: Continue with blood pressure medication. Decrease salt intake and exercise on amlodipine 5 mg once a day (3) Impaired glucose tolerance: Code(s): R73.02 - Impaired glucose tolerance (oral) Category: Medical Plan: Decrease the amount of carbohydrate intake, pasta, bread, rice and potatoes are all sugar and that is aside from all the sweet stuff, remember that fruits are good but they are Sweet also. (4) GERD (gastroesophageal reflux disease): Code(s): K21.9 - Gastro-esophageal reflux disease without esophagitis Category: Medical Qualifiers: Esophagitis presence: esophagitis presence not specified Qualified Code(s): K21.9 - Gastro-esophageal reflux disease without esophagitis Plan: Avoid the foods that causes that usually spicy foods, tomato products, juices, coffee, soda and foods that your sensitive to. After eating do not lie down, allow 3-4 hours before in lie down. And keep the head of bed above 30 degrees to avoid the acid from going up. (5) Obesity (BMI 35.0-39.9 without comorbidity): Code(s): E66.9 - Obesity, unspecified Category: Medical Plan: diet and exercise Medications: New tirzepatide (weight loss) (Zepbound) for 4 weeks 2.5 mg (0.5 mL) subcut QWEEK 2 mL 0RF E66.9 - Obesity, unspecified
--- OUTSIDE RECORDS SUMMARY | 2024-12-25 14:07 | XMS_ITS | Clinical Summary ---
Author Organization [employer] Address [address] [place] [address] Care Team Providers Care Wagon Driller Name Role Phone Unavailable Primary Care Provider [...] patient's age to complete this topic Insurance [facility]
== END 2024-12-25 12:57 | disposition home or self-care (01) ==
LOC: HO.HMCH 10:59
PROVIDERS: PCP Internal Medicine; Visit Provider Internal Medicine
DX: I10 Essential (primary) hypertension (principal); E66.9 Obesity, unspecified; Z68.37 Body mass index [BMI] 37.0-37.9, adult; F41.1 Generalized anxiety disorder; R73.02 Impaired glucose tolerance (oral); K21.9 Gastro-esophageal reflux disease without esophagitis

== ENCOUNTER 2025-02-03 09:04 | Outpatient (AMB) | payer OTHER, SELFPAY ==
[2025-02-03 09:25] VITALS: PULSE 74; O2SAT 97; BMI 38.1
--- NOTE | 2025-02-03 09:25 | A.OFFVIS_ITS ---
Vital Signs 02/03/25 09:25 Height 5 ft 4 in Weight 222 lb 2 oz BMI 38.1 Pulse 74 Pulse Source Pulse Oximeter Pulse Oximetry (%) 97 Oxygen Delivery Method Room Air Intake Visit Reasons: 1 yr f/u appt Intake Note: 1 year follow up KEN. Compliance in chart. [employer] Required: Yes [employer] Services: [employer] Present [employer] Name: Jean Marie [id number] Information Interpreted: non-clinical & clinical Allergies galcanezumab-gnlm [From Emgality Pen] Allergy (Intermediate, Verified 02/03/25 09:29) localized swelling garlic Allergy (Verified 02/03/25 09:29) Shortness of Breath topiramate Adverse Reaction (Severe, Verified 02/03/25 09:29) dizziness, loss of appetite, nausea, vomiting duloxetine [From CYMBALTA] Adverse Reaction (Mild, Verified 02/03/25 09:29) migraines,vomitting tumeric Adverse Reaction (Uncoded 12/25/24 09:02) Shortness of Breath HPI Comments Details: 49 y/o female patient presents for follow up of KEN and hypoxemia. Patient was last seen 1 year ago by our former colleague Eun Sheldon NP. Pt denies any significant interval medical history changes, other than a very recent diagnosis of left carpal tunnel syndrome, which she states she is waiting to hear on what the next steps are. However, review of October 2024 EMG/NCS report shows normal study. Patient has also started on Zepbound therapy, but a month ago, by PCP office. She continues to use her CPAP machine nightly, though sometimes wakes up having found that she has remove the mask during her sleep. Overall, she tolerates the CPAP machine okay and finds the CPAP use to be helpful. She does have enough CPAP supplies. She states she cleans her CPAP supplies regularly. She tends to use bottled water rather than distilled water. CPAP compliance and therapy response 10/24/2024-01/21/2025 reviewed with the patient. Overall usage 93% Usage greater than 4 hours 62% Average usage on days used for hours and 42 minutes APAP 5-20 cmH2O with EPR 3 with average pressure of 6 cm H2O Average leaks 8.6 L/min Residual AHI 0.1/hr Previous sleep studies and overnight pulse oximetry studies: 08/25/2022, home sleep study showed mild KEN AHI was 5.2 /hr, Average O2 sat 93%, lowest O2 sat was 79% and below 88% for? 5 min, and snoring for 42% of sleep time. 12/29/2022, overnight oximetry on APAP results showed resolution of nocturnal hypoxemia with APAP Tx with mean SpO2 95.7 % and the lowest SpO2 89%. [facility] Medical History Postoperative nausea Sleep apnea HTN (hypertension) Overactive bladder Renal calculi Obesity (BMI 35.0-39.9 without comorbidity) CHAGO (generalized anxiety disorder) Migraines Impaired glucose tolerance GERD (gastroesophageal reflux disease) Nausea Allergic rhinitis Surgical History H/O colonoscopy History of extraction of renal calculus History of tubal ligation History of section Family History Father CHF (congestive heart failure) Mother Hypertension Family/Other Substance abuse Paternal Aunt Cancer Other Mental health disorder Social History Household Members: Spouse and Children Housing: House Are you a primary memory care program resident to a significant other at home: No Do you presently have visiting nurse or other home services: No Alcohol intake: never Patient Tobacco Use Status: Former Tobacco user e-Cigarette/Vaping Use: Never Used Second Hand Smoke Exposure: No service: No Current occupational status: disabled Cognitive needs: No Hearing needs: No Vision needs: Yes Female Reproductive History Menstrual Age of Menarche: 10 Physical Exam Vital Signs: Last Vital Signs Pulse 74 02/03/25 09:25 Pulse Ox 97 02/03/25 09:25 Oxygen Delivery Method Room Air 02/03/25 09:25 BMI result Body Mass Index 38.1 Const General: no acute distress Orientation/consciousness: patient oriented x3 Resp Effort & Inspection: normal respiratory effort and able to speak in complete sentences Neuro General: patient oriented x3 Psych Mental Status: mental status grossly normal Speech and movement: Clear speech present Attitude: cooperative Assessment & Plan Assessment & Plan (1) KEN (obstructive sleep apnea): Comment: Borderline KEN with excessive snoring. The AHI was 5.2/hr and the oxygen lydia was 79% Code(s): G47.33 - Obstructive sleep apnea (adult) (pediatric) Category: Medical (2) Obesity (BMI 35.0-39.9 without comorbidity): Code(s): E66.9 - Obesity, unspecified Category: Medical (3) Hypoxia, sleep related: Comment: Per 2022 overnight pulse oximetry while on APAP 5-20 cm H2O with EPR 3 and room air, nocturnal hypoxemia resolved Code(s): G47.34 - Idiopathic sleep related nonobstructive alveolar hypoventilation Category: Medical Plan For KEN: Continue APAP 5-20 cmH2O w/ EPR 3 nightly > 4 hours, as pt continues to have good clinical effect from use. Clean CPAP machine and supplies routinely. Change CPAP supplies routinely. Advised of benefits of using distilled water rather than bottled water in CPAP water reservoir- This note is constructed using voice recognition software. Patient agrees to start using distilled water Patient advised that since starting Zepbound therapy, if she has greater than 10% weight reduction since the previous sleep study, where her weight was 219 lb, we could consider repeating home sleep study to assess effectiveness of weight loss on sleep apnea severity. If left carpal tunnel syndrome type symptoms worsen, we would be happy to see patient or she may benefit from referral to orthopedics. Pt to contact us or respiratory company with any questions or concerns. Pt to follow-up in 12 months or sooner prn. Coding Level of Care Code Est Pt Level 3 (56499) Diagnoses KEN (obstructive sleep apnea) G47.33 Obesity (BMI 35.0-39.9 without comorbidity) E66.9 Hypoxia, sleep related G47.34
--- OUTSIDE RECORDS SUMMARY | 2025-02-03 09:36 | XMS_ITS | Clinical Summary ---
Author Organization [employer] Address [address] [place] [address] Care Team Providers Care Hand Sample Maker Name Role Phone Unavailable Primary Care Provider [...] patient's age to complete this topic Insurance [facility]
== END 2025-02-03 09:52 | disposition home or self-care (01) ==
LOC: HO.HSMS 09:04
PROVIDERS: PCP Internal Medicine; Visit Provider Nurse Practitioner Family
DX: G47.33 Obstructive sleep apnea (adult) (pediatric) (principal); E66.9 Obesity, unspecified; G47.34 Idiopathic sleep related nonobstructive alveolar hypoventilation
CPT/HCPCS: 99213

== ENCOUNTER → 2025-02-03 09:04 | Outpatient (BNVA) | payer OTHER, SELFPAY | PROVIDERS: PCP Internal Medicine; Visit Provider Nurse Practitioner Family | DX: G47.33 Obstructive sleep apnea (adult) (pediatric) (principal); E66.9 Obesity, unspecified; G47.34 Idiopathic sleep related nonobstructive alveolar hypoventilation; Z68.38 Body mass index [BMI] 38.0-38.9, adult; Z99.89 Dependence on other enabling machines and devices | CPT/HCPCS: 99212 ==

== ENCOUNTER 2025-03-11 09:47 | Outpatient (AMB) | payer OTHER, SELFPAY ==
[2025-03-11 09:54] VITALS: BP 165/81; PULSE 78; RESP 16; O2SAT 99; BMI 38.3
--- NOTE | 2025-03-11 09:54 | MHC.OFFVIS ---
Vital Signs 03/11/25 09:54 Height 5 ft 4 in Weight 223 lb BMI 38.3 BP 165/81 H Blood Pressure Location Lt brachial Position Sitting Respiration 16 Pulse 78 Pulse Source Pulse Oximeter Pulse Oximetry (%) 99 Oxygen Delivery Method Room Air Intake Visit Reasons: 3 Month FU/dr orozco pt(dr best on training) Information Systems Specialist Required: Yes Information Systems Specialist Services: Information Systems Specialist Present Information Systems Specialist Name: Vidal [id number] Accompanied by: Spouse Allergies galcanezumab-gnlm [From Emgality Pen] Allergy (Intermediate, Verified 03/11/25 09:57) localized swelling garlic Allergy (Verified 03/11/25 09:57) Shortness of Breath topiramate Adverse Reaction (Severe, Verified 03/11/25 09:57) dizziness, loss of appetite, nausea, vomiting duloxetine [From CYMBALTA] Adverse Reaction (Mild, Verified 03/11/25 09:57) migraines,vomitting tumeric Adverse Reaction (Uncoded 03/11/25 09:57) Shortness of Breath Medication List - Last Reconciled 03/11/25 by Mariana Canada LPN amlodipine 5 mg PO DAILY zlelomzwrf-biflibawpxqlb-mneh 50-325-40 mg 1 - 2 tabs PO DAILY PRN cholecalciferol (vitamin D3) 50 mcg PO DAILY 90 days diclofenac sodium 1% (Arthritis Pain (diclofenac)) 2 grams topical QID PRN 30 days epinephrine 0.3 mg (0.3 mL) IM DIRECTED fluticasone propionate 50 mcg/actuation (Flonase Allergy Relief) 1 spray intranasal DAILY 30 days gabapentin 300 mg PO BEDTIME 90 days ibuprofen mg PO ketoconazole 2% 1 appl topical 2XW loratadine 10 mg PO DAILY PRN 30 days lorazepam 1 mg PO TID omeprazole 40 mg PO DAILY 90 days ondansetron HCl 4 mg PO Q8H PRN oxybutynin chloride ER 10 mg PO DAILY 30 days phenyleph-min oil-petrolatum 0.25-14-74.9 % (Preparation H) 1 appl [place] BID PRN quetiapine 50 mg PO BEDTIME tirzepatide (weight loss) (Zepbound) 2.5 mg (0.5 mL) subcut QWEEK HPI HPI 3 Month FU/dr orozco pt(dr best on training): Details: History of Present Illness The patient is a 49-year-old female presenting with chronic pain. She has been seeing Dr. Orozco for this condition and was advised a trial of SI compression belt and potential SI joint imaging, which has not yet been scheduled. The use of a supportive belt has led to notable pain relief, with the patient reporting the pain is now almost gone. She is contemplating whether further treatment is necessary given the improvement in her condition. Pain Description - Onset: Chronic duration - Quality: Not specified - Location: Not specified - Radiation: Not specified - Exacerbating Factors: None specified - Relieving Factors: Use of supportive belt - Impact on Activities: Initially more severe, now almost resolved Physical Exam - Appears afebrile. - Alert and oriented. - Mood and affect appropriate. - Follows and participates in conversation appropriately. - Respiratory effort is unlabored. - Able to transition from sit to stand unassisted. - Ambulates with bilaterally normal heel strike and toe off. - Able to stand and walk on toes and heels. Pain Management - Affect: Not explicitly discussed - Analgesia: Pain has improved significantly with the use of a supportive belt - Adverse Effects: None reported - Activities of Daily Living: Pain is almost resolved - Aberrant Drug Related Behaviors: None reported [facility] Medical History Postoperative nausea Sleep apnea HTN (hypertension) Overactive bladder Renal calculi Obesity (BMI 35.0-39.9 without comorbidity) CHAGO (generalized anxiety disorder) Migraines Impaired glucose tolerance GERD (gastroesophageal reflux disease) Nausea Allergic rhinitis Surgical History H/O colonoscopy History of extraction of renal calculus History of tubal ligation History of section Family History Father CHF (congestive heart failure) Mother Hypertension Family/Other Substance abuse Paternal Aunt Cancer Other Mental health disorder Social History Household Members: Spouse and Children Housing: House Are you a primary animal care specialist to a significant other at home: No Do you presently have visiting nurse or other home services: No Alcohol intake: never Patient Tobacco Use Status: Former Tobacco user e-Cigarette/Vaping Use: Never Used Second Hand Smoke Exposure: No service: No Current occupational status: disabled Cognitive needs: No Hearing needs: No Vision needs: Yes Female Reproductive History Menstrual Age of Menarche: 10 Physical Exam Vital Signs: Last Vital Signs Pulse 78 03/11/25 09:54 Resp 16 03/11/25 09:54 BP 165/81 H 03/11/25 09:54 Pulse Ox 99 03/11/25 09:54 Oxygen Delivery Method Room Air 03/11/25 09:54 BMI result Body Mass Index 38.3 Assessment & Plan Assessment & Plan (1) Sacroiliac joint dysfunction of left side: Code(s): M53.3 - Sacrococcygeal disorders, not elsewhere classified Category: Medical Plan Plan - Continue current management with the supportive belt. - Re-evaluate the need for CT/MRI if pain worsens. - Follow-up with Dr. Orozco as needed. Patient was informed and verbally consented to the use of an ambient scribe for clinic note documentation during this visit. Discussion Notes During the visit, I reviewed the patient's history of chronic pain and the improvement noted with the use of a supportive belt. I discussed the potential need for an MRI, but given the improvement, I advised that further imaging might not be necessary unless the pain worsens. I recommended continuing the current management plan and instructed the patient to contact me if the pain increases or if she wishes to discuss further interventions. Patient Instructions - Continue using the supportive belt. - Monitor your pain levels. - Contact us if your pain worsens or if you have any questions. Coding Level of Care Code Est Pt Level 3 (95831) Diagnoses Sacroiliac joint dysfunction of left side M53.3
--- OUTSIDE RECORDS SUMMARY | 2025-03-11 10:32 | XMS_ITS | Clinical Summary ---
Author Organization [employer] Address [address] [facility] [address] [place] [address] Care Team Providers Care Plant Packer Name Role Phone Unavailable Primary Care Provider Unavailabl e Immunizations Immunization Administration Dates Next Due HepB-CpG 07/15/2024,06/09/2024 Influenza [...] Screening 1974 SDOH Screening 1974 Sigmoidoscopy 1974 Disability Screening 1974 Alcohol/Substance Use Screening 1986 Tobacco Screening [...] patient's age to complete this topic Meningococcal B Vaccine Aged Out No l onger eligible based on patient's age to complete this topic Meningococcal Vaccine Aged Out No vince wally eligible based on patient's age to complete this topic RSV under 20 months Aged Out No longe r eligible based on patient's age to complete this topic Rotavirus Vaccines Aged Out No longer eligible based on patient's age to complete this topic Insurance [facility]
== END 2025-03-11 10:15 | disposition home or self-care (01) ==
LOC: HO.PMC 09:48
PROVIDERS: PCP Internal Medicine; Visit Provider Internal Medicine
DX: M53.3 Sacrococcygeal disorders, not elsewhere classified (principal)
CPT/HCPCS: 99213

== ENCOUNTER → 2025-03-11 09:47 | Outpatient (BNVA) | payer OTHER, SELFPAY | PROVIDERS: PCP Internal Medicine; Visit Provider Internal Medicine | DX: M53.3 Sacrococcygeal disorders, not elsewhere classified (principal) | CPT/HCPCS: 99212 ==

== ENCOUNTER 2025-03-23 15:30 | Emergency (ER) | payer OTHER, SELFPAY ==
--- NOTE | 2025-03-23 15:43 | ED.GENADULT ---
HPI - General Adult General Chief complaint: Dizziness Stated complaint: Food Poising? Dizzy Time Seen by Provider: 03/23/25 19:18 Source: patient Mode of arrival: ambulatory Limitations: no limitations History of Present Illness ED Provider: HPI narrative: Patient has been having dizziness vertiginous feeling with nausea since afternoon today symptom gets worse when she moves her head no vomiting no fever no chills no abdominal pain Related Data Home Medications ?Medication ?Instructions ?Recorded ?Confirmed [id number]-[id number]-[id number] 1 - 2 tab PO DAILY PRN headache 02/08/23 03/11/25 50 mg-325 mg-40 mg tablet lorazepam 1 mg tablet 1 mg PO TID 02/08/23 03/11/25 ketoconazole 2 % shampoo 1 appl topical 2XW 10/09/23 03/11/25 quetiapine 50 mg tablet 50 mg PO BEDTIME 10/09/23 03/11/25 ibuprofen 600 mg tablet mg PO 02/05/24 03/11/25 Previous Rx's ?Medication ?Instructions ?Recorded gabapentin 300 mg capsule 300 mg PO BEDTIME 90 days #90 caps 12/25/22 phenylephrine 0.25 %-mineral oil 1 appl LA BID PRN rectal 02/08/23 14 %-petrolatm 74.9 % rectal discomfort #57 grams ointment (Preparation H) epinephrine 0.3 mg/0.3 mL 0.3 mg (0.3 mL) IM DIRECTED #2 05/08/23 injection, auto-injector ea ondansetron HCl 4 mg tablet 4 mg PO Q8H PRN nausea and 11/01/23 vomiting #10 tabs loratadine 10 mg tablet 10 mg PO DAILY PRN for allergies 08/23/24 30 days #30 tabs fluticasone propionate 50 1 spray intranasal DAILY 30 days 08/25/24 mcg/actuation nasal #16 grams spray,suspension (Flonase Allergy Relief) diclofenac sodium 1 % topical gel 2 g topical QID PRN pain 30 days 09/29/24 (Arthritis Pain (diclofenac)) #100 grams omeprazole 40 mg capsule,delayed 40 mg PO DAILY 90 days #90 caps 09/29/24 release cholecalciferol (vitamin D3) 50 50 mcg PO DAILY 90 days #90 caps 11/17/24 mcg (2,000 unit) capsule oxybutynin chloride 10 mg 10 mg PO DAILY 30 days #30 tabs 12/25/24 tablet,extended release 24 hr tirzepatide (weight loss) 2.5 2.5 mg (0.5 mL) subcut QWEEK #2 mL 12/25/24 mg/0.5 mL subcutaneous pen injector (Zepbound) amlodipine 5 mg tablet 5 mg PO DAILY #90 tabs 01/19/25 meclizine 25 mg tablet 25 mg PO TID PRN dizziness #20 tabs 03/23/25 Allergies Allergy/AdvReac Type Severity Reaction Status Date / Time galcanezumab-gnlm Allergy Intermediate localized Verified 03/23/25 15:45 [From Emgality Pen] swelling garlic Allergy Shortness Verified 03/23/25 15:45 of Breath topiramate AdvReac Severe dizziness, Verified 03/23/25 15:45 loss of appetite, nausea, vomiting duloxetine [From CYMBALTA] AdvReac Mild migraines,v Verified 03/23/25 15:45 omitting tumeric AdvReac Shortness Uncoded 03/23/25 15:45 of Breath Review of Systems Review of Systems: Yes all other systems are reviewed and are negative PMFSH Past Medical History Medical History Postoperative nausea Sleep apnea HTN (hypertension) Overactive bladder Renal calculi Obesity (BMI 35.0-39.9 without comorbidity) CHAGO (generalized anxiety disorder) Migraines Impaired glucose tolerance GERD (gastroesophageal reflux disease) Nausea Allergic rhinitis Surgical History H/O colonoscopy History of extraction of renal calculus History of tubal ligation History of section Family History Family History Father CHF (congestive heart failure) Mother Hypertension Family/Other Substance abuse Paternal Aunt Cancer Other Mental health disorder Social History Social History Household Members: Spouse and Children Housing: House Are you a primary transitional care liaison to a significant other at home: No Do you presently have visiting nurse or other home services: No Alcohol intake: never Patient Tobacco Use Status: Former Tobacco user e-Cigarette/Vaping Use: Never Used Second Hand Smoke Exposure: No Advance Directives: No Advance Directives Information Provided: No Do you have a plan to hurt others: No Plan service: No Current occupational status: disabled Cognitive needs: No Hearing needs: No Vision needs: Yes Physical Exam ED Vital Signs: Vital Signs - 24 hr 03/23/25 15:44 03/23/25 19:36 03/23/25 19:38 Temperature 97.6 F Pulse Rate 81 77 78 Respiratory Rate 18 Blood Pressure 152/97 H 149/84 H 160/85 H Pulse Oximetry 98 Oxygen Delivery Method Room Air 03/23/25 19:39 03/23/25 21:16 Temperature 98.2 F Pulse Rate 81 74 Respiratory Rate Blood Pressure 158/91 H 151/82 H Pulse Oximetry 95 Oxygen Delivery Method Room Air BMI result Body Mass Index 38.2 Appearance: Alert. Oriented X3. No acute distress. Eyes: PERRLA, No Nystagmus ENT: Pharynx normal. Oral Mucosa moist Neck: Normal inspection. Neck supple. CVS: Normal heart rate and rhythm. Pulses normal. Respiratory: No respiratory distress. Equal air entry bilateral, no wheezing/rales/rhonchi Abdomen: Soft and nontender. Bowel sounds are present, no mass palpable, no CVA tenderness Skin: Skin warm and dry. Normal skin color. Normal skin turgor. Extremities: No lower extremity edema. No calf tenderness Neuro: Oriented X 3. No motor deficit. No sensory deficit.No cerebellar signs , cranial nerves II-XII intact Course Course Course Narrative: RME, this is a rapid medical exam performed by Tung Murry please refer to primary provider for complete H&P- 49 year old female presents for evaluation of dizziness and weakness. She has not vomited but believes her symptoms started after eating at a [employer] restaurant. Her grand daughter is here with similar symptoms. Plan for labs Medications Administered Discontinued Medications Generic Name Dose Route Start Last Admin Trade Name Freq PRN Reason Stop Dose Admin Meclizine HCl 25 mg 03/23/25 19:30 03/23/25 20:02 Meclizine Hcl 25 Mg Tablet PO 03/23/25 19:31 25 mg ONCE ONE Administration Medical Decision Making Medical Decision Making [facility] Narrative: Patient with vertiginous feeling clinically with benign positional vertigo improved after meclizine labs are stable discharge patient home Lab Data [facility] Lab Attestation statement: I reviewed the patient's lab results. 03/23/25 16:00 03/23/25 16:00 Labs: Lab Results 03/23/25 Range/Units 16:00 WBC 7.6 (4.8-10.8) X10*3/uL RBC 4.22 (4.20-5.50) X10*6/uL Hgb 12.1 (12.0-16.0) g/dl Hct 36.3 L (37.0-47.0) % MCV 86.0 (80.0-98.0) fL MCH 28.7 (27.0-33.0) pg MCHC 33.3 (31.0-35.0) g/dl RDW 13.6 (11.0-16.0) % Plt Count 289 (160-400) X10*3/uL MPV 8.8 L (9.4-12.3) fL Immature Gran % (Auto) 0.3 (0.0-0.4) % Neut % (Auto) 55.8 (45-73) % Lymph % (Auto) 35.5 (20-40) % [place] % (Auto) 5.5 (2-11) % Eos % (Auto) 2.4 (0-4) % Baso % (Auto) 0.5 (0-2) % Lymph # (Auto) 2.7 (1.2-4.9) X10*3/uL [place] # (Auto) 0.4 (0.1-1.2) X10*3/uL Eos # (Auto) 0.2 (0.0-0.4) X10*3/uL Baso # (Auto) 0.0 (0.0-0.2) X10*3/uL Abs Immat Gran (auto) 0.02 (0.00-0.03) X10*3/uL Absolute Neuts (auto) 4.2 (2.0-8.3) x10*3/uL Absolute Nucleated RBC 0.000 (0.0-0.012) X10*3/uL Nucleated RBC % (auto) 0.0 (0.0-0.2) /100WBC Sodium 141 (135-145) mmol/L Potassium 3.2 L (3.3-5.1) mmol/L Chloride 107 (96-108) mmol/L Carbon Dioxide 27 (22-29) mmol/L Anion Gap 10 L (12-20) BUN 10 (9-16) mg/dL Creatinine 0.79 (0.5-1.4) mg/dL Estim Creat Clear Calc 98.4 Estimated GFR > 60 Random Glucose 109 (60-115) mg/dL Calcium 8.8 (8.4-10.2) mg/dL Total Bilirubin 0.3 (0.0-1.0) mg/dL AST 31 (5-31) U/L ALT 49 H (0-31) U/L Alkaline Phosphatase 111 (39-117) U/L Total Protein 7.3 (6.5-8.0) g/dL Albumin 4.5 (3.5-5.0) g/dL Lipase 19 (8-78) U/L Beta HCG, Quant < 2 mIU/mL Urine Color Yellow Urine Appearance Clear Urine pH 7.5 (5.0-9.0) Ur Specific [place] 1.015 (1.005-1.025) Urine Protein Negative (Neg-Trace) mg/dL Urine Glucose (UA) Negative (Negative) mg/dL Urine Ketones Negative (Negative) mg/dL Urine Blood Small (1+) H (Negative) Urine Nitrite Negative (Negative) Ur Leukocyte Esterase Negative (Negative) Urine RBC 6-10 H (0-2) /HPF Urine WBC 0-5 (0-5) /HPF Ur Squamous Epith Cells 3-5 (0-2) /HPF Urine Bacteria None Seen (None Seen) Hyaline Casts 0-2 (0-2) /LPF Influenza Type A (PCR) NEGATIVE (Negative) Influenza Type B (PCR) NEGATIVE (Negative) RSV RNA Qual (PCR) NEGATIVE (Negative) SARS-CoV-2 RNA (RT-PCR) NEGATIVE (Negative) Discharge Plan Discharge Clinical Impression: Benign paroxysmal positional vertigo Patient Disposition: Home, Self-Care Instructions: Benign Paroxysmal Positional Vertigo (ED) Additional Instructions: Care and cautions as advised Take meclizine 1 tablet every 8 hours as needed for dizziness Follow the PCP if not better Prescriptions: New meclizine 25 mg tablet 25 mg PO TID PRN (Reason: dizziness) Qty: 20 0RF No Action epinephrine 0.3 mg/0.3 mL auto-injector 0.3 mg IM DIRECTED Qty: 2 2RF loratadine 10 mg tablet 10 mg PO DAILY PRN (Reason: for allergies) 30 Days Qty: 30 11RF fluticasone propionate [Flonase Allergy Relief] 50 mcg/actuation spray,suspension 1 spray intranasal DAILY 30 Days Qty: 16 6RF Rx Instructions: administer into each nostril omeprazole 40 mg capsule,delayed release(DR/EC) 40 mg PO DAILY 90 Days Qty: 90 2RF diclofenac sodium [Arthritis Pain (diclofenac)] 1 % gel 2 g topical QID PRN (Reason: pain) 30 Days Qty: 100 1RF Rx Instructions: apply to single elbow, wrist or hand; for hand includes palm/fingers/back of hand cholecalciferol (vitamin D3) 50 mcg (2,000 unit) capsule 50 mcg PO DAILY 90 Days Qty: 90 1RF amlodipine 5 mg tablet 5 mg PO DAILY Qty: 90 1RF Preparation H 0.25-14-74.9 % ointment 1 appl LA BID PRN (Reason: rectal discomfort) Qty: 57 0RF gabapentin 300 mg capsule 300 mg PO BEDTIME 90 Days Qty: 90 0RF ondansetron HCl 4 mg tablet 4 mg PO Q8H PRN (Reason: nausea and vomiting) Qty: 10 0RF wjmgetccco-utsuktqulharj-jamu 50-325-40 mg tablet 1 - 2 tab PO DAILY PRN (Reason: headache) lorazepam 1 mg tablet 1 mg PO TID quetiapine 50 mg tablet 50 mg PO BEDTIME ketoconazole 2 % shampoo 1 appl topical 2XW oxybutynin chloride 10 mg tablet extended release 24hr 10 mg PO DAILY 30 Days Qty: 30 3RF Zepbound 2.5 mg/0.5 mL pen injector 2.5 mg subcut QWEEK Qty: 2 0RF Rx Instructions: for 4 weeks ibuprofen 600 mg tablet PO Discharge Date/Time: 03/24/25 00:31 Print Language: Guatemalan
[2025-03-23 15:44] VITALS: BP 152/97; PULSE 81; RESP 18; TEMP 36.4; O2SAT 98; BMI 38.2
--- NOTE | 2025-03-23 15:44 | ECG_ITS ---
Test Reason : dizzy Blood Pressure : */* mmHG Vent. Rate : 78 BPM Atrial Rate : 78 BPM P-R Int : 164 ms QRS Dur : 84 ms QT Int : 410 ms P-R-T Axes : 41 9 22 degrees QTcB Int : 467 ms Normal sinus rhythm Nonspecific ST and T wave abnormality Prolonged QT Abnormal ECG When compared with ECG of 05-May-2022 07:49, T wave inversion now evident in Lateral leads Referred By: Cj Murry Electronically Signed By: CASSIDY GUSMNA MD
[2025-03-23 16:05] LABS: MANUAL DIFF FLAG NO
[2025-03-23 16:08] LABS: Appearance Urine Clear; Basophils Percent Auto 0.5 % (0-2); Color Urine Yellow; Eosinophils Absolute Auto 0.2 X10*3/uL (0.0-0.4); Eosinophils Percent Auto 2.4 % (0-4); Glucose Urine UA Negative (Negative); Hematocrit 36.3 % (37.0-47.0); Hemoglobin 12.1 g/dl (12.0-16.0); Imm Gran Abs Auto 0.02 X10*3/uL (0.00-0.03); Imm Gran Pct Auto 0.3 % (0.0-0.4); Leukocyte Esterase Urine Negative (Negative); Lymphocytes Absolute Auto 2.7 X10*3/uL (1.2-4.9); Lymphocytes Percent Auto 35.5 % (20-40); Mean Corpuscular HGB Conc 33.3 g/dl (31.0-35.0); Mean Corpuscular Hemoglobin 28.7 pg (27.0-33.0); Mean Platelet Volume 8.8 fL (9.4-12.3); Monocytes Absolute Auto 0.4 X10*3/uL (0.1-1.2); Monocytes Percent Auto 5.5 % (2-11); Neutrophils Absolute Auto 4.2 x10*3/uL (2.0-8.3); Neutrophils Percent Auto 55.8 % (45-73); Nitrite Urine Negative (Negative); PH 7.5 (5.0-9.0); Platelet Count 289 X10*3/uL (160-400); Red Blood Count 4.22 X10*6/uL (4.20-5.50); Red Cell Distribution Width 13.6 % (11.0-16.0); Specific Gravity - Urine 1.015 (1.005-1.025); UMIC TRIGGER UACC YES; Urine Blood Small (1+) (Negative); Urine Ketones Negative (Negative); Urine Protein Negative (Neg-Trace); White Blood Count 7.6 X10*3/uL (4.8-10.8)
[2025-03-23 16:14] LABS: Bacteria Urine None Seen (None Seen); Hyaline Casts Urine 0-2 /LPF (0-2); WBC Urine 0-5 /HPF (0-5)
[2025-03-23 16:20] LABS: Alanine Aminotransferase 49 U/L (0-31); Albumin Level 4.5 g/dL (3.5-5.0); Alkaline Phosphatase 111 U/L (39-117); Anion Gap 10 (12-20); Aspartate Amino Transferase 31 U/L (5-31); Bilirubin Total 0.3 mg/dL (0.0-1.0); Blood Urea Nitrogen 10 mg/dL (9-16); Calcium 8.8 mg/dL (8.4-10.2); Carbon Dioxide 27 mmol/L (22-29); Chloride 107 mmol/L (96-108); Creatinine Clr Calc Pharmacy 98.4; Estimated Glomerular Filt Rate > 60; Glucose Random 109 mg/dL (60-115); Lipase 19 U/L (8-78); Potassium 3.2 mmol/L (3.3-5.1); Sodium 141 mmol/L (135-145); Total Protein 7.3 g/dL (6.5-8.0)
[2025-03-23 16:27] LABS: HCG Quantitative < 2 mIU/mL
[2025-03-23 16:51] LABS: Influenza A PCR NEGATIVE (Negative); Influenza B PCR NEGATIVE (Negative); Resp Syncy Virus RNA Qual PCR NEGATIVE (Negative); SARS COV2 PCR INHOUSE NEGATIVE (Negative)
--- OUTSIDE RECORDS SUMMARY | 2025-03-23 19:04 | XMS_ITS | Clinical Summary ---
Author Organization [employer] Address [address] [place] [address] Care Team Providers Care Personal Injury Legal Assistant Name Role Phone Unavailable Primary Care Provider [...] 08/31/2022, 09/05/2021, Additional history exists Influenza Vaccine (Season Ended) 2025 06/27/2023, 08/22/2022, 09/05/2021, Additional history exists DTaP/Tdap/Td Vaccines [...] patient's age to complete this topic Insurance [facility]
[2025-03-23 19:36] VITALS: BP 149/84; PULSE 77
[2025-03-23 19:38] VITALS: BP 160/85; PULSE 78
[2025-03-23 19:39] VITALS: BP 158/91; PULSE 81
[2025-03-23] MEDS: Meclizine HCl 25 MG TABLET PO (20:02)
--- NOTE | 2025-03-23 20:03 | PC.NURSE ---
assumed care of pt, respiration seven and unlabored. medicated per MAR
[2025-03-23 21:16] VITALS: BP 151/82; PULSE 74; TEMP 36.8; O2SAT 95
== END 2025-03-24 00:31 | disposition home or self-care (01) ==
PROVIDERS: Physician Assistant; Emergency Provider Internal Medicine; PCP Student in an Organized Health Care Education/Training Program
DX: H81.13 Benign paroxysmal vertigo, bilateral (principal); R11.0 Nausea; Z03.818 Encounter for observation for suspected exposure to other biological agents ruled out; Z79.899 Other long term (current) drug therapy
CPT/HCPCS: 0241U; 36415; 80053; 81001; 83690; 84702; 85025; 93005; 99283; 99284

== ENCOUNTER → 2025-03-23 15:44 | Outpatient (BNV) | payer OTHER, SELFPAY | PROVIDERS: Emergency Provider Internal Medicine; PCP Student in an Organized Health Care Education/Training Program; Visit Provider Internal Medicine Cardiovascular Disease | DX: R94.31 Abnormal electrocardiogram [ECG] [EKG] (principal); R42 Dizziness and giddiness | CPT/HCPCS: 93010 ==

== ENCOUNTER 2025-06-04 10:22 | Outpatient (AMB) | payer OTHER, SELFPAY ==
[2025-06-04 10:24] VITALS: BP 168/90; PULSE 81; RESP 18; TEMP 36.2; O2SAT 96; BMI 38.4
--- NOTE | 2025-06-04 10:24 | MHC.PC.OV ---
Vital Signs 06/04/25 10:24 Height 5 ft 4 in Weight 224 lb BMI 38.4 BP 168/90 H Blood Pressure Location Lt brachial Position Sitting Respiration 18 Pulse 81 Pulse Source Pulse Oximeter Temp 97.1 F Temp Source Temporal Artery Scan Pulse Oximetry (%) 96 Oxygen Delivery Method Room Air Intake Visit Reasons: annual Emergency Vehicle Driver Required: No Accompanied by: Self / Same As Patient Allergies galcanezumab-gnlm (From Emgality Pen) Allergy (Intermediate, Verified 06/04/25 10:36) localized swelling garlic Allergy (Verified 06/04/25 10:36) Shortness of Breath topiramate Adverse Reaction (Severe, Verified 06/04/25 10:36) dizziness, loss of appetite, nausea, vomiting duloxetine (From CYMBALTA) Adverse Reaction (Mild, Verified 06/04/25 10:36) migraines,vomitting tumeric Adverse Reaction (Uncoded 06/04/25 10:36) Shortness of Breath Medication List - Last Reconciled 06/04/25 by Beti Skinner MD amlodipine 5 mg PO DAILY zpykupkqlz-woyxxdcekvvrt-fdvu 50-325-40 mg 1 - 2 tabs PO DAILY PRN diclofenac sodium 1% (Arthritis Pain (diclofenac)) 2 grams topical QID PRN 30 days epinephrine 0.3 mg (0.3 mL) IM DIRECTED fluticasone propionate 50 mcg/actuation (Flonase Allergy Relief) 1 spray intranasal DAILY 30 days gabapentin 300 mg PO BEDTIME 90 days ibuprofen mg PO ketoconazole 2% 1 appl topical 2XW loratadine 10 mg PO DAILY PRN 30 days lorazepam 1 mg PO TID meclizine 25 mg PO TID PRN omeprazole 40 mg PO DAILY 90 days ondansetron HCl 4 mg PO Q8H PRN oxybutynin chloride ER 10 mg PO DAILY 30 days phenyleph-min oil-petrolatum 0.25-14-74.9 % (Preparation H) 1 appl SC BID PRN quetiapine 50 mg PO BEDTIME tirzepatide (weight loss) (Zepbound) 2.5 mg (0.5 mL) subcut QWEEK Tobacco use date assessed: 06/04/25 Dental Screening Dental Screen Date: 06/04/25 Did you have a dental visit in the last 12 months?: Yes Did you have a dental problem in the last 6 months where you did not have access to dental care?: No Was dental information given to patient?: Patient has dentist HPI HPI Comments History of Present Illness Details The patient is a 50-year-old female presenting with a physical examination and management of chronic conditions. She has a history of hypertension, which was noted to be elevated during today's visit. Her current medication regimen includes amlodipine, which is being increased from 5 mg to 10 mg due to elevated blood pressure readings. The patient reports experiencing vertigo, for which she is currently taking medication. She has multiple allergies, including reactions to Emgality, garlic, Topamax, Cymbalta, and turmeric, which have caused symptoms such as swelling. Her psychiatric history includes depression and anxiety, managed by psychiatry, with a PHQ-9 score indicating depression. The patient also has a history of gastroesophageal reflux disease and urinary incontinence, for which she is taking omeprazole and oxybutynin, respectively. Preventative care measures include a Tdap vaccination last administered in 2015, a normal mammogram in July 2024, a Pap smear in 2021 with no HPV detected, and a colonoscopy in 2022 showing hyperplastic polyps, diverticulosis, and hemorrhoids. - Tdap vaccination last administered in 2015, next due in 2025 - Mammogram in July 2024, results normal - Pap smear in 2021, HPV not detected, next due in 2026 - Colonoscopy in 2022, findings of hyperplastic polyps, diverticulosis, and hemorrhoids, next due in 7 to 10 years [facility] Medical History (Updated 06/04/25 @ 10:44 by Beti Skinner MD) Postoperative nausea Sleep apnea HTN (hypertension) Overactive bladder Renal calculi Obesity (BMI 35.0-39.9 without comorbidity) CHAGO (generalized anxiety disorder) Migraines Impaired glucose tolerance GERD (gastroesophageal reflux disease) Nausea Allergic rhinitis Surgical History H/O colonoscopy History of extraction of renal calculus History of tubal ligation History of section Family History Father CHF (congestive heart failure) Mother Hypertension Family/Other Substance abuse Paternal Aunt Cancer Other Mental health disorder Social History Household Members: Spouse and Children Housing: House Are you a primary human services care specialist to a significant other at home: No Do you presently have visiting nurse or other home services: No Alcohol intake: never Patient Tobacco Use Status: Former Tobacco user e-Cigarette/Vaping Use: Never Used Second Hand Smoke Exposure: No service: No Current occupational status: disabled Cognitive needs: No Hearing needs: No Vision needs: Yes Female Reproductive History Menstrual Age of Menarche: 10 Questionnaire PHQ-9 Over the last 2 weeks, how often have you been bothered by any of the following problems? 1. Little interest or pleasure in doing things: not at all 2. Feeling down, depressed, or hopeless: more than half the days 3. Trouble falling or staying asleep, or sleeping too much: several days 4. Feeling tired or having little energy: more than half the days 5. Poor appetite or overeating: not at all 6. Feeling bad about yourself - or that you are a failure or have let yourself or your family down: not at all 7. Trouble concentrating on things, such as reading the newspaper or watching television: several days 8. Moving or speaking so slowly that other people could have noticed. Or the opposite - being so fidgety or restless that you have been moving around a lot more than usual: several days 9. Thoughts that you would be better off or of hurting yourself in some way: not at all Total score: 7 Depression Screening Interpretation: Positive Depression Screening Follow-up: Existing condition, In treatment, Community Mental Health Worker F/U and Follow-up Visit Requested Depression Screening Done: Yes 59838 - PHQ-9 Billing: Yes Source: Developed by Drs. Miguel Rosales, Elaine Jones, Lucas Landaverde and colleagues, with an educational tobias from [employer]. Thrive Questionnaire Date Thrive assessed: 06/04/25 I am a: Patient What is your living situation today?: I have a steady place to live Within the past 12 months, did the food you bought not last and you didn't have the money to get more?: I choose not to answer this question Within the past 12 months, did you worry whether your food would run out before you got money to buy more?: I choose not to answer this question Do you have trouble paying for medicines?: No Do you have trouble getting transportation to medical appointments?: No Do you have trouble paying your heating and electricity bill?: I choose not to answer this question Are you currently unemployed and looking for a job?: No Are you interested in more education?: Yes Currently or been in a relationship where the following occur: No concerns reported THRIVE Score: 0 AUDIT C Alcohol Use Questionnaire (AUDIT-C) 1. How often do you have a drink containing alcohol?: Never Total Score: 0 Score Reviewed/Action Taken: No CHAGO-7 AMB Questionnaire CHAGO-7 Date CHAGO - 7 assessed: 06/04/25 Feeling nervous, anxious, or on edge: 2 = More than half the days Not being able to stop or control worryin = More than half the days Worrying too much about different things: 2 = More than half the days Trouble relaxin = More than half the days Being so restless that it is hard to sit still: 1 = Several days Becoming easily annoyed or irritable: 2 = More than half the days Feeling afraid as if something awful might happen: 1 = Several days Total CHAGO-7 score (0-4 normal; 5-9 mild; 10-14 moderate; 15-21 severe): 12 Source: Developed by Drs. Miguel Rosales, Elaine Jones, Lucas Landaverde and colleagues, with an educational tobias from [employer]. CHAGO-7 Assessment Billing CHAGO-7 Assessment Tool: CHAGO-7 Assessment 16531 Review of Systems Const All systems reviewed & are unremarkable except as noted in HPI and below Card Denies chest pain at rest, Denies chest pain with activity, Denies edema, Denies irregular heart rhythm, Denies claudication, Denies dyspnea, Denies dyspnea on exertion, Denies orthopnea, Denies paroxysmal nocturnal dyspnea and Denies slow heart rate Resp Denies cough, Denies dyspnea and Denies dyspnea on exertion GI Denies abdominal pain, Denies change in bowel habits, Denies excessive flatus, Denies nausea and Denies vomiting Physical exam (Primary Care) Vital Signs: Last Vital Signs Temp 97.1 F 06/04/25 10:24 Pulse 81 06/04/25 10:24 Resp 18 06/04/25 10:24 BP 168/90 H 06/04/25 10:24 Pulse Ox 96 06/04/25 10:24 Oxygen Delivery Method Room Air 06/04/25 10:24 BMI result Body Mass Index 38.4 Tobacco/Smoking Status: Tobacco use Status Tobacco use date assessed 06/04/25 06/04/25 10:31 Patient Tobacco Use Status Former Tobacco user 06/04/25 10:31 e-Cigarette/Vaping Use Never Used 06/04/25 10:31 PHQ-9: PHQ-9 Score PHQ-9: Total score 7 06/04/25 10:39 Depression Screening Interpretation: Positive Depression Screening Follow-up: Existing condition, In treatment, Community Mental Health Worker F/U and Follow-up Visit Requested Thrive Assessment: Date of Thrive Assessment Date Thrive assessed 06/04/25 06/04/25 10:31 Currently or been in a relationship where the following occur: No concerns reported HENMT Head: Yes normal to inspection, Yes normocephalic and Yes atraumatic Ears: external ears normal Eyes General: appearance normal, both eyes and all related structures Eyelids: Yes eyelids normal Conjunctivae: conjunctivae normal Neck Neck: Yes normal visual inspection and Yes supple Resp Effort & Inspection: normal respiratory effort Auscultation: clear to auscultation bilaterally Cardio Jugular venous distension: no JVD Rate: regular rate Rhythm: regular rhythm Heart sounds: S1 normal heart sound present and S2 normal heart sound present GI Inspection: Yes normal to inspection Palpation (GI): Soft to palpation and nontender Auscultation: normal bowel sounds Skin General skin exam: no rashes or lesions noted Neuro General: no focal motor deficits Extrem General: Yes full ROM Psych Appearance: grossly normal Coding Level of Care Code Est Pt Level 3 (66057) Est Pt Prev Care 40-64y(37109) Diagnoses Physical exam Z00.00 HTN (hypertension) I10 Mild major depression F32.0 Additional Codes CHAGO-7 Assessment Billing - CHAGO-7 Assessment Tool: CHAGO-7 Assessment 26971 ([id number]) PHQ-9 - 83652 - PHQ-9 Billing: Yes ([id number]) Time Spent (min) 33 Assessment & Plan Assessment & Plan (1) Physical exam: Code(s): Z00.00 - Encounter for general adult medical examination without abnormal findings Category: Medical (2) HTN (hypertension): Code(s): I10 - Essential (primary) hypertension Category: Medical (3) Mild major depression: Code(s): F32.0 - Major depressive disorder, single episode, mild Category: Medical Plan The patient's hypertension will be managed by increasing the dosage of amlodipine from 5 mg to 10 mg to better control her blood pressure. For her vertigo, she will continue with her current medication regimen, and further evaluation may be considered if symptoms persist. Allergy management includes avoiding known allergens such as Emgality, garlic, Topamax, Cymbalta, and turmeric. Her depression and anxiety are being managed by psychiatry, and she will continue her current treatment plan. For gastroesophageal reflux disease, she will continue taking omeprazole, and for urinary incontinence, she will continue with oxybutynin. Preventative care measures include scheduling the next Tdap vaccination in 2025, a Pap smear in 2026, and a colonoscopy in 7 to 10 years from 2022. Patient was informed and verbally consented to the use of an ambient scribe for clinic note documentation during this visit. Orders: Referrals Medical Weight Management Referral E66.9 - Obesity, unspecified Medications: New amlodipine 10 mg PO DAILY 90 tabs 1RF 90 days Discontinued amlodipine Discontinued Reason: Patient Completed Course 5 mg PO DAILY 90 tabs 1RF I10 - Essential (primary) hypertension
--- OUTSIDE RECORDS SUMMARY | 2025-06-04 11:52 | XMS_ITS | Clinical Summary ---
Author Organization [employer] Address [address] [place] [address] Care Team Providers Care Last Trimmer Name Role Phone Unavailable Primary Care Provider [...] 09/05/2021, Additional history exists Influenza Vaccine (#1) 2025 , 08/22/2022, 09/05/2021, Additional history exists DTaP/Tdap/Td [...] patient's age to complete this topic Insurance [facility]
== END 2025-06-04 10:54 | disposition home or self-care (01) ==
LOC: HO.HMCH 10:23
PROVIDERS: PCP Internal Medicine; Visit Provider Internal Medicine
DX: Z00.00 Encounter for general adult medical examination without abnormal findings (principal); I10 Essential (primary) hypertension; F32.0 Major depressive disorder, single episode, mild

== ENCOUNTER → 2025-06-04 10:22 | Outpatient (BNVA) | payer OTHER, SELFPAY | PROVIDERS: PCP Internal Medicine; Visit Provider Internal Medicine | DX: Z00.00 Encounter for general adult medical examination without abnormal findings (principal); I10 Essential (primary) hypertension; F32.0 Major depressive disorder, single episode, mild; R42 Dizziness and giddiness; F41.9 Anxiety disorder, unspecified; K21.9 Gastro-esophageal reflux disease without esophagitis; R32 Unspecified urinary incontinence; Z79.899 Other long term (current) drug therapy | CPT/HCPCS: 96127; 99212; 99396 ==

== ENCOUNTER 2025-06-23 08:42 | Outpatient (AMB) | payer OTHER, SELFPAY ==
--- NOTE | 2025-06-23 09:24 | A.OFFVIS_ITS ---
Vital Signs 06/23/25 09:24 Height 5 ft 4 in Intake Visit Reasons: 3 Months / Migrane Accompanied by: Spouse Allergies galcanezumab-gnlm (From Emgality Pen) Allergy (Intermediate, Verified 06/23/25 09:30) localized swelling garlic Allergy (Verified 06/23/25 09:30) Shortness of Breath topiramate Adverse Reaction (Severe, Verified 06/23/25 09:30) dizziness, loss of appetite, nausea, vomiting duloxetine (From CYMBALTA) Adverse Reaction (Mild, Verified 06/23/25 09:30) migraines,vomitting tumeric Adverse Reaction (Uncoded 06/23/25 09:30) Shortness of Breath Medication List - Last Reconciled 06/23/25 by Camelia Rodriguez CNP amlodipine 10 mg PO DAILY 90 days hqmfohkzbe-jvfkundbebvhw-mmmn 50-325-40 mg 1 - 2 tabs PO DAILY PRN diclofenac sodium 1% (Arthritis Pain (diclofenac)) 2 grams topical QID PRN 30 days epinephrine 0.3 mg (0.3 mL) IM DIRECTED fluticasone propionate 50 mcg/actuation (Flonase Allergy Relief) 1 spray intranasal DAILY 30 days gabapentin 300 mg PO BEDTIME 90 days ibuprofen mg PO ketoconazole 2% 1 appl topical 2XW loratadine 10 mg PO DAILY PRN 30 days lorazepam 1 mg PO TID omeprazole 40 mg PO DAILY 90 days ondansetron HCl 4 mg PO Q8H PRN oxybutynin chloride ER 10 mg PO DAILY 30 days phenyleph-min oil-petrolatum 0.25-14-74.9 % (Preparation H) 1 appl WI BID PRN quetiapine 50 mg PO BEDTIME tirzepatide (weight loss) (Zepbound) 2.5 mg (0.5 mL) subcut QWEEK HPI Comments Details: 50-year-old woman with underlying history of depression and schizoaffective disorder is seen for migraine headaches. She was doing okay. She was having about 1-2 headaches/week with photophobia, sonophobia, and nausea. She had some occasional dizziness with headaches, but did not like how she felt with meclizine and stopped medication. She was using butalbital or ibuprofen as needed with good relief. Sleep was okay. [facility] Medical History (Updated 06/23/25 @ 09:27 by Camelia Rodriguez CNP) Left carpal tunnel syndrome Postoperative nausea Sleep apnea HTN (hypertension) Overactive bladder Renal calculi Obesity (BMI 35.0-39.9 without comorbidity) CHAGO (generalized anxiety disorder) Migraines Impaired glucose tolerance GERD (gastroesophageal reflux disease) Nausea Allergic rhinitis Surgical History H/O colonoscopy History of extraction of renal calculus History of tubal ligation History of section Family History Father CHF (congestive heart failure) Mother Hypertension Family/Other Substance abuse Paternal Aunt Cancer Other Mental health disorder Social History Household Members: Spouse and Children Housing: House Are you a primary career development counselor to a significant other at home: No Do you presently have visiting nurse or other home services: No Alcohol intake: never Patient Tobacco Use Status: Former Tobacco user e-Cigarette/Vaping Use: Never Used Second Hand Smoke Exposure: No service: No Current occupational status: disabled Cognitive needs: No Hearing needs: No Vision needs: Yes Female Reproductive History Menstrual Age of Menarche: 10 Review of Systems Const Denies chills, Denies daytime sleepiness, Denies difficulty sleeping, Denies fatigue, Denies fever(s), Denies frequent falls, Reports headache(s), Denies increased appetite, Denies poor appetite, Denies snoring, Denies weakness, Denies weight gain and Denies weight loss Eyes Denies loss of vision ENT Denies vertigo, Reports dizziness and Reports headache(s) Card Denies chest pain at rest, Denies chest pain with activity, Denies syncope, Denies leg edema and Denies palpitations Resp Denies snoring GI Denies constipation, Denies heartburn, Denies diarrhea and Denies nausea Denies urinary frequency, Denies urinary incontinence and Denies urinary urgency Musc Denies abnormal gait, Denies numbness and Denies tingling Skin/Breast Denies dry skin and Denies rash Neuro Denies abnormal gait, Denies vertigo, Reports dizziness, Denies syncope, Denies frequent falls, Reports headache(s), Denies lack of coordination, Denies loss of vision, Denies memory loss, Denies numbness, Denies restless legs, Denies seizure-like activity, Denies tingling, Denies paresthesias, Denies tremor(s) and Denies weakness Psych Denies anxiety, Denies depression, Denies auditory hallucinations, Denies memory loss, Denies visual hallucinations and Denies suicidal ideation Endo Denies fatigue and Denies palpitations Physical Exam Const Other: General Appearance:? normal, in no acute distress. Skin:? no rashes, no significant birthmarks. Heart:? S1, S2 normal, no murmurs. Lungs:? clear anteriorly and posteriorly. Extremities:? no edema. Psych:? alert, oriented, cognitive function intact, cooperative with exam. Neuro Other: Mental Status:?Normal attention, orientation, and flat affect.? Cranial Nerves:?Pupils are equal, round and reactive to light. External occular muscles are intact. Visual kent are full. Face is symmetrical. Facial sensations are normal. Tongue is midline. Palate elevates symmetrically. Shoulder shrugging is normal. Hearing to bedside conversation is normal. Sensory Exam:?....? Coordination:?No ataxia,?no titubation.? Gait Exam: Within normal limits. Extrapyramidal System:?No tremor, rigidity with normal facial expressions.? Pronator Drift:?Not present.? Involuntary Movements:?No tremors seen.? Speech:?Normal.? Results Reviewed Results Reviewed: [place] [facility] [place] W[place]. Assessment & Plan Assessment & Plan (1) Migraines: Code(s): G43.909 - Migraine, unspecified, not intractable, without status migrainosus Category: Medical Qualifiers: Intractability: intractable Migraine type: unspecified Status migrainosus presence: with status migrainosus Qualified Code(s): G43.911 - Migraine, unspecified, intractable, with status migrainosus Plan: Continue riwkaoqfhv-UBST-pkvk 50-325-40 1-2 tablets as needed for headache #12 for 30 days. Continue ibuprofen 600mg 1 tablet daily with food or milk as needed for headache #20 for 30 days. Continue ondansetron 4mg 1 tablet as needed for nausea/vomiting. She did not like how she felt with meclizine and stopped medication, medication was discontinued. (2) Menstrual migraine: Code(s): G43.829 - Menstrual migraine, not intractable, without status migrainosus Category: Medical Qualifiers: Status migrainosus presence: without status migrainosus Intractability: not intractable Qualified Code(s): G43.829 - Menstrual migraine, not intra ctable, without status migrainosus Plan Meds tried: Topamax stopped due to renal issues, propranalol, amitriptyline, verapamil, Depakote, Emgality (rash), gabapentin, nortriptyline, sumatriptan, rizatriptan Medications: New ibuprofen 600 mg PO DAILY PRN 20 tabs 5RF pain 30 days ondansetron 4 mg PO DAILY PRN 10 tabs 5RF nausea and vomiting 30 days Changed From okecpqypdg-vawgkdlbjmghk-fodz 50-325-40 mg 1 - 2 tabs PO DAILY PRN headache To zqkrkrvoun-zxyqxfbyjzhdj-rewi 50-325-40 mg 1 - 2 tabs PO DAILY PRN 12 tabs 2RF headache 30 days Discontinued ondansetron HCl Discontinued Reason: Order 4 mg PO Q8H PRN 10 tabs 0RF nausea and vomiting ibuprofen Discontinued Reason: Order PO Coding Level of Care Code Est Pt Level 4 (55338) Diagnoses Migraines G43.911 Intractability: intractable Migraine type: unspecified Status migrainosus presence: with status migrainosus Menstrual migraine without status migrainosus, not intractable G43.829 Status migrainosus presence: without status migrainosus Intractability: not intractable
--- OUTSIDE RECORDS SUMMARY | 2025-06-23 09:50 | XMS_ITS | Clinical Summary ---
Author Organization [employer] Address [address] [place] [address] Care Team Providers Care Leaflet Or Newspaper Deliverer Name Role Phone Unavailable Primary Care Provider [...] - PCV) 2024 COVID-19 Vaccine ( season) 2025 10/09/2023, 08/31/2022, 09/05/2021, Additional history exists Influenza [...] patient's age to complete this topic Insurance [facility] ([facility])
== END 2025-06-23 09:38 | disposition home or self-care (01) ==
LOC: HO.HSM 08:43
PROVIDERS: PCP Student in an Organized Health Care Education/Training Program; Visit Provider Registered Nurse
DX: G43.911 Migraine, unspecified, intractable, with status migrainosus (principal); G43.829 Menstrual migraine, not intractable, without status migrainosus
CPT/HCPCS: 99214

== ENCOUNTER → 2025-06-23 08:42 | Outpatient (BNVA) | payer OTHER, SELFPAY | PROVIDERS: PCP Student in an Organized Health Care Education/Training Program; Visit Provider Registered Nurse | DX: G00-G99 Diseases of the nervous system (principal); Z79.899 Other long term (current) drug therapy | CPT/HCPCS: 99212 ==

== ENCOUNTER 2025-07-23 11:59 | Outpatient (REF) | payer MEDICAID, SELFPAY ==
--- NOTE | ~2025-07-23 | US_ITS ---
EXAMINATION: US KIDNEY BILATERAL HISTORY: N20.0 - Calculus of kidney TECHNIQUE: Real-time grayscale ultrasound imaging of the kidneys was performed and images were reviewed. COMPARISON: Comparison is made with the prior examination dated 01/01/2023. FINDINGS: Right kidney: The right kidney measures 11.6 x 5.1 x 4.7 cm. Renal parenchymal echotexture and thickness are normal. There is a 1.3 x 0.7 x 1.1 cm upper pole cyst with wall calcification. There is no hydronephrosis or renal calculi. Left Kidney: The left kidney measures 12.0 x 6.3 x 4.8 cm. Renal parenchymal echotexture and thickness are normal. There is a 1.7 cm cyst in the interpolar region. There is a 4 mm nonobstructing calculus in the interpolar region. There is mild fullness of the renal pelvis without hydronephrosis. US/US renal BI IMPRESSION: 1. Bilateral renal cysts as described. 2. 4 mm nonobstructing left renal calculus. Electronically signed by: Miguel Mcintyre MD 07/23/2025 12:51 PM EDT
== END 2025-07-23 12:00 | disposition home or self-care (01) ==
LOC: HO.US 11:59
PROVIDERS: PCP Internal Medicine; Visit Provider Nurse Practitioner Family
DX: N20.0 Calculus of kidney (principal); N28.1 Cyst of kidney, acquired; N39.3 Stress incontinence (female) (male)
CPT/HCPCS: 76775

== ENCOUNTER → 2025-07-23 12:01 | Outpatient (BNV) | payer MEDICAID, SELFPAY | PROVIDERS: PCP Internal Medicine; Visit Provider Radiology Diagnostic Radiology | DX: N28.1 Cyst of kidney, acquired (principal); N20.0 Calculus of kidney | CPT/HCPCS: 76775 ==

== ENCOUNTER 2025-08-27 09:12 | Outpatient (AMB) | payer MEDICAID, SELFPAY ==
--- NOTE | 2025-08-27 09:24 | A.OFFVIS_ITS ---
Intake Visit Reasons: /US Intake Note: Patient is present for /US Urology Medication:OXYBUTYNIN Antibiotic Allergy:NONE Blood Thinner:NONE Stuffed Casing Tier Required: Yes Stuffed Casing Tier Services: Stuffed Casing Tier Present Stuffed Casing Tier Name: Selena [id number] Allergies galcanezumab-gnlm (From Emgality Pen) Allergy (Intermediate, Verified 08/27/25 10:12) localized swelling garlic Allergy (Verified 08/27/25 10:12) Shortness of Breath topiramate Adverse Reaction (Severe, Verified 08/27/25 10:12) dizziness, loss of appetite, nausea, vomiting duloxetine (From CYMBALTA) Adverse Reaction (Mild, Verified 08/27/25 10:12) migraines,vomitting tumeric Adverse Reaction (Uncoded 08/27/25 10:12) Shortness of Breath Medication List - Last Reconciled 08/27/25 by BART Cornell- amlodipine 10 mg PO DAILY 90 days zyiaviadwu-dilvezlfabhok-qltz 50-325-40 mg 1 - 2 tabs PO DAILY PRN 30 days diclofenac sodium 1% (Arthritis Pain (diclofenac)) 2 grams topical QID PRN 30 days epinephrine 0.3 mg (0.3 mL) IM DIRECTED fluticasone propionate 50 mcg/actuation (Flonase Allergy Relief) 1 spray intranasal DAILY 30 days gabapentin 300 mg PO BEDTIME 90 days ibuprofen 600 mg PO DAILY PRN 30 days incontinence pad, liner, disp Change 6-8 times daily as needed for urinary incontinence ketoconazole 2% 1 appl topical 2XW loratadine 10 mg PO DAILY PRN 30 days lorazepam 1 mg PO TID mirabegron ER (Myrbetriq) 25 mg PO DAILY 30 days omeprazole 40 mg PO DAILY 90 days ondansetron 4 mg PO DAILY PRN 30 days phenyleph-min oil-petrolatum 0.25-14-74.9 % (Preparation H) 1 appl [place] BID PRN quetiapine 50 mg PO BEDTIME tirzepatide (weight loss) (Zepbound) 2.5 mg (0.5 mL) subcut QWEEK HPI Comments Details: Lucinda is a pleasant 50-year-old Nepali-speaking female patient of Dr. Lincoln. She has a past medical history of allergic rhinitis, general anxiety disorder, GERD, hypertension, migraines, obesity, overactive bladder, renal calculi, borderline sleep apnea, and renal cyst. She presents to the office today for follow-up of her renal cyst, nephrolithiasis, as well as mixed urinary incontinence. In discussion with the patient today she reports no improvement in episodes of mixed urinary incontinence she has been experiencing with oxybutynin that was prescribed during last office visit. She reports this caused her a significant amount of dry mouth therefore she has since discontinued the medication. She does continue to utilize 3-4 Sangita pads per day. Most recent renal imaging results reviewed with the patient today 08/08 bilateral kidneys with renal cysts. 4 mm nonobstructing left renal calculi otherwise no hydronephrosis noted bilaterally. She has previously trialed pelvic floor exercises however has not found improvement in urinary urgency, urinary frequency, and episodes of mixed incontinence. In office urinalysis results reviewed with the patient today. We discussed at length potential causes of mixed urinary incontinence as well as further treatment options and risks and benefits of these treatment options. She otherwise denies nocturia, hematuria, dysuria, foul smelling urine, changes to urinary stream, flank pain, fever, and or chills. She otherwise offers no issues or concerns at this time. [facility] Medical History Left carpal tunnel syndrome Postoperative nausea Sleep apnea HTN (hypertension) Overactive bladder Renal calculi Obesity (BMI 35.0-39.9 without comorbidity) CHAGO (generalized anxiety disorder) Migraines Impaired glucose tolerance GERD (gastroesophageal reflux disease) Nausea Allergic rhinitis Surgical History H/O colonoscopy History of extraction of renal calculus History of tubal ligation History of section Family History Father CHF (congestive heart failure) Mother Hypertension Family/Other Substance abuse Paternal Aunt Cancer Other Mental health disorder Social History Household Members: Spouse and Children Housing: House Are you a primary child care giver to a significant other at home: No Do you presently have visiting nurse or other home services: No Alcohol intake: never Patient Tobacco Use Status: Former Tobacco user e-Cigarette/Vaping Use: Never Used Second Hand Smoke Exposure: No service: No Current occupational status: disabled Cognitive needs: No Hearing needs: No Vision needs: Yes Female Reproductive History Menstrual Age of Menarche: 10 Review of Systems Const Reports as per [facility] Eyes Reports no additional complaints ENT Reports no additional complaints Card Reports as per [facility] Resp Reports as per [facility] GI Reports as per [facility] Reports as per [facility] Musc Details: Patient reports following up with pain management regarding ongoing lower back pain Neuro Reports as per [facility] Psych Reports as per [facility] Endo Reports no additional complaints Physical Exam Const General: cooperative, healthy appearing, comfortable, no acute distress, well developed, alert and awake Nutritional Appearance: overweight Orientation/consciousness: patient oriented x3 Limitations: language barrier HEENT Head: Yes normal to inspection, Yes normocephalic and Yes atraumatic Ears: hearing grossly normal bilaterally Eyes General: appearance normal, both eyes and all related structures Neck Neck: Yes normal visual inspection and Yes trachea midline Chest Chest palpation & inspection: normal inspection of the chest Resp Effort & Inspection: normal respiratory effort and able to speak in complete sentences Cardio Rate: regular rate GI Inspection: Yes normal to inspection General: Yes no CVA tenderness Back/Spine/Pelvis Back: no CVA tenderness Skin General skin exam: no rashes or lesions noted Neuro General: patient oriented x3 Extrem General: Yes normal to inspection Psych Appearance: grossly normal and well kempt Mental Status: mental status grossly normal Speech and movement: Normal speech and movement present and Clear speech present Affect: normal affect Attitude: cooperative Thought process: Normal thought process present Thought content: Normal thought content present Insight: Fair insight present (Psych) Judgement: Fair judgement present (Psych) Results AMB Urinalysis, Automated UA Leukoctes 0 Natalya/uL Last Edit by DHEERAJ Le on 08/27/25 09:39 UA Nitrite Negative Last Edit by DHEERAJ Le on 08/27/25 09:39 UA Urobilinogen 0.2 mg/dL Last Edit by DHEERAJ Le on 08/27/25 09:3 9 UA Protein 0 mg/dL Last Edit by DHEERAJ Le on 08/27/25 09:39 UA pH 6.0 Last Edit by DHEERAJ Le on 08/27/25 09:39 UA Blood 80 Aguila/uL Last Edit by DHEERAJ Le on 08/27/25 09:39 UA Specific Bigelow 1.020 Last Edit by DHEERAJ Le on 08/27/25 09: 39 UA Ketone Negative Last Edit by DHEERAJ Le on 08/27/25 09:39 UA Bilirubin 0 mg/dL Last Edit by DHEERAJ Le on 08/27/25 09:39 UA Glucose 0 mg/dL Last Edit by DHEERAJ Le on 08/27/25 09:39 Results Reviewed Results Reviewed: Laboratory Last Values Urine pH (Auto) 6.0 08/27/25 09:38 Specific Bigelow (Auto) 1.020 08/27/25 09:38 Urine Protein (Auto) 0 mg/dL 08/27/25 09:38 Glucose (UA)(Auto) 0 mg/dL 08/27/25 09:38 Urine Ketones (Auto) Negative 08/27/25 09:38 Urine Blood (Auto) 80 Aguila/uL 08/27/25 09:38 Urine Nitrite (Auto) Negative 08/27/25 09:38 Urine Bilirubin (Auto) 0 mg/dL 08/27/25 09:38 Urine Urobilinogen (Auto) 0.2 mg/dL 08/27/25 09:38 Leukocyte Esterase (Auto) 0 Natalya/uL 08/27/25 09:38 Date of Service: 07/23/25 Procedure(s): US renal BI FINDINGS: Right kidney: The right kidney measures 11.6 x 5.1 x 4.7 cm. Renal parenchymal echotexture and thickness are normal. There is a 1.3 x 0.7 x 1.1 cm upper pole cyst with wall calcification. There is no hydronephrosis or renal calculi. Left Kidney: The left kidney measures 12.0 x 6.3 x 4.8 cm. Renal parenchymal echotexture and thickness are normal. There is a 1.7 cm cyst in the interpolar region. There is a 4 mm nonobstructing calculus in the interpolar region. There is mild fullness of the renal pelvis without hydronephrosis. IMPRESSION: 1. Bilateral renal cysts as described. 2. 4 mm nonobstructing left renal calculus. Assessment & Plan Assessment & Plan (1) Renal calculi: Code(s): N20.0 - Calculus of kidney Category: Medical (2) Stress incontinence: Code(s): N39.3 - Stress incontinence (female) (male) Category: Medical (3) Overactive bladder: Code(s): N32.81 - Overactive bladder Category: Medical Plan In office urinalysis results reviewed with the patient today; as noted above; will send for urine cytology. Most recent renal imaging results reviewed with the patient today; as noted above. Stop oxybutynin. Start Myrbetriq as discussed and prescribed. We did discussed potential causes of nephrolithiasis, renal cysts, and incontinence patient is experiencing; we did discussed further treatment options of these urological conditions and risks and benefits of these treatment options. All questions were answered. We discussed the importance of adequate hydration relation to nephrolithiasis as well as overall health and well-being. We also discussed potential near future in office cystoscopy and or urodynamics for further assessment evaluation. Follow-up in 1-3 months with [facility]; or sooner with any issues, concerns, and or questions. Orders: Orders Urine Cytology Today R31.29 - Other microscopic hematuria AMB Urinalysis Automated Today Z13.9 - Encounter for screening, unspecified Medications: New mirabegron ER (Myrbetriq) 25 mg PO DAILY 30 tabs 3RF 30 days N30.10 - Interstitial cystitis (chronic) without hematuria, N32.81 - Overactive bladder, R35.1 - Nocturia, R39.15 - Urgency of urination Discontinued oxybutynin chloride ER Discontinued Reason: Patient no longer taking 10 mg PO DAILY 30 days 30 tabs 3RF N32.81 - Overactive bladder Patient Instructions: The patient had an opportunity to ask questions regarding the treatment plan. All questions were answered. Physical exam, labs, and imaging were discussed and reviewed in detail. As well as risks, benefits, and discussion of treatment choices. No major barriers to understanding were identified. The patient expressed understanding and agreement with the above treatment plan. The patient was made aware they should contact our office by phone for worsening of their current condition, the appearance of new symptoms, or with any questions or concerns. Compliance is encouraged with any medications and follow up testing that is ordered. It is a privilege to be allowed the opportunity to participate in? your urological care.? Again, if you have any questions or concerns If you have any questions or concerns please do not hesitate to contact me. The office is [phone]. This note is constructed using voice recognition software. While every effort has been made to ensure accuracy head of maintenance errors may have been included. Yours sincerely, EVELYNE Cornell Coding Level of Care Code Est Pt Level 4 (46239) Complex EM visit Add On G2211 Diagnoses Renal calculi N20.0 Stress incontinence N39.3 Overactive bladder N32.81
--- OUTSIDE RECORDS SUMMARY | 2025-08-27 10:23 | XMS_ITS | Encounter Summary ---
Author Organization [employer] Address [address] [place] [address] [address] [place] [address] Care Team Providers Care Senior Accounting Associate Name Role Phone Unavailable Primary Care Provider Unavailabl e Reason for Visit * Reason Comments Med Refill Encounter Details Date Type Department Care Team (Late st Contact Info) Description 08/17/2025 Refill [facility] MEDICINE [address] [place] [phone] Carey Lowry MD [address] [place] [phone] Allergic rhinitis due to pollen Social History Tobacco Use Types Packs/Day Years Used Date Smoking Tobacco: Never Assessed Comments Unknown Sex and Gender Information Value Date Recorded Sex Assigned at Female 08/14/2022 10:28 AM EDT Legal Sex Female 10:28 AM EDT Gender Identity Female 08/14/2022 10:28 AM EDT Sexual Orientation Straight 07/14/2025 1: 19 PM EDT documented as of this encounter Plan of Treatment Upcoming Encounters Date Type Department Care Team (Late st Contact Info) Description 09/17/2025 9:30 AM EST Office Visit [facility] MEDICINE [address] [place] [address] [phone] Carey Lowry MD [address] [place] [address] [phone] documented as of this encounter Visit Diagnoses Diagnosis Allergic rhinitis due to pollen documented in this encounter
--- OUTSIDE RECORDS SUMMARY | 2025-08-27 10:23 | XMS_ITS | Clinical Summary ---
Author Organization [employer] Address [address] [place] [address] [address] [place] [address] Care Team Providers Care Inflated Pad Buffer Name Role Phone Unavailable Primary Care Provider Unavailabl e Encounters Date Type Department Care Team Description 08/17/2025 Refill [facility] MEDICINE [address] [place], [place] [phone] Carey Lowry MD Allergic rhinitis due to pollen 07/14/2025 Telephone [facility] MEDICINE [address] [place] [address] Nader Lenz MD 07/09/2025 Telephone [facility] MEDICINE [address] [place], [place] [phone] Nader Lenz MD from Last 3 Months Immunizations Immunization Administration Dates Next Due HepB-CpG [...] Orientation Straight 07/14/2025 1: 19 PM EDT Plan of Treatment Upcoming Encounters Date Type Department Care Team (Late st Contact Info) Description 09/17/2025 9:30 AM EST Office Visit [facility] MEDICINE [address] [place] [address] Carey Lowry MD [address] [place] [address] Health Maintenance Due Date Last Done Comments [...] 2049 Hepatitis B Vaccines Completed 07/15/2024, 06/09/20 24 Zoster Vaccines Completed 09/16/2024, 06/09/2024 HIB Vaccines [...] topic Meningococcal Vaccine Aged Out No vince walyl eligible based on patient's age to complete this topic RSV under 20 months Aged Out No longe r eligible based on patient's age to complete this topic Rotavirus Vaccines Aged Out No longer eligible based on patient's age to complete this topic Insurance [facility] ([facility] [place] [id number]
== END 2025-08-27 10:19 | disposition home or self-care (01) ==
PROVIDERS: PCP Internal Medicine; Visit Provider Nurse Practitioner Family
DX: N20.0 Calculus of kidney (principal); N39.3 Stress incontinence (female) (male); N32.81 Overactive bladder; Z13.9 Encounter for screening, unspecified
CPT/HCPCS: 99214

== ENCOUNTER 2025-08-27 09:12 | Outpatient (REF) | payer MEDICAID, SELFPAY | END 2025-08-27 09:13 | disposition home or self-care (01) | LOC: HO.LAB 09:12 | PROVIDERS: PCP Internal Medicine; Visit Provider Nurse Practitioner Family | DX: N20.0 Calculus of kidney (principal); N39.3 Stress incontinence (female) (male); N32.81 Overactive bladder; R31.29 Other microscopic hematuria | CPT/HCPCS: 81003; 88112; 99212 ==

== ENCOUNTER 2025-09-16 15:17 | Outpatient (REF) | payer MEDICAID, SELFPAY ==
--- NOTE | ~2025-09-16 | US_ITS ---
EXAMINATION: US PELVIS LIMITED (BLADDER) CLINICAL INFORMATION: Calculus of kidney. Evaluate bladder. COMPARISON: 07/23/2025 renal ultrasound. TECHNIQUE: Real-time imaging of the bladder. FINDINGS: BLADDER: Well distended and normal. Bilateral ureteral jets are demonstrated. Prevoid bladder volume is 432 mL. Postvoid bladder volume is 4 mL. US/US bladder IMPRESSION: Normal urinary bladder. Electronically signed by: Raghav Saldaña MD 09/16/2025 04:16 PM TA
--- OUTSIDE RECORDS SUMMARY | 2025-09-16 18:21 | XMS_ITS | Encounter Summary ---
Author Organization [employer] Address [address] [place] [address] [address] [place] [address] Care Team Providers Care Self Pay Collector Name Role Phone Unavailable Primary Care Provider Unavailabl e Reason for Visit * Reason Comments Med Refill Encounter Details Date Type Department Care Team (Late st Contact Info) Description 08/17/2025 Refill [facility] MEDICINE [address] [place] [phone] Carey Lowry MD [address] [place] [phone] Allergic rhinitis due to pollen Social History [...] Description 09/17/2025 9:30 AM EST Office Visit [facility] MEDICINE [address] [place] [address] [phone] Carey Lowry MD [address] [place] [address] [phone] documented as of this encounter Visit Diagnoses Diagnosis Allergic rhinitis due to pollen documented in this encounter
--- OUTSIDE RECORDS SUMMARY | 2025-09-16 18:21 | XMS_ITS | Clinical Summary ---
Author Organization [employer] Address [address] [place] [address] [address] [place] [address] Care Team Providers Care Mannequin Wig Maker Name Role Phone Unavailable Primary Care Provider Unavailabl e Encounters Date Type Department Care Team Description 09/16/2025 Telephone [facility] [address] [place] [phone] Carey Lowry MD Chart Prep 09/02/2025 Telephone [facility] [address] [place] [phone] Tiffany Kraus RN 09/02/2025 Patient Outreach [address] [address] Carey Lowry MD Pre-visit Planning (SDOH screening negative and tobacco screening negative) 08/17/2025 Refill [facility] [address] [place] [phone] Carey Lowry MD Allergic rhinitis due to pollen 07/14/2025 Telephone [facility] [address] [place] [phone] Nader Lenz MD 07/09/2025 Telephone [facility] [address] [place] [address] [phone] Nader Lenz MD from Last 3 Months Immunizations Immunization Administration Dates Next Due HepB-CpG 07/15/2024,06/09/2024 Influenza injectable quadriv alent IIV4 with preservative 08/08/2016 Influenza injectable quadriv alent preservative free 06/27/2023,08/22/2022,09/05/2021 Pfizer Covid-19 Vaccine 12+ 10/09/2023 Tdap 08/08/2016 Zoster, Recombinant 09/16/2024,06/09/2024 Social History Tobacco Use Types Packs/Day Years Used Date Smoking Tobacco: Never Assessed Housing Stability Answer Date Recorded What is your housing situation today? I have carley zamora 09/02/[address] you li ve. Do you have problems with any of the following? None of the above 09/02/2025 Food Insecurity Answer Date Recorded Within the past 12 months, y ou worried that your food would run out before you got money to buy more: Never True 09/02/2025 Within the past 12 months,th e food you bought just didn't last and you didn't have enough money to get more: Never True Transportation Answer Date Recorded In the past 12 months, has l ack of transportation kept you from medical appts, meetings, work or from getting things needed for daily living? No 09/02/2025 Utilities Answer Date Recorded In the past 12 months, has t he electric, gas, oil or water company threatened to shut off services in your home? No 09/02/2025 Internet Access Answer Date Recorded Internet Access Q1 Yes 09/02/2025 Internet Access Q2 Not on file 09/02/2025 Comments Unknown Sex and Gender Information Value Date Recorded Sex Assigned at Female 08/14/2022 10:28 AM EDT Legal Sex Female 10:28 AM EDT Gender Identity Female 08/14/2022 10:28 AM EDT Sexual Orientation Straight 07/14/2025 1: 19 PM EDT Plan of Treatment Upcoming Encounters Date Type Department Care Team (Late st Contact Info) Description 09/17/2025 9:30 AM EST Office Visit [facility] [address] [place] [address] Carey Lowry MD [address] [place] [address] Health Maintenance Due Date Last Done Comments CT Colonography 1974 Colonoscopy 1974 Colorectal Cancer Screening 1974 Depression Screening 1974 FIT DNA/Cologuard 1974 FIT 1974 FOBT 1974 HIV Screening 1974 Sigmoidoscopy 1974 Disability Screening 1974 Alcohol/Substance Use Screening 1986 Tobacco Screening 1986 Family Planning (PISQ) 1989 Hepatitis C Screening 1992 Pap Smear 1995 Cervical Cancer Screening 2004 HPV/Cotest 2004 Mammogram 2014 Pneumococcal Vaccine: 50+ Years (1 of 1 - PCV) 2024 COVID-19 Vaccine ( - season) 2025 10/09/2023, 08/31/2022, 09/05/2021, Additional history exists Influenza Vaccine (#1) 2025 , 08/22/2022, 09/05/2021, Additional history exists DTaP/Tdap/Td Vaccines (2 - Td or Tdap) 08/08/2026 08/08/2016 SDOH Screening 09/02/2026 09/02/2025 RSV Patients and Patients Aged 60 years [...] patient's age to complete this topic [place] [address] [place] [address] C3
--- OUTSIDE RECORDS SUMMARY | 2025-09-16 18:21 | XMS_ITS | Encounter Summary ---
Author Organization [employer] Address [address] [place] [address] Care Team Providers Care Director Of Strategic Marketing Name Role Phone Unavailable Primary Care Provider Unavailabl e Reason for Visit * Reason Onset Date Comments Chart Prep 09/16/2025 Encounter Details Date Type Department Care Team ([facility] st Contact Info) Description 09/16/2025 Telephone [facility] [address] [place] [phone] Carey Lowry MD [address] [place] [address] Chart Prep Social History Tobacco Use Types Packs/Day Years [...] PM EDT documented as of this encounter Miscellaneous Notes * Telephone Encounter - Lyssa Suh MA - 09/16/2025 3:41 PM EST Chart Prep Labs: not applicable Images: not applicable Referrals: not applicable Vaccines due: Covid, Flu, and PCV20 Screenings: colonoscopy, mammogram, pap smear, PISQ, and HIV Screening, Hep C Screening Overdue care gaps: SBIRT, PHQ-9, CHAGO-7, Disability screen, and Tobacco documented in this encounter Plan of Treatment Upcoming Encounters Date Type Department Care Team (Late st Contact Info) Description 09/17/2025 9:30 AM EST Office Visit [facility] [address] [place] [address] Carey Lowry MD [address] [place] [phone] documented as of this encounter Visit Diagnoses Not on filedocumented in this encounter
== END 2025-09-16 15:18 | disposition home or self-care (01) ==
LOC: HO.US 15:17
PROVIDERS: PCP Internal Medicine; Visit Provider Nurse Practitioner Family
DX: N20.0 Calculus of kidney (principal); N28.1 Cyst of kidney, acquired; N39.3 Stress incontinence (female) (male)
CPT/HCPCS: 76857

== ENCOUNTER → 2025-09-16 15:40 | Outpatient (BNV) | payer MEDICAID, SELFPAY | PROVIDERS: PCP Internal Medicine; Visit Provider Radiology Diagnostic Radiology | DX: N20.0 Calculus of kidney (principal); N32.89 Other specified disorders of bladder | CPT/HCPCS: 76857 ==

== ENCOUNTER 2025-09-21 08:26 | Outpatient (REF) | payer MEDICAID, SELFPAY ==
[2025-09-21 11:24] LABS: MANUAL DIFF FLAG NO
[2025-09-21 11:50] LABS: Hematocrit 34.5 % (37.0-47.0); Hemoglobin 11.3 g/dl (12.0-16.0); Imm Gran Abs Auto 0.03 X10*3/uL (0.00-0.03); Imm Gran Pct Auto 0.5 % (0.0-0.4); Lymphocytes Absolute Auto 1.9 X10*3/uL (1.2-4.9); Mean Corpuscular HGB Conc 32.8 g/dl (31.0-35.0); Mean Corpuscular Hemoglobin 28.5 pg (27.0-33.0); Mean Corpuscular Volume 86.9 fL (80.0-98.0); NRBC Abs Auto 0.000 X10*3/uL (0.0-0.012); NRBC Pct Auto 0.0 /100WBC (0.0-0.2); Platelet Count 276 X10*3/uL (160-400); Red Blood Count 3.97 X10*6/uL (4.20-5.50); White Blood Count 5.9 X10*3/uL (4.8-10.8)
[2025-09-21 11:53] LABS: Hematocrit 35.5 % (37.0-47.0); Hemoglobin 11.5 g/dl (12.0-16.0); Imm Gran Abs Auto 0.01 X10*3/uL (0.00-0.03); Imm Gran Pct Auto 0.2 % (0.0-0.4); Lymphocytes Absolute Auto 1.9 X10*3/uL (1.2-4.9); Mean Corpuscular HGB Conc 32.4 g/dl (31.0-35.0); Mean Corpuscular Hemoglobin 28.3 pg (27.0-33.0); Mean Corpuscular Volume 87.4 fL (80.0-98.0); NRBC Abs Auto 0.000 X10*3/uL (0.0-0.012); NRBC Pct Auto 0.0 /100WBC (0.0-0.2); Platelet Count 280 X10*3/uL (160-400); Red Blood Count 4.06 X10*6/uL (4.20-5.50); White Blood Count 5.8 X10*3/uL (4.8-10.8)
[2025-09-21 12:22] LABS: Alanine Aminotransferase 34 U/L (0-31); Albumin Level 4.5 g/dL (3.5-5.0); Alkaline Phosphatase 108 U/L (39-117); Anion Gap 11 (12-20); Aspartate Amino Transferase 27 U/L (5-31); Blood Urea Nitrogen 15 mg/dL (9-16); Calcium 8.9 mg/dL (8.4-10.2); Carbon Dioxide 30 mmol/L (22-29); Chloride 104 mmol/L (96-108); Cholesterol 179 mg/dL (<200); Estimated Glomerular Filt Rate > 60; HDL Cholesterol 33 mg/dL (>40); Iron 42 mcg/dL (30-160); Percent Iron Saturation 17 % (15-50); Potassium 3.2 mmol/L (3.3-5.1); Sodium 142 mmol/L (135-145); Total Iron Binding Capacity 250 mcg/dL (228-428); Total Protein 7.3 g/dL (6.5-8.0); Triglycerides 149 mg/dL (<150); Unsaturated Iron Binding 208 ug/dL
[2025-09-21 12:30] LABS: HIV Num 1 0.06 S/CO (0.00-0.99); ~HepC Num1 0.16 S/CO (0.00-0.79); ~Hepatitis C Antibody Nonreactive (Nonreactive)
[2025-09-21 14:03] LABS: Folate 13.2 ng/mL (> or = 4.0); Vitamin B12 298 pg/mL (200-900)
== END 2025-09-21 08:27 | disposition home or self-care (01) ==
LOC: HO.HHCL 08:26
PROVIDERS: Internal Medicine; PCP Internal Medicine; Visit Provider Internal Medicine
DX: Z11.4 Encounter for screening for human immunodeficiency virus [HIV] (principal); I10 Essential (primary) hypertension; G43.009 Migraine without aura, not intractable, without status migrainosus; E66.812 Obesity, class 2; Z68.39 Body mass index [BMI] 39.0-39.9, adult; R73.03 Prediabetes; E06.3 Autoimmune thyroiditis; D64.9 Anemia, unspecified; E53.8 Deficiency of other specified B group vitamins; M54.9 Dorsalgia, unspecified; E55.9 Vitamin D deficiency, unspecified; E87.6 Hypokalemia
CPT/HCPCS: 36415; 80053; 80061; 82306; 82607; 82746; 83036; 83540; 84443; 85025; 86803; 87389

== ENCOUNTER → 2025-10-12 15:45 | Outpatient (BNV) | payer MEDICAID, SELFPAY | PROVIDERS: PCP Internal Medicine; Visit Provider Internal Medicine | DX: Z12.31 Encounter for screening mammogram for malignant neoplasm of breast (principal) | CPT/HCPCS: 77063; 77067 ==

== ENCOUNTER 2025-10-12 15:54 | Outpatient (REF) | payer MEDICAID, SELFPAY ==
--- NOTE | ~2025-10-12 | MM_ITS ---
EXAMINATION: MM SCREENING DIGITAL BREAST TOMOSYNTHESIS, BILATERAL CLINICAL INFORMATION: Screening. Asymptomatic. COMPARISON: Mammography: Comparison is made with available priors TECHNIQUE: Digital breast mammography with tomosynthesis is performed in both the craniocaudal and mediolateral oblique views along with computer-aided detection (CAD). FINDINGS: The breasts are heterogeneously dense, which may obscure small masses. There are no significant masses, abnormal calcifications, or other abnormalities. MM/MM tomosynthesis screening BI IMPRESSION: No mammographic evidence of malignancy. ASSESSMENT: BI-RADS Category 1: Negative RECOMMENDATION: Routine annual mammography screening. 1 year F/U This examination should not preclude the clinical evaluation of a suspicious palpable abnormality. This patient's information was entered into a reminder system with a target due date for their next mammogram. Electronically signed by: Suzanne Suarez DO 10/13/2025 05:38 PM TA
--- OUTSIDE RECORDS SUMMARY | 2025-10-12 17:46 | XMS_ITS | Encounter Summary ---
Author Organization [employer] Address [address] [place] [address] Care Team Providers Care Aeronautical Engineer Name Role Phone Carey Lowry MD Primary Care Provide r Reason for Visit * Reason Comments Med Refill Encounter Details Date Type Department Care Team ([facility] st Contact Info) Description 09/29/2025 Refill [facility] [address] [place], [place] [phone] Carey Lowry MD [address] [place], [place] [phone] Primary hypertension Social History Tobacco Use Types Packs/Day Years Used Date Smoking Tobacco: Never Smokeless Tobacco: Never Depression Answer Date Recorded Patient Health Questionnaire-9 Score 15 09/17/2025 Patient Health Questionnaire-9 Score 15 09/17/2025 Last PHQ-9: Questionnaire Data Not on file 1 11/18/2024 Housing Stability Answer Date Recorded What is [...] off services in your home? No 09/02/2025 Depression Answer Date Recorded Patient Health Questionnaire-2 Score 2 09/17/2025 Internet Access Answer Date Recorded Internet Access [...] Care Team (Late st Contact Info) Description 10/13/2025 9:30 AM EST Telemedicine [facility] [address] [place] [phone] Carey Lowry MD [address] [place] [phone] 10/20/2025 1:00 PM EST Medication Management [facility] [address] [place] [phone] Vidal Mcgowan, PharmD [address] [place] [phone] documented as of this encounter Visit Diagnoses Diagnosis Primary hypertension Unspecified essential hypertension documented in this encounter Additional Health Concerns Assessment Noted Time PHQ-9 Depression Total Score: 15 025 9:34 AM EST documented as of this encounter Care Teams Aeronautical Engineer Relationship Specialty Start Date End Date Carey Lowry MD [address] [place] [phone] PCP - General Internal Medicine 09/17/25 documented as of this encounter
--- OUTSIDE RECORDS SUMMARY | 2025-10-12 17:46 | XMS_ITS | Encounter Summary ---
Author Organization [employer] Address [address] [place] [address] [address] [place] [address] Care Team Providers Care Vice President Biostatistics Name Role Phone Carey Lowry MD Primary Care Provide r Reason for Visit * Reason Comments Med Refill Encounter Details Date Type Department Care Team (Late st Contact Info) Description 08/17/2025 Refill [facility] [address] [place] [phone] Carey Lowry MD [address] [place] [address] [phone] Allergic rhinitis due to pollen Social History [...] Info) Description 10/13/2025 9:30 AM EST Telemedicine [facility] [address] [place] [address] [phone] Carey Lowry MD [address] [place] [address] [phone] 10/20/2025 1:00 PM EST Medication Management [facility] [address] [place] [address] [phone] Vidal Mcgowan PharmD [address] [place] [address] documented as of this encounter Visit Diagnoses Diagnosis Allergic rhinitis due to pollen documented in this encounter Care Teams Vice President Biostatistics Relationship Specialty Start Date End Date Carey Lowry MD [address] [place] [address] PCP - General Internal Medicine 09/17/25 documented as of this encounter
--- OUTSIDE RECORDS SUMMARY | 2025-10-12 17:46 | XMS_ITS | Clinical Summary ---
Author Organization [employer] Address [address] [place] [address] 7[address] [place] [address] Care Team Providers Care Press Technician Name Role Phone Carey Lowry MD Primary Care Provide r Allergies Active Allergy Reactions Criticality Noted Date Comments Duloxetine Hcl Mental status change 09/17/2025 Galcanezumab-Gnlm Rash Low 09/17/2025 Medications olmesartan (Benicar) 5 MG tabletIndications :Primary hypertension Take 1 tablet (5 mg) by mouth Once per day. 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 01/2025 Migraine without aura and wi thout status migrainosus, not intractable 09/17/2025 Vertigo 09/17/2025 Primary hypertension 09/17/2025 Prediabetes 09/17/2025 Bipolar affective disorder, currently active (CM S/HCC) 09/17/2025 KEN (obstructive sleep apnea) 09/17/2025 SOB (shortness of breath) 09/17/2025 Dyspnea on exertion 09/17/2025 Encounters Date Type Department Care Team Description 10/06/2025 Travel 09/29/2025 Refill [facility] [address] [place] [address] Carey Lowry MD Primary hypertension 09/21/2025 Telephone [facility] [address] [place] [address] Carey Lowry MD 09/21/2025 Results Follow-Up [address] [address] Carey Lowry MD CBC auto differential, Comprehensive Metabolic Panel, Hemoglobin A1c, Additional followed-up results: 3 09/17/2025 9:30 AM EST Office Visit [address] [address] Carey Lowry MD Dietary counseling; Exercise counseling; Class 2 severe obesity due to excess calories with serious comorbidity and body mass index (BMI) of 39.0 to 39.9 in adult; 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 09/16/[address] [address] Carey Lowry MD Chart Prep 09/02/[address] [address] Tiffany Kraus RN 09/02/2025 Patient Outreach [address] [address] Carey Lowry MD Pre-visit Planning (SDOH screening negative and tobacco screening negative) 08/17/[address] [address] Carey Lowry MD Allergic rhinitis due to pollen 07/14/[address] [address] Nader Lenz MD from Last 3 Months Immunizations Immunization Administration Dates Next Due HepB-CpG 07/15/2024,06/09/2024 Influenza injectable quadriv alent IIV4 with preservative 08/08/2016 Influenza injectable quadriv alent preservative free 06/27/2023,08/22/2022,09/05/2021,2019 Influenza, seasonal, injecta ble, preservative free 09/17/2025 Pfizer Covid-19 Vaccine 12+ 10/09/2023 Tdap 08/08/2016 Zoster, Recombinant 09/16/2024,06/09/2024 Social History Tobacco Use Types Packs/Day Years Used Date Smoking Tobacco: Never Smokeless Tobacco: Never Tobacco Cessation:Counseling Given: Not Answered Depression Answer Date Recorded Patient Health Questionnaire-9 [...] Orientation Straight 07/14/2025 1: 19 PM EDT Last Filed Vital Signs Vital Sign Reading Time Taken Comments Blood Pressure 150/92 09/17/2025 9:32 AM EST Pulse 78 09/17/2025 9:32 AM EST Temperature 35.6 C (96.1 F) 09/17/2025 9:32 AM EST Respiratory Rate 18 09/17/2025 9:32 AM EST Oxygen Saturation 97% 09/17/2025 9:32 AM EST Inhaled Oxygen Concentration - - Weight 104 kg (228 lb 6.4 oz) 09/17/2025 9:32 AM EST Height 162.6 cm (5' 4 ) 09/17/2025 9:32 AM EST Body Mass Index 39.2 09/17/2025 9:32 AM EST Plan of Treatment Upcoming Encounters Date Type Department Care Team (Late st Contact Info) Description 10/13/2025 9:30 AM EST Telemedicine [facility] [address] [place] [phone] Carey Lowry MD [address] [place] [address] 10/20/2025 1:00 PM EST Medication Management [facility] [address] [place] [phone] Vidal Mcgowan, PharmD [address] [place] [address] Health Maintenance Due Date Last Done Comments CT Colonography 1975 Colonoscopy 1975 Colorectal Cancer Screening 1975 FIT DNA/Cologuard 1974 FIT 1975 FOBT 1975 Sigmoidoscopy 1975 Family Planning (PISQ) 1989 Pap Smear 1995 Cervical Cancer Screening 2004 HPV/Cotest 2004 Mammogram 2014 Pneumococcal Vaccine: 50+ Years (1 of 1 - PCV) 2024 COVID-19 Vaccine ( - season) 2025 10/09/2023, 08/31/2022, 09/05/2021, Additional history exists Depression Monitoring 03/18/2026 09/17/2025, 025 DTaP/Tdap/Td Vaccines (2 - Td or Tdap) 08/08/2026 08/08/2016 Alcohol/Substance Use Screening 09/17/2026 09/17/2025 SDOH Screening 09/17/2026 09/17/2025 Tobacco Screening 09/17/2026 09/17/2025 Diabetes: Hemoglobin A1C 09/21/2026 09/21/2025 Disability Screening 10/06/2026 10/06/2025 Lipid Panel 09/21/2030 09/21/2025 RSV Patients and Patients Aged 60 years or older (1 - 1-dose 75+ series) 2049 Hepatitis B Vaccines Completed 07/15/2024, 06/09/20 Zoster Vaccines Completed 09/16/2024, 06/09/2024 Influenza Vaccine Completed 09/17/2025, , 08/22/2022, Additional history exists HIV Screening Completed 09/21/2025 Hepatitis C Screening Completed 09/21/2025 HIB Vaccines Aged Out No longer eligi [...] on patient's age to complete this topic Procedures Procedure Name Priority Date/Time Associated Diagnosis Comments VITAMIN B12/FOLATE, SERUM PANEL Routine 09/21/2025 8:33 AM EST VITAMIN D,25-OH,TOTAL,IA Routine 09/21/2025 8:33 AM EST IRON AND TOTAL IRON BINDING CAPACITY Routine 09/21/2025 8:33 AM EST COMPREHENSIVE METABOLIC PANEL, FASTING Routine 09/21/2025 8:33 AM EST CBC WITH AUTO DIFFERENTIAL Routine 09/21/2025 8:33 AM EST TSH W/REFLEX TO FT4 Routine 09/21/2025 8 :33 AM EST 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 Migraine without aura and without status migrainosus, not intractable VITAMIN D,25-OH,TOTAL,IA Routine 09/21/2025 8:33 AM EST 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 LIPID PANEL, STANDARD Routine 09/21/2025 8:33 AM EST 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 Primary hypertension HEPATITIS C AB W/REFL TO HCV RNA, QN, PCR Routine 09/21/2025 8:33 AM EST Class 2 severe obesity due to excess calories with serious comorbidity and body mass index (BMI) of 39.0 to 39.9 in adult HIV 1/2 ANTIGEN/ANTIBODY, FOURTH GENERATION W/RFL Routine 09/21/2025 8:33 AM EST Class 2 severe obesity due to excess calories with serious comorbidity and body mass index (BMI) of 39.0 to 39.9 in adult HEMOGLOBIN A1C Routine 09/21/2025 8:33 AM EST Class 2 severe obesity due to excess calories with serious comorbidity and body mass index (BMI) of 39.0 to 39.9 in adult Prediabetes COMPREHENSIVE METABOLIC PANEL Routine 09/21/2025 8:33 AM EST Class 2 severe obesity due to excess calories with serious comorbidity and body mass index (BMI) of 39.0 to 39.9 in adult Primary hypertension CBC WITH AUTO DIFFERENTIAL Routine 09/21/2025 8:33 AM EST Class 2 severe obesity due to excess calories with serious comorbidity and body mass index (BMI) of 39.0 to 39.9 in adult US BLADDER Routine 09/16/2025 3:40 PM EST from Last 3 Months Results * (ABNORMAL) Comprehensive Metabolic Panel, Fasting (09/21/2025 8:33 AM EST) Glucose Fasting 117(H) 60 - 99 mg/dL [facility] Comment:A fasting glucose fr om 100-125 mg/dl is considered impaired(pre-diabetes). 09/21/2025 8:33 AM EST 09/21/2025 11:17 AM EST us Generic External Data Provider LAB BLOOD ORDERAB LES Final Result [facility] [address] [place] [phone] * (ABNORMAL) Vitamin D, 25-Hydroxy, Total, Immunoassay (09/21/2025 8:33 AM EST) Only the most recent of2 resultswithin the time period is included. Vitamin D 25-OH Total 20.1(L) >30 ng/mL [facility] Comment: Health Based Reference Values*< 20 ng/mL Acwdtgoif26-39 ng/mL Insufficient> 30 ng/mL Sufficient*Sumanth MURDOCK. N Engl J Med. 2007;357:266-280There is no well-established upper level of normal vitamin Dlevels. Some laboratories use 50 ng/mL as an upper limit ofnormal. However, toxicity is patient-dependent and may occurat any level. Careful correlation with the patient'spresentation is necessary and, if there is concern forvitamin D toxicity, treatment should be consideredirrespective of the serum level.Care must be taken in interpreting Vitamin D results fromdifferent laboratories and methodologies. Published datademonstrated that results from patients undergoinghemodialysis may show a negative bias when tested withvarious automated 25-OH vitamin D assays when compared toLC-MS/MS.When testing samples from patients whose predominant form ofVitamin D is Vitamin D2, such as patients receiving VitaminD2 supplementation, results that are subtherapeutic shouldbe confirmed with another method such as LC-MS/MS. 09/21/2025 8:33 AM EST 09/21/2025 11:17 AM EST us Generic External Data Provider LAB BLOOD ORDERAB LES Final Result Performing Organization Address [facility] Co de Phone Number [facility] [address] [place] [phone] * Vitamin B12 (Cobalamin) and Folate Panel, Serum (09/21/2025 8:33 AM EST) Vitamin B12 298 200 - 900 pg/mL [facility] Comment:NORMAL 200-900 PG/ML INDETERMINATE 160-199 PG/ML DEFICIENT < 160 PG/ML Folate 13.2 > or = 4.0 ng/mL [facility] Comment:Reference Values:> o r = 4.0 ng/mL< 4.0 ng/mL suggests folate deficiency Methotrexate, aminopterin and folinic acid(leucovorin) are chemotherapeutic agents whose molecularstructures are similar to folate; therefore, the Architectfolate assay cannot be used for patients using these drugs. 09/21/2025 8:33 AM EST 09/21/2025 11:17 AM EST us Generic External Data Provider LAB BLOOD ORDERAB LES Final Result Performing Organization Address [facility] de Phone Number [facility] [address] [place] [phone] * TSH with Reflex to Free T4 (09/21/2025 8:33 AM EST) TSH reflex Free T4 1.85 0.32 - 4.0 uIU/mL [facility] Blood Venous blood specimen / Unknown 09/21/2025 8:33 AM EST 09/21/2025 11:17 AM EST us Carey Porter MD LAB BLOOD ORDERABLES Final Result Performing Organization Address City/[facility] Co de Phone Number [facility] [address] [place] [phone] * (ABNORMAL) CBC auto differential (09/21/2025 8:33 AM EST) Only the most recent of2 resultswithin the time period is included. White Blood Count 5.9 4.8 - 10.8 X10*3/uL [facility] Red Blood Count 3.97(L) 4.20 - 5.50 X10*6/uL [facility] Hemoglobin 11.3(L) 12.0 - 16.0 g/dl [facility] Hematocrit 34.5(L) 37.0 - 47.0 % [facility] Mean Corpuscular Volume 86.9 80.0 - 98.0 fL [facility] Mean Corpuscular Hemoglobin 28.5 27.0 - 33.0 pg [facility] Mean Corpuscular HGB Conc 32.8 31.0 - 35.0 g/dl [facility] Red Cell Distribution Width 13.7 11.0 - 16.0 % [facility] Platelet Count 276 160 - 400 X10*3/uL [facility] Mean Platelet Volume 9.2(L) 9.4 - 12.3 fL [facility] Neutrophils Percent Auto 52.9 45 - 73 % [facility] Imm Gran Pct Auto 0.5(H) 0.0 - 0.4 % [facility] Lymphocytes Percent Auto 31.7 20 - 40 % [facility] Monocytes Percent Auto 8.9 2 - 11 % [facility] Eosinophils Percent Auto 5.5(H) 0 - 4 % [facility] Basophils Percent Auto 0.5 0 - 2 % [facility] NRBC Pct Auto 0.0 0.0 - 0.2 /100WBC [facility] Neutrophils Absolute Auto 3.1 2.0 - 8.3 x10*3/uL [facility] Imm Gran Abs Auto 0.03 0.00 - 0.03 X10*3/uL [facility] Lymphocytes Absolute Auto 1.9 1.2 - 4.9 X10*3/uL [facility] Monocytes Absolute Auto 0.5 0.1 - 1.2 X10*3/uL [facility] Eosinophils Absolute Auto 0.3 0.0 - 0.4 X10*3/uL [facility] Basophils Absolute Auto 0.0 0.0 - 0.2 X10*3/uL [facility] NRBC Abs Auto 0.000 0.0 - 0.012 X10*3/uL [facility] 09/21/2025 8:33 AM EST 09/21/2025 11:17 AM EST us Generic External Data Provider LAB BLOOD ORDERAB LES Final Result Performing Organization Address [facility] Co de Phone Number [facility] [address] [place] [address] [phone] * Hepatitis C Antibody with Reflex to HCV, RNA, Quantitative, Real-Time PCR (09/21/2025 8:33 AM EST) Hepatitis C Antibody Nonreactive Nonreactive [facility] Comment:Antibodies to HCV no t detected; does not exclude early acuteHCV infection. Blood Venous blood specimen / Unknown 09/21/2025 8:33 AM EST 09/21/2025 11:17 AM EST us Carey Porter MD LAB BLOOD ORDERABLES Final Result Performing Organization Address [facility] de Phone Number [facility] [address] [place] [phone] * Iron And Total Iron Binding Capacity (09/21/2025 8:33 AM EST) Iron 42 30 - 160 mcg/dL [facility] Total Iron Binding Capacity 250 228 - 428 mcg/dL [facility] Percent Iron Saturation 17 15 - 50 % [facility] Unsaturated Iron Binding 208 ug/dL [facility] 09/21/2025 8:33 AM EST 09/21/2025 11:17 AM EST us Generic External Data Provider LAB BLOOD ORDERAB LES Final Result Performing Organization Address [facility]/ZIP Co de Phone Number [facility] [address] [place] [phone] [phone] * HIV-1/2 Antigen and Antibodies, Fourth Generation, with Reflexes (09/21/2025 8:33 AM EST) HIV AB/AG Nonreactive Nonreactive [facility] Comment:HIV-1 p24 Ag and/or HIV-1/HIV-2 Ab not detected.A test result that is nonreactive does not exclude thepossibility of exposure to or infection with HIV-1 and/orHIV-2. Nonreactive results in this assay for individualswith prior exposure to HIV-1 and/or HIV-2 may be due toantigen and antibody levels that are below the limit ofdetection of this assay.The Amerityre HIV Ag/Ab Combo assay result andsupplemental assay results should be interpreted inconjunction with the patient's clinical presentation,history and other laboratory results. If the results areinconsistent with clinical evidence, additional testing issuggested to confirm the result. Blood Venous blood specimen / Unknown 09/21/2025 8:33 AM EST 09/21/2025 11:17 AM EST us Carey Porter MD LAB BLOOD ORDERABLES Final Result [facility] [address] [place] [phone] [phone] * Hemoglobin A1c (09/21/2025 8:33 AM EST) Hemoglobin A1c 6.0 <6.0 % [facility] Comment:Hemoglobin A1C Refer ence Range Adults: 4.8 - 6.0 % Non diabetic: < 6.0 % Goal: < 7.0 %Additional Action Suggested: > 8.0 %Note: Hemoglobin A1c results are invalid for patients with abnormal amounts of HbF. Blood transfusions may impact the HbA1c concentration in the patient sample. Estimated Average Glucose 126 mg/dL [facility] Comment:eAG = Estimated ave rage glucose which is %A1C expressed asaverage glucose, using the formula of the R7Y-PfphlnkPisypnn Glucose study (ADAG), Diabetes Care, Vol.31,#8,May. 2007 Blood Venous blood specimen / Unknown 09/21/2025 8:33 AM EST 09/21/2025 11:17 AM EST us Carey Porter MD LAB BLOOD ORDERABLES Final Result Performing Organization Address City/[facility]/ZIP Co de Phone Number [facility] [address] [place] [phone] * (ABNORMAL) Lipid Panel, Standard (09/21/2025 8:33 AM EST) Triglycerides 149 <150 mg/dL [facility] Comment:Desirable Triglyceri de: less than 150 mg/dLBorderline High Triglyceride 150-199 mg/dLHigh Triglyceride: 200-499 mg/dLVery High Triglyceride: greater than or equal to 5OO mg/dL Cholesterol 179 <200 mg/dL [facility] Comment:Desirable Cholestero l: less than 200 mg/dLBorderline High Cholesterol: 200-239 mg/dLHigh Cholesterol: greater than 239 mg/dL LDL Cholesterol Calculated 117(H) <100 mg/dL [facility] Comment:Desirable LDL: less than 100 mg/dLNear Optimal/Above Optimal LDL: 110- 129 mg/dLBorderline High LDL: 130-159 mg/dLHigh LDL: 160-189 mg/dLVery High LDL: greater than or equal to 190 mg/dL HDL Cholesterol 33(L) >40 mg/dL [facility] Comment:Desirable HDL: great er than 40 mg/dL Note: This HDL assay may give artificially low results in patients with liver disease. Blood Venous blood specimen / Unknown 09/21/2025 8:33 AM EST 09/21/2025 11:17 AM EST us Carey Porter MD LAB BLOOD ORDERABLES Final Result Performing Organization Address City/[facility]/ZIP Co de Phone Number [facility] [address] [place] [phone] * (ABNORMAL) Comprehensive Metabolic Panel (09/21/2025 8:33 AM EST) Sodium 142 135 - 145 mmol/L [facility] Potassium 3.2(L) 3.3 - 5.1 mmol/L [facility] Chloride 104 96 - 108 mmol/L [facility] Carbon Dioxide 30(H) 22 - 29 mmol/L [facility] Anion Gap 11(L) 12 - 20 [facility] Urea Nitrogen (BUN) 15 9 - 16 mg/dL [facility] Creatinine, Serum 0.91 0.5 - 1.4 mg/dL [facility] Estimated Glomerular Filt Rate >60 [facility] Comment:Chronic Kidney Disea se: Estimated GFR < 60 mL/min/1.96p6Jatbti Kidney Disease: Estimated GFR < 15 mL/min/1.73m2 Glucose 118(H) 60 - 115 mg/dL [facility] Calcium 8.9 8.4 - 10.2 mg/dL [facility] Bilirubin, Total 0.3 0.0 - 1.0 mg/dL [facility] Aspartate Amino Transferase 27 5 - 31 U/L [facility] Alanine Aminotransferase 34(H) 0 - 31 U/L [facility] Total Protein 7.3 6.5 - 8.0 g/dL [facility] Albumin Level 4.5 3.5 - 5.0 g/dL [facility] Alkaline Phosphatase 108 39 - 117 U/L [facility] Blood Venous blood specimen / Unknown 09/21/2025 8:33 AM EST 09/21/2025 11:17 AM EST us Carey Porter MD LAB BLOOD ORDERABLES Final Result [facility] [address] [place] [phone] * US BLADDER (09/16/2025 3:40 PM EST) Anatomical Region Laterality Modality Abdomen Ultrasound 09/16/2025 3:40 PM EST Narrative 09/16/2025 4:19 PM EST [address] [address] Ultrasound Report Signed Patient: Lucinda Srivastava MR#: [id number] : 1975 Acct:[id number] Age/Sex: 50 / F ADM Date: 09/16/25 Loc: HO.US Attending Dr: Sagrario STUBBS Ordering Physician: Sagrario Chanrda Date of Service: 09/16/25 Procedure(s): US bladder Accession Number(s): [id number] cc: Carey Lowry MD; Sagrario Chandra Reason for Exam: CALCULUS OF KIDNEY EXAMINATION: US PELVIS LIMITED (BLADDER) CLINICAL INFORMATION: Calculus of kidney. Evaluate bladder. COMPARISON: 07/23/2025 renal ultrasound. TECHNIQUE: Real-time imaging of the bladder. FINDINGS: BLADDER: Well distended and normal. Bilateral ureteral jets are demonstrated. Prevoid bladder volume is 432 mL. Postvoid bladder volume is 4 mL. US/US bladder IMPRESSION: Normal urinary bladder. Electronically signed by: Raghav Saldaña MD 09/16/2025 04:16 PM [facility] Dictated By: Raghav Saldaña MD Signed By: <Electronically signed by Raghav Saldaña MD in OV> 09/16/25 1616 DD/ 1540 TD/TT: 09/16/25 1545 Competency Evaluated Nurse Aide: Procedure Note Donotuseinterpreter, Image - 09/17/[address] [address] Ultrasound Report Signed Patient: Lucinda Srivastava MR#: [id number] : 1975Acct:[id number] Age/Sex: 50 / FADM Date: 09/16/25 Loc: HO.US Attending Dr: Sagrario STUBBS Ordering Physician: Sagrario Chandra Date of Service: 09/16/25 Procedure(s): US bladder Accession Number(s): [id number] cc: Carey Lowry MD; Sagrario Chandra [facility] Reason for Exam: CALCULUS OF KIDNEY EXAMINATION: US PELVIS LIMITED (BLADDER) CLINICAL INFORMATION: Calculus of kidney. Evaluate bladder. COMPARISON: 07/23/2025 renal ultrasound. TECHNIQUE: Real-time imaging of the bladder. FINDINGS: BLADDER: Well distended and normal. Bilateral ureteral jets are demonstrated. Prevoid bladder volume is 432 mL. Postvoid bladder volume is 4 mL. US/US bladder IMPRESSION: Normal urinary bladder. Electronically signed by: Raghav Saldaña MD 09/16/2025 04:16 PM [facility] Dictated By: Raghav Saldaña MD Signed By: <Electronically signed by Raghav Saldaña MD in OV> 09/16/25 1616 DD/ 1540 TD/TT: 09/16/25 1545 Competency Evaluated Nurse Aide: [facility] External Provider IMG US PROCEDURES Final Result from Last 3 Months Insurance C3 Care Teams Press Technician Relationship Specialty Start Date End Date Carey Lowry MD [address] [place] [phone] PCP - General Internal Medicine 09/17/25
--- OUTSIDE RECORDS SUMMARY | 2025-10-12 17:46 | XMS_ITS | Encounter Summary ---
Author Organization [employer] Address [address] [place] [address] Care Team Providers Care Office Nurse Name Role Phone Carey Lowry MD Primary Care Provide r Reason for Visit * Reason Onset Date Comments Results 09/21/2025 Encounter Details Date Type Department Care Team (Latest Contact Info) Description 09/21/2025 Results Follow-Up [facility] [address] [place], [place] [phone] Carey Lowry MD [address] [place] [address] CBC auto differential, Comprehensive Metabolic Panel, Hemoglobin A1c, Additional followed-up results: 3 Social History Tobacco Use Types Packs/Day Years [...] encounter Miscellaneous Notes * Telephone Encounter - Amarilis Lemus RN - 09/22/2025 9:24 AM EST TC placed to patient [phone] regarding below message. RN left an VM for the patient to Red team nurses. RN will send patient an [employer] message. * Telephone Encounter - Amarilis Lemus RN - 09/22/2025 9:19 AM EST ----- Message from Carey Porter MD sent at 09/21/2025 1:53 PM EST ----- Please let patient know her potassium is low advise diet rich in potassium and to repeat BMP in about a week, rest of labs I will like to discuss on upcoming appointment on 10/13/25 thank you ----- Message ----- From: Interface, Lab Results In Sent: 09/21/2025 11:54 AM EST To: Carey Porter MD documented in this encounter Plan of Treatment Upcoming Encounters Date Type Department Care Team (Late st Contact Info) Description 10/13/2025 9:30 AM EST Telemedicine [facility] [address] [place] [phone] Carey Lowry MD [address] [place] [address] 10/20/2025 1:00 PM EST Medication Management [facility] [address] [place] [address] Vidal Mcgowan, PharmD [address] [place] [address] Scheduled Orders Name Type Priority Associated Diagnoses Orde r Schedule Potassium Lab Routine Hypokalemia Expected: 09/21/2025, Expires: 09/21/2026 documented as of this encounter Visit Diagnoses Diagnosis Hypokalemia- Primary Hypopotassemia documented in this encounter Additional Health Concerns Assessment Noted Time PHQ-9 Depression Total Score: 15 025 9:34 AM EST documented as of this encounter Care Teams Office Nurse Relationship Specialty Start Date End Date Carey Lowry MD [address] [place] [phone] PCP - General Internal Medicine 09/17/25 documented as of this encounter
== END 2025-10-12 15:55 ==
LOC: HO.MAMMO 15:54
PROVIDERS: PCP Internal Medicine; Visit Provider Internal Medicine
DX: Z12.31 Encounter for screening mammogram for malignant neoplasm of breast (principal)
CPT/HCPCS: 77063; 77067